=== PATIENT | male | born 1950 | race Caucasian/White ===

== ENCOUNTER 2017-05-29 06:20 | Outpatient (CLI) | payer MEDICARE | END 2017-05-29 06:21 | disposition critical access hospital (66) | LOC: EMS 06:20 | PROVIDERS: ATTEND Surgery | DX: R06.02 Shortness of breath (principal) | CPT/HCPCS: A0425; A0427 ==

== ENCOUNTER 2017-05-29 06:36 | Inpatient (IN) | payer MEDICARE, OTHER ==
[2017-05-29] MEDS ORDERED: SODIUM CHLORIDE 0.9% 1,000 ML IV ONE (06:43)
[2017-05-29] MEDS ORDERED: ACETAMINOPHEN 325 MG TABLET PO STA (06:44)
[2017-05-29 07:19] LABS: BASOPHILS % (AUTO) 0.3 %; EOSINOPHILS # (AUTO) 0.1 10^3/uL (0.0-0.7); EOSINOPHILS % (AUTO) 0.9 %; HGB - HEMOGLOBIN 12.6 g/dL (14.0-18.0); LYMPHOCYTES # (AUTO) 0.3 10^3/uL (1.5-3.5); LYMPHOCYTES % (AUTO) 2.5 %; MEAN CORPUSCULAR VOLUME 90.8 fL (80.0-94.0); MEAN PLATELET VOLUME 7.3 fL (7.4-11.4); MONOCYTES # (AUTO) 1.2 10^3/uL (0.0-1.0); MONOCYTES % (AUTO) 10.3 %; NEUTROPHILS # (AUTO) 10.2 10^3/uL (1.5-6.6); PLT - PLATELET COUNT 310 10^3/uL (130-450); RED BLOOD COUNT 4.19 10^6/uL (4.70-6.10); RED CELL DISTRIBUTION WIDTH 13.9 % (12.0-15.0); WHITE BLOOD COUNT 11.8 x10^3/uL (4.8-10.8)
[2017-05-29 07:31] LABS: ALBUMIN 4.1 g/dL (3.2-5.5); ALBUMIN/GLOBULIN RATIO 1.5 (1.0-2.2); BILIRUBIN,TOTAL 0.8 mg/dL (0.2-1.0); CALCIUM 8.9 mg/dL (8.5-10.3); CREATININE 0.7 mg/dL (0.6-1.2); TOTAL PROTEIN 6.9 g/dL (6.7-8.2)
--- NOTE | 2017-05-29 07:42 | XRAY Report ---
EXAM: CHEST RADIOGRAPHY 2 VIEWS EXAM DATE: 05/29/2017. CLINICAL HISTORY: Fever. Shortness of breath. COMPARISON: AP portable chest done 03/31/2016. TECHNIQUE: PA and lateral views. FINDINGS: Lungs/Pleura: Emphysema is unchanged. Mild increased interstitial opacity compared with the prior exa mination. Small nodular opacities in the right mid lung, not present before. Small right pleural effu treasure, not present previously. Pleural scarring in the left costophrenic angle is unchanged. No pneumo thorax. Mediastinum: Normal cardiac and mediastinal contours. Bones: Minimal disk degenerative changes of the spine. IMPRESSION: Emphysema. Mild increased interstitial opacity compared with the prior examination; this could be from pulmonary edema or interstitial pneumonia. Atypical presentation of congestive heart failure in a patient with severe emphysema is a possibility. New nodular opacities in the right mid lung could be inflammatory or neoplastic. Radiographic follow- up is needed. New small right pleural effusion. [facility] Referring Provider Line: [phone] SITE ID: [id number]
[2017-05-29 08:02] LABS: INR 1.1 (0.8-1.2); PT - PROTHROMBIN TIME 12.8 secs (9.9-12.6)
--- NOTE | 2017-05-29 08:03 | ED Physician Documentation ---
PD HPI DYSPNEA - Stated complaint Stated Complaint: SOA - Chief complaint Chief Complaint: Resp - History obtained from History obtained from: Patient, EMS - History of Present Illness Timing - onset: How many weeks ago (1) Timing - onset during: Rest Timing - duration: Weeks (1) Timing - details: Gradual onset, Still present Inciting event(s): URI Improved by: Inhaler/neb Worsened by: Exertion, Coughing Associated symptoms: Fever, Cough, Wheezing Similar symptoms before: Diagnosis (COPD) Recently seen: Not recently seen - Additional information Additional information: 66-year-old male with a history of COPD and neurofibromatosis has developed a worsening cough over the past week and he has developed fever as well. Review of Systems Constitutional: reports: Fever Eyes: denies: Decreased vision Ears: denies: Ear pain Nose: reports: Rhinorrhea / runny nose, Congestion Throat: denies: Sore throat Cardiac: denies: Chest pain / pressure, Palpitations Respiratory: reports: Dyspnea, Cough, Wheezing GI: reports: Constipation. denies: Abdominal Pain, Nausea, Vomiting, Diarrhea : denies: Dysuria, Frequency Skin: denies: Rash Musculoskeletal: reports: Extremity pain. denies: Neck pain, Back pain, Extremity swelling Neurologic: denies: Generalized weakness, Focal weakness, Numbness PD PAST MEDICAL HISTORY - Past Medical History Cardiovascular: None Respiratory: COPD Neuro: CVA Endocrine/Autoimmune: None GI: None : None HEENT: None Psych: None Musculoskeletal: None Derm: Other - Past Surgical History Past Surgical History: Yes General: Cholecystectomy Ortho: Other HEENT: Tonsil/Adenoidectomy Derm: Debridement - Present Medications Home Medications: Ambulatory Orders Medication Instructions Recorded Confirmed Phenytoin Sodium Extended 200 mg PO BID 12/29/15 05/29/17 Albuterol Sulf [Ventolin Hfa 2 puffs INH Q4H PRN 05/29/17 05/29/17 Inhaler] Carbamazepine [Carbamazepine ER] 200 mg PO BID 05/29/17 05/29/17 Rivaroxaban [Xarelto] 20 mg PO QDDINNER 05/29/17 05/29/17 - Allergies Allergies/Adverse Reactions: Allergies Allergy/AdvReac Type Severity Reaction Status Date / Time Egg Derived AdvReac Intermediate Respiratory Verified 05/29/17 06:41 egg AdvReac Mild Nausea Verified 05/29/17 06:41 lactose AdvReac Mild Cramps Verified 05/29/17 06:41 - Social History Does the pt smoke?: No Smoking Status: Never smoker Does the pt drink ETOH?: No Does the pt have substance abuse?: No - Immunizations Immunizations are current?: Yes - POLST Patient has POLST: No PD ED PE NORMAL - Vitals Vital signs reviewed: Yes (Febrile and tachycardic) - General General: Alert and oriented X 3, No acute distress, Well developed/nourished - HEENT HEENT: Atraumatic, PERRL, EOMI, Other (Mucous membranes are dry and the right TM is mildly erythematous left is blocked with cerumen and attempts at removing this causes severe pain to the patient.) - Neck Neck: Supple, no meningeal sign, No bony TTP - Cardiac Cardiac: No murmur, Other (Tachycardia to 100) - Respiratory Respiratory: No respiratory distress, Other (Markedly diminished breath sounds in the bases) - Abdomen Abdomen: Soft, Non tender - Back Back: No CVA TTP, No spinal TTP - Derm Derm: Normal color, Warm and dry, Other (There are the typical skin findings of neurofibromatosis) - Extremities Extremities: No deformity, No edema - Neuro Neuro: No motor deficit, No sensory deficit Eye Opening: Spontaneous Motor: Obeys Commands Verbal: Oriented GCS Score: 15 - Psych Psych: Normal mood, Normal affect Results - Vitals Vitals: Vital Signs - 24 hr 05/29/17 06:39 Temperature 39.6 C H Heart Rate 107 H Respiratory 20 Rate Blood Pressure 102/67 O2 Saturation 94 Oxygen O2 Source [With Activity] Nasal cannula O2 Source Room air - Labs Labs: Laboratory Tests 05/29/17 05/29/17 05/29/17 06:47 07:05 07:05 WBC 11.8 H RBC 4.19 L Hgb 12.6 L Hct 38.0 L MCV 90.8 MCH 30.0 MCHC 33.0 RDW 13.9 Plt Count 310 MPV 7.3 L Neut # 10.2 H Lymph # 0.3 L Green # 1.2 H Eos # 0.1 Baso # 0.0 Absolute Nucleated RBC 0.00 Nucleated RBC % 0.0 PT INR Sodium 138 Potassium 4.2 Chloride 100 L Carbon Dioxide 25 Anion Gap 13.0 BUN 10 Creatinine 0.7 Estimated GFR (MDRD) 112 Glucose 107 H Lactic Acid Calcium 8.9 Total Bilirubin 0.8 AST 30 ALT 21 Alkaline Phosphatase 93 Total Protein 6.9 Albumin 4.1 Globulin 2.8 Albumin/Globulin Ratio 1.5 Lipase 18 L Influenza A (Rapid) Negative Influenza B (Rapid) Negative Influenza Types A,B Ag - 05/29/17 05/29/17 07:05 07:05 WBC RBC Hgb Hct MCV MCH MCHC RDW Plt Count MPV Neut # Lymph # Green # Eos # Baso # Absolute Nucleated RBC Nucleated RBC % PT 12.8 H INR 1.1 Sodium Potassium Chloride Carbon Dioxide Anion Gap BUN Creatinine Estimated GFR (MDRD) Glucose Lactic Acid 1.7 Calcium Total Bilirubin AST ALT Alkaline Phosphatase Total Protein Albumin Globulin Albumin/Globulin Ratio Lipase Influenza A (Rapid) Influenza B (Rapid) Influenza Types A,B Ag - Rads (name of study) chest Radiology: Prelim report reviewed (Impression: Emphysema. Mild increased interstitial opacity compared with the prior examination; this could be from pulmonary edema or interstitial pneumonia. Atypical presentation of congestive heart failure in a patient with severe emphysema is a possibility. New nodular opacities in the right midlung could be inflammatory or neoplastic. Radiographic follow-up as needed. New small right pleural effusion.), EMP read indepedently, See rad report Procedures - IVC sono (time) 0800 Bedside IVC sono: IVC measures (cm) (0.97), IVC collapsed c insp (cm) (complete) , Dehydration (est 1 liter deficiet) PD MEDICAL DECISION MAKING - ED course Complexity details: reviewed old records, reviewed results, re-evaluated patient , considered differential, d/w patient ED course: 66-year-old male with neurofibromatosis and COPD has developed acute pneumonia. He will be admitted to the hospital under the care of Dr. Syd Gonzalez. Departure - Departure Disposition: 65 [facility] DC/Xfer Clinical Impression: Pneumonia COPD (chronic obstructive pulmonary disease) Qualifiers: COPD type: COPD with acute lower respiratory infection Qualified Code(s): J44.0 - Chronic obstructive pulmonary disease with acute lower respiratory infection Condition: Fair Discharge Date/Time: 05/29/17 09:40
[2017-05-29] MEDS ORDERED: cefTRIAXone 1 GM in SODIUM CHLORIDE 0.9% MINIBAG 100 ML IV STA (08:06)
[2017-05-29] MEDS ORDERED: IPRATROPIUM/ALBUTEROL 3 ML NEB INH STA (08:06)
[2017-05-29] MEDS ORDERED: carBAMazepine ER 200 MG TABLET PO STA (08:06)
[2017-05-29] MEDS ORDERED: PHENYTOIN ER 100 MG CAPSULE PO STA (08:07)
[2017-05-29] MEDS ORDERED: HYDROcod/ACETAM 5/325 MG TABLET PO PRN (08:20)
[2017-05-29] MEDS ORDERED: PROCHLORPERAZINE 10 MG/2 ML VIAL IVP PRN (08:20)
[2017-05-29] MEDS ORDERED: ONDANSETRON 4 MG/2 ML VIAL IVP PRN (08:20)
[2017-05-29] MEDS ORDERED: ACETAMINOPHEN 325 MG TABLET PO PRN (08:20)
[2017-05-29] MEDS ORDERED: HYDROcod/ACETAM 10 MG/325 MG TABLET PO PRN (08:20)
[2017-05-29] MEDS ORDERED: PROMETHAZINE 25 MG/1 ML VIAL IM PRN (08:20)
[2017-05-29] MEDS: SODIUM CHLORIDE FLUSH 0.9% 10 ML SYRINGE IVP PRN (10:28)
[2017-05-29] MEDS: MORPHINE 2 MG/ML CARPUJECT IVP PRN ×2 (10:28→20:22)
[2017-05-29] MEDS: BUDESONIDE 0.5 MG/2 ML NEB INH SCH ×2 (10:30→21:15)
[2017-05-29] MEDS: FORMOTEROL FUMARATE NEB 20 MCG/2 ML INH SCH ×2 (10:30→21:15)
[2017-05-29] MEDS ORDERED: SODIUM CHLORIDE 0.9% 100ML 100 ML IV ONE (10:57)
[2017-05-29] MEDS: PHENYTOIN ER 100 MG CAPSULE PO SCH ×2 (11:00→20:22)
[2017-05-29] MEDS: methylPREDNISolone SUCCINATE 40 MG/ML VIAL IVP SCH ×3 (11:00→21:26)
[2017-05-29] MEDS: POLYETHYLENE GLYCOL 3350 17 GM PACKET PO SCH (11:01)
[2017-05-29] MEDS: FAMOTIDINE 20 MG TABLET PO SCH (11:01)
[2017-05-29] MEDS: LORazepam 0.5 MG TABLET PO PRN ×2 (11:01→20:22)
[2017-05-29] MEDS: carBAMazepine ER 200 MG TABLET PO SCH ×2 (11:01→20:21)
[2017-05-29] MEDS: levoFLOXacin 750 MG/150 ML 750 MG/150 ML BAG IV SCH (11:13)
[2017-05-29 11:24] LABS: BILIRUBIN,URINE NEGATIVE (NEGATIVE); CLARITY,URINE CLEAR (CLEAR); GLUCOSE, URINE (UA) NEGATIVE (NEGATIVE); KETONES,URINE (UA) TRACE mg/dL (NEGATIVE); LEUKOCYTE ESTERASE, URINE NEGATIVE (NEGATIVE); NITRITE,URINE NEGATIVE (NEGATIVE); OCCULT BLOOD,URINE NEGATIVE (NEGATIVE); PH,URINE 6.5 PH (5.0-7.5); PROTEIN,URINE NEGATIVE (NEGATIVE); UROBILINOGEN,URINE 0.2 (NORMAL) E.U./dL (NORMAL)
[2017-05-29] MEDS ORDERED: SODIUM CHLORIDE 0.9% 1,000 ML IV SCH (13:00)
--- NOTE | 2017-05-29 13:07 | HISTORY & PHYSICAL EXAMINATION ---
Chief Complaint - Chief Complaint Chief Complaint: Shortness of air History of Present Illness - Admitted From Admitted From:: Emergency department - History Obtained From Records Reviewed: Yes History obtained from: Patient Exam Limitations: None - History of Present Illness HPI Comment/Other: Patient is a 66-year-old gentleman with a past medical history significant for severe COPD with last PFTs in 2013 showing an FEV1 of 25 on 3 L of home oxygen, congenital neurofibromatosis, seizure disorder secondary to brain aneurysm in 1983, tobacco abuse, history of recurrent pulmonary emboli and DVT who presented to the emergency department with a chief complaint of shortness of air. The patient states that he was in his normal state of health until just 2 days ago when he states he began having difficulty breathing. He states initially the shortness of air was with exertion and then it became much worse as he became short of air just with standing up and eventually at rest. The patient states that he has a chronic cough which is also been worsening for the last 2 days. The patient admits to significant wheezing and chest tightness over the last several days. The patient states that he did try to take his inhalers at home but was not having any significant improvement to his symptoms. The patient denies any fevers or chills. He states that he did stop smoking once he became short of air but does continue to smoke 6-7 cigarettes a day. The patient denies being around anyone with the flu or any other sick contacts. Patient denies any headache, blurred vision, runny nose, sore throat, nasal congestion, difficulty swallowing, neck pain, neck stiffness, orthopnea, PND, increased lower extremity swelling, abdominal pain, nausea, vomiting, diarrhea, constipation, urinary urgency, urinary frequency, dysuria, joint pain, joint swelling, muscle aches, back pain, changes in appetite, recent unintentional weight loss, weight gain, rash or any focal neurologic deficits. On presentation to the emergency department the patient was febrile with a temperature of 39.6, tachycardic with heart rate of 107, tachypneic with respiratory rate up to 28, and borderline hypotensive with blood pressure of 102 /67. The patient was saturating well on just 2 L of oxygen. The patient's lab work did reveal a leukocytosis of 11.8, with normal electrolytes and normal lactic acid. The patient's influenza swab was negative. The patient's chest x- ray revealed emphysema with mildly increased interstitial opacity compared with prior examination, new nodular opacity in the right midlung and new small right pleural effusion. Given these findings and the fact the patient continued to have wheezing and shortness of air in the emergency department the patient was admitted to the hospital for community-acquired pneumonia and COPD exacerbation. History - Past Medical History Cardiovascular: reports: None Respiratory: reports: COPD (FEV1 of 25, On 3 L of oxygen) Neuro: reports: Seizure disorder, Other (Neurofibromatosis) Endocrine/Autoimmune: reports: None GI: reports: None : reports: None HEENT: reports: None Psych: reports: None Musculoskeletal: reports: None Derm: reports: Other MRSA Hx?: No Other Past Medical History: History of pulmonary embolism and DVT recurrent, diaz to face - Past Surgical History General: reports: Cholecystectomy Ortho: reports: Other HEENT: reports: Tonsil/Adenoidectomy Derm: reports: Debridement - Family & Social History Family History Comment/Other: Adopted Living arrangement: [facility]iary Living Situation: Alone Social History Notes: The patient lives in a senior care with shared rooms. He does not have any family on [facility]. He does not have any children and has never been . He continues to smoke 6-7 cigarettes daily. He drinks alcohol only on Nelly. He denies any illicit drug use. - POLST Patient has POLST: No POLST Status: Full Code Meds/Allgy - Home Medications Home Medications: Ambulatory Orders Medication Instructions Recorded Confirmed Phenytoin Sodium Extended 200 mg PO BID 12/29/15 05/29/17 Albuterol Sulf [Ventolin Hfa 2 puffs INH Q4H PRN 05/29/17 05/29/17 Inhaler] Carbamazepine [Carbamazepine ER] 200 mg PO BID 05/29/17 05/29/17 Rivaroxaban [Xarelto] 20 mg PO QDDINNER 05/29/17 05/29/17 - Allergies Allergies/Adverse Reactions: Allergies Allergy/AdvReac Type Severity Reaction Status Date / Time Egg Derived AdvReac Intermediate Respiratory Verified 05/29/17 06:41 egg AdvReac Mild Nausea Verified 05/29/17 06:41 lactose AdvReac Mild Cramps Verified 05/29/17 06:41 Review of Systems - Other Findings Other Findings: A comprehensive review of systems was performed the pertinent positives and negatives are stated above in the HPI and the remainder of the review of systems is negative. Exam - Vital Signs Reviewed Vital Signs: Yes Vital Signs: Vital Signs x48h Temp Pulse Pulse Resp BP BP BP 05/29/17 10:34 110 H 106/61 05/29/17 10:30 115 H 20 05/29/17 10:22 28 H 117/66 05/29/17 10:00 37.0 C 101 H 18 93/64 05/29/17 09:30 72 18 102/74 05/29/17 08:32 105 H 18 89/58 L 05/29/17 08:23 99 22 Pulse Ox 05/29/17 10:34 100 05/29/17 10:30 05/29/17 10:22 05/29/17 10:00 99 05/29/17 09:30 97 05/29/17 08:32 97 05/29/17 08:23 - Physical Exam General Appearance: positive: Moderate distress (Tachypneic, shaky and in respiratory distress), Other (, Fibromas over entire body, tremor) Eyes Bilateral: positive: Normal inspection, PERRL, EOMI, No lid inflammation, Conjunctivae nml, No scleral icterus ENT: positive: ENT inspection nml, Pharynx nml, Dry mucous membranes. negative : Purulent nasal drainage, Pharyngeal erythema, Oral lesions Neck: positive: Nml inspection, Thyroid nml, No JVD, Trachea midline. negative : Thyromegaly, Lymphadenopathy (R), Lymphadenopathy (L), Carotid bruit, Tracheal deviation Respiratory: positive: Chest non-tender, Wheezes (Scattered, expiratory), Rhonchi (Right base) Cardiovascular: positive: No murmur, No gallop, Tachycardia Peripheral Pulses: positive: 2+ Abdomen: positive: Non-tender, No organomegaly, Nml bowel sounds, No distention. negative: Guarding, Rebound, Hepatomegaly Back: positive: Nml inspection. negative: CVA tenderness (R), CVA tenderness (L ) Skin: positive: Dry, Other (Multiple fibromas throughout body). negative: Cyanosis, Diaphoresis, Pallor Neurologic/Psychiatric: positive: Oriented x3, CN's nml (2-12), Motor nml, Sensation nml, Mood/affect nml Conclusion/Plan - Problem List (1) CAP (community acquired pneumonia) Conclusion/Plan: Patient presented with shortness of breath, cough, febrile on presentation with tachycardia, tachypnic and in respiratory distress. Patient had wheezing and ronchi on exam. Elevated WBC and CXR showing interstitial and right middle lobe pneumonia. Plan: IV levaquin Supplemental O2 Consider CT chest if not improving Qualifiers: Laterality: right Lung location: middle lobe of lung Qualified Code(s): J18.1 - Lobar pneumonia, unspecified organism (2) COPD exacerbation Conclusion/Plan: Presented with pneumonia and also has wheezing, with shortness of air and history of severe COPD Appears to have COPD exacerbation Plan: Duonebs ATC x24 hours and PRN Supplemental O2 IV abx for pneumonia Solumedrol IV ICS and LABA BID (3) History of pulmonary embolism Conclusion/Plan: Continue xarelto Place on SCDs for DVT prophylaxis while hospitalized (4) Seizure disorder Conclusion/Plan: Continue home dose of phenytoin and carbamezapine Stable - Lab Results Lab results reviewed: Yes Fish Bones: 05/29/17 07:05 05/29/17 07:05 Other Lab Results: Laboratory Results WBC 11.8 x10^3/uL (4.8-10.8) H 05/29/17 07:05 RBC 4.19 10^6/uL (4.70-6.10) L 05/29/17 07:05 Hgb 12.6 g/dL (14.0-18.0) L 05/29/17 07:05 Hct 38.0 % (42.0-52.0) L 05/29/17 07:05 MCV 90.8 fL (80.0-94.0) 05/29/17 07:05 MCH 30.0 pg (27.0-31.0) 05/29/17 07:05 MCHC 33.0 g/dL (32.0-36.0) 05/29/17 07:05 RDW 13.9 % (12.0-15.0) 05/29/17 07:05 Plt Count 310 10^3/uL (130-450) 05/29/17 07:05 MPV 7.3 fL (7.4-11.4) L 05/29/17 07:05 Neut # 10.2 10^3/uL (1.5-6.6) H 05/29/17 07:05 Lymph # 0.3 10^3/uL (1.5-3.5) L 05/29/17 07:05 Rains # 1.2 10^3/uL (0.0-1.0) H 05/29/17 07:05 Eos # 0.1 10^3/uL (0.0-0.7) 05/29/17 07:05 Baso # 0.0 10^3/uL (0.0-0.1) 05/29/17 07:05 Absolute Nucleated RBC 0.00 x10^3/uL 05/29/17 07:05 Nucleated RBC % 0.0 /100WBC 05/29/17 07:05 PT 12.8 secs (9.9-12.6) H 05/29/17 07:05 INR 1.1 (0.8-1.2) 05/29/17 07:05 Sodium 138 mmol/L (135-145) 05/29/17 07:05 Potassium 4.2 mmol/L (3.5-5.0) 05/29/17 07:05 Chloride 100 mmol/L (101-111) L 05/29/17 07:05 Carbon Dioxide 25 mmol/L (21-32) 05/29/17 07:05 Anion Gap 13.0 (6-13) 05/29/17 07:05 BUN 10 mg/dL (6-20) 05/29/17 07:05 Creatinine 0.7 mg/dL (0.6-1.2) 05/29/17 07:05 Estimated GFR (MDRD) 112 (>89) 05/29/17 07:05 Glucose 107 mg/dL (70-100) H 05/29/17 07:05 Lactic Acid 1.7 mmol/L (0.5-2.2) 05/29/17 07:05 Calcium 8.9 mg/dL (8.5-10.3) 05/29/17 07:05 Total Bilirubin 0.8 mg/dL (0.2-1.0) 05/29/17 07:05 AST 30 IU/L (10-42) 05/29/17 07:05 ALT 21 IU/L (10-60) 05/29/17 07:05 Alkaline Phosphatase 93 IU/L (42-121) 05/29/17 07:05 Total Protein 6.9 g/dL (6.7-8.2) 05/29/17 07:05 Albumin 4.1 g/dL (3.2-5.5) 05/29/17 07:05 Globulin 2.8 g/dL (2.1-4.2) 05/29/17 07:05 Albumin/Globulin Ratio 1.5 (1.0-2.2) 05/29/17 07:05 Lipase 18 U/L (22-51) L 05/29/17 07:05 Urine Color DARK YELLOW 05/29/17 11:15 Urine Clarity CLEAR (CLEAR) 05/29/17 11:15 Urine pH 6.5 PH (5.0-7.5) 05/29/17 11:15 Ur Specific Dexter 1.020 (1.002-1.030) 05/29/17 11:15 Urine Protein NEGATIVE mg/dL (NEGATIVE) 05/29/17 11:15 Urine Glucose (UA) NEGATIVE mg/dL (NEGATIVE) 05/29/17 11:15 Urine Ketones TRACE mg/dL (NEGATIVE) 05/29/17 11:15 Urine Occult Blood NEGATIVE (NEGATIVE) 05/29/17 11:15 Urine Nitrite NEGATIVE (NEGATIVE) 05/29/17 11:15 Urine Bilirubin NEGATIVE (NEGATIVE) 05/29/17 11:15 Urine Urobilinogen 0.2 (NORMAL) E.U./dL (NORMAL) 05/29/17 11:15 Ur Leukocyte Esterase NEGATIVE (NEGATIVE) 05/29/17 11:15 Ur Microscopic Review NOT INDICATED 05/29/17 11:15 Urine Culture Comments NOT INDICATED 05/29/17 11:15 Influenza A (Rapid) Negative (Negative) 05/29/17 06:47 Influenza B (Rapid) Negative (Negative) 05/29/17 06:47 Influenza Types A,B Ag - 05/29/17 06:47 - Diagnostic Imaging Results Diagnostic Imaging Results: positive: Final report reviewed Diagnostic Imaging Results Comments: EXAM: CHEST RADIOGRAPHY 2 VIEWS EXAM DATE: 05/29/2017. CLINICAL HISTORY: Fever. Shortness of breath. COMPARISON: AP portable chest done 03/31/2016. TECHNIQUE: PA and lateral views. FINDINGS: Lungs/Pleura: Emphysema is unchanged. Mild increased interstitial opacity compared with the prior examination. Small nodular opacities in the right mid lung, not present before. Small right pleural effusion, not present previously. Pleural scarring in the left costophrenic angle is unchanged. No pneumothorax. Mediastinum: Normal cardiac and mediastinal contours. Bones: Minimal disk degenerative changes of the spine. IMPRESSION: Emphysema. Mild increased interstitial opacity compared with the prior examination; this could be from pulmonary edema or interstitial pneumonia. Atypical presentation of congestive heart failure in a patient with severe emphysema is a possibility. New nodular opacities in the right mid lung could be inflammatory or neoplastic. Radiographic follow-up is needed. New small right pleural effusion. Core Measures - Anticipated LOS I expect patient to be DC'd or transferred within 96 hours.: Yes - DVT/VTE - Prophylaxis VTE/DVT Device ordered at admit?: Yes
[2017-05-29] MEDS: SODIUM CHLORIDE FLUSH 0.9% 10 ML SYRINGE IVP SCH ×2 (13:44→21:26)
[2017-05-29] MEDS: IPRATROPIUM/ALBUTEROL 3 ML NEB INH SCH ×3 (14:00→21:17)
[2017-05-29] MEDS: SACCHAROMYCES BOULARDII 250 MG CAPSULE PO SCH (16:11)
[2017-05-29] MEDS: RIVAROXABAN 10 MG TABLET PO SCH (16:11)
[2017-05-29] MEDS: SODIUM CHLORIDE 0.9% 1,000 ML IV SCH (16:14)
[2017-05-30] MEDS: SODIUM CHLORIDE 0.9% 1,000 ML IV SCH ×3 (00:17→21:30)
[2017-05-30] MEDS ORDERED: BENZOCAINE/MENTHOL LOZENGE MM PRN (03:36)
[2017-05-30] MEDS: FORMOTEROL FUMARATE NEB 20 MCG/2 ML INH SCH ×2 (03:55→20:00)
[2017-05-30] MEDS: BUDESONIDE 0.5 MG/2 ML NEB INH SCH ×2 (03:55→20:00)
[2017-05-30] MEDS: IPRATROPIUM/ALBUTEROL 3 ML NEB INH SCH (03:56)
[2017-05-30] MEDS: SODIUM CHLORIDE FLUSH 0.9% 10 ML SYRINGE IVP SCH ×3 (05:20→23:01)
[2017-05-30] MEDS: methylPREDNISolone SUCCINATE 40 MG/ML VIAL IVP SCH ×3 (05:20→21:30)
[2017-05-30 06:38] LABS: BASOPHILS % (AUTO) 0.3 %; EOSINOPHILS % (AUTO) 0.1 %; HGB - HEMOGLOBIN 10.5 g/dL (14.0-18.0); LYMPHOCYTES # (AUTO) 0.5 10^3/uL (1.5-3.5); LYMPHOCYTES % (AUTO) 5.4 %; MEAN CORPUSCULAR HEMOGLOBIN 29.9 pg (27.0-31.0); MEAN CORPUSCULAR HGB CONC 32.8 g/dL (32.0-36.0); MEAN CORPUSCULAR VOLUME 91.2 fL (80.0-94.0); MEAN PLATELET VOLUME 7.3 fL (7.4-11.4); MONOCYTES # (AUTO) 1.4 10^3/uL (0.0-1.0); MONOCYTES % (AUTO) 15.8 %; NEUTROPHILS # (AUTO) 7.1 10^3/uL (1.5-6.6); NEUTROPHILS % (AUTO) 78.4 %; PLT - PLATELET COUNT 265 10^3/uL (130-450); RED BLOOD COUNT 3.53 10^6/uL (4.70-6.10); RED CELL DISTRIBUTION WIDTH 14.1 % (12.0-15.0)
[2017-05-30 06:46] LABS: INR 1.2 (0.8-1.2); PT - PROTHROMBIN TIME 13.7 secs (9.9-12.6)
[2017-05-30 06:48] LABS: CALCIUM 7.9 mg/dL (8.5-10.3); CREATININE 0.7 mg/dL (0.6-1.2)
[2017-05-30] MEDS: FAMOTIDINE 20 MG TABLET PO SCH (09:26)
[2017-05-30] MEDS: PHENYTOIN ER 100 MG CAPSULE PO SCH ×2 (09:26→21:30)
[2017-05-30] MEDS: SACCHAROMYCES BOULARDII 250 MG CAPSULE PO SCH ×2 (09:26→18:15)
[2017-05-30] MEDS: LORazepam 0.5 MG TABLET PO PRN (09:27)
[2017-05-30] MEDS: POLYETHYLENE GLYCOL 3350 17 GM PACKET PO SCH (09:27)
[2017-05-30] MEDS: carBAMazepine ER 200 MG TABLET PO SCH ×2 (09:27→21:30)
[2017-05-30] MEDS: levoFLOXacin 750 MG/150 ML 750 MG/150 ML BAG IV SCH (11:20)
[2017-05-30] MEDS: IPRATROPIUM/ALBUTEROL 3 ML NEB INH PRN ×3 (13:29→20:00)
[2017-05-30] MEDS ORDERED: guaiFENesin/CODEINE 5 ML UDC PO PRN (17:33)
--- NOTE | 2017-05-30 17:38 | PROVIDER PROGRESS NOTE ---
Assessment/Plan - Problem List (1) CAP (community acquired pneumonia) Qualifiers: Laterality: right Lung location: middle lobe of lung Qualified Code(s): J18.1 - Lobar pneumonia, unspecified organism Assessment/Plan: Patient presented with shortness of breath, cough, febrile on presentation with tachycardia, tachypnic and in respiratory distress. Patient had wheezing and ronchi on exam. Elevated WBC and CXR showing interstitial and right middle lobe pneumonia. IV levaquin day 2 Supplemental O2 on 3L Not improving very much still short of breath and coughing Coughing so much that he is vomiting Qualifiers: Laterality: right Lung location: middle lobe of lung Qualified Code(s): J18.1 - Lobar pneumonia, unspecified organism (2) COPD exacerbation Conclusion/Plan: Presented with pneumonia and also has wheezing, with shortness of air and history of severe COPD Appears to have COPD exacerbation Continue Duonebs Supplemental O2 IV abx for pneumonia Solumedrol IV ICS and LABA BID Not much improvement (3) History of pulmonary embolism Conclusion/Plan: Continue xarelto Place on SCDs for DVT prophylaxis while hospitalized (4) Seizure disorder Conclusion/Plan: Continue home dose of phenytoin and carbamezapine Stable - Current Meds Current Meds: Current Medications Generic Name Dose Route Start Last Admin Trade Name Freq PRN Reason Stop Dose Admin Albuterol/Ipratropium 3 ml 05/29/17 08:20 05/30/17 15:08 Duoneb INH 3 ml RTQID PRN Administration Wheezing Budesonide 0.5 mg 05/29/17 09:00 05/30/17 03:55 Pulmicort INH 0.5 mg RTBID KIMI Administration Carbamazepine 200 mg 05/29/17 09:00 05/30/17 09:27 Tegretol Xr PO 200 mg BID KIMI Administration Famotidine 20 mg 05/29/17 09:00 05/30/17 09:26 Pepcid PO 20 mg DAILY KIMI Administration Formoterol Fumarate 20 mcg 05/29/17 09:00 05/30/17 03:55 Perforomist INH 20 mcg RTBID KIMI Administration Levofloxacin 750 mg in 150 mls @ 100 mls/hr 05/29/17 11:00 05/30/17 12:50 Levaquin 750 Mg/150 Ml IV Infused Q24H KIMI Infusion Sodium Chloride 1,000 mls @ 100 mls/hr 05/29/17 15:08 05/30/17 12:50 Normal Saline 0.9% IV 100 mls/hr .Q10H KIMI Infusion Lorazepam 0.5 mg 05/29/17 10:39 05/30/17 09:27 Ativan PO 0.5 mg Q6H PRN Administration Anxiety Methylprednisolone 40 mg 05/29/17 09:00 05/30/17 13:30 Solu-Medrol (40mg Vial) IVP 40 mg TID KIMI Administration Morphine Sulfate 2 mg 05/29/17 08:20 05/29/17 20:22 Morphine (Carpuject) IVP 2 mg Q2HR PRN Administration Pain 8 to 10 Ondansetron HCl 4 mg 05/29/17 08:20 05/30/17 09:24 Zofran Inj IVP 4 mg Q6HR PRN Administration Nausea / Vomiting Phenytoin Sodium 200 mg 05/29/17 09:00 05/30/17 09:26 Dilantin PO 200 mg BID KIMI Administration Polyethylene Glycol 17 gm 05/29/17 09:00 05/30/17 09:27 Miralax PO 17 gm DAILY KIMI Administration Rivaroxaban 20 mg 05/29/17 17:00 05/29/17 16:11 Xarelto PO 20 mg 1700 KIMI Administration Saccharomyces Boulardii 250 mg 05/29/17 17:00 05/30/17 09:26 Florastor PO 250 mg BIDWM KIMI Administration Sodium Chloride 10 ml 05/29/17 08:20 05/29/17 10:28 Normal Saline Flush 0.9% IVP 20 ml PRN PRN Administration NEEDED PER PROVIDER ORDERS Sodium Chloride 10 ml 05/29/17 14:00 05/30/17 10:46 Normal Saline Flush 0.9% IVP Not Given Q8HR KIMI Throat Lozenges 1 lozenge 05/30/17 03:36 05/30/17 04:35 Cepacol MM 1 lozenge Q2HR PRN Administration Throat pain - Lab Result Lab results reviewed: Yes Fish Bone Diagrams: 05/30/17 06:16 05/30/17 06:16 - Diagnostic Imaging Results Diagnostic Imaging Results: Final report reviewed - Additional Planning Condition/Complexity: Guarded My Orders: My Active Orders 05/30/17 03:36 Benzocaine/Menthol [Cepacol] 1 lozenge MM Q2HR PRN 05/30/17 17:33 LORazepam INJ [Ativan Inj (Vial)] 0.5 mg IVP Q2H PRN guaiFENesin/CODEINE [Robitussin AC] 5 ml PO Q6HR PRN 05/31/17 05:00 PT WITH INR [COAG] DAILYLAB 06/01/17 05:00 PT WITH INR [COAG] DAILYLAB 06/02/17 05:00 PT WITH INR [COAG] DAILYLAB 06/03/17 05:00 PT WITH INR [COAG] DAILYLAB Plan Discussed with:: Patient Time Spent: 31-60 minutes Subjective - Subjective Patient Reports: Cough (Worsening cough, coughing so much that he has been vomiting), Nausea, Shortness of Breath (With minimal exertion) Nursing Reports: Cough, Vomitting Objective Vital Signs: Vital Signs - 24 hr 05/29/17 05/29/17 05/29/17 18:15 21:17 21:55 Temperature 37.1 C Heart Rate 109 H 102 H Heart Rate [ 110 H Brachial] Respiratory 20 14 24 Rate Blood Pressure [Left Brachial artery] Blood Pressure 100/48 L [Right Brachial artery] O2 Saturation 98 05/29/17 05/30/17 05/30/17 22:55 00:22 03:56 Temperature 37.3 C Heart Rate 95 Heart Rate [ 102 H 108 H Brachial] Respiratory 22 16 18 Rate Blood Pressure 116/67 [Left Brachial artery] Blood Pressure 95/52 L [Right Brachial artery] O2 Saturation 91 L 98 05/30/17 05/30/17 05/30/17 05:22 08:29 11:11 Temperature 36.6 C 37.1 C Heart Rate Heart Rate [ 102 H 98 Brachial] Respiratory 22 Rate Blood Pressure 100/56 L 97/55 L [Left Brachial artery] Blood Pressure [Right Brachial artery] O2 Saturation 98 96 96 05/30/17 05/30/17 15:09 15:46 Temperature 36.8 C Heart Rate 104 H Heart Rate [ 113 H Brachial] Respiratory 20 22 Rate Blood Pressure 126/63 [Left Brachial artery] Blood Pressure [Right Brachial artery] O2 Saturation 93 Oxygen O2 Source Nasal cannula I&O (Last 24 Hrs): Intake and Output Totals x24h 05/28/17 05/29/17 05/30/17 23:59 23:59 23:59 Intake Total 1712.5 3760.000 Output Total 150 125 Balance 1562.5 3635.000 General: Alert, Oriented x3, Cooperative, Mild distress (Short of breath) HEENT: Atraumatic, PERRLA, EOMI, Mucous membr. moist/pink Neck: Supple, No JVD, No thyromegaly, +2 carotid pulse wo bruit, No LAD Lymphatic: no adenopathy Neuro: Alert, Non Focal, CN 2-12 Grossly Intact, Oriented Times 3 Cardiovascular: Normal S1, Normal S2, No murmurs, Other (tachycardic) Respiratory: Chest non-tender, Wheezes (diffuse), Rhonchi (right lung), Other ( Decreased air entry) Abdomen: Normal bowel sounds, Soft, No tenderness, No hepatospenomegaly Extremities: No clubbing, No cyanosis, No edema, Normal pulses Skin: No rashes, No breakdown, No significant lesion - Results Results: Laboratory Results WBC 9.0 x10^3/uL (4.8-10.8) 05/30/17 06:16 RBC 3.53 10^6/uL (4.70-6.10) L 05/30/17 06:16 Hgb 10.5 g/dL (14.0-18.0) L 05/30/17 06:16 Hct 32.2 % (42.0-52.0) L 05/30/17 06:16 MCV 91.2 fL (80.0-94.0) 05/30/17 06:16 MCH 29.9 pg (27.0-31.0) 05/30/17 06:16 MCHC 32.8 g/dL (32.0-36.0) 05/30/17 06:16 RDW 14.1 % (12.0-15.0) 05/30/17 06:16 Plt Count 265 10^3/uL (130-450) 05/30/17 06:16 MPV 7.3 fL (7.4-11.4) L 05/30/17 06:16 Neut # 7.1 10^3/uL (1.5-6.6) H 05/30/17 06:16 Lymph # 0.5 10^3/uL (1.5-3.5) L 05/30/17 06:16 [place] # 1.4 10^3/uL (0.0-1.0) H 05/30/17 06:16 Eos # 0.0 10^3/uL (0.0-0.7) 05/30/17 06:16 Baso # 0.0 10^3/uL (0.0-0.1) 05/30/17 06:16 Absolute Nucleated RBC 0.00 x10^3/uL 05/30/17 06:16 Nucleated RBC % 0.0 /100WBC 05/30/17 06:16 PT 13.7 secs (9.9-12.6) H 05/30/17 06:16 INR 1.2 (0.8-1.2) 05/30/17 06:16 Sodium 136 mmol/L (135-145) 05/30/17 06:16 Potassium 3.7 mmol/L (3.5-5.0) 05/30/17 06:16 Chloride 105 mmol/L (101-111) 05/30/17 06:16 Carbon Dioxide 25 mmol/L (21-32) 05/30/17 06:16 Anion Gap 6.0 (6-13) 05/30/17 06:16 BUN 12 mg/dL (6-20) 05/30/17 06:16 Creatinine 0.7 mg/dL (0.6-1.2) 05/30/17 06:16 Estimated GFR (MDRD) 112 (>89) 05/30/17 06:16 Glucose 101 mg/dL (70-100) H 05/30/17 06:16 Lactic Acid 1.7 mmol/L (0.5-2.2) 05/29/17 07:05 Calcium 7.9 mg/dL (8.5-10.3) L 05/30/17 06:16 Total Bilirubin 0.8 mg/dL (0.2-1.0) 05/29/17 07:05 AST 30 IU/L (10-42) 05/29/17 07:05 ALT 21 IU/L (10-60) 05/29/17 07:05 Alkaline Phosphatase 93 IU/L (42-121) 05/29/17 07:05 Total Protein 6.9 g/dL (6.7-8.2) 05/29/17 07:05 Albumin 4.1 g/dL (3.2-5.5) 05/29/17 07:05 Globulin 2.8 g/dL (2.1-4.2) 05/29/17 07:05 Albumin/Globulin Ratio 1.5 (1.0-2.2) 05/29/17 07:05 Lipase 18 U/L (22-51) L 05/29/17 07:05 Urine Color DARK YELLOW 05/29/17 11:15 Urine Clarity CLEAR (CLEAR) 05/29/17 11:15 Urine pH 6.5 PH (5.0-7.5) 05/29/17 11:15 Ur Specific [place] 1.020 (1.002-1.030) 05/29/17 11:15 Urine Protein NEGATIVE mg/dL (NEGATIVE) 05/29/17 11:15 Urine Glucose (UA) NEGATIVE mg/dL (NEGATIVE) 05/29/17 11:15 Urine Ketones TRACE mg/dL (NEGATIVE) 05/29/17 11:15 Urine Occult Blood NEGATIVE (NEGATIVE) 05/29/17 11:15 Urine Nitrite NEGATIVE (NEGATIVE) 05/29/17 11:15 Urine Bilirubin NEGATIVE (NEGATIVE) 05/29/17 11:15 Urine Urobilinogen 0.2 (NORMAL) E.U./dL (NORMAL) 05/29/17 11:15 Ur Leukocyte Esterase NEGATIVE (NEGATIVE) 05/29/17 11:15 Ur Microscopic Review NOT INDICATED 05/29/17 11:15 Urine Culture Comments NOT INDICATED 05/29/17 11:15 Influenza A (Rapid) Negative (Negative) 05/29/17 06:47 Influenza B (Rapid) Negative (Negative) 05/29/17 06:47 Influenza Types A,B Ag - 05/29/17 06:47
[2017-05-30] MEDS: RIVAROXABAN 10 MG TABLET PO SCH (18:14)
[2017-05-30] MEDS: LORazepam 2 MG/ML VIAL IVP PRN ×3 (18:23→22:48)
[2017-05-30] MEDS ORDERED: SODIUM CHLORIDE FLUSH 0.9% 10 ML SYRINGE ONE (22:02)
[2017-05-30] MEDS ORDERED: KETAMINE 500 MG/10 ML VIAL ONE (22:05)
[2017-05-30] MEDS ORDERED: ROCURONIUM 50 MG/5 ML VIAL IVP ONE (22:05)
[2017-05-30] MEDS ORDERED: SUCCINYLCHOLINE 200 MG/10 ML VIAL ONE (22:05)
[2017-05-30] MEDS: PROPOFOL 1000 MG/100 ML 100 ML IV SCH (22:05)
[2017-05-30] MEDS ORDERED: PROPOFOL 1000 MG/100 ML 100 ML IV ONE (22:07)
[2017-05-30] MEDS ORDERED: PROPOFOL 200 MG/20 ML VIAL IVP ONE (22:07)
[2017-05-30] MEDS ORDERED: MIDAZOLAM 2 MG/2 ML VIAL ONE (22:08)
[2017-05-30] MEDS ORDERED: fentaNYL 100 MCG/2 ML VIAL IVP SCH (22:08)
[2017-05-30] MEDS ORDERED: SODIUM CHLORIDE FLUSH 0.9% 10 ML SYRINGE IVP PRN (22:19)
[2017-05-30 22:31] LABS: ALBUMIN 3.8 g/dL (3.2-5.5); ALBUMIN/GLOBULIN RATIO 1.2 (1.0-2.2); BILIRUBIN,TOTAL 0.6 mg/dL (0.2-1.0); CALCIUM 8.2 mg/dL (8.5-10.3); CREATININE 0.5 mg/dL (0.6-1.2); PHENYTOIN (DILANTIN) 25.7 ug/mL; TOTAL PROTEIN 6.9 g/dL (6.7-8.2)
--- NOTE | 2017-05-30 22:37 | XRAY Preliminary Report ---
Exam: XR CHEST 1 VIEW X-RAY IMPRESSION: 1. There is moderate pulmonary edema stable to slightly progressed. Small bilateral effusions also st able to slightly progressed. 2. Again seen is a small spiculated right mid lung field nodule, measuring 14 mm. This is difficult t o characterize in this exam. This is slightly smaller than the prior study from 12/29/2015 where ther e was a right middle lobe irregular nodular density (image 38 series 4). This is of undetermined etio logy. [facility] SITE ID: [id number]
[2017-05-30] MEDS ORDERED: LABETALOL 20 MG/4 ML SYRINGE IVP SCH (22:42)
[2017-05-30] MEDS: SODIUM CHLORIDE FLUSH 0.9% 10 ML SYRINGE IVP PRN ×2 (22:48→23:41)
--- NOTE | 2017-05-30 22:53 | XRAY Report ---
EXAM: CHEST RADIOGRAPHY EXAM DATE: 05/30/2017 10:04 PM. CLINICAL HISTORY: Intubation, CODE BLUE. COMPARISON: 05/29/2017. TECHNIQUE: 1 view. FINDINGS: Lungs/Pleura: There is pulmonary vascular congestion as well as septal thickening. There are small bi lateral effusions, left greater than right. Mediastinum: Within exam limitations, the cardiomediastinal contour is normal. Other: No antonietta displaced rib fractures demonstrated. Endotracheal tube tip projects 5.4 cm above the kendall. IMPRESSION: 1. There is moderate pulmonary edema stable to slightly progressed. Small bilateral effusions also st able to slightly progressed. 2. Again seen is a small spiculated right mid lung field nodule, measuring 14 mm. This is difficult t o characterize in this exam. This is slightly smaller than the prior study from 12/29/2015 where ther e was a right middle lobe irregular nodular density (image 38 series 4). This is of undetermined etio logy. [facility] Referring Provider Line: [phone] SITE ID: [id number]
[2017-05-30] MEDS ORDERED: PANTOPRAZOLE 40 MG VIAL IVP SCH (23:00)
[2017-05-30] MEDS ORDERED: FUROSEMIDE 40 MG/4 ML VIAL IVP SCH (23:00)
[2017-05-30 23:07] LABS: BASOPHILS % (AUTO) 0.2 %; HGB - HEMOGLOBIN 11.5 g/dL (14.0-18.0); LYMPHOCYTES # (AUTO) 0.3 10^3/uL (1.5-3.5); LYMPHOCYTES % (AUTO) 2.1 %; MEAN CORPUSCULAR HEMOGLOBIN 30.2 pg (27.0-31.0); MEAN CORPUSCULAR HGB CONC 33.4 g/dL (32.0-36.0); MEAN CORPUSCULAR VOLUME 90.4 fL (80.0-94.0); MONOCYTES % (AUTO) 6.5 %; NEUTROPHILS # (AUTO) 14.6 10^3/uL (1.5-6.6); NEUTROPHILS % (AUTO) 91.2 %; PLT - PLATELET COUNT 291 10^3/uL (130-450); RED BLOOD COUNT 3.81 10^6/uL (4.70-6.10); RED CELL DISTRIBUTION WIDTH 13.9 % (12.0-15.0)
[2017-05-30 23:30] LABS: BILIRUBIN,URINE NEGATIVE (NEGATIVE); GLUCOSE, URINE (UA) 100 mg/dL (NEGATIVE); KETONES,URINE (UA) TRACE mg/dL (NEGATIVE); LEUKOCYTE ESTERASE, URINE NEGATIVE (NEGATIVE); NITRITE,URINE NEGATIVE (NEGATIVE); OCCULT BLOOD,URINE SMALL (NEGATIVE); PH,URINE 5.5 PH (5.0-7.5); PROTEIN,URINE NEGATIVE (NEGATIVE); UROBILINOGEN,URINE 0.2 (NORMAL) E.U./dL (NORMAL)
[2017-05-30 23:39] LABS: BACTERIA,URINE None Seen /HPF (None Seen); CLARITY,URINE CLEAR (CLEAR); RBC,URINE 0-5 /HPF (0-5); SQUAMOUS EPITHELIAL CELL,UR RARE Squamous (<= Few)
[2017-05-30 23:58] LABS: ABG HCO3 23.7 mmol/L (22.0-26.0); ABG OXYGEN SATURATION 100 % (94-98); ABG PCO2 54 mmHg (34-45); ABG PH 7.26 (7.35-7.45); ABG TCO2 25.3 MMOL/L (21.0-29.0); ALLEN TEST POSITIVE
[2017-05-31] LABS: ABG PO2 409 mmHg (80-100)
--- NOTE | 2017-05-31 00:19 | XRAY Preliminary Report ---
Exam: XR CHEST 1 VIEW X-RAY IMPRESSION: 1. Endotracheal tube tip projects 3.4 cm above the kendall. Orogastric tube has been placed with the t ip projecting beyond the inferior margin of the film. 2. No other significant change in the appearance of the chest since the study one hour earlier. [facility] SITE ID: [id number]
[2017-05-31] MEDS: LORazepam 2 MG/ML VIAL IVP PRN ×3 (00:36→04:51)
[2017-05-31] MEDS: SODIUM CHLORIDE FLUSH 0.9% 10 ML SYRINGE IVP PRN ×2 (00:36→06:14)
--- NOTE | 2017-05-31 01:20 | XRAY Report ---
EXAM: CHEST RADIOGRAPHY EXAM DATE: 05/30/2017 11:31 PM. CLINICAL HISTORY: ET tube moved. COMPARISON: 05/30/2017, 05/29/2017. TECHNIQUE: 1 view. FINDINGS/IMPRESSION: 1. Endotracheal tube tip projects 3.4 cm above the kendall. Orogastric tube has been placed with the t ip projecting beyond the inferior margin of the film. 2. No other significant change in the appearance of the chest since the study one hour earlier. [facility] Referring Provider Line: [phone] SITE ID: [id number]
[2017-05-31] MEDS ORDERED: IOPAMIDOL-300 100 ML VIAL ONE (01:42)
[2017-05-31] MEDS ORDERED: IOPAMIDOL-300 100 ML VIAL IVP ONE (02:19)
[2017-05-31] MEDS ORDERED: ACETAMINOPHEN 1,000 MG/100 ML 100 ML IV PRN (02:35)
[2017-05-31] MEDS ORDERED: VANCOMYCIN INJ 1 GM in SODIUM CHLORIDE 0.9% 250 ML IV SCH (03:00)
[2017-05-31] MEDS ORDERED: VANCOMYCIN PER PHARMACY 100 GM in SODIUM CHLORIDE 0.9% 250 ML IV SCH (03:00)
[2017-05-31] MEDS: PIPERACILLIN/TAZOBACTAM 3.375 GM in SODIUM CHLORIDE 0.9% MINIBAG 100 ML IV SCH ×2 (03:23→10:45)
[2017-05-31] MEDS ORDERED: SODIUM CHLORIDE 0.9% 500 ML IV ONE (04:01)
--- NOTE | 2017-05-31 04:04 | CT Preliminary Report ---
Exam: CT CHEST ANGIO (PE) IMPRESSION: 1. No evidence of pulmonary embolism. 2. Severe upper lung predominant emphysema. Findings of chronic bronchitis. 3. There is relative diffuse patchy distribution abnormality bilaterally, left greater than right. Th is is worrisome for infection. 4. Spiculated lesion posterior laterally within the right lower lobe measuring 1.4 cm is new from the prior 12/29/2015 exam. This may be related to infection. Follow-up noncontrast chest CT recommended at one month. [facility] SITE ID: [id number]
[2017-05-31] MEDS: fentaNYL 100 MCG/2 ML VIAL IVP PRN ×2 (04:16→06:13)
[2017-05-31] MEDS ORDERED: POTASSIUM CHLORIDE INJ 40 MEQ in SODIUM CHLORIDE 0.9% 480 ML IV ONE (04:34)
[2017-05-31] MEDS ORDERED: MAGNESIUM SULFATE 2 GRAM 2 GM/50 ML BAG IV ONE (04:34)
--- NOTE | 2017-05-31 04:40 | PROCEDURE REPORT ---
DATE OF SERVICE: 05/30/2017 Physician: Devorah Grover MD CRITICAL CARE NOTE/PROGRESS NOTE/OVERNIGHT EVALUATION/INTENSIVE CARE UNIT TRANSFER NOTE BRIEF PRESENTATION AND INTERVAL HISTORY/OVERNIGHT EVENTS: The patient is a chronically ill, 66-year-old male who was admitted to [facility] on 05/29/2017. The patient's chief complaint was progressive dyspnea. Notably, the patient has chronically impaired respiratory status, chronic oxygen dependent respiratory failure. He still smokes cigarettes. On admission, he was found with community-acquired pneumonia plus COPD exacerbation , and was started on appropriate treatment. In addition, he was found with a lung nodule and possibility of malignancy was entertained. In any case, since admission, the patient had been on Levaquin, IV steroid, small volume nebulizers. Due to tachycardia and borderline septic physiology, the patient received IV fluids since admission. Besides treating his acute condition, he was continued on antiepileptics for history of seizure disorder, and he was continued on therapeutic Xarelto anticoagulation for history of PE and deep venous thrombosis. Notably, this patient has history of neurofibromatosis as well. During the hospital stay, the patient showed slow improvement. He remained with hypoxia on minimal physical activity. Overnight, on May 30, the nurse called me, first reporting that the patient was restless and needed to get up to go to the bathroom several times; however, could not urinate and a postvoid residual showed over 500 mL residual. Therefore, straight catheterization was done and the catheter drained 900 mL of urine. Subsequently , about an hour later, when the nurse checked on the patient, the patient was found with worsening respiratory distress. At that time, he was found crackly, became tachycardic, and his oxygen saturations were dropping to the 70s on 4 liters nasal cannula. Subsequently, I went to the bedside and, at that time, the patient was rapidly declining. His oxygen saturation was 50. He appeared clammy, diaphoretic, kari-colored, was gasping for air and, rapidly became unresponsive and obtunded. Therefore, ER doctor was called, and Dr. Lugo came to the bedside and intubated the patient. Based on my bedside exam, lungs with wet crackles and minimal air entry, my initial impression was that the patient likely went into flash pulmonary edema. He was tachycardic with heart rate of 120. Monitor showed sinus tachycardia, no obvious ST elevation. Flash pulmonary edema could be precipitated by tachycardia. Subsequently, after intubation, a chest x -ray was ordered, which showed worsening bilateral pulmonary opacities consistent with pulmonary edema/congestion. In addition, there were pleural effusions and the previously seen lung nodule was described. Subsequently, the patient was transferred to the ICU, was started on mechanical ventilation and the below orders were placed. Laboratory workup, history and physical, daily progress notes, imaging and other reports were reviewed per electronic medical. Medication list reviewed per electronic medical record. PHYSICAL EXAMINATION VITAL SIGNS: Temperature 36.8, blood pressure 160/90, respiratory rate in the high 30s. Oxygen saturation was 50 on 5 liters nasal cannula. Heart rate was between 110 and 120. NEUROLOGIC: At the time of my exam, the patient was obtunded, appeared nonfocal without lateralizing deficit. PSYCHIATRIC: Obtunded, unresponsive. HEENT: Oral mucosa dry. After intubation, frothy secretions were noted. RESPIRATORY: Initially with increased work of breathing and low oxygen saturations, air entry was decreased above all lung keller with wet crackles. CARDIOVASCULAR: S1, S2. Regular tachycardia. I could not hear pathologic murmur in the setting of transmitted airway sounds. ABDOMEN: Benign. Bowel sounds present. LYMPHATIC: No peripheral lymphedema. SKIN: Diaphoretic, clammy. ASSESSMENT/ACTIVE ISSUES/DIAGNOSES 1. Acute hypoxic respiratory failure, likely secondary to flash pulmonary edema. 2. Chronic respiratory failure secondary to chronic obstructive pulmonary disease, baseline oxygen dependence, history of smoking. The patient was admitted with chronic obstructive pulmonary disease exacerbation, is being treated on intravenous steroids and SVN. 3. Community-acquired pneumonia was the admitting diagnosis and since admission the patient had been on Levaquin. 4. Lung nodule which was seen on admission x-ray. 5. Therapeutic anticoagulation on Xarelto for history of pulmonary embolus and deep venous thrombosis. 6. History of neurofibromatosis. 7. Seizure disorder. He had been on Dilantin and carbamazepine. 8. New problem tonight was urinary retention with over 900 mL residual. 9. Sinus tachycardia in the setting of respiratory distress and acute illness. PLAN AND ORDERS: 1. Patient was transferred to the intensive care unit after he was intubated. 2. I placed orders for mechanical ventilation, ICU sedation. Sedation orders will include propofol and fentanyl and will continue lorazepam, which the patient had been on before. 3. Gastrointestinal prophylaxis with proton pump inhibitor. 4. Regarding therapeutic anticoagulation, nasogastric tube was placed and Xarelto can be continued. If there will be any trouble, then we will consider switching to Lovenox. 5. For pulmonary edema, I ordered a dose of IV Lasix; for tachycardia and hypertension one dose of labetalol given. Ordered echocardiogram for the morning. Rule out ACS, check troponin. 6. We will check cardiac markers including creatine kinase and troponin. 7. Regarding antiseizure medications, we will continue after checking Dilantin level. If Dilantin level is not high, then obviously we will continue with Dilantin , possibly switching to IV. 8. We will send respiratory cultures, MRSA screen, lactic acid, CBC, UA. 9. For now, I will continue Levaquin. We will continue treatment of COPD as it was already ordered. 10. Chacon catheter for urinary retention. 11. EKG was ordered, I will review. I ordered and already reviewed a chest x -ray. 12. We will order ABG and adjust ventilator settings accordingly. 13. CODE STATUS: FULL CODE. Time spent in the care of this patient overnight was 50 minutes critical care time. ADDENDUM: ABG showed hypoxemic and hypercapnic respiratory failure. WBC increased and patient became febrile, MRSA screen was positive. Respiratory secretions were copious and suctioning was needed several times. CT chest showed worsening infiltrates consistent with PNA. PNA at this point is considered complicated, ABX coverage was broadened; replaced levaquin for zosyn and vancomycin. Patient diuresed 3 L overnight and physical exam showed improved air movement and no crackles over the lungs. During the inspector watch train hours the patient became hypotensive on propofol sedation; appeared oversedated. Maintenance IVF was started and sedation decreased. Vent settings adjusted to Assist Control considering emphysema/ advanced COPD. TD: 05/31/2017 05:39 [place]
[2017-05-31 05:03] LABS: CALCIUM 7.6 mg/dL (8.5-10.3)
[2017-05-31 05:06] LABS: CALCIUM 7.6 mg/dL (8.5-10.3); CREATININE 0.7 mg/dL (0.6-1.2)
[2017-05-31 05:08] LABS: MAGNESIUM 1.3 mg/dL (1.7-2.8); PHOSPHORUS 2.4 mg/dL (2.5-4.6)
--- NOTE | 2017-05-31 05:08 | CT Report ---
EXAM: CT ANGIOGRAM CHEST EXAM DATE: 05/31/2017 02:23 AM. CLINICAL HISTORY: Respiratory failure. COMPARISON: 12/29/2015. TECHNIQUE: Routine helical imaging was performed through the chest in the pulmonary arterial phase. I V Contrast: 80 mL Isovue 300. Reconstructions: Coronal 3-D MIP reconstructions.Sagittal and coronal. In accordance with CT protocol optimization, one or more of the following dose reduction techniques w ere utilized for this exam: automated exposure control, adjustment of mA and/or KV based on patient s ize, or use of iterative reconstructive technique. FINDINGS: Pulmonary Arteries: There is adequate opacification through the segmental arteries. No evidence for a cute or chronic pulmonary emboli. Lungs and Pleura: Severe upper lung predominant centrilobular emphysema noted. There are scattered ar eas of patchy airspace disease within the upper lobes bilaterally. There is moderate distribution pat vikas airspace disease within the left lower lobe and small patchy right lower lobe airspace disease. S ome of the lower lobe abnormalities, particularly within the left lower lobe have a indistinct nodula r appearance. There is mild involvement of the lingula and middle lobe as well. There is a small calc ified left lower hemithorax pleural plaque. Bilateral basilar pleural thickening and scarring is note d. There is a 1.4 cm spiculated lesion within the right lower lobe posterolaterally (image 104 series 4). Central Airways: There is a background of bronchitis with lower lung predominant bronchial thickening . Distal bronchiolar plugging is also seen. Endotracheal tube in satisfactory position. Chest Wall: No significant abnormality. Thyroid: No significant abnormality. Mediastinum: No significant abnormality. Heart: Normal in size. No significant pericardial effusion. Aorta: Normal caliber. Upper Abdomen: Orogastric tube tip projects over the midportion of the stomach. Status post cholecyst ectomy. Bones: No suspicious bony lesions evident. However, bones are osteopenic. This reduces exam sensitiv ity and specificity for detection of subtle bony lesions and/or fractures. Severe anterior compressi on fracture of the L1 vertebral body is again noted. IMPRESSION: 1. No evidence of pulmonary embolism. 2. Severe upper lung predominant emphysema. Findings of chronic bronchitis. 3. There is relative diffuse patchy distribution abnormality bilaterally, left greater than right. Th is is worrisome for infection. 4. Spiculated lesion posterolaterally within the right lower lobe measuring 1.4 cm is new from the pr ior 12/29/2015 exam. This may be related to infection. Follow-up noncontrast chest CT recommended at one month. [facility] Referring Provider Line: [phone] SITE ID: [id number]
[2017-05-31 05:12] LABS: INR 1.2 (0.8-1.2); PT - PROTHROMBIN TIME 13.8 secs (9.9-12.6); VBG PH 7.354 (7.31-7.41)
[2017-05-31 05:13] LABS: BASOPHILS % (AUTO) 0.2 %; HGB - HEMOGLOBIN 11.1 g/dL (14.0-18.0); LYMPHOCYTES # (AUTO) 0.3 10^3/uL (1.5-3.5); LYMPHOCYTES % (AUTO) 1.8 %; MEAN CORPUSCULAR HEMOGLOBIN 29.8 pg (27.0-31.0); MEAN CORPUSCULAR HGB CONC 32.7 g/dL (32.0-36.0); MEAN CORPUSCULAR VOLUME 91.3 fL (80.0-94.0); MEAN PLATELET VOLUME 7.5 fL (7.4-11.4); PLT - PLATELET COUNT 261 10^3/uL (130-450); RED BLOOD COUNT 3.73 10^6/uL (4.70-6.10); RED CELL DISTRIBUTION WIDTH 13.9 % (12.0-15.0); WHITE BLOOD COUNT 19.3 x10^3/uL (4.8-10.8)
[2017-05-31] MEDS: SODIUM CHLORIDE FLUSH 0.9% 10 ML SYRINGE IVP SCH (05:56)
[2017-05-31] MEDS: methylPREDNISolone SUCCINATE 40 MG/ML VIAL IVP SCH (05:56)
[2017-05-31] MEDS ORDERED: SODIUM CHLORIDE FLUSH 0.9% 10 ML SYRINGE IVP SCH (06:00)
[2017-05-31] MEDS ORDERED: POTASSIUM PHOSPHATE 15 MMOL in SODIUM CHLORIDE 0.9% 250 ML IV ONE (06:01)
[2017-05-31 06:41] LABS: ABG BASE EXCESS 0.4 mmol/L (-2.0-3.0); ABG HCO3 26.4 mmol/L (22.0-26.0); ABG OXYGEN SATURATION 95 % (94-98); ABG PCO2 49 mmHg (34-45); ABG PH 7.35 (7.35-7.45); ABG PO2 70 mmHg (80-100); ABG TCO2 27.9 MMOL/L (21.0-29.0); ALLEN TEST POSITIVE
[2017-05-31] MEDS ORDERED: LORazepam 2 MG/ML VIAL IVP PRN (06:53)
[2017-05-31] MEDS ORDERED: fentaNYL 100 MCG/2 ML VIAL IVP PRN (06:53)
[2017-05-31] MEDS ORDERED: PANTOPRAZOLE 40 MG VIAL IVP SCH (07:00)
--- NOTE | 2017-05-31 07:11 | XRAY Report ---
EXAM: ABDOMEN RADIOGRAPHY EXAM DATE: 05/31/2017 05:22 AM. CLINICAL HISTORY: Verify NGT. COMPARISON: None. TECHNIQUE: 1 view. FINDINGS: Bowel Gas Pattern: Mild gaseous distention of small bowel and colon. Inferior pelvis was not included . Orogastric tube is present with the tip projected over the left upper quadrant. Contrast present wi thin the renal collecting system bilaterally and urinary bladder which appears containing Chacon kamalj[address] ter. Other: Coarse basilar opacities. Surgical clips are seen in the right paraspinal location. IMPRESSION: 1. Orogastric tube present with the tip in the proximal stomach. [facility] Referring Provider Line: [phone] SITE ID: [id number]
[2017-05-31] MEDS ORDERED: HEPARIN 25000UNITS/500ML (D5W) 25,000 UNIT/500 ML BAG IV SCH (07:15)
[2017-05-31] MEDS ORDERED: CALCIUM GLUCONATE 2,000 MG in SODIUM CHLORIDE 0.9% 100ML 100 ML IV ONE ×2 (08:00→14:00)
[2017-05-31] MEDS: FORMOTEROL FUMARATE NEB 20 MCG/2 ML INH SCH (08:30)
[2017-05-31] MEDS: BUDESONIDE 0.5 MG/2 ML NEB INH SCH (08:31)
[2017-05-31] MEDS: IPRATROPIUM/ALBUTEROL 3 ML NEB INH PRN ×2 (08:31→12:43)
[2017-05-31] MEDS ORDERED: CHLORHEXIDINE GLUCONATE 15 ML UDC PO SCH (09:00)
--- NOTE | 2017-05-31 09:24 | DISCHARGE SUMMARY ---
Discharge Summary Admit Date: 05/29/17 Discharge Date: 05/31/17 (Accepting Physician: Dr Amos (ICU)) Discharging Provider: Syd Gonzalez MD Primary Care Provider: Ronnie Butler MD Code Status: Attempt Resuscitation Condition at Discharge: Serious Discharge Disposition: 02 Transfer Acute Care Hosp Discharge Facility Name: [facility] - DIAGNOSES Admission Diagnoses: 1. Community acquired pneumonia 2. COPD exacerbation 3. History of pulmonary embolism 4. Seizure disorder Discharge Diagnoses with Status of Each Condition: 1. Acute respiratory failure with hypoxia: Critical 2. Non-ST elevation myocardial infarction: Critical 3. Community-acquired pneumonia: Critical 4. COPD exacerbation: Critical 5. History of pulmonary embolism: Stable 6. 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 The patient states that he was in his normal state of health until just 2 days ago when he states he began having difficulty breathing. He states initially the shortness of air was with exertion and then it became much worse as he became short of air just with standing up and eventually at rest. The patient states that he has a chronic cough which is also been worsening for the last 2 days. The patient admits to significant wheezing and chest tightness over the last several days. The patient states that he did try to take his inhalers at home but was not having any significant improvement to his symptoms. The patient denies any fevers or chills. He states that he did stop smoking once he became short of air but does continue to smoke 6-7 cigarettes a day. The patient denies being around anyone with the flu or any other sick contacts. Patient denies any headache, blurred vision, runny nose, sore throat, nasal congestion, difficulty swallowing, neck pain, neck stiffness, orthopnea, PND, increased lower extremity swelling, abdominal pain, nausea, vomiting, diarrhea, constipation, urinary urgency, urinary frequency, dysuria, joint pain, joint swelling, muscle aches, back pain, changes in appetite, recent unintentional weight loss, weight gain, rash or any focal neurologic deficits. On presentation to the emergency department the patient was febrile with a temperature of 39.6, tachycardic with heart rate of 107, tachypneic with respiratory rate up to 28, and borderline hypotensive with blood pressure of 102 /67. The patient was saturating well on just 2 L of oxygen. The patient's lab work did reveal a leukocytosis of 11.8, with normal electrolytes and normal lactic acid. The patient's influenza swab was negative. The patient's chest x- ray revealed emphysema with mildly increased interstitial opacity compared with prior examination, new nodular opacity in the right midlung and new small right pleural effusion. Given these findings and the fact the patient continued to have wheezing and shortness of air in the emergency department the patient was admitted to the hospital for community-acquired pneumonia and COPD exacerbation. - HOSPITAL COURSE Hospital Course: Patient was admitted to the hospital and started on IV antibiotics with Levaquin for pneumonia and treatment for COPD with duo nebs and IV steroids. Over the first 24 hours of hospitalization the patient did not have significant improvement as he continued to be very short of air with just minimal exertion. On the night of 05/30/2017 the patient became increasingly dyspneic and hypoxemic. The patient's O2 saturation dropped to 70% on 4 L of oxygen. The patient's RN called a rapid response and the MD came to bedside and noted the patient was having a rapid decline. The patient's oxygen saturation dropped to 50% he appeared clammy, diaphoretic, ashen colored and was gasping for air. The patient then became unresponsive and obtunded. The emergency room physician was called to the bedside for emergent intubation. On bedside exam the patient appeared to have wet lungs with minimal air entry. The hospitalist suspected flash pulmonary edema. The patient was tachycardic with heart rate in the 120s. The patient's EKG showed sinus tachycardia with no obvious ST elevations. Chest x-ray post intubation revealed worsening bilateral pulmonary opacities consistent with pulmonary edema/congestion. In addition there were pleural effusions and a previously seen lung nodule. Subsequently patient was transferred to the intensive care unit and started on mechanical ventilation. The patient was placed on propofol for sedation. The patient underwent a CT angiogram of his lungs to rule out pulmonary embolism and this showed severe upper lung predominant emphysema with finding of chronic bronchitis. It also showed relative diffuse patchy distribution abnormality bilaterally left greater than right. This was concerning for infection. The patient was also found to have a spiculated lesion posterolaterally within the right lower lobe measuring 1.4 cm which was new from prior examination in 2016. The patient was placed on broad-spectrum antibiotics with IV vancomycin and IV Zosyn. Lab work revealed the patient had a mildly elevated troponin of 0.17 repeat troponin IV hours later was elevated to 1.34. Patient was placed on a heparin drip for non-ST elevation DC. The patient was also started on a beta- zhanna the patient's blood pressure did drop the patient was given IV fluid and blood pressure was maintained at greater than map of 65. The patient did not require pressors. Initially patient was struggling on the ventilator and was switched to assist control mode however again the patient began to fight the vent and had increasing auto PEEP therefore he was switched back to SIMV. The patient continued to be in critical condition and given his non-ST elevation DC and complexity of his respiratory failure with history of severe COPD it was felt the patient would benefit from transfer to a facility with higher level of care. The patient was transferred to [facility] in [facility]. The accepting physician was juice weigher Dr. Amos. The patient was transferred via ACLS. Patient is still on ventilator but appears to be critically stable. Blood pressure is stabilized. Patient is being treated with IV antibiotics, duo nebs , steroids and heparin drip. - ALLERGIES Allergies/Adverse Reactions: Allergies Allergy/AdvReac Type Severity Reaction Status Date / Time Egg Derived AdvReac Intermediate Respiratory Verified 05/29/17 06:41 egg AdvReac Mild Nausea Verified 05/29/17 06:41 lactose AdvReac Mild Cramps Verified 05/29/17 06:41 - MEDICATIONS Home Medications: Ambulatory Orders Medication Instructions Recorded Confirmed Phenytoin Sodium Extended 200 mg PO BID 12/29/15 05/29/17 Albuterol Sulf [Ventolin Hfa 2 puffs INH Q4H PRN 05/29/17 05/29/17 Inhaler] Carbamazepine [Carbamazepine ER] 200 mg PO BID 05/29/17 05/29/17 Rivaroxaban [Xarelto] 20 mg PO QDDINNER 05/29/17 05/29/17 - PHYSICAL EXAM AT DISCHARGE General Appearance: positive: Severe distress, Other (Intubated and sedated, fighting the ventilator ) Eyes Bilateral: positive: Normal inspection, PERRL, EOMI, No lid inflammation, Conjunctivae nml, No scleral icterus ENT: positive: ENT inspection nml, Pharynx nml, Dry mucous membranes. negative : Purulent nasal drainage, Pharyngeal erythema, Oral lesions Neck: positive: Nml inspection, Thyroid nml, No JVD, Trachea midline. negative : Thyromegaly, Lymphadenopathy (R), Lymphadenopathy (L), Carotid bruit, Tracheal deviation Respiratory: positive: Chest non-tender, Wheezes (Scarce), Rales (Bilateral ), Rhonchi (Bilateral coarse), Other (Decreased breath sounds in upper lungs) Cardiovascular: positive: No murmur, No gallop, Tachycardia Peripheral Pulses: positive: 2+ Abdomen: positive: Non-tender, No organomegaly, Nml bowel sounds, No distention. negative: Guarding, Rebound, Hepatomegaly Back: positive: Nml inspection. negative: CVA tenderness (R), CVA tenderness (L ) Skin: positive: Other (Patient has fibromas over his entire body). negative: Cyanosis, Pallor Extremities: positive: Nml appearance, No pedal edema Neurologic/Psychiatric: positive: Other (Patient is intubated and sedated at this time. He does become agitated and is able to follow commands once sedation wears off) - LABS Result Diagrams: 05/31/17 04:27 05/31/17 04:27 Other Lab Results: Laboratory Results WBC 26.0 x10^3/uL (4.8-10.8) H 05/31/17 10:08 RBC 3.87 10^6/uL (4.70-6.10) L 05/31/17 10:08 Hgb 11.7 g/dL (14.0-18.0) L 05/31/17 10:08 Hct 35.2 % (42.0-52.0) L 05/31/17 10:08 MCV 91.0 fL (80.0-94.0) 05/31/17 10:08 MCH 30.2 pg (27.0-31.0) 05/31/17 10:08 MCHC 33.2 g/dL (32.0-36.0) 05/31/17 10:08 RDW 14.2 % (12.0-15.0) 05/31/17 10:08 Plt Count 247 10^3/uL (130-450) 05/31/17 10:08 MPV 7.8 fL (7.4-11.4) 05/31/17 10:08 Neut # 18.0 10^3/uL (1.5-6.6) H 05/31/17 04:27 Lymph # 0.3 10^3/uL (1.5-3.5) L 05/31/17 04:27 [place] # 1.0 10^3/uL (0.0-1.0) 05/31/17 04:27 Eos # 0.0 10^3/uL (0.0-0.7) 05/31/17 04:27 Baso # 0.0 10^3/uL (0.0-0.1) 05/31/17 04:27 Absolute Nucleated RBC 0.00 x10^3/uL 05/31/17 04:27 Nucleated RBC % 0.0 /100WBC 05/31/17 04:27 PT 13.8 secs (9.9-12.6) H 05/31/17 04:27 INR 1.2 (0.8-1.2) 05/31/17 04:27 Anti-Xa Level 0.1 U/mL (-0.7) 05/31/17 06:12 Bld Gas Analysis Time 06:25 05/31/17 06:34 Sample Site RIGHT RADIAL 05/31/17 06:34 ABG pH 7.35 (7.35-7.45) 05/31/17 06:34 ABG pCO2 49 mmHg (34-45) H 05/31/17 06:34 ABG pO2 70 mmHg (80-100) L 05/31/17 06:34 ABG HCO3 26.4 mmol/L (22.0-26.0) H 05/31/17 06:34 ABG Total CO2 27.9 MMOL/L (21.0-29.0) 05/31/17 06:34 ABG O2 Saturation 95 % (94-98) 05/31/17 06:34 ABG Oximetry Spot Check 99 % 05/30/17 23:35 ABG Base Excess 0.4 mmol/L (-2.0-3.0) 05/31/17 06:34 Bobo Test POSITIVE 05/31/17 06:34 VBG pH 7.354 (7.31-7.41) 05/31/17 04:27 Ionized Calcium 1.00 mmol/L (1.15-1.33) L 05/31/17 04:27 Respiration Rate 22 b/min 05/31/17 06:34 O2 Delivery Device VENTILATOR 05/31/17 06:34 Vent Mode ACCESSED/CONTROL 05/31/17 06:34 FiO2 60.00 05/31/17 06:34 Tidal Volume 500 mL 05/31/17 06:34 PEEP 5 cmH2O 05/31/17 06:34 Pressure Support Vent 10 cmH2O 05/30/17 23:35 Sodium 131 mmol/L (135-145) L 05/31/17 04:27 Potassium 3.7 mmol/L (3.5-5.0) 05/31/17 04:27 Chloride 96 mmol/L (101-111) L 05/31/17 04:27 Carbon Dioxide 25 mmol/L (21-32) 05/31/17 04:27 Anion Gap 10.0 (6-13) 05/31/17 04:27 BUN 11 mg/dL (6-20) 05/31/17 04:27 Creatinine 0.7 mg/dL (0.6-1.2) 05/31/17 04:27 Estimated GFR (MDRD) 112 (>89) 05/31/17 04:27 Glucose 108 mg/dL (70-100) H 05/31/17 04:27 Lactic Acid 1.2 mmol/L (0.5-2.2) 05/30/17 22:59 Calcium 7.6 mg/dL (8.5-10.3) L 05/31/17 04:27 Ionized Calcium YES 05/31/17 04:27 Phosphorus 2.4 mg/dL (2.5-4.6) L 05/31/17 04:27 Magnesium 1.3 mg/dL (1.7-2.8) L 05/31/17 04:27 Total Bilirubin 0.6 mg/dL (0.2-1.0) 05/30/17 22:05 AST 63 IU/L (10-42) H 05/30/17 22:05 ALT 72 IU/L (10-60) H 05/30/17 22:05 Alkaline Phosphatase 88 IU/L (42-121) 05/30/17 22:05 CK-MB (CK-2) 4.1 ng/mL (0.6-6.3) 05/30/17 22:05 Troponin I 1.34 ng/mL (<0.49) H* 05/31/17 04:27 B-Natriuretic Peptide 490 pg/mL (5-100) H 05/30/17 22:05 Total Protein 6.9 g/dL (6.7-8.2) 05/30/17 22:05 Albumin 3.8 g/dL (3.2-5.5) 05/30/17 22:05 Globulin 3.1 g/dL (2.1-4.2) 05/30/17 22:05 Albumin/Globulin Ratio 1.2 (1.0-2.2) 05/30/17 22:05 Lipase 18 U/L (22-51) L 05/29/17 07:05 Urine Color YELLOW 05/30/17 23:00 Urine Clarity CLEAR (CLEAR) 05/30/17 23:00 Urine pH 5.5 PH (5.0-7.5) 05/30/17 23:00 Ur Specific [place] 1.025 (1.002-1.030) 05/30/17 23:00 Urine Protein NEGATIVE mg/dL (NEGATIVE) 05/30/17 23:00 Urine Glucose (UA) 100 mg/dL (NEGATIVE) H 05/30/17 23:00 Urine Ketones TRACE mg/dL (NEGATIVE) 05/30/17 23:00 Urine Occult Blood SMALL (NEGATIVE) H 05/30/17 23:00 Urine Nitrite NEGATIVE (NEGATIVE) 05/30/17 23:00 Urine Bilirubin NEGATIVE (NEGATIVE) 05/30/17 23:00 Urine Urobilinogen 0.2 (NORMAL) E.U./dL (NORMAL) 05/30/17 23:00 Ur Leukocyte Esterase NEGATIVE (NEGATIVE) 05/30/17 23:00 Urine RBC 0-5 /HPF (0-5) 05/30/17 23:00 Urine WBC 0-3 /HPF (0-3) 05/30/17 23:00 Ur Squamous Epith Cells RARE Squamous (<= Few) 05/30/17 23:00 Urine Bacteria None Seen /HPF (None Seen) 05/30/17 23:00 Ur Microscopic Review INDICATED 05/30/17 23:00 Urine Culture Comments NOT INDICATED 05/30/17 23:00 Phenytoin 25.7 ug/mL 05/30/17 22:05 Influenza A (Rapid) Negative (Negative) 05/29/17 06:47 Influenza B (Rapid) Negative (Negative) 05/29/17 06:47 Influenza Types A,B Ag - 05/29/17 06:47 - DIAGNOSTIC IMAGING Diagnostic Imaging Results: Final report reviewed Diagnostic Imaging Results Comments: CHEST RADIOGRAPHY 2 VIEWS EXAM DATE: 05/29/2017. CLINICAL HISTORY: Fever. Shortness of breath. COMPARISON: AP portable chest done 03/31/2016. TECHNIQUE: PA and lateral views. FINDINGS: Lungs/Pleura: Emphysema is unchanged. Mild increased interstitial opacity compared with the prior examination. Small nodular opacities in the right mid lung, not present before. Small right pleural effusion, not present previously. Pleural scarring in the left costophrenic angle is unchanged. No pneumothorax. Mediastinum: Normal cardiac and mediastinal contours. Bones: Minimal disk degenerative changes of the spine. IMPRESSION: Emphysema. Mild increased interstitial opacity compared with the prior examination; this could be from pulmonary edema or interstitial pneumonia. Atypical presentation of congestive heart failure in a patient with severe emphysema is a possibility. New nodular opacities in the right mid lung could be inflammatory or neoplastic. Radiographic follow-up is needed. CHEST RADIOGRAPHY EXAM DATE: 05/30/2017 10:04 PM. CLINICAL HISTORY: Intubation, CODE BLUE. COMPARISON: 05/29/2017. TECHNIQUE: 1 view. FINDINGS: Lungs/Pleura: There is pulmonary vascular congestion as well as septal thickening. There are small bilateral effusions, left greater than right. Mediastinum: Within exam limitations, the cardiomediastinal contour is normal. Other: No antonietta displaced rib fractures demonstrated. Endotracheal tube tip projects 5.4 cm above the kendall. IMPRESSION: 1. There is moderate pulmonary edema stable to slightly progressed. Small bilateral effusions also stable to slightly progressed. 2. Again seen is a small spiculated right mid lung field nodule, measuring 14 mm. This is difficult to characterize in this exam. This is slightly smaller than the prior study from 2015 where there was a right middle lobe irregular nodular density (image 38 series 4). This is of undetermined etiology. CHEST RADIOGRAPHY EXAM DATE: 05/30/2017 11:31 PM. CLINICAL HISTORY: ET tube moved. COMPARISON: 05/30/2017, 05/29/2017. TECHNIQUE: 1 view. FINDINGS/IMPRESSION: 1. Endotracheal tube tip projects 3.4 cm above the kendall. Orogastric tube has been placed with the tip projecting beyond the inferior margin of the film. 2. No other significant change in the appearance of the chest since the study one hour earlier. CT ANGIOGRAM CHEST EXAM DATE: 05/31/2017 02:23 AM. CLINICAL HISTORY: Respiratory failure. COMPARISON: 12/29/2015. TECHNIQUE: Routine helical imaging was performed through the chest in the pulmonary arterial phase. IV Contrast: 80 mL Isovue 300. Reconstructions: Coronal 3-D MIP reconstructions.Sagittal and coronal. In accordance with CT protocol optimization, one or more of the following dose reduction techniques were utilized for this exam: automated exposure control, adjustment of mA and/or KV based on patient size, or use of iterative reconstructive technique. FINDINGS: Pulmonary Arteries: There is adequate opacification through the segmental arteries. No evidence for acute or chronic pulmonary emboli. Lungs and Pleura: Severe upper lung predominant centrilobular emphysema noted. There are scattered areas of patchy airspace disease within the upper lobes bilaterally. There is moderate distribution patchy airspace disease within the left lower lobe and small patchy right lower lobe airspace disease. Some of the lower lobe abnormalities, particularly within the left lower lobe have a indistinct nodular appearance. There is mild involvement of the lingula and middle lobe as well. There is a small calcified left lower hemithorax pleural plaque. Bilateral basilar pleural thickening and scarring is noted. There is a 1.4 cm spiculated lesion within the right lower lobe posterolaterally (image 104 series 4). Central Airways: There is a background of bronchitis with lower lung predominant bronchial thickening. Distal bronchiolar plugging is also seen. Endotracheal tube in satisfactory position. Chest Wall: No significant abnormality. Thyroid: No significant abnormality. Mediastinum: No significant abnormality. Heart: Normal in size. No significant pericardial effusion. Aorta: Normal caliber. Upper Abdomen: Orogastric tube tip projects over the midportion of the stomach. Status post cholecystectomy. Bones: No suspicious bony lesions evident. However, bones are osteopenic. This reduces exam sensitivity and specificity for detection of subtle bony lesions and/or fractures. Severe anterior compression fracture of the L1 vertebral body is again noted. IMPRESSION: 1. No evidence of pulmonary embolism. 2. Severe upper lung predominant emphysema. Findings of chronic bronchitis. 3. There is relative diffuse patchy distribution abnormality bilaterally, left greater than right. This is worrisome for infection. 4. Spiculated lesion posterolaterally within the right lower lobe measuring 1.4 cm is new from the prior 12/29/2015 exam. This may be related to infection. Follow-up noncontrast chest CT recommended at one month. ABDOMEN RADIOGRAPHY EXAM DATE: 05/31/2017 05:22 AM. CLINICAL HISTORY: Verify NGT. COMPARISON: None. TECHNIQUE: 1 view. FINDINGS: Bowel Gas Pattern: Mild gaseous distention of small bowel and colon. Inferior pelvis was not included. Orogastric tube is present with the tip projected over the left upper quadrant. Contrast present within the renal collecting system bilaterally and urinary bladder which appears containing Chacon catheter. Other: Coarse basilar opacities. Surgical clips are seen in the right paraspinal location. IMPRESSION: 1. Orogastric tube present with the tip in the proximal stomach. Preliminary echocardiogram report Impression: The left ventricular size is normal. The left ventricular wall thickness is normal. Overall left ventricular systolic function is mildly impaired with an ejection fraction of 45-50%. As compared to prior echo the ejection fraction is decreased from 65-70%. There is mild global hypokinesis of the left ventricular contractility. Impaired relaxation consistent with grade 1 diastolic dysfunction. Right ventricular systolic function is normal Mild to moderate aortic valve sclerosis. No evidence of aortic stenosis or regurgitation. No evidence of mitral stenosis and mild mitral regurgitation. Moderately abnormal right heart pressures. The right ventricular systolic pressure at rest is 54 mmHg. Mild pulmonic regurgitation. Small pericardial effusion present. No mass or thrombus identified. - FOLLOW UP Follow Up: Patient has been transferred to [facility] in [place] for higher level of care as he had acute respiratory failure with hypoxia requiring intubation and appears to have an NSTEMI. Patient was started on heparin drip prior to transfer. Patient is on propofol and SIMV mode on ventilator. - TIME SPENT Time Spent in Discharge (Minutes): 55
[2017-05-31 10:43] LABS: HGB - HEMOGLOBIN 11.7 g/dL (14.0-18.0); MEAN CORPUSCULAR HEMOGLOBIN 30.2 pg (27.0-31.0); MEAN CORPUSCULAR HGB CONC 33.2 g/dL (32.0-36.0); MEAN PLATELET VOLUME 7.8 fL (7.4-11.4); RED BLOOD COUNT 3.87 10^6/uL (4.70-6.10); RED CELL DISTRIBUTION WIDTH 14.2 % (12.0-15.0)
--- NOTE | 2017-05-31 10:48 | Discharge Plan ---
Discharge Plan Disposition: 02 Transfer Acute Care Hosp Condition: Serious No Smoking: If you smoke, Please STOP! Call for help. Follow-up with: Ronnie Butler MD [Primary Care Provider] -
[2017-05-31] MEDS: carBAMazepine ER 200 MG TABLET PO SCH (10:54)
[2017-05-31] MEDS: PROPOFOL 1000 MG/100 ML 100 ML IV SCH (11:32)
[2017-05-31 12:06] VITALS: BP 77/54
[2017-05-31 12:09] LABS: ABG BASE EXCESS 0.5 mmol/L (-2.0-3.0); ABG HCO3 26.3 mmol/L (22.0-26.0); ABG OXYGEN SATURATION 97 % (94-98); ABG PCO2 47 mmHg (34-45); ABG PH 7.37 (7.35-7.45); ABG PO2 83 mmHg (80-100); ABG TCO2 27.7 MMOL/L (21.0-29.0); ALLEN TEST POSITIVE
[2017-05-31] MEDS ORDERED: SODIUM CHLORIDE INHALATION 3 ML NEB INH PRN (13:58)
[2017-05-31] MEDS ORDERED: VANCOMYCIN INJ 0.75 GM in SODIUM CHLORIDE 0.9% 250 ML IV SCH (21:00)
== END 2017-05-31 13:30 | disposition short-term general hospital (02) | DRG 871 ==
LOC: EDUNIT# → ED 06:36 → MS2 08:20 → ICU 05-30 22:23
PROVIDERS: ADMIT Internal Medicine; ATTEND Internal Medicine
PROC: 5A1935Z Respiratory Ventilation, Less than 24 Consecutive Hours (ICD-10-PCS; principal; 2017-05-30)
PROC: 0BH17EZ Insertion of Endotracheal Airway into Trachea, Via Natural or Artificial Opening (ICD-10-PCS; 2017-05-30)
DX: J18.9 Pneumonia, unspecified organism (principal); A41.9 Sepsis, unspecified organism; E86.0 Dehydration; J18.1 Lobar pneumonia, unspecified organism; Z86.73 Personal history of transient ischemic attack (TIA), and cerebral infarction without residual deficits; I21.A1 Myocardial infarction type 2; J96.21 Acute and chronic respiratory failure with hypoxia; J81.0 Acute pulmonary edema; J96.22 Acute and chronic respiratory failure with hypercapnia; J44.0 Chronic obstructive pulmonary disease with (acute) lower respiratory infection; J44.1 Chronic obstructive pulmonary disease with (acute) exacerbation; Z22.322 Carrier or suspected carrier of Methicillin resistant Staphylococcus aureus; I95.2 Hypotension due to drugs; T41.295A Adverse effect of other general anesthetics, initial encounter; Y92.230 Patient room in hospital as the place of occurrence of the external cause; R91.1 Solitary pulmonary nodule; R33.9 Retention of urine, unspecified; G40.909 Epilepsy, unspecified, not intractable, without status epilepticus; Q85.00 Neurofibromatosis, unspecified; Z99.81 Dependence on supplemental oxygen; Z86.711 Personal history of pulmonary embolism; Z86.718 Personal history of other venous thrombosis and embolism; Z86.79 Personal history of other diseases of the circulatory system; Z72.0 Tobacco use; Z78.1 Physical restraint status; Z79.01 Long term (current) use of anticoagulants
CPT/HCPCS: 36415; 36600; 51701; 71045; 71046; 71275; 74018; 80048; 80053; 80185; 81001; 81003; 82310; 82330; 82550; 82553; 82803; 83605; 83690; 83735; 83880; 84100; 84484; 85025; 85520; 85610; 87040; 87070; 87086; 87150; 87205; 87275; 87276; 93005; 93306; 94002; 94003; 94640; 96361; 96365; 99284; 99285

== ENCOUNTER 2017-06-15 08:00 | Outpatient (CLI) | payer MEDICARE, OTHER | END 2017-06-15 08:01 | disposition home or self-care (01) | LOC: LAB.R 08:00 | DX: G40.909 Epilepsy, unspecified, not intractable, without status epilepticus (principal) | CPT/HCPCS: 80185 ==

== ENCOUNTER 2017-06-21 17:05 | Outpatient (CLI) | payer MEDICARE ==
[2017-06-21 18:02] LABS: BASOPHILS # (AUTO) 0.1 10^3/uL (0.0-0.1); EOSINOPHILS # (AUTO) 0.4 10^3/uL (0.0-0.7); EOSINOPHILS % (AUTO) 4.6 %; HGB - HEMOGLOBIN 9.2 g/dL (14.0-18.0); LYMPHOCYTES # (AUTO) 1.1 10^3/uL (1.5-3.5); LYMPHOCYTES % (AUTO) 14.2 %; MEAN CORPUSCULAR HEMOGLOBIN 29.8 pg (27.0-31.0); MEAN CORPUSCULAR HGB CONC 32.4 g/dL (32.0-36.0); MEAN CORPUSCULAR VOLUME 91.9 fL (80.0-94.0); MEAN PLATELET VOLUME 8.1 fL (7.4-11.4); NEUTROPHILS # (AUTO) 5.1 10^3/uL (1.5-6.6); NEUTROPHILS % (AUTO) 67.2 %; PLT - PLATELET COUNT 320 10^3/uL (130-450); RED BLOOD COUNT 3.09 10^6/uL (4.70-6.10); RED CELL DISTRIBUTION WIDTH 15.2 % (12.0-15.0); WHITE BLOOD COUNT 7.6 x10^3/uL (4.8-10.8)
[2017-06-21 18:07] LABS: CALCIUM 8.3 mg/dL (8.5-10.3); CREATININE 0.5 mg/dL (0.6-1.2)
== END 2017-06-21 17:06 | disposition home or self-care (01) ==
LOC: LAB.R 17:05
DX: J44.1 Chronic obstructive pulmonary disease with (acute) exacerbation (principal); I21.29 ST elevation (STEMI) myocardial infarction involving other sites
CPT/HCPCS: 80048; 85025

== ENCOUNTER 2017-06-24 08:00 | Outpatient (CLI) | payer MEDICARE | END 2017-06-24 08:01 | disposition home or self-care (01) | LOC: LAB.R 08:00 | DX: R19.7 Diarrhea, unspecified (principal) | CPT/HCPCS: 87798 ==

== ENCOUNTER 2017-09-04 08:10 | Outpatient (CLI) | payer MEDICARE | END 2017-09-04 08:11 | disposition critical access hospital (66) | LOC: EMS 08:10 | PROVIDERS: ATTEND Surgery | DX: R06.02 Shortness of breath (principal); R07.89 Other chest pain | CPT/HCPCS: A0425; A0427 ==

== ENCOUNTER 2017-09-04 08:31 | Inpatient (IN) | payer MEDICARE ==
[2017-09-04] MEDS ORDERED: MORPHINE 2 MG/ML SYRINGE STA (08:40)
--- NOTE | 2017-09-04 08:42 | ED Physician Documentation ---
History of Present Illness - Stated complaint Stated Complaint: SOA - Additonal information Additional information: hx from pt 66 male severe home O2 dependent COPD also had UT few months ago txed at [facility] (per EMR looks like he developed flash pulm edema resp failure and had a NSTEMI at [facility] and then was transferred to [facility]) and hx PEs on xarelto at 4 AM he developed SOA and chest pressure like someone is standing on his chest has cough productive of clear sputum and found by EMS to be febrile no leg swelling no abd pain NVD pt given asa nitro and duoneb SOLAR TECH pt states he just now stopped smoking when he got sick Review of Systems Constitutional: reports: Fever Ears: denies: Ear pain Throat: denies: Sore throat Cardiac: reports: Chest pain / pressure Respiratory: reports: Dyspnea, Cough GI: denies: Abdominal Pain, Nausea, Vomiting, Diarrhea : denies: Dysuria Musculoskeletal: denies: Neck pain, Back pain, Extremity pain, Extremity swelling Endocrine: reports: Easy bruising / bleeding Immunocompromised: denies: Immunocompromised PD PAST MEDICAL HISTORY - Past Medical History Cardiovascular: None Respiratory: COPD Neuro: CVA Endocrine/Autoimmune: None GI: None : None HEENT: None Psych: None Musculoskeletal: None Derm: Other - Past Surgical History Past Surgical History: Yes General: Cholecystectomy Ortho: Other HEENT: Tonsil/Adenoidectomy Derm: Debridement - Present Medications Home Medications: Ambulatory Orders Medication Instructions Recorded Confirmed Phenytoin Sodium Extended 200 mg PO DAILY 12/29/15 09/04/17 Albuterol Sulf [Ventolin Hfa 2 puffs INH Q6H PRN 05/29/17 09/04/17 Inhaler] Carbamazepine [Carbamazepine ER] 200 mg PO BID 05/29/17 09/04/17 Rivaroxaban [Xarelto] 20 mg PO QDDINNER 05/29/17 09/04/17 Acetaminophen [Tylenol] 650 mg PO Q4H PRN 09/04/17 09/04/17 Fluticasone/Vilanterol [Breo 1 puffs INH DAILY 09/04/17 09/04/17 Ellipta 100-25 Mcg INH] Metoprolol Tartrate 12.5 mg PO BID 09/04/17 09/04/17 Phenytoin [Phenytoin] 150 mg PO QPM 09/04/17 09/04/17 - Allergies Allergies/Adverse Reactions: Allergies Allergy/AdvReac Type Severity Reaction Status Date / Time Egg Derived AdvReac Intermediate Respiratory Verified 09/04/17 08:41 egg AdvReac Mild Nausea Verified 09/04/17 08:41 lactose AdvReac Mild Cramps Verified 09/04/17 08:41 - Social History Does the pt smoke?: No Smoking Status: Never smoker Does the pt drink ETOH?: No Does the pt have substance abuse?: No - Immunizations Immunizations are current?: Yes - POLST Patient has POLST: No POLST Status: Full Code PD ED PE NORMAL - Vitals Vital signs reviewed: Yes - General General: Other (duoneb mask on) - Neck Neck: Supple, no meningeal sign - Cardiac Cardiac: RRR - Respiratory Respiratory: Other (wheezing). No: No respiratory distress (labored) - Abdomen Abdomen: Soft, Non tender - Derm Derm: Other (baseline for this pt) - Neuro Neuro: Alert and oriented X 3 Eye Opening: Spontaneous Motor: Obeys Commands Verbal: Oriented GCS Score: 15 Results - Vitals Vitals: Vital Signs - 24 hr 09/04/17 09/04/17 09/04/17 08:36 09:09 10:31 Temperature 38.6 C H 37.7 C H Heart Rate 98 93 88 Respiratory 22 16 20 Rate Blood Pressure 129/82 H 98/60 102/64 O2 Saturation 95 93 96 Oxygen O2 Source [With Activity] Nasal cannula O2 Source Nasal cannula Oxygen Flow Rate 3 - EKG (time done) 0836 Rate: Rate (enter#) Rhythm: NSR [place]: Normal Intervals: Normal CT Ischemia: Non specific changes - Labs Labs: Laboratory Tests 09/04/17 09/04/17 09/04/17 08:51 08:51 08:51 WBC 21.0 H RBC 4.19 L Hgb 12.5 L Hct 37.8 L MCV 90.2 MCH 29.8 MCHC 33.0 RDW 14.0 Plt Count 364 MPV 6.7 L Neut # 18.1 H Lymph # 0.8 L Colbert # 1.6 H Eos # 0.4 Baso # 0.1 Absolute Nucleated RBC 0.01 Nucleated RBC % 0.0 Manual Slide Review Indicated WBC Morphology NORMAL APPEARANCE Platelet Estimate NORMAL (130-450,000) Platelet Morphology NORMAL APPEARANCE RBC Morph Micro Appear 1+ OVALOCYTES Sodium 137 Potassium 4.2 Chloride 102 Carbon Dioxide 27 Anion Gap 8.0 BUN 13 Creatinine 0.6 Estimated GFR (MDRD) 134 Glucose 100 Lactic Acid Calcium 8.9 Troponin I < 0.04 B-Natriuretic Peptide 09/04/17 09/04/17 08:51 08:51 WBC RBC Hgb Hct MCV MCH MCHC RDW Plt Count MPV Neut # Lymph # Colbert # Eos # Baso # Absolute Nucleated RBC Nucleated RBC % Manual Slide Review WBC Morphology Platelet Estimate Platelet Morphology RBC Morph Micro Appear Sodium Potassium Chloride Carbon Dioxide Anion Gap BUN Creatinine Estimated GFR (MDRD) Glucose Lactic Acid 1.0 Calcium Troponin I B-Natriuretic Peptide 64 - Rads (name of study) CXR Radiology: See rad report (diffuse interstitial prominence suggests edema, coarse basilar opacities progresses R > L could be edema or consilidation / pna (given fever and WBC 21 I suspect infection)) PD MEDICAL DECISION MAKING - ED course ED course: trop # 1 neg - given hx CAD merits serial enzymes maybe echo doubt PE as he is on xarelto fever WBC 21 and developing consolidation on CXR so gave ab also some edema on CXR but neg BNP and no leg swelling given tenuous resp status will need admit for pna pt given asa and sl nitro SOLAR TECH then nitro paste for ongoing CP here so far cardiac wuip is reassuirng and cause seems to be pna BP a bit low - suspect 2/2 nitro but consider SIRS/sepis will dc nitro past and give small fluid bolus and reasses - per chart review pt has gone into flash pulm edema before req records from [facility] upon pt arrival at time of admit still waiting for records to arrive lungs better and sats low 90s on usual 3 L NC after sandro spoke to hospitalist at 11 AM records received and placed on chart - dc dx NSTEMI, resp failure, influenza A, pna, aspiration, COPD and lung nodule Departure - Departure Disposition: 66 [facility] DC/Xfer Clinical Impression: Pneumonia Qualifiers: Pneumonia type: due to unspecified organism Laterality: right Lung location: lower lobe of lung Qualified Code(s): J18.1 - Lobar pneumonia, unspecified organism Discharge Date/Time: 09/04/17 12:13
[2017-09-04] MEDS ORDERED: ACETAMINOPHEN 325 MG TABLET PO STA (08:54)
[2017-09-04 08:59] LABS: BASOPHILS # (AUTO) 0.1 10^3/uL (0.0-0.1); BASOPHILS % (AUTO) 0.5 %; EOSINOPHILS # (AUTO) 0.4 10^3/uL (0.0-0.7); EOSINOPHILS % (AUTO) 1.7 %; HGB - HEMOGLOBIN 12.5 g/dL (14.0-18.0); LYMPHOCYTES # (AUTO) 0.8 10^3/uL (1.5-3.5); LYMPHOCYTES % (AUTO) 3.7 %; MEAN CORPUSCULAR HEMOGLOBIN 29.8 pg (27.0-31.0); MEAN CORPUSCULAR VOLUME 90.2 fL (80.0-94.0); MEAN PLATELET VOLUME 6.7 fL (7.4-11.4); MONOCYTES # (AUTO) 1.6 10^3/uL (0.0-1.0); MONOCYTES % (AUTO) 7.7 %; NEUTROPHILS # (AUTO) 18.1 10^3/uL (1.5-6.6); NEUTROPHILS % (AUTO) 86.4 %; PLT - PLATELET COUNT 364 10^3/uL (130-450); RED BLOOD COUNT 4.19 10^6/uL (4.70-6.10)
--- NOTE | 2017-09-04 09:02 | XRAY Report ---
EXAM: CHEST RADIOGRAPHY EXAM DATE: 09/04/2017 08:46 AM. CLINICAL HISTORY: Chest pain. Shortness of air. COMPARISON: 05/30/2017. 05/31/2017. TECHNIQUE: 1 view. FINDINGS: Lungs/Pleura: Diffuse interstitial prominence again seen. Interstitial lung markings are slightly mor e prominent suggesting superimposed edema. Coarse basilar opacities right greater than left are again seen with slight increase in the right lung base. No pneumothorax. Left basilar parenchyma scarring and pleural thickening. Mediastinum: Heart size and mediastinal contours are stable. Other: None. IMPRESSION: 1. Diffuse interstitial prominence which is more prominent suggesting superimposed edema. 2. Coarse basilar opacities with progression in particular within the right lung base possibly relate d to superimposed edema or developing consolidation in the right lung base. [facility] Referring Provider Line: [phone] SITE ID: [id number]
[2017-09-04] MEDS ORDERED: NITROGLYCERIN 2% PASTE TOP STA (09:05)
[2017-09-04 09:07] LABS: CALCIUM 8.9 mg/dL (8.5-10.3); CREATININE 0.6 mg/dL (0.6-1.2)
[2017-09-04 09:25] LABS: PLATELET ESTIMATE, MANUAL NORMAL (130-450,000) (NORMAL); PLATELET MORPHOLOGY NORMAL APPEARANCE (NORMAL)
[2017-09-04] MEDS ORDERED: cefTRIAXone 1 GM in SODIUM CHLORIDE 0.9% MINIBAG 100 ML IV STA (10:13)
[2017-09-04] MEDS ORDERED: AZITHROMYCIN 250 MG TABLET PO STA (10:13)
[2017-09-04] MEDS ORDERED: SODIUM CHLORIDE 0.9% 500 ML IV ONE (10:37)
--- NOTE | 2017-09-04 11:16 | HISTORY & PHYSICAL EXAMINATION ---
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 The patient was previously hospitalized at [facility] on 2017 and discharged on 05/31/2017 after being intubated and having elevated troponin consistent with non-ST elevation RI. The patient was transferred to [facility] in [place] where he was continued on treatment and eventually was extubated and discharged to rehab. [facility] as would [facility] and states he was doing well until 3 AM this morning. He states that he awoke from his sleep and could not catch his breath. He states that this morning even doing a very simple tasks like putting on his pants took him 20 minutes because he had to stop in between to catch his breath. He states just sitting up at the side of the bed he becomes incredibly short of air and states despite turning up his oxygen at home and taking a breathing treatment he did not have any improvement in his symptoms and therefore was brought into the emergency department. The patient states that he did have a fever when he arrived here prior to that did not have any fevers or chills. Patient states that he quit smoking last week and prior to that he had stopped for 6 weeks but does smoke half a pack a day whence he does get back to smoking. The patient does admit to having some chest pressure when he was having the difficulty breathing this morning. The patient denies any nausea, diaphoresis or palpitations. The patient denies any headaches, blurred vision, runny nose, sore throat, nasal congestion, difficulty swallowing, abdominal pain, nausea, vomiting, diarrhea, constipation, dysuria, increased urinary frequency, joint aches, joint swelling, muscle aches, back pain, neck stiffness, decreased appetite, recent unintentional weight loss, night sweats or any focal neurologic deficits. On presentation to the emergency department the patient was febrile with a temperature of 38.6 slightly tachycardic with a heart rate of 98 otherwise blood pressure was low normal and he was slightly tachypneic but he was saturating well on his home O2 dose. The patient's blood work revealed a leukocytosis of 21,000. The patient had a normal lactic acid and a normal BNP. The patient did undergo a EKG which showed a normal sinus rhythm without any acute ST elevations or ischemic changes. The patient's troponin was negative. The patient also underwent an x-ray of his chest which showed diffuse interstitial prominence which is more prominent suggesting superimposed edema with coarse bibasilar opacities with progression in particular within the right lung base related to developing consolidation in the right lung base. The patient was admitted to the medical [facility] for treatment of community-acquired pneumonia given that had been greater than 3 months since his recent hospitalization. History - Past Medical History Cardiovascular: reports: Coronary artery disease Respiratory: reports: COPD Neuro: reports: CVA, Seizure disorder Endocrine/Autoimmune: reports: None GI: reports: None : reports: None HEENT: reports: None Psych: reports: None Musculoskeletal: reports: None Derm: reports: Other MRSA Hx?: Yes Other Past Medical History: PE, neurofibromatosis - Past Surgical History General: reports: Cholecystectomy Ortho: reports: Other HEENT: reports: Tonsil/Adenoidectomy Derm: reports: Debridement - Family & Social History Family History Comment/Other: Adopted Social History Notes: The patient lives at [facility]. He does not have any family on [facility]. He does not have any children and has never been . He stopped smoking 2 weeks ago but prior to that he smoked 6-7 cigarettes a day. He drinks alcohol only on Nelly. He denies any illicit drug use. - POLST Patient has POLST: No POLST Status: Full Code Meds/Allgy - Home Medications Home Medications: Ambulatory Orders Medication Instructions Recorded Confirmed Phenytoin Sodium Extended 200 mg PO DAILY 12/29/15 09/04/17 Albuterol Sulf [Ventolin Hfa 2 puffs INH Q6H PRN 05/29/17 09/04/17 Inhaler] Carbamazepine [Carbamazepine ER] 200 mg PO BID 05/29/17 09/04/17 Rivaroxaban [Xarelto] 20 mg PO QDDINNER 05/29/17 09/04/17 Acetaminophen [Tylenol] 650 mg PO Q4H PRN 09/04/17 09/04/17 Fluticasone/Vilanterol [Breo 1 puffs INH DAILY 09/04/17 09/04/17 Ellipta 100-25 Mcg INH] Metoprolol Tartrate 12.5 mg PO BID 09/04/17 09/04/17 Phenytoin [Phenytoin] 150 mg PO QPM 09/04/17 09/04/17 - Allergies Allergies/Adverse Reactions: Allergies Allergy/AdvReac Type Severity Reaction Status Date / Time Egg Derived AdvReac Intermediate Respiratory Verified 09/04/17 08:41 egg AdvReac Mild Nausea Verified 09/04/17 08:41 lactose AdvReac Mild Cramps Verified 09/04/17 08:41 Review of Systems - Other Findings Other Findings: A comprehensive review of systems was performed the pertinent positives and negatives are stated above in the HPI and the remainder of the review of systems is negative. Exam - Vital Signs Reviewed Vital Signs: Yes Vital Signs: Vital Signs x48h Temp Pulse Resp BP Pulse Ox 09/04/17 10:31 37.7 C H 88 20 102/64 96 09/04/17 09:09 93 16 98/60 93 09/04/17 08:36 38.6 C H 98 22 129/82 H 95 - Physical Exam General Appearance: positive: Alert, Mild distress (Tachypnic), Other (Patient has fibromas covering entire body including his face) Eyes Bilateral: positive: Normal inspection, PERRL, EOMI, No lid inflammation, Conjunctivae nml, No scleral icterus ENT: positive: ENT inspection nml, Pharynx nml, Dry mucous membranes. negative : Purulent nasal drainage, Pharyngeal erythema, Oral lesions Neck: positive: Nml inspection, Thyroid nml, No JVD, Trachea midline. negative : Thyromegaly, Lymphadenopathy (R), Lymphadenopathy (L), Stiff neck, Carotid bruit, Tracheal deviation Respiratory: positive: Chest non-tender, No respiratory distress, Wheezes ( Scattered), Rhonchi (Bibasilar), Other (Decreased breath sounds) Cardiovascular: positive: Regular rate & rhythm, No murmur, No gallop Peripheral Pulses: positive: 2+ Abdomen: positive: Non-tender, No organomegaly, Nml bowel sounds, No distention. negative: Guarding, Rebound, Hepatomegaly Back: positive: Nml inspection. negative: CVA tenderness (R), CVA tenderness (L ) Skin: positive: Color nml, No rash, Warm, Other (Firbomas over entire body). negative: Cyanosis, Diaphoresis, Pallor Extremities: positive: Non-tender, Full ROM, Nml appearance, No pedal edema Neurologic/Psychiatric: positive: Oriented x3, CN's nml (2-12), Motor nml, Sensation nml, Mood/affect nml Conclusion/Plan - Problem List (1) CAP (community acquired pneumonia) Conclusion/Plan: Patient presented with increasing shortness of breath. On presentation the patient had fever, tachycardia and leukocytosis of 21,000. The patient had a normal lactic acid and had borderline blood pressure. He did not have any changes in his mental status or any end-organ damage. The patient's chest x- ray revealed a bibasilar pneumonia worse in the right lung base. Patient was admitted for treatment of community-acquired pneumonia. Plan: IV ceftriaxone and azithromycin The patient was hospitalized but it has been greater than 3 months therefore he will be treated as a community-acquired pneumonia Supplemental oxygen Treatment of COPD exacerbation with nebs, steroids Patient will likely need to 3 days of IV antibiotics before we switch to oral antibiotics Blood cultures pending Qualifiers: Laterality: right Lung location: lower lobe of lung Qualified Code(s): J18.1 - Lobar pneumonia, unspecified organism (2) COPD exacerbation Conclusion/Plan: Secondary to pneumonia the patient does have scattered wheezes and worsening shortness of air. The patient likely has COPD exacerbation secondary to the pneumonia. Plan: Duo nebs around the clock 24 hours then as needed IV Solu-Medrol 40 mg 3 times daily Antibiotic treatment for community acquired pneumonia as above Supplemental oxygen Continue patient's home dose of inhaled corticosteroid and long-acting beta agonist (3) History of seizure disorder Conclusion/Plan: Patient has history of seizure disorder and is on phenytoin and carbamazepine. The patient is stable and has not had a seizure for a number of years. Currently we will continue him on his home medications. (4) History of pulmonary embolism Conclusion/Plan: The patient has history of pulmonary embolism and DVT and is on Xarelto. We will continue his home dose of Xarelto. - Lab Results Lab results reviewed: Yes Fish Bones: 09/04/17 08:51 09/04/17 08:51 Other Lab Results: Laboratory Results WBC 21.0 x10^3/uL (4.8-10.8) H 09/04/17 08:51 RBC 4.19 10^6/uL (4.70-6.10) L 09/04/17 08:51 Hgb 12.5 g/dL (14.0-18.0) L 09/04/17 08:51 Hct 37.8 % (42.0-52.0) L 09/04/17 08:51 MCV 90.2 fL (80.0-94.0) 09/04/17 08:51 MCH 29.8 pg (27.0-31.0) 09/04/17 08:51 MCHC 33.0 g/dL (32.0-36.0) 09/04/17 08:51 RDW 14.0 % (12.0-15.0) 09/04/17 08:51 Plt Count 364 10^3/uL (130-450) 09/04/17 08:51 MPV 6.7 fL (7.4-11.4) L 09/04/17 08:51 Neut # 18.1 10^3/uL (1.5-6.6) H 09/04/17 08:51 Lymph # 0.8 10^3/uL (1.5-3.5) L 09/04/17 08:51 Turner # 1.6 10^3/uL (0.0-1.0) H 09/04/17 08:51 Eos # 0.4 10^3/uL (0.0-0.7) 09/04/17 08:51 Baso # 0.1 10^3/uL (0.0-0.1) 09/04/17 08:51 Absolute Nucleated RBC 0.01 x10^3/uL 09/04/17 08:51 Nucleated RBC % 0.0 /100WBC 09/04/17 08:51 Manual Slide Review Indicated 09/04/17 08:51 WBC Morphology NORMAL APPEARANCE (NORMAL) 09/04/17 08:51 Platelet Estimate NORMAL (130-450,000) (NORMAL) 09/04/17 08:51 Platelet Morphology NORMAL APPEARANCE (NORMAL) 09/04/17 08:51 RBC Morph Micro Appear 2+ ANISOCYTOSIS (NORMAL) 1+ POIKILOCYTOSIS (NORMAL) 1 + OVALOCYTES (NORMAL) 09/04/17 08:51 RBC Morph Micro Appear 2+ ANISOCYTOSIS (NORMAL) 1+ POIKILOCYTOSIS (NORMAL) 1 + OVALOCYTES (NORMAL) 09/04/17 08:51 RBC Morph Micro Appear 2+ ANISOCYTOSIS (NORMAL) 1+ POIKILOCYTOSIS (NORMAL) 1 + OVALOCYTES (NORMAL) 09/04/17 08:51 Sodium 137 mmol/L (135-145) 09/04/17 08:51 Potassium 4.2 mmol/L (3.5-5.0) 09/04/17 08:51 Chloride 102 mmol/L (101-111) 09/04/17 08:51 Carbon Dioxide 27 mmol/L (21-32) 09/04/17 08:51 Anion Gap 8.0 (6-13) 09/04/17 08:51 BUN 13 mg/dL (6-20) 09/04/17 08:51 Creatinine 0.6 mg/dL (0.6-1.2) 09/04/17 08:51 Estimated GFR (MDRD) 134 (>89) 09/04/17 08:51 Glucose 100 mg/dL (70-100) 09/04/17 08:51 Lactic Acid 1.0 mmol/L (0.5-2.2) 09/04/17 08:51 Calcium 8.9 mg/dL (8.5-10.3) 09/04/17 08:51 Troponin I < 0.04 ng/mL (<0.49) 09/04/17 08:51 B-Natriuretic Peptide 64 pg/mL (5-100) 09/04/17 08:51 - Diagnostic Imaging Results Diagnostic Imaging Results: positive: Final report reviewed Diagnostic Imaging Results Comments: Chest x-ray Impression: 1. Diffuse interstitial prominence which is more prominent suggesting superimposed edema. 2. Coarse basilar opacities with progression in particular within the right lung base possibly related to superimposed edema or developing consolidation in the right lung - EKG Results EKG Interpreted Independently: Yes EKG Comparison: Unchanged from prior EKG Core Measures - Anticipated LOS I expect patient to be DC'd or transferred within 96 hours.: Yes - DVT/VTE - Prophylaxis VTE/DVT Device ordered at admit?: Yes
[2017-09-04] MEDS ORDERED: PROCHLORPERAZINE 10 MG/2 ML VIAL IVP PRN (11:18)
[2017-09-04] MEDS ORDERED: oxyCODONE 5 MG TABLET PO PRN ×2 (11:18)
[2017-09-04] MEDS ORDERED: ONDANSETRON 4 MG/2 ML VIAL IVP PRN (11:18)
[2017-09-04] MEDS ORDERED: PROMETHAZINE 25 MG/1 ML VIAL IM PRN (11:18)
[2017-09-04] MEDS ORDERED: ACETAMINOPHEN 325 MG TABLET PO PRN (11:18)
[2017-09-04] MEDS ORDERED: ZOLPIDEM 5 MG TABLET PO PRN (11:18)
[2017-09-04] MEDS: SODIUM CHLORIDE FLUSH 0.9% 10 ML SYRINGE IVP PRN (13:29)
[2017-09-04] MEDS: methylPREDNISolone SUCCINATE 40 MG/ML VIAL IVP SCH ×3 (13:29→20:36)
[2017-09-04] MEDS: FORMOTEROL FUMARATE NEB 20 MCG/2 ML INH SCH ×2 (15:30→20:55)
[2017-09-04] MEDS: IPRATROPIUM/ALBUTEROL 3 ML NEB INH SCH ×2 (15:30→21:00)
[2017-09-04] MEDS: BUDESONIDE 0.5 MG/2 ML NEB INH SCH ×2 (15:30→20:59)
[2017-09-04] MEDS: MORPHINE 2 MG/ML SYRINGE IVP PRN ×2 (16:06→20:23)
[2017-09-04] MEDS: SODIUM CHLORIDE 0.9% 1,000 ML IV SCH (16:06)
[2017-09-04] MEDS: SODIUM CHLORIDE FLUSH 0.9% 10 ML SYRINGE IVP SCH (16:06)
[2017-09-04] MEDS: guaiFENesin/CODEINE 5 ML UDC PO PRN (16:06)
[2017-09-04] MEDS: SACCHAROMYCES BOULARDII 250 MG CAPSULE PO SCH (17:02)
[2017-09-04] MEDS: RIVAROXABAN 10 MG TABLET PO SCH (17:02)
[2017-09-04] MEDS: METOPROLOL TARTRATE 25 MG TABLET PO SCH (20:32)
[2017-09-04] MEDS: carBAMazepine ER 200 MG TABLET PO SCH (20:32)
[2017-09-04] MEDS: PHENYTOIN CHEW 50 MG TABLET PO SCH (20:32)
[2017-09-04] MEDS: LEVALBUTEROL 1.25 MG/3 ML NEB INH PRN (23:40)
[2017-09-05] MEDS: SODIUM CHLORIDE FLUSH 0.9% 10 ML SYRINGE IVP SCH ×4 (00:57→22:39)
[2017-09-05] MEDS: SODIUM CHLORIDE FLUSH 0.9% 10 ML SYRINGE IVP PRN ×4 (01:12→22:07)
[2017-09-05] MEDS: MORPHINE 2 MG/ML SYRINGE IVP PRN ×7 (01:16→22:38)
[2017-09-05] MEDS: SODIUM CHLORIDE 0.9% 1,000 ML IV SCH (03:18)
[2017-09-05 04:32] LABS: BASOPHILS # (AUTO) 0.1 10^3/uL (0.0-0.1); BASOPHILS % (AUTO) 0.3 %; EOSINOPHILS % (AUTO) 0.1 %; HGB - HEMOGLOBIN 11.2 g/dL (14.0-18.0); LYMPHOCYTES # (AUTO) 0.8 10^3/uL (1.5-3.5); LYMPHOCYTES % (AUTO) 3.5 %; MEAN CORPUSCULAR HEMOGLOBIN 30.4 pg (27.0-31.0); MEAN CORPUSCULAR HGB CONC 33.7 g/dL (32.0-36.0); MEAN PLATELET VOLUME 6.9 fL (7.4-11.4); MONOCYTES # (AUTO) 1.2 10^3/uL (0.0-1.0); MONOCYTES % (AUTO) 5.1 %; NEUTROPHILS # (AUTO) 21.9 10^3/uL (1.5-6.6); PLT - PLATELET COUNT 315 10^3/uL (130-450); RED BLOOD COUNT 3.69 10^6/uL (4.70-6.10); RED CELL DISTRIBUTION WIDTH 13.7 % (12.0-15.0); WHITE BLOOD COUNT 24.1 x10^3/uL (4.8-10.8)
[2017-09-05 04:40] LABS: CALCIUM 8.6 mg/dL (8.5-10.3); CREATININE 0.5 mg/dL (0.6-1.2)
[2017-09-05] MEDS: BUDESONIDE 0.5 MG/2 ML NEB INH SCH ×2 (05:10→16:44)
[2017-09-05] MEDS: IPRATROPIUM/ALBUTEROL 3 ML NEB INH SCH ×3 (05:10→13:05)
[2017-09-05] MEDS: FORMOTEROL FUMARATE NEB 20 MCG/2 ML INH SCH ×2 (05:10→16:44)
[2017-09-05] MEDS: methylPREDNISolone SUCCINATE 40 MG/ML VIAL IVP SCH ×3 (05:58→22:39)
[2017-09-05 06:05] LABS: DIFFERENTIAL COMMENT MANUAL=AUTO DIFF; PLATELET ESTIMATE, MANUAL NORMAL (130-450,000) (NORMAL); PLATELET MORPHOLOGY 1+ LARGE PLATELETS (NORMAL); RBC MORPHOLOGY (MULTIPLE) NORMAL APPEARANCE (NORMAL)
[2017-09-05] MEDS ORDERED: cefTRIAXone 2 GM in SODIUM CHLORIDE 0.9% MINIBAG 100 ML IV SCH (09:00)
[2017-09-05] MEDS ORDERED: AZITHROMYCIN INJ 500 MG in SODIUM CHLORIDE 0.9% 250 ML IV SCH (09:00)
[2017-09-05 09:33] LABS: ABG BASE EXCESS -0.8 mmol/L (-2.0-3.0); ABG HCO3 23.6 mmol/L (22.0-26.0); ABG OXYGEN SATURATION 91 % (94-98); ABG PCO2 38 mmHg (34-45); ABG PH 7.41 (7.35-7.45); ABG PO2 58 mmHg (80-100); ABG TCO2 24.8 MMOL/L (21.0-29.0)
[2017-09-05 09:34] LABS: ALLEN TEST POSITIVE
[2017-09-05] MEDS: PHENYTOIN ER 100 MG CAPSULE PO SCH (09:36)
[2017-09-05] MEDS: FAMOTIDINE 20 MG TABLET PO SCH (09:36)
[2017-09-05] MEDS: METOPROLOL TARTRATE 25 MG TABLET PO SCH ×2 (09:37→20:52)
[2017-09-05] MEDS: SACCHAROMYCES BOULARDII 250 MG CAPSULE PO SCH ×2 (09:37→17:26)
[2017-09-05] MEDS: CEFEPIME 2 GM in SODIUM CHLORIDE 0.9% MINIBAG 100 ML IV SCH ×2 (09:43→22:02)
[2017-09-05] MEDS: carBAMazepine ER 200 MG TABLET PO SCH ×2 (09:43→20:51)
[2017-09-05] MEDS: guaiFENesin/CODEINE 5 ML UDC PO PRN ×4 (09:43→22:38)
--- NOTE | 2017-09-05 09:59 | XRAY Report ---
FRONTAL CHEST: 09/05/2017 CLINICAL INDICATION: Worsening shortness of breath. COMPARISON: 09/04/2017. FINDINGS: Frontal views of the chest demonstrate a normal cardiac silhouette. Emphysema and interstitial prominence are stable. No new consolidation, effusion, or pneumothorax is evident. IMPRESSION: STABLE EMPHYSEMA AND INTERSTITIAL PROMINENCE. NO SIGNIFICANT INTERVAL CHANGE. TD: 09/05/2017 09:58
[2017-09-05] MEDS ORDERED: VANCOMYCIN PER PHARMACY 1 GM in SODIUM CHLORIDE 0.9% 250 ML IV SCH (10:00)
[2017-09-05] MEDS: VANCOMYCIN INJ 1 GM in SODIUM CHLORIDE 0.9% 250 ML IV SCH ×2 (11:06→22:39)
[2017-09-05] MEDS: POLYETHYLENE GLYCOL 3350 17 GM PACKET PO SCH (13:53)
[2017-09-05] MEDS: IPRATROPIUM/ALBUTEROL 3 ML NEB INH PRN (16:44)
--- NOTE | 2017-09-05 16:49 | PROVIDER PROGRESS NOTE ---
Assessment/Plan - Problem List (1) Pneumonia Qualifiers: Pneumonia type: due to unspecified organism Laterality: right Lung location: lower lobe of lung Qualified Code(s): J18.1 - Lobar pneumonia, unspecified organism Assessment/Plan: Patient presented with increasing shortness of breath. On presentation the patient had fever, tachycardia and leukocytosis of 21,000. The patient had a normal lactic acid and had borderline blood pressure. He did not have any changes in his mental status or any end-organ damage. The patient's chest x- ray revealed a bibasilar pneumonia worse in the right lung base. Patient appears worse today Increased SOB and increased hypoxia Repeat CXR unchanged WBC worsening Will change abx to vancomycin and cefepime to broaden coverage ABG shows patient has hypoxia but no need for BiPAP Continue to monitor closely Patient wants to be intubated if needed Qualifiers: Laterality: right Lung location: lower lobe of lung Qualified Code(s): J18.1 - Lobar pneumonia, unspecified organism (2) COPD exacerbation Conclusion/Plan: Secondary to pneumonia the patient does have scattered wheezes and worsening shortness of air. The patient likely has COPD exacerbation secondary to the pneumonia. Plan: Duo nebs around the clock 24 hours then as needed IV Solu-Medrol 40 mg 3 times daily Antibiotic treatment for community acquired pneumonia as above Supplemental oxygen Continue patient's home dose of inhaled corticosteroid and long-acting beta agonist Continue current treatment (3) History of seizure disorder Conclusion/Plan: Patient has history of seizure disorder and is on phenytoin and carbamazepine. The patient is stable and has not had a seizure for a number of years. Currently we will continue him on his home medications. (4) History of pulmonary embolism Conclusion/Plan: The patient has history of pulmonary embolism and DVT and is on Xarelto. We will continue his home dose of Xarelto. - Current Meds Current Meds: Current Medications Generic Name Dose Route Start Last Admin Trade Name Freq PRN Reason Stop Dose Admin Albuterol/Ipratropium 3 ml 09/04/17 11:18 09/05/17 16:44 Duoneb INH 3 ml RTQID PRN Administration Wheezing Budesonide 0.5 mg 09/04/17 12:00 09/05/17 16:44 Pulmicort INH 0.5 mg RTBID KIMI Administration Carbamazepine 200 mg 09/04/17 21:00 09/05/17 09:43 Tegretol Xr PO 200 mg BID KIMI Administration Famotidine 20 mg 09/05/17 09:00 09/05/17 09:36 Pepcid PO 20 mg DAILY KIMI Administration Formoterol Fumarate 20 mcg 09/04/17 12:00 09/05/17 16:44 Perforomist INH 20 mcg RTBID KIMI Administration Guaifenesin/Codeine Phosphate 5 ml 09/04/17 15:37 09/05/17 10:13 Robitussin Ac PO 5 ml Q6HR PRN Administration Cough Cefepime HCl 2 gm/ Sodium 100 mls @ 200 mls/hr 09/05/17 10:00 09/05/17 11:30 Chloride IV Infused Q12H KIMI Infusion Vancomycin HCl 1 gm/ Sodium 250 mls @ 168 mls/hr 09/05/17 11:00 09/05/17 14: 02 Chloride IV Infused Q12H KIMI Infusion Levalbuterol HCl 1.25 mg 09/04/17 21:20 09/04/17 23:40 Xopenex INH 1.25 mg Q2H PRN Administration Shortness of Air/Wheezing Methylprednisolone 40 mg 09/04/17 12:00 09/05/17 13:15 Solu-Medrol (40mg Vial) IVP 40 mg TID [facility] Administration Metoprolol Tartrate 12.5 mg 09/04/17 21:00 09/05/17 09:37 Lopressor PO 12.5 mg BID [facility] Administration Morphine Sulfate 2 mg 09/04/17 11:18 09/05/17 14:53 Morphine IVP 2 mg Q2H PRN Administration Pain 8 to 10 Phenytoin Sodium 200 mg 09/05/17 09:00 09/05/17 09:36 Dilantin PO 200 mg DAILY [facility] Administration Phenytoin Sodium 150 mg 09/04/17 21:00 09/04/17 20:32 Dilantin Infatab PO 150 mg QPM [facility] Administration Polyethylene Glycol 17 gm 09/05/17 09:00 09/05/17 13:53 Miralax PO Not Given DAILY [facility] Rivaroxaban 20 mg 09/04/17 17:00 09/04/17 17:02 Xarelto PO 20 mg QDDINNER [facility] Administration Saccharomyces Boulardii 250 mg 09/04/17 17:00 09/05/17 09:37 Florastor PO 250 mg BIDWM KIMI Administration Sodium Chloride 10 ml 09/04/17 11:18 09/05/17 14:53 Normal Saline Flush 0.9% IVP 10 ml PRN PRN Administration NEEDED PER PROVIDER ORDERS Sodium Chloride 10 ml 09/04/17 17:00 09/05/17 09:37 Normal Saline Flush 0.9% IVP 10 ml [id number] KIMI Administration - Lab Result Lab results reviewed: Yes Fish Bone Diagrams: 09/05/17 04:20 09/05/17 04:20 - Diagnostic Imaging Results Diagnostic Imaging Results: Final report reviewed - Additional Planning Condition/Complexity: Guarded My Orders: My Active Orders 09/04/17 17:00 Rivaroxaban [Xarelto] 20 mg PO QDDINNER 09/04/17 21:00 Metoprolol Tartrate [Lopressor] 12.5 mg PO BID Phenytoin Infatab [Dilantin Infatab] 150 mg PO QPM carBAMazepine ER [TEGretol XR] 200 mg PO BID 09/05/17 09:00 Phenytoin [Dilantin] 200 mg PO DAILY 09/05/17 10:00 Cefepime 2 gm Sodium Chloride 0.9% Minibag [Normal Saline 0.9% Minibag] 100 ml IV Q12H 09/05/17 11:00 Vancomycin Inj [Vancomycin] 1 gm Sodium Chloride 0.9% [Normal Saline 0.9%] 250 ml IV Q12H 09/05/17 15:08 Bisacodyl [Dulcolax] 10 mg PO DAILY PRN 09/06/17 22:30 VANCOMYCIN TROUGH [CHEM] Timed Plan Discussed with:: Patient Time Spent: 31-60 minutes Subjective - Subjective Patient Reports: Cough (Worsening), Shortness of Breath (Worsening), Other (No fevers but patient states he is having a lot of trouble breathing and had a terrible night) Nursing Reports: Shortness of Breath Objective Vital Signs: Vital Signs - 24 hr 09/04/17 09/04/17 09/05/17 20:55 23:40 00:00 Temperature 36.7 C Heart Rate 117 H 98 Heart Rate [ 102 H Apical] Respiratory 22 20 22 Rate Blood Pressure 132/71 H [Left Brachial artery] Blood Pressure [Right Brachial artery] O2 Saturation 99 09/05/17 09/05/17 09/05/17 05:10 09:30 13:05 Temperature Heart Rate 108 H 84 84 Heart Rate [ Apical] Respiratory 22 24 22 Rate Blood Pressure [Left Brachial artery] Blood Pressure [Right Brachial artery] O2 Saturation 09/05/17 15:46 Temperature 37.3 C Heart Rate Heart Rate [ 86 Apical] Respiratory 20 Rate Blood Pressure [Left Brachial artery] Blood Pressure 106/70 [Right Brachial artery] O2 Saturation 98 Oxygen O2 Source High Flow I&O (Last 24 Hrs): Intake and Output Totals x24h 09/03/17 09/04/17 09/05/17 23:59 23:59 23:59 Intake Total 850 1670.829 Output Total 120 200 Balance 730 1470.829 General: Alert, Oriented x3, Moderate distress (tachypnic, short of breath coughing) HEENT: Atraumatic, PERRLA, EOMI, Mucous membr. moist/pink Neck: Supple, No JVD, No thyromegaly, +2 carotid pulse wo bruit, No LAD Lymphatic: no adenopathy Neuro: Alert, Non Focal, CN 2-12 Grossly Intact, Oriented Times 3 Cardiovascular: No murmurs, Other (Tachycardic) Respiratory: Chest non-tender, Rhonchi (RIght lower lobe), Other (Dereased breath sounds bilaterally) Abdomen: Normal bowel sounds, Soft, No tenderness, No hepatospenomegaly, No masses Extremities: No clubbing, No cyanosis, No edema, Normal pulses, No tenderness/ swelling Skin: No rashes, No breakdown Comments/Notes: Fibromas covering entire body - Results Results: Laboratory Results WBC 24.1 x10^3/uL (4.8-10.8) H 09/05/17 04:20 RBC 3.69 10^6/uL (4.70-6.10) L 09/05/17 04:20 Hgb 11.2 g/dL (14.0-18.0) L 09/05/17 04:20 Hct 33.2 % (42.0-52.0) L 09/05/17 04:20 MCV 90.0 fL (80.0-94.0) 09/05/17 04:20 MCH 30.4 pg (27.0-31.0) 09/05/17 04:20 MCHC 33.7 g/dL (32.0-36.0) 09/05/17 04:20 RDW 13.7 % (12.0-15.0) 09/05/17 04:20 Plt Count 315 10^3/uL (130-450) 09/05/17 04:20 MPV 6.9 fL (7.4-11.4) L 09/05/17 04:20 Neut # 21.9 10^3/uL (1.5-6.6) H 09/05/17 04:20 Lymph # 0.8 10^3/uL (1.5-3.5) L 09/05/17 04:20 [place] # 1.2 10^3/uL (0.0-1.0) H 09/05/17 04:20 Eos # 0.0 10^3/uL (0.0-0.7) 09/05/17 04:20 Baso # 0.1 10^3/uL (0.0-0.1) 09/05/17 04:20 Absolute Nucleated RBC 0.00 x10^3/uL 09/05/17 04:20 Band Neuts % (Manual) Not Reportable 09/05/17 04:20 Abnorm Lymph % (Manual) Not Reportable 09/05/17 04:20 Nucleated RBC % 0.0 /100WBC 09/05/17 04:20 Neutrophils # (Manual) Not Reportable 09/05/17 04:20 Lymphocytes # (Manual) Not Reportable 09/05/17 04:20 Monocytes # (Manual) Not Reportable 09/05/17 04:20 Eosinophils # (Manual) Not Reportable 09/05/17 04:20 Basophils # (Manual) Not Reportable 09/05/17 04:20 Differential Comment MANUAL=AUTO DIFF 09/05/17 04:20 Manual Slide Review Indicated 09/04/17 08:51 WBC Morphology NORMAL APPEARANCE (NORMAL) 09/04/17 08:51 Platelet Estimate NORMAL (130-450,000) (NORMAL) 09/05/17 04:20 Platelet Morphology 1+ LARGE PLATELETS (NORMAL) 09/05/17 04:20 RBC Morph Micro Appear 2+ ANISOCYTOSIS (NORMAL) 1+ POIKILOCYTOSIS (NORMAL) 1 + OVALOCYTES (NORMAL) 09/04/17 08:51 RBC Morph Micro Appear 2+ ANISOCYTOSIS (NORMAL) 1+ POIKILOCYTOSIS (NORMAL) 1 + OVALOCYTES (NORMAL) 09/04/17 08:51 RBC Morph Micro Appear NORMAL APPEARANCE (NORMAL) 09/05/17 04:20 Bld Gas Analysis Time 0909/05/17 09:24 Sample Site RIGHT RADIAL 09/05/17 09:24 ABG pH 7.41 (7.35-7.45) 09/05/17 09:24 ABG pCO2 38 mmHg (34-45) 09/05/17 09:24 ABG pO2 58 mmHg (80-100) L 09/05/17 09:24 ABG HCO3 23.6 mmol/L (22.0-26.0) 09/05/17 09:24 ABG Total CO2 24.8 MMOL/L (21.0-29.0) 09/05/17 09:24 ABG O2 Saturation 91 % (94-98) L 09/05/17 09:24 ABG Base Excess -0.8 mmol/L (-2.0-3.0) 09/05/17 09:24 Bobo Test POSITIVE 09/05/17 09:24 O2 Delivery Device HHFNC 09/05/17 09:24 O2 Liters/Min 55.00 LPM 09/05/17 09:24 FiO2 34.00 09/05/17 09:24 Sodium 136 mmol/L (135-145) 09/05/17 04:20 Potassium 4.3 mmol/L (3.5-5.0) 09/05/17 04:20 Chloride 104 mmol/L (101-111) 09/05/17 04:20 Carbon Dioxide 24 mmol/L (21-32) 09/05/17 04:20 Anion Gap 8.0 (6-13) 09/05/17 04:20 BUN 12 mg/dL (6-20) 09/05/17 04:20 Creatinine 0.5 mg/dL (0.6-1.2) L 09/05/17 04:20 Estimated GFR (MDRD) 166 (>89) 09/05/17 04:20 Glucose 122 mg/dL (70-100) H 09/05/17 04:20 Lactic Acid 1.0 mmol/L (0.5-2.2) 09/04/17 08:51 Calcium 8.6 mg/dL (8.5-10.3) 09/05/17 04:20 Troponin I < 0.04 ng/mL (<0.49) 09/04/17 08:51 B-Natriuretic Peptide 64 pg/mL (5-100) 09/04/17 08:51 - Procedures Procedures: Procedures INSERTION OF ENDOTRACHEAL AIRWAY INTO TRACHEA, VIA OPENING (05/29/17) RESPIRATORY VENTILATION, LESS THAN 24 CONSECUTIVE HOURS (05/29/17)
[2017-09-05] MEDS: RIVAROXABAN 10 MG TABLET PO SCH (17:25)
[2017-09-05] MEDS: BISACODYL 5 MG TABLET PO PRN (17:25)
[2017-09-05] MEDS: PHENYTOIN CHEW 50 MG TABLET PO SCH (21:05)
[2017-09-05] MEDS: LEVALBUTEROL 1.25 MG/3 ML NEB INH PRN (23:52)
[2017-09-06] MEDS: SODIUM CHLORIDE FLUSH 0.9% 10 ML SYRINGE IVP SCH ×3 (01:17→17:05)
[2017-09-06 04:38] LABS: BASOPHILS % (AUTO) 0.3 %; EOSINOPHILS # (AUTO) 0.1 10^3/uL (0.0-0.7); EOSINOPHILS % (AUTO) 0.5 %; HGB - HEMOGLOBIN 11.9 g/dL (14.0-18.0); LYMPHOCYTES # (AUTO) 0.7 10^3/uL (1.5-3.5); LYMPHOCYTES % (AUTO) 4.2 %; MEAN CORPUSCULAR HEMOGLOBIN 29.6 pg (27.0-31.0); MEAN CORPUSCULAR HGB CONC 32.5 g/dL (32.0-36.0); MEAN CORPUSCULAR VOLUME 90.9 fL (80.0-94.0); MEAN PLATELET VOLUME 7.1 fL (7.4-11.4); MONOCYTES # (AUTO) 1.1 10^3/uL (0.0-1.0); MONOCYTES % (AUTO) 6.5 %; NEUTROPHILS # (AUTO) 14.7 10^3/uL (1.5-6.6); NEUTROPHILS % (AUTO) 88.5 %; PLT - PLATELET COUNT 349 10^3/uL (130-450); RED BLOOD COUNT 4.02 10^6/uL (4.70-6.10); WHITE BLOOD COUNT 16.6 x10^3/uL (4.8-10.8)
[2017-09-06 04:49] LABS: CALCIUM 9.1 mg/dL (8.5-10.3); CREATININE 0.6 mg/dL (0.6-1.2)
[2017-09-06] MEDS: SODIUM CHLORIDE FLUSH 0.9% 10 ML SYRINGE IVP PRN ×3 (06:05→22:00)
[2017-09-06] MEDS: methylPREDNISolone SUCCINATE 40 MG/ML VIAL IVP SCH ×3 (06:05→22:00)
[2017-09-06] MEDS: FORMOTEROL FUMARATE NEB 20 MCG/2 ML INH SCH ×2 (06:19→18:19)
[2017-09-06] MEDS: BUDESONIDE 0.5 MG/2 ML NEB INH SCH ×2 (06:19→18:19)
[2017-09-06] MEDS: CEFEPIME 2 GM in SODIUM CHLORIDE 0.9% MINIBAG 100 ML IV SCH ×2 (10:16→22:00)
[2017-09-06] MEDS: PHENYTOIN ER 100 MG CAPSULE PO SCH (10:17)
[2017-09-06] MEDS: SACCHAROMYCES BOULARDII 250 MG CAPSULE PO SCH ×2 (10:18→17:05)
[2017-09-06] MEDS: FAMOTIDINE 20 MG TABLET PO SCH (10:18)
[2017-09-06] MEDS: BISACODYL 5 MG TABLET PO PRN (10:18)
[2017-09-06] MEDS: carBAMazepine ER 200 MG TABLET PO SCH ×2 (10:18→20:49)
[2017-09-06] MEDS: METOPROLOL TARTRATE 25 MG TABLET PO SCH ×2 (10:19→20:50)
[2017-09-06] MEDS: guaiFENesin/CODEINE 5 ML UDC PO PRN (10:19)
[2017-09-06] MEDS: IPRATROPIUM/ALBUTEROL 3 ML NEB INH PRN ×3 (10:57→18:19)
[2017-09-06] MEDS: POLYETHYLENE GLYCOL 3350 17 GM PACKET PO SCH (11:02)
[2017-09-06] MEDS: VANCOMYCIN INJ 1 GM in SODIUM CHLORIDE 0.9% 250 ML IV SCH ×2 (11:03→22:55)
[2017-09-06] MEDS: MORPHINE 2 MG/ML SYRINGE IVP PRN (14:30)
[2017-09-06] MEDS: RIVAROXABAN 10 MG TABLET PO SCH (17:05)
--- NOTE | 2017-09-06 18:13 | PROVIDER PROGRESS NOTE ---
Assessment/Plan - Problem List (1) Acute on chronic respiratory failure with hypoxemia Assessment/Plan: Secondary to Pneumonia and COPD exacerbation On 3L of home O2 Requiring 45% high flow ABG showed hypoxia CXR was unchanged Changed abx yesterday to vanco and cefepime Improved today although still very hypoxic (2) Pneumonia Qualifiers: Pneumonia type: due to unspecified organism Laterality: right Lung location: lower lobe of lung Qualified Code(s): J18.1 - Lobar pneumonia, unspecified organism Assessment/Plan: Changed abx yesterday to Vanco and cefepime Appears to be improving today Although still very short of breath with minimal exertion and very hypoxic Qualifiers: Laterality: right Lung location: lower lobe of lung Qualified Code(s): J18.1 - Lobar pneumonia, unspecified organism (3) COPD exacerbation Conclusion/Plan: Secondary to pneumonia the patient does have scattered wheezes and worsening shortness of air. The patient likely has COPD exacerbation secondary to the pneumonia. Plan: Duo nebs as needed IV Solu-Medrol 40 mg 3 times daily Antibiotic treatment with vanco and cefepime Supplemental oxygen Continue patient's home dose of inhaled corticosteroid and long-acting beta agonist Continue current treatment (4) History of seizure disorder Conclusion/Plan: Patient has history of seizure disorder and is on phenytoin and carbamazepine. The patient is stable and has not had a seizure for a number of years. Currently we will continue him on his home medications. (5) History of pulmonary embolism Conclusion/Plan: The patient has history of pulmonary embolism and DVT and is on Xarelto. We will continue his home dose of Xarelto. - Current Meds Current Meds: Current Medications Generic Name Dose Route Start Last Admin Trade Name Freq PRN Reason Stop Dose Admin Albuterol/Ipratropium 3 ml 09/04/17 11:18 09/06/17 14:25 Duoneb INH 3 ml RTQID PRN Administration Wheezing Bisacodyl 10 mg 09/05/17 15:08 09/06/17 10:18 Dulcolax PO 10 mg DAILY PRN Administration Constipation Budesonide 0.5 mg 09/04/17 12:00 09/06/17 06:19 Pulmicort INH 0.5 mg RTBID KIMI Administration Carbamazepine 200 mg 09/04/17 21:00 09/06/17 10:18 Tegretol Xr PO 200 mg BID K[facility]I Administration Famotidine 20 mg 09/05/17 09:00 09/06/17 10:18 Pepcid PO 20 mg DAILY KIMI Administration Formoterol Fumarate 20 mcg 09/04/17 12:00 09/06/17 06:19 Perforomist INH 20 mcg RTBID KIMI Administration Guaifenesin/Codeine Phosphate 5 ml 09/04/17 15:37 09/05/17 22:38 Robitussin Ac PO 5 ml Q6HR PRN Administration Cough Cefepime HCl 2 gm/ Sodium 100 mls @ 200 mls/hr 09/05/17 10:00 09/06/17 11:03 Chloride IV Infused Q12H [facility]I Infusion Vancomycin HCl 1 gm/ Sodium 250 mls @ 168 mls/hr 09/05/17 11:00 09/06/17 14: 06 Chloride IV Infused Q12H [facility] Infusion Levalbuterol HCl 1.25 mg 09/04/17 21:20 09/05/17 23:52 Xopenex INH 1.25 mg Q2H PRN Administration Shortness of Air/Wheezing Methylprednisolone 40 mg 09/04/17 12:00 09/06/17 14:31 Solu-Medrol (40mg Vial) IVP 40 mg TID [facility] Administration Metoprolol Tartrate 12.5 mg 09/04/17 21:00 09/06/17 10:19 Lopressor PO 12.5 mg BID KIMI Administration Morphine Sulfate 2 mg 09/04/17 11:18 09/06/17 14:30 Morphine IVP 2 mg Q2H PRN Administration Pain 8 to 10 Phenytoin Sodium 200 mg 09/05/17 09:00 09/06/17 10:17 Dilantin PO 200 mg DAILY [facility] Administration Phenytoin Sodium 150 mg 09/04/17 21:00 09/05/17 21:05 Dilantin Infatab PO 150 mg QPM KIMI Administration Polyethylene Glycol 17 gm 09/05/17 09:00 09/06/17 11:02 Miralax PO Not Given DAILY [facility] Rivaroxaban 20 mg 09/04/17 17:00 09/06/17 17:05 Xarelto PO 20 mg QDDINNER [facility]I Administration Saccharomyces Boulardii 250 mg 09/04/17 17:00 09/06/17 17:05 Florastor PO 250 mg BIDWM [facility] Administration Sodium Chloride 10 ml 09/04/17 11:18 09/06/17 14:31 Normal Saline Flush 0.9% IVP 10 ml PRN PRN Administration NEEDED PER PROVIDER ORDERS Sodium Chloride 10 ml 09/04/17 17:00 09/06/17 17:05 Normal Saline Flush 0.9% IVP 10 ml 0100,0900,1700 KIMI Administration - Lab Result Lab results reviewed: Yes Fish Bone Diagrams: 09/06/17 04:20 09/06/17 04:20 - Diagnostic Imaging Results Diagnostic Imaging Results: Final report reviewed - Additional Planning Condition/Complexity: Guarded My Orders: My Active Orders 09/06/17 Evaluate and Treat PT [PT] Routine 09/06/17 06:00 VITAMIN D,D2,D3 PANEL [REFLAB] Routine 09/06/17 22:30 VANCOMYCIN TROUGH [CHEM] Timed Plan Discussed with:: Patient Time Spent: 31-60 minutes Subjective - Subjective Patient Reports: Cough (Productive with any deep breath), Chest Pain (Pleuritic) , Shortness of Breath (With minimal exertion), Other (Feels only slightly better than yesterday) Nursing Reports: Shortness of Breath Objective Vital Signs: Vital Signs - 24 hr 09/05/17 09/06/17 09/06/17 23:42 00:00 06:19 Temperature 36.9 C Heart Rate 81 76 Heart Rate [ Apical] Heart Rate [ 79 Brachial] Respiratory 18 18 18 Rate Blood Pressure [Left Brachial artery] Blood Pressure 101/63 [Right Brachial artery] O2 Saturation 96 09/06/17 09/06/17 09/06/17 10:58 11:40 14:27 Temperature 36.4 C L Heart Rate 76 94 Heart Rate [ Apical] Heart Rate [ 90 Brachial] Respiratory 18 20 22 Rate Blood Pressure 101/70 [Left Brachial artery] Blood Pressure [Right Brachial artery] O2 Saturation 99 09/06/17 15:52 Temperature 36.6 C Heart Rate Heart Rate [ 67 Apical] Heart Rate [ Brachial] Respiratory 18 Rate Blood Pressure 105/59 L [Left Brachial artery] Blood Pressure [Right Brachial artery] O2 Saturation 99 Oxygen O2 Source High Flow I&O (Last 24 Hrs): Intake and Output Totals x24h 09/04/17 09/05/17 09/06/17 23:59 23:59 23:59 Intake Total 850 2220.829 890 Output Total 120 400 230 Balance 730 1820.829 660 General: Alert, Oriented x3, Cooperative, Mild distress (Conversational dyspnea) HEENT: Atraumatic, PERRLA, EOMI, Mucous membr. moist/pink Neck: Supple, No JVD, No thyromegaly, +2 carotid pulse wo bruit, No LAD Lymphatic: no adenopathy Neuro: Alert, Non Focal, CN 2-12 Grossly Intact, Oriented Times 3 Cardiovascular: Regular rate, Normal S1, Normal S2, No murmurs Respiratory: Chest non-tender, Wheezes (scattered), Rhonchi, Other (Decreased breath sounds bilaterally) Abdomen: Normal bowel sounds, Soft, No tenderness, No hepatospenomegaly Extremities: No clubbing, No cyanosis, No edema, Normal pulses, No tenderness/ swelling Comments/Notes: Fibromas over entire body - Results Results: Laboratory Results WBC 16.6 x10^3/uL (4.8-10.8) H 09/06/17 04:20 RBC 4.02 10^6/uL (4.70-6.10) L 09/06/17 04:20 Hgb 11.9 g/dL (14.0-18.0) L 09/06/17 04:20 Hct 36.5 % (42.0-52.0) L 09/06/17 04:20 MCV 90.9 fL (80.0-94.0) 09/06/17 04:20 MCH 29.6 pg (27.0-31.0) 09/06/17 04:20 MCHC 32.5 g/dL (32.0-36.0) 09/06/17 04:20 RDW 14.0 % (12.0-15.0) 09/06/17 04:20 Plt Count 349 10^3/uL (130-450) 09/06/17 04:20 MPV 7.1 fL (7.4-11.4) L 09/06/17 04:20 Neut # 14.7 10^3/uL (1.5-6.6) H 09/06/17 04:20 Lymph # 0.7 10^3/uL (1.5-3.5) L 09/06/17 04:20 [place] # 1.1 10^3/uL (0.0-1.0) H 09/06/17 04:20 Eos # 0.1 10^3/uL (0.0-0.7) 09/06/17 04:20 Baso # 0.0 10^3/uL (0.0-0.1) 09/06/17 04:20 Absolute Nucleated RBC 0.00 x10^3/uL 09/06/17 04:20 Band Neuts % (Manual) Not Reportable 09/05/17 04:20 Abnorm Lymph % (Manual) Not Reportable 09/05/17 04:20 Nucleated RBC % 0.0 /100WBC 09/06/17 04:20 Neutrophils # (Manual) Not Reportable 09/05/17 04:20 Lymphocytes # (Manual) Not Reportable 09/05/17 04:20 Monocytes # (Manual) Not Reportable 09/05/17 04:20 Eosinophils # (Manual) Not Reportable 09/05/17 04:20 Basophils # (Manual) Not Reportable 09/05/17 04:20 Differential Comment MANUAL=AUTO DIFF 09/05/17 04:20 Manual Slide Review Indicated 09/04/17 08:51 WBC Morphology NORMAL APPEARANCE (NORMAL) 09/04/17 08:51 Platelet Estimate NORMAL (130-450,000) (NORMAL) 09/05/17 04:20 Platelet Morphology 1+ LARGE PLATELETS (NORMAL) 09/05/17 04:20 RBC Morph Micro Appear 2+ ANISOCYTOSIS (NORMAL) 1+ POIKILOCYTOSIS (NORMAL) 1 + OVALOCYTES (NORMAL) 09/04/17 08:51 RBC Morph Micro Appear 2+ ANISOCYTOSIS (NORMAL) 1+ POIKILOCYTOSIS (NORMAL) 1 + OVALOCYTES (NORMAL) 09/04/17 08:51 RBC Morph Micro Appear NORMAL APPEARANCE (NORMAL) 09/05/17 04:20 Bld Gas Analysis Time 0931 09/05/17 09:24 Sample Site RIGHT RADIAL 09/05/17 09:24 ABG pH 7.41 (7.35-7.45) 09/05/17 09:24 ABG pCO2 38 mmHg (34-45) 09/05/17 09:24 ABG pO2 58 mmHg (80-100) L 09/05/17 09:24 ABG HCO3 23.6 mmol/L (22.0-26.0) 09/05/17 09:24 ABG Total CO2 24.8 MMOL/L (21.0-29.0) 09/05/17 09:24 ABG O2 Saturation 91 % (94-98) L 09/05/17 09:24 ABG Base Excess -0.8 mmol/L (-2.0-3.0) 09/05/17 09:24 Bobo Test POSITIVE 09/05/17 09:24 O2 Delivery Device HHFNC 09/05/17 09:24 O2 Liters/Min 55.00 LPM 09/05/17 09:24 FiO2 34.00 09/05/17 09:24 Sodium 136 mmol/L (135-145) 09/06/17 04:20 Potassium 4.5 mmol/L (3.5-5.0) 09/06/17 04:20 Chloride 102 mmol/L (101-111) 09/06/17 04:20 Carbon Dioxide 26 mmol/L (21-32) 09/06/17 04:20 Anion Gap 8.0 (6-13) 09/06/17 04:20 BUN 11 mg/dL (6-20) 09/06/17 04:20 Creatinine 0.6 mg/dL (0.6-1.2) 09/06/17 04:20 Estimated GFR (MDRD) 134 (>89) 09/06/17 04:20 Glucose 116 mg/dL (70-100) H 09/06/17 04:20 Lactic Acid 1.0 mmol/L (0.5-2.2) 09/04/17 08:51 Calcium 9.1 mg/dL (8.5-10.3) 09/06/17 04:20 Phosphorus 3.4 mg/dL (2.5-4.6) 09/06/17 04:20 Troponin I < 0.04 ng/mL (<0.49) 09/04/17 08:51 B-Natriuretic Peptide 64 pg/mL (5-100) 09/04/17 08:51 - Procedures Procedures: Procedures INSERTION OF ENDOTRACHEAL AIRWAY INTO TRACHEA, VIA OPENING (05/29/17) RESPIRATORY VENTILATION, LESS THAN 24 CONSECUTIVE HOURS (05/29/17)
[2017-09-06] MEDS: PHENYTOIN CHEW 50 MG TABLET PO SCH (20:49)
[2017-09-06 22:51] LABS: VANCOMYCIN,TROUGH 11.8 ug/mL (5.0-15.0)
[2017-09-07] MEDS: SODIUM CHLORIDE FLUSH 0.9% 10 ML SYRINGE IVP SCH ×4 (00:33→23:32)
[2017-09-07] MEDS: guaiFENesin/CODEINE 5 ML UDC PO PRN ×2 (00:49→17:41)
[2017-09-07] MEDS: LEVALBUTEROL 1.25 MG/3 ML NEB INH PRN (00:57)
[2017-09-07 05:03] LABS: BASOPHILS % (AUTO) 0.2 %; EOSINOPHILS % (AUTO) 0.2 %; HGB - HEMOGLOBIN 11.3 g/dL (14.0-18.0); LYMPHOCYTES # (AUTO) 0.6 10^3/uL (1.5-3.5); MEAN CORPUSCULAR HEMOGLOBIN 29.6 pg (27.0-31.0); MEAN CORPUSCULAR HGB CONC 32.8 g/dL (32.0-36.0); MEAN CORPUSCULAR VOLUME 90.2 fL (80.0-94.0); MEAN PLATELET VOLUME 7.2 fL (7.4-11.4); MONOCYTES # (AUTO) 1.1 10^3/uL (0.0-1.0); MONOCYTES % (AUTO) 10.7 %; NEUTROPHILS # (AUTO) 8.6 10^3/uL (1.5-6.6); NEUTROPHILS % (AUTO) 82.9 %; PLT - PLATELET COUNT 332 10^3/uL (130-450); RED BLOOD COUNT 3.81 10^6/uL (4.70-6.10); RED CELL DISTRIBUTION WIDTH 13.7 % (12.0-15.0); WHITE BLOOD COUNT 10.4 x10^3/uL (4.8-10.8)
[2017-09-07 05:08] LABS: CALCIUM 8.4 mg/dL (8.5-10.3); CREATININE 0.5 mg/dL (0.6-1.2)
[2017-09-07] MEDS: FORMOTEROL FUMARATE NEB 20 MCG/2 ML INH SCH ×2 (06:32→19:41)
[2017-09-07] MEDS: IPRATROPIUM/ALBUTEROL 3 ML NEB INH PRN ×3 (06:32→15:21)
[2017-09-07] MEDS: BUDESONIDE 0.5 MG/2 ML NEB INH SCH ×2 (06:32→19:41)
[2017-09-07] MEDS: methylPREDNISolone SUCCINATE 40 MG/ML VIAL IVP SCH ×3 (07:35→21:17)
[2017-09-07] MEDS: SODIUM CHLORIDE FLUSH 0.9% 10 ML SYRINGE IVP PRN ×2 (07:35→21:17)
[2017-09-07] MEDS: CEFEPIME 2 GM in SODIUM CHLORIDE 0.9% MINIBAG 100 ML IV SCH ×2 (10:35→21:17)
[2017-09-07] MEDS: METOPROLOL TARTRATE 25 MG TABLET PO SCH ×2 (10:40→21:13)
[2017-09-07] MEDS: SACCHAROMYCES BOULARDII 250 MG CAPSULE PO SCH ×2 (10:40→17:14)
[2017-09-07] MEDS: FAMOTIDINE 20 MG TABLET PO SCH (10:40)
[2017-09-07] MEDS: carBAMazepine ER 200 MG TABLET PO SCH ×2 (10:41→21:15)
[2017-09-07] MEDS: PHENYTOIN ER 100 MG CAPSULE PO SCH (10:53)
[2017-09-07] MEDS: POLYETHYLENE GLYCOL 3350 17 GM PACKET PO SCH (10:55)
[2017-09-07] MEDS: VANCOMYCIN INJ 1 GM in SODIUM CHLORIDE 0.9% 250 ML IV SCH ×2 (11:38→22:46)
--- NOTE | 2017-09-07 15:37 | PROVIDER PROGRESS NOTE ---
Assessment/Plan - Problem List (1) Acute on chronic respiratory failure with hypoxemia Assessment/Plan: Secondary to Pneumonia and COPD exacerbation On 3L of home O2 Requiring 45% high flow but seems to finally be breathing easier and in less distress than yesterday ABG showed hypoxia CXR was unchanged On vanco and cefepime day 3 Improving today but still hypoxic Will consider changing to PO abx after 1 or 2 more days as patient is currently improving but slowly (2) Pneumonia Qualifiers: Pneumonia type: due to unspecified organism Laterality: right Lung location: lower lobe of lung Qualified Code(s): J18.1 - Lobar pneumonia, unspecified organism Assessment/Plan: On Vanco and cefepime day 3 will continue IV abx for 1-2 more days then switch to PO Improving slowly Although still very short of breath with minimal exertion and very hypoxic Qualifiers: Laterality: right Lung location: lower lobe of lung Qualified Code(s): J18.1 - Lobar pneumonia, unspecified organism (3) COPD exacerbation Conclusion/Plan: Secondary to pneumonia the patient does have scattered wheezes and worsening shortness of air. The patient likely has COPD exacerbation secondary to the pneumonia. Plan: Duo nebs as needed IV Solu-Medrol 40 mg 3 times daily Antibiotic treatment with vanco and cefepime Supplemental oxygen Continue patient's home dose of inhaled corticosteroid and long-acting beta agonist Consider changing steroids and abx to PO in 1-2 days (4) History of seizure disorder Conclusion/Plan: Patient has history of seizure disorder and is on phenytoin and carbamazepine. The patient is stable and has not had a seizure for a number of years. Currently we will continue him on his home medications. (5) History of pulmonary embolism Conclusion/Plan: The patient has history of pulmonary embolism and DVT and is on Xarelto. We will continue his home dose of Xarelto. (6) Malnutrition Conclusion/Plan: Patients BMI is 19 Nutrition consult Check Vitamin D and phos Spoke to patient about possible rehab at SNF but patient refused and would like to go back to [facility] at discharge. - Current Meds Current Meds: Current Medications Generic Name Dose Route Start Last Admin Trade Name Freq PRN Reason Stop Dose Admin Albuterol/Ipratropium 3 ml 09/04/17 11:18 09/07/17 15:21 Duoneb INH 3 ml RTQID PRN Administration Wheezing Bisacodyl 10 mg 09/05/17 15:08 09/06/17 10:18 Dulcolax PO 10 mg DAILY PRN Administration Constipation Budesonide 0.5 mg 09/04/17 12:00 09/07/17 06:32 Pulmicort INH 0.5 mg RTBID KIMI Administration Carbamazepine 200 mg 09/04/17 21:00 09/07/17 10:41 Tegretol Xr PO 200 mg BID KIMI Administration Famotidine 20 mg 09/05/17 09:00 09/07/17 10:40 Pepcid PO 20 mg DAILY KIMI Administration Formoterol Fumarate 20 mcg 09/04/17 12:00 09/07/17 06:32 Perforomist INH 20 mcg RTBID KIMI Administration Guaifenesin/Codeine Phosphate 5 ml 09/04/17 15:37 09/07/17 00:49 Robitussin Ac PO 5 ml Q6HR PRN Administration Cough Cefepime HCl 2 gm/ Sodium 100 mls @ 200 mls/hr 09/05/17 10:00 09/07/17 11:38 Chloride IV Infused Q12H KIMI Infusion Vancomycin HCl 1 gm/ Sodium 250 mls @ 168 mls/hr 09/05/17 11:00 09/07/17 14: 08 Chloride IV Infused Q12H KIMI Infusion Levalbuterol HCl 1.25 mg 09/04/17 21:20 09/07/17 00:57 Xopenex INH 1.25 mg Q2H PRN Administration Shortness of Air/Wheezing Methylprednisolone 40 mg 09/04/17 12:00 09/07/17 13:58 Solu-Medrol (40mg Vial) IVP 40 mg TID KIMI Administration Metoprolol Tartrate 12.5 mg 09/04/17 21:00 09/07/17 10:40 Lopressor PO 12.5 mg BID KIMI Administration Morphine Sulfate 2 mg 09/04/17 11:18 09/06/17 14:30 Morphine IVP 2 mg Q2H PRN Administration Pain 8 to 10 Phenytoin Sodium 200 mg 09/05/17 09:00 09/07/17 10:53 Dilantin PO 200 mg DAILY KIMI Administration Phenytoin Sodium 150 mg 09/04/17 21:00 09/06/17 20:49 Dilantin Infatab PO 150 mg QPM KIMI Administration Polyethylene Glycol 17 gm 09/05/17 09:00 09/07/17 10:55 Miralax PO Not Given DAILY KIMI Rivaroxaban 20 mg 09/04/17 17:00 09/06/17 17:05 Xarelto PO 20 mg QDDINNER KIMI Administration Saccharomyces Petronadii 250 mg 09/04/17 17:00 09/07/17 10:40 Florastor PO 250 mg BIDWM KIMI Administration Sodium Chloride 10 ml 09/04/17 11:18 09/07/17 07:35 Normal Saline Flush 0.9% IVP 10 ml PRN PRN Administration NEEDED PER PROVIDER ORDERS Sodium Chloride 10 ml 09/04/17 17:00 09/07/17 14:01 Normal Saline Flush 0.9% IVP 10 ml [id number] KIMI Administration - Lab Result Lab results reviewed: Yes Fish Bone Diagrams: 09/07/17 04:30 09/07/17 04:30 - Diagnostic Imaging Results Diagnostic Imaging Results: Final report reviewed - Additional Planning Condition/Complexity: Improved Plan Discussed with:: Patient Time Spent: 15-30 minutes Subjective - Subjective Patient Reports: Cough (WIth deep breathing, productive), Chest Pain (PRessure with deep breaths), Shortness of Breath (With minimal exertion but slightly better), Other (No fevers or chills) Nursing Reports: No Complaints Objective Vital Signs: Vital Signs - 24 hr 09/06/17 09/06/17 09/06/17 15:52 18:19 20:50 Temperature 36.6 C Heart Rate 74 Heart Rate [ 67 Apical] Heart Rate [ Brachial] Respiratory 18 20 Rate Blood Pressure 104/76 Blood Pressure 105/59 L [Left Brachial artery] O2 Saturation 99 09/06/17 09/07/17 09/07/17 23:38 00:58 06:33 Temperature 36.4 C L Heart Rate 78 87 Heart Rate [ Apical] Heart Rate [ 83 Brachial] Respiratory 20 22 22 Rate Blood Pressure Blood Pressure 126/71 [Left Brachial artery] O2 Saturation 98 09/07/17 09/07/17 07:39 11:22 Temperature 36.6 C Heart Rate 83 Heart Rate [ Apical] Heart Rate [ 83 Brachial] Respiratory 19 22 Rate Blood Pressure Blood Pressure 106/64 [Left Brachial artery] O2 Saturation 100 Oxygen O2 Source high flow I&O (Last 24 Hrs): Intake and Output Totals x24h 09/05/17 09/06/17 09/07/17 23:59 23:59 23:59 Intake Total 2220.829 1230 850 Output Total 400 230 Balance 9778.073 9067 850 General: Alert, Oriented x3, Mild distress (Respiratory) HEENT: Atraumatic, PERRLA, EOMI, Mucous membr. moist/pink Neck: Supple, No JVD, No thyromegaly, +2 carotid pulse wo bruit, No LAD Lymphatic: no adenopathy Neuro: Alert, Non Focal, CN 2-12 Grossly Intact, Oriented Times 3 Cardiovascular: Regular rate, Normal S1, Normal S2, No murmurs Respiratory: Chest non-tender, Wheezes (scattered), Rhonchi, Other (Distant breath sounds) Abdomen: Normal bowel sounds, Soft, No tenderness, No hepatospenomegaly Extremities: No clubbing, No cyanosis, No edema, Normal pulses Skin: No rashes, No breakdown Comments/Notes: Firbomas over entire body - Results Results: Laboratory Results WBC 10.4 x10^3/uL (4.8-10.8) 09/07/17 04:30 RBC 3.81 10^6/uL (4.70-6.10) L 09/07/17 04:30 Hgb 11.3 g/dL (14.0-18.0) L 09/07/17 04:30 Hct 34.4 % (42.0-52.0) L 09/07/17 04:30 MCV 90.2 fL (80.0-94.0) 09/07/17 04:30 MCH 29.6 pg (27.0-31.0) 09/07/17 04:30 MCHC 32.8 g/dL (32.0-36.0) 09/07/17 04:30 RDW 13.7 % (12.0-15.0) 09/07/17 04:30 Plt Count 332 10^3/uL (130-450) 09/07/17 04:30 MPV 7.2 fL (7.4-11.4) L 09/07/17 04:30 Neut # 8.6 10^3/uL (1.5-6.6) H 09/07/17 04:30 Lymph # 0.6 10^3/uL (1.5-3.5) L 09/07/17 04:30 [place] # 1.1 10^3/uL (0.0-1.0) H 09/07/17 04:30 Eos # 0.0 10^3/uL (0.0-0.7) 09/07/17 04:30 Baso # 0.0 10^3/uL (0.0-0.1) 09/07/17 04:30 Absolute Nucleated RBC 0.00 x10^3/uL 09/07/17 04:30 Band Neuts % (Manual) Not Reportable 09/05/17 04:20 Abnorm Lymph % (Manual) Not Reportable 09/05/17 04:20 Nucleated RBC % 0.0 /100WBC 09/07/17 04:30 Neutrophils # (Manual) Not Reportable 09/05/17 04:20 Lymphocytes # (Manual) Not Reportable 09/05/17 04:20 Monocytes # (Manual) Not Reportable 09/05/17 04:20 Eosinophils # (Manual) Not Reportable 09/05/17 04:20 Basophils # (Manual) Not Reportable 09/05/17 04:20 Differential Comment MANUAL=AUTO DIFF 09/05/17 04:20 Manual Slide Review Indicated 09/04/17 08:51 WBC Morphology NORMAL APPEARANCE (NORMAL) 09/04/17 08:51 Platelet Estimate NORMAL (130-450,000) (NORMAL) 09/05/17 04:20 Platelet Morphology 1+ LARGE PLATELETS (NORMAL) 09/05/17 04:20 RBC Morph Micro Appear 2+ ANISOCYTOSIS (NORMAL) 1+ POIKILOCYTOSIS (NORMAL) 1 + OVALOCYTES (NORMAL) 09/04/17 08:51 RBC Morph Micro Appear 2+ ANISOCYTOSIS (NORMAL) 1+ POIKILOCYTOSIS (NORMAL) 1 + OVALOCYTES (NORMAL) 09/04/17 08:51 RBC Morph Micro Appear NORMAL APPEARANCE (NORMAL) 09/05/17 04:20 Bld Gas Analysis Time 0909/05/17 09:24 Sample Site RIGHT RADIAL 09/05/17 09:24 ABG pH 7.41 (7.35-7.45) 09/05/17 09:24 ABG pCO2 38 mmHg (34-45) 09/05/17 09:24 ABG pO2 58 mmHg (80-100) L 09/05/17 09:24 ABG HCO3 23.6 mmol/L (22.0-26.0) 09/05/17 09:24 ABG Total CO2 24.8 MMOL/L (21.0-29.0) 09/05/17 09:24 ABG O2 Saturation 91 % (94-98) L 09/05/17 09:24 ABG Base Excess -0.8 mmol/L (-2.0-3.0) 09/05/17 09:24 Bobo Test POSITIVE 09/05/17 09:24 O2 Delivery Device HHFNC 09/05/17 09:24 O2 Liters/Min 55.00 LPM 09/05/17 09:24 FiO2 34.00 09/05/17 09:24 Sodium 137 mmol/L (135-145) 09/07/17 04:30 Potassium 4.3 mmol/L (3.5-5.0) 09/07/17 04:30 Chloride 106 mmol/L (101-111) 09/07/17 04:30 Carbon Dioxide 28 mmol/L (21-32) 09/07/17 04:30 Anion Gap 3.0 (6-13) L 09/07/17 04:30 BUN 11 mg/dL (6-20) 09/07/17 04:30 Creatinine 0.5 mg/dL (0.6-1.2) L 09/07/17 04:30 Estimated GFR (MDRD) 166 (>89) 09/07/17 04:30 Glucose 113 mg/dL (70-100) H 09/07/17 04:30 Lactic Acid 1.0 mmol/L (0.5-2.2) 09/04/17 08:51 Calcium 8.4 mg/dL (8.5-10.3) L 09/07/17 04:30 Phosphorus 3.4 mg/dL (2.5-4.6) 09/06/17 04:20 Troponin I < 0.04 ng/mL (<0.49) 09/04/17 08:51 B-Natriuretic Peptide 64 pg/mL (5-100) 09/04/17 08:51 Last Dose Date UNKNOWN 09/06/17 22:33 Last Dose Time UNKNOWN 09/06/17 22:33 Vancomycin Trough 11.8 ug/mL (5.0-15.0) 09/06/17 22:33 - Procedures Procedures: Procedures INSERTION OF ENDOTRACHEAL AIRWAY INTO TRACHEA, VIA OPENING (05/29/17) RESPIRATORY VENTILATION, LESS THAN 24 CONSECUTIVE HOURS (05/29/17) ABX Reporting Has patient been on IV antibiotics over the past 48 hours?: Yes
[2017-09-07] MEDS: RIVAROXABAN 10 MG TABLET PO SCH (17:15)
[2017-09-07] MEDS: PHENYTOIN CHEW 50 MG TABLET PO SCH (21:24)
[2017-09-08 05:18] LABS: BASOPHILS % (AUTO) 0.2 %; EOSINOPHILS % (AUTO) 0.2 %; LYMPHOCYTES # (AUTO) 0.8 10^3/uL (1.5-3.5); LYMPHOCYTES % (AUTO) 8.6 %; MEAN CORPUSCULAR HEMOGLOBIN 30.1 pg (27.0-31.0); MEAN CORPUSCULAR HGB CONC 33.1 g/dL (32.0-36.0); MONOCYTES # (AUTO) 1.1 10^3/uL (0.0-1.0); MONOCYTES % (AUTO) 11.4 %; NEUTROPHILS # (AUTO) 7.8 10^3/uL (1.5-6.6); NEUTROPHILS % (AUTO) 79.6 %; PLT - PLATELET COUNT 346 10^3/uL (130-450); RED BLOOD COUNT 3.64 10^6/uL (4.70-6.10); RED CELL DISTRIBUTION WIDTH 13.8 % (12.0-15.0); WHITE BLOOD COUNT 9.7 x10^3/uL (4.8-10.8)
[2017-09-08 05:26] LABS: CALCIUM 8.3 mg/dL (8.5-10.3); CREATININE 0.5 mg/dL (0.6-1.2)
[2017-09-08] MEDS: SODIUM CHLORIDE FLUSH 0.9% 10 ML SYRINGE IVP PRN ×5 (06:01→22:20)
[2017-09-08] MEDS: methylPREDNISolone SUCCINATE 40 MG/ML VIAL IVP SCH ×3 (06:01→21:41)
[2017-09-08] MEDS: FORMOTEROL FUMARATE NEB 20 MCG/2 ML INH SCH ×2 (07:19→20:02)
[2017-09-08] MEDS: BUDESONIDE 0.5 MG/2 ML NEB INH SCH ×2 (07:19→20:02)
[2017-09-08] MEDS: IPRATROPIUM/ALBUTEROL 3 ML NEB INH PRN ×3 (07:19→20:02)
[2017-09-08] MEDS: METOPROLOL TARTRATE 25 MG TABLET PO SCH ×2 (09:29→21:46)
[2017-09-08] MEDS: FAMOTIDINE 20 MG TABLET PO SCH (09:29)
[2017-09-08] MEDS: carBAMazepine ER 200 MG TABLET PO SCH ×2 (09:29→21:35)
[2017-09-08] MEDS: PHENYTOIN ER 100 MG CAPSULE PO SCH (09:32)
[2017-09-08] MEDS: CEFEPIME 2 GM in SODIUM CHLORIDE 0.9% MINIBAG 100 ML IV SCH ×2 (09:33→21:41)
[2017-09-08] MEDS: SACCHAROMYCES BOULARDII 250 MG CAPSULE PO SCH ×2 (09:33→17:06)
[2017-09-08] MEDS: POLYETHYLENE GLYCOL 3350 17 GM PACKET PO SCH (09:34)
[2017-09-08] MEDS: SODIUM CHLORIDE FLUSH 0.9% 10 ML SYRINGE IVP SCH ×2 (09:34→17:06)
[2017-09-08] MEDS: VANCOMYCIN INJ 1 GM in SODIUM CHLORIDE 0.9% 250 ML IV SCH ×2 (11:35→22:41)
[2017-09-08] MEDS: RIVAROXABAN 10 MG TABLET PO SCH (17:06)
--- NOTE | 2017-09-08 19:19 | PROVIDER PROGRESS NOTE ---
Assessment/Plan - Problem List (1) Acute on chronic respiratory failure with hypoxemia Assessment/Plan: Secondary to Pneumonia and COPD exacerbation On 3L of home O2 Down to 4L on oxymizer today improved from 45% ABG showed hypoxia CXR was unchanged On vanco and cefepime day 4 Improving today Will consider changing to PO abx tomorrow and likely discharge on Sunday (2) Pneumonia Qualifiers: Pneumonia type: due to unspecified organism Laterality: right Lung location: lower lobe of lung Qualified Code(s): J18.1 - Lobar pneumonia, unspecified organism Assessment/Plan: On Vanco and cefepime day 4 will continue IV abx for 1 more day then switch to PO Improving slowly Cough improving and SOB improving Qualifiers: Laterality: right Lung location: lower lobe of lung Qualified Code(s): J18.1 - Lobar pneumonia, unspecified organism (3) COPD exacerbation Conclusion/Plan: Secondary to pneumonia the patient does have scattered wheezes and worsening shortness of air. The patient likely has COPD exacerbation secondary to the pneumonia. Plan: Duo nebs as needed IV Solu-Medrol 40 mg 3 times daily Antibiotic treatment with vanco and cefepime Supplemental oxygen Continue patient's home dose of inhaled corticosteroid and long-acting beta agonist Consider changing steroids and abx to PO in tomorrow (4) History of seizure disorder Conclusion/Plan: Patient has history of seizure disorder and is on phenytoin and carbamazepine. The patient is stable and has not had a seizure for a number of years. Currently we will continue him on his home medications. (5) History of pulmonary embolism Conclusion/Plan: The patient has history of pulmonary embolism and DVT and is on Xarelto. We will continue his home dose of Xarelto. (6) Malnutrition Conclusion/Plan: Patients BMI is 19 Nutrition consult Check Vitamin D and phos Spoke to patient about possible rehab at SNF but patient refused and would like to go back to [facility] at discharge. - Current Meds Current Meds: Current Medications Generic Name Dose Route Start Last Admin Trade Name Freq PRN Reason Stop Dose Admin Albuterol/Ipratropium 3 ml 09/04/17 11:18 09/08/17 11:11 Duoneb INH 3 ml RTQID PRN Administration Wheezing Bisacodyl 10 mg 09/05/17 15:08 09/06/17 10:18 Dulcolax PO 10 mg DAILY PRN Administration Constipation Budesonide 0.5 mg 09/04/17 12:00 09/08/17 07:19 Pulmicort INH 0.5 mg RTBID KIMI Administration Carbamazepine 200 mg 09/04/17 21:00 09/08/17 09:29 Tegretol Xr PO 200 mg BID KIMI Administration Famotidine 20 mg 09/05/17 09:00 09/08/17 09:29 Pepcid PO 20 mg DAILY KIMI Administration Formoterol Fumarate 20 mcg 09/04/17 12:00 09/08/17 07:19 Perforomist INH 20 mcg RTBID KIMI Administration Guaifenesin/Codeine Phosphate 5 ml 09/04/17 15:37 09/07/17 17:41 Robitussin Ac PO 5 ml Q6HR PRN Administration Cough Cefepime HCl 2 gm/ Sodium 100 mls @ 200 mls/hr 09/05/17 10:00 09/08/17 10:13 Chloride IV Infused Q12H KIMI Infusion Vancomycin HCl 1 gm/ Sodium 250 mls @ 168 mls/hr 09/05/17 11:00 09/08/17 13: 05 Chloride IV Infused Q12H KIMI Infusion Levalbuterol HCl 1.25 mg 09/04/17 21:20 09/07/17 00:57 Xopenex INH 1.25 mg Q2H PRN Administration Shortness of Air/Wheezing Methylprednisolone 40 mg 09/04/17 12:00 09/08/17 13:17 Solu-Medrol (40mg Vial) IVP 40 mg TID KIMI Administration Metoprolol Tartrate 12.5 mg 09/04/17 21:00 09/08/17 09:29 Lopressor PO 12.5 mg BID [facility] Administration Morphine Sulfate 2 mg 09/04/17 11:18 09/06/17 14:30 Morphine IVP 2 mg Q2H PRN Administration Pain 8 to 10 Phenytoin Sodium 200 mg 09/05/17 09:00 09/08/17 09:32 Dilantin PO 200 mg DAILY [facility] Administration Phenytoin Sodium 150 mg 09/04/17 21:00 09/07/17 21:24 Dilantin Infatab PO 150 mg QPM KIMI Administration Polyethylene Glycol 17 gm 09/05/17 09:00 09/08/17 09:34 Miralax PO Not Given DAILY [facility] Rivaroxaban 20 mg 09/04/17 17:00 09/08/17 17:06 Xarelto PO 20 mg QDDINNER KIMI Administration Saccharomyces Boulardii 250 mg 09/04/17 17:00 09/08/17 17:06 Florastor PO 250 mg BIDWM KIMI Administration Sodium Chloride 10 ml 09/04/17 11:18 09/08/17 13:17 Normal Saline Flush 0.9% IVP 10 ml PRN PRN Administration NEEDED PER PROVIDER ORDERS Sodium Chloride 10 ml 09/04/17 17:00 09/08/17 17:06 Normal Saline Flush 0.9% IVP 10 ml [id number],[id number] KIMI Administration - Lab Result Lab results reviewed: Yes Fish Bone Diagrams: 09/08/17 04:55 09/08/17 04:55 - Diagnostic Imaging Results Diagnostic Imaging Results: Final report reviewed - Additional Planning Condition/Complexity: Guarded My Orders: My Active Orders 09/08/17 Palliative Care Consult [CONS] Routine Plan Discussed with:: Patient Time Spent: 31-60 minutes Subjective - Subjective Patient Reports: Feeling Better, Cough (Improving), Chest Pain (Mild with deep breathing), Shortness of Breath (With exxertion but better) Nursing Reports: No Complaints Objective Vital Signs: Vital Signs - 24 hr 09/07/17 09/07/17 09/07/17 19:46 21:12 21:13 Temperature Heart Rate 85 Heart Rate [ 85 Brachial] Respiratory 12 Rate Blood Pressure 107/60 Blood Pressure [Left Brachial artery] Blood Pressure 107/60 [Right Brachial artery] O2 Saturation 09/07/17 09/08/17 09/08/17 23:33 07:19 08:00 Temperature 36.6 C 36.2 C L Heart Rate 88 Heart Rate [ 70 80 Brachial] Respiratory 18 16 20 Rate Blood Pressure Blood Pressure 97/67 111/60 [Left Brachial artery] Blood Pressure [Right Brachial artery] O2 Saturation 98 96 09/08/17 09/08/17 09/08/17 08:47 09:29 11:13 Temperature 36.5 C Heart Rate 82 Heart Rate [ 81 Brachial] Respiratory 19 20 Rate Blood Pressure 111/60 Blood Pressure 109/58 L [Left Brachial artery] Blood Pressure [Right Brachial artery] O2 Saturation 94 09/08/17 16:00 Temperature 36.5 C Heart Rate Heart Rate [ 76 Brachial] Respiratory 19 Rate Blood Pressure Blood Pressure [Left Brachial artery] Blood Pressure 101/60 [Right Brachial artery] O2 Saturation 98 Oxygen O2 Source Nasal cannula I&O (Last 24 Hrs): Intake and Output Totals x24h 09/06/17 09/07/17 09/08/17 23:59 23:59 23:59 Intake Total 1230 1187 1790 Output Total 230 Balance 1000 1187 1790 General: Alert, Oriented x3, Cooperative, Mild distress (respiratory), Other ( Thin with fibromas over entire body) HEENT: Atraumatic, PERRLA, EOMI, Mucous membr. moist/pink Neck: Supple, No JVD, No thyromegaly, +2 carotid pulse wo bruit, No LAD Lymphatic: no adenopathy Neuro: Alert, Non Focal, CN 2-12 Grossly Intact, Oriented Times 3 Cardiovascular: Regular rate, Normal S1, Normal S2, No murmurs, Other (Distant breath sounds) Respiratory: Chest non-tender, Wheezes (Scattered wheezing) Abdomen: Normal bowel sounds, Soft, No tenderness, No hepatospenomegaly Extremities: No clubbing, No cyanosis, No edema, Normal pulses Skin: No breakdown Comments/Notes: Firbomas over entire body - Results Results: Laboratory Results WBC 9.7 x10^3/uL (4.8-10.8) 09/08/17 04:55 RBC 3.64 10^6/uL (4.70-6.10) L 09/08/17 04:55 Hgb 11.0 g/dL (14.0-18.0) L 09/08/17 04:55 Hct 33.2 % (42.0-52.0) L 09/08/17 04:55 MCV 91.0 fL (80.0-94.0) 09/08/17 04:55 MCH 30.1 pg (27.0-31.0) 09/08/17 04:55 MCHC 33.1 g/dL (32.0-36.0) 09/08/17 04:55 RDW 13.8 % (12.0-15.0) 09/08/17 04:55 Plt Count 346 10^3/uL (130-450) 09/08/17 04:55 MPV 7.0 fL (7.4-11.4) L 09/08/17 04:55 Neut # 7.8 10^3/uL (1.5-6.6) H 09/08/17 04:55 Lymph # 0.8 10^3/uL (1.5-3.5) L 09/08/17 04:55 [place] # 1.1 10^3/uL (0.0-1.0) H 09/08/17 04:55 Eos # 0.0 10^3/uL (0.0-0.7) 09/08/17 04:55 Baso # 0.0 10^3/uL (0.0-0.1) 09/08/17 04:55 Absolute Nucleated RBC 0.00 x10^3/uL 09/08/17 04:55 Band Neuts % (Manual) Not Reportable 09/05/17 04:20 Abnorm Lymph % (Manual) Not Reportable 09/05/17 04:20 Nucleated RBC % 0.0 /100WBC 09/08/17 04:55 Neutrophils # (Manual) Not Reportable 09/05/17 04:20 Lymphocytes # (Manual) Not Reportable 09/05/17 04:20 Monocytes # (Manual) Not Reportable 09/05/17 04:20 Eosinophils # (Manual) Not Reportable 09/05/17 04:20 Basophils # (Manual) Not Reportable 09/05/17 04:20 Differential Comment MANUAL=AUTO DIFF 09/05/17 04:20 Manual Slide Review Indicated 09/04/17 08:51 WBC Morphology NORMAL APPEARANCE (NORMAL) 09/04/17 08:51 Platelet Estimate NORMAL (130-450,000) (NORMAL) 09/05/17 04:20 Platelet Morphology 1+ LARGE PLATELETS (NORMAL) 09/05/17 04:20 RBC Morph Micro Appear 2+ ANISOCYTOSIS (NORMAL) 1+ POIKILOCYTOSIS (NORMAL) 1 + OVALOCYTES (NORMAL) 09/04/17 08:51 RBC Morph Micro Appear 2+ ANISOCYTOSIS (NORMAL) 1+ POIKILOCYTOSIS (NORMAL) 1 + OVALOCYTES (NORMAL) 09/04/17 08:51 RBC Morph Micro Appear NORMAL APPEARANCE (NORMAL) 09/05/17 04:20 Bld Gas Analysis Time 0931 09/05/17 09:24 Sample Site RIGHT RADIAL 09/05/17 09:24 ABG pH 7.41 (7.35-7.45) 09/05/17 09:24 ABG pCO2 38 mmHg (34-45) 09/05/17 09:24 ABG pO2 58 mmHg (80-100) L 09/05/17 09:24 ABG HCO3 23.6 mmol/L (22.0-26.0) 09/05/17 09:24 ABG Total CO2 24.8 MMOL/L (21.0-29.0) 09/05/17 09:24 ABG O2 Saturation 91 % (94-98) L 09/05/17 09:24 ABG Base Excess -0.8 mmol/L (-2.0-3.0) 09/05/17 09:24 Bobo Test POSITIVE 09/05/17 09:24 O2 Delivery Device HHFNC 09/05/17 09:24 O2 Liters/Min 55.00 LPM 09/05/17 09:24 FiO2 34.00 09/05/17 09:24 Sodium 139 mmol/L (135-145) 09/08/17 04:55 Potassium 4.4 mmol/L (3.5-5.0) 09/08/17 04:55 Chloride 105 mmol/L (101-111) 09/08/17 04:55 Carbon Dioxide 30 mmol/L (21-32) 09/08/17 04:55 Anion Gap 4.0 (6-13) L 09/08/17 04:55 BUN 11 mg/dL (6-20) 09/08/17 04:55 Creatinine 0.5 mg/dL (0.6-1.2) L 09/08/17 04:55 Estimated GFR (MDRD) 166 (>89) 09/08/17 04:55 Glucose 105 mg/dL (70-100) H 09/08/17 04:55 Lactic Acid 1.0 mmol/L (0.5-2.2) 09/04/17 08:51 Calcium 8.3 mg/dL (8.5-10.3) L 09/08/17 04:55 Phosphorus 3.4 mg/dL (2.5-4.6) 09/06/17 04:20 Troponin I < 0.04 ng/mL (<0.49) 09/04/17 08:51 B-Natriuretic Peptide 64 pg/mL (5-100) 09/04/17 08:51 Last Dose Date UNKNOWN 09/06/17 22:33 Last Dose Time UNKNOWN 09/06/17 22:33 Vancomycin Trough 11.8 ug/mL (5.0-15.0) 09/06/17 22:33 - Procedures Procedures: Procedures INSERTION OF ENDOTRACHEAL AIRWAY INTO TRACHEA, VIA OPENING (05/29/17) RESPIRATORY VENTILATION, LESS THAN 24 CONSECUTIVE HOURS (05/29/17) ABX Reporting Has patient been on IV antibiotics over the past 48 hours?: Yes
[2017-09-08] MEDS: PHENYTOIN CHEW 50 MG TABLET PO SCH (21:41)
[2017-09-09] MEDS: SODIUM CHLORIDE FLUSH 0.9% 10 ML SYRINGE IVP SCH ×3 (01:13→16:36)
[2017-09-09 05:20] LABS: BASOPHILS % (AUTO) 0.2 %; EOSINOPHILS % (AUTO) 0.3 %; HGB - HEMOGLOBIN 10.8 g/dL (14.0-18.0); LYMPHOCYTES % (AUTO) 9.1 %; MEAN CORPUSCULAR HEMOGLOBIN 29.7 pg (27.0-31.0); MEAN CORPUSCULAR HGB CONC 32.5 g/dL (32.0-36.0); MEAN CORPUSCULAR VOLUME 91.3 fL (80.0-94.0); MEAN PLATELET VOLUME 6.8 fL (7.4-11.4); MONOCYTES # (AUTO) 1.2 10^3/uL (0.0-1.0); MONOCYTES % (AUTO) 11.7 %; NEUTROPHILS # (AUTO) 8.4 10^3/uL (1.5-6.6); NEUTROPHILS % (AUTO) 78.7 %; PLT - PLATELET COUNT 349 10^3/uL (130-450); RED BLOOD COUNT 3.63 10^6/uL (4.70-6.10); RED CELL DISTRIBUTION WIDTH 13.8 % (12.0-15.0); WHITE BLOOD COUNT 10.6 x10^3/uL (4.8-10.8)
[2017-09-09 05:32] LABS: CALCIUM 8.2 mg/dL (8.5-10.3); CREATININE 0.4 mg/dL (0.6-1.2)
[2017-09-09] MEDS: methylPREDNISolone SUCCINATE 40 MG/ML VIAL IVP SCH (06:05)
[2017-09-09] MEDS: FORMOTEROL FUMARATE NEB 20 MCG/2 ML INH SCH ×2 (07:15→23:49)
[2017-09-09] MEDS: IPRATROPIUM/ALBUTEROL 3 ML NEB INH PRN ×3 (07:15→23:49)
[2017-09-09] MEDS: BUDESONIDE 0.5 MG/2 ML NEB INH SCH ×2 (07:15→23:49)
[2017-09-09] MEDS: SACCHAROMYCES BOULARDII 250 MG CAPSULE PO SCH ×2 (08:02→16:36)
[2017-09-09] MEDS: METOPROLOL TARTRATE 25 MG TABLET PO SCH ×2 (08:03→20:31)
[2017-09-09] MEDS: carBAMazepine ER 200 MG TABLET PO SCH ×2 (08:03→20:33)
[2017-09-09] MEDS: PHENYTOIN ER 100 MG CAPSULE PO SCH (08:04)
[2017-09-09] MEDS: FAMOTIDINE 20 MG TABLET PO SCH (08:04)
[2017-09-09] MEDS: POLYETHYLENE GLYCOL 3350 17 GM PACKET PO SCH (08:04)
[2017-09-09] MEDS: predniSONE 20 MG TABLET PO SCH (10:05)
[2017-09-09] MEDS: levoFLOXacin 250 MG TABLET PO SCH (10:05)
[2017-09-09] MEDS: SODIUM CHLORIDE FLUSH 0.9% 10 ML SYRINGE IVP PRN (13:00)
[2017-09-09] MEDS: RIVAROXABAN 10 MG TABLET PO SCH (16:35)
--- NOTE | 2017-09-09 18:40 | PROVIDER PROGRESS NOTE ---
Assessment/Plan - Problem List (1) Acute on chronic respiratory failure with hypoxemia Assessment/Plan: Secondary to Pneumonia and COPD exacerbation On 3L of home O2 Down to 4L NC has improved from 45% ABG showed hypoxia CXR was unchanged On vanco and cefepime x 4 days will switch to PO levaquin today Improving today Likely discharge tomorrow (2) Pneumonia Qualifiers: Pneumonia type: due to unspecified organism Laterality: right Lung location: lower lobe of lung Qualified Code(s): J18.1 - Lobar pneumonia, unspecified organism Assessment/Plan: Vanco and cefepime x4 days will switch to PO levquin today Improving Cough improving and SOB improving Likely discharge tomorrow Qualifiers: Laterality: right Lung location: lower lobe of lung Qualified Code(s): J18.1 - Lobar pneumonia, unspecified organism (3) COPD exacerbation Conclusion/Plan: Secondary to pneumonia the patient does have scattered wheezes and worsening shortness of air. The patient likely has COPD exacerbation secondary to the pneumonia. Plan: Duo nebs as needed IV Solu-Medrol 40 mg 3 times daily last 4 days will switch to PO prednisone today Antibiotic treatment with vanco and cefepime change to levaquin today Supplemental oxygen Continue patient's home dose of inhaled corticosteroid and long-acting beta agonist (4) History of seizure disorder Conclusion/Plan: Patient has history of seizure disorder and is on phenytoin and carbamazepine. The patient is stable and has not had a seizure for a number of years. Currently we will continue him on his home medications. (5) History of pulmonary embolism Conclusion/Plan: The patient has history of pulmonary embolism and DVT and is on Xarelto. We will continue his home dose of Xarelto. (6) Malnutrition Conclusion/Plan: Patients BMI is 19 Nutrition consult Check Vitamin D and phos Spoke to patient about possible rehab at SNF but patient refused and would like to go back to [facility] at discharge. - Current Meds Current Meds: Current Medications Generic Name Dose Route Start Last Admin Trade Name Freq PRN Reason Stop Dose Admin Albuterol/Ipratropium 3 ml 09/04/17 11:18 09/09/17 14:54 Duoneb INH 3 ml RTQID PRN Administration Wheezing Bisacodyl 10 mg 09/05/17 15:08 09/06/17 10:18 Dulcolax PO 10 mg DAILY PRN Administration Constipation Budesonide 0.5 mg 09/04/17 12:00 09/09/17 07:15 Pulmicort INH 0.5 mg RTBID KIMI Administration Carbamazepine 200 mg 09/04/17 21:00 09/09/17 08:03 Tegretol Xr PO 200 mg BID KIMI Administration Famotidine 20 mg 09/05/17 09:00 09/09/17 08:04 Pepcid PO 20 mg DAILY KIMI Administration Formoterol Fumarate 20 mcg 09/04/17 12:00 09/09/17 07:15 Perforomist INH 20 mcg RTBID KIMI Administration Guaifenesin/Codeine Phosphate 5 ml 09/04/17 15:37 09/07/17 17:41 Robitussin Ac PO 5 ml Q6HR PRN Administration Cough Levalbuterol HCl 1.25 mg 09/04/17 21:20 09/07/17 00:57 Xopenex INH 1.25 mg Q2H PRN Administration Shortness of Air/Wheezing Levofloxacin 500 mg 09/09/17 09:00 09/09/17 10:05 Levaquin PO 500 mg DAILY KIMI Administration Metoprolol Tartrate 12.5 mg 09/08/17 23:19 09/09/17 08:03 Lopressor PO 12.5 mg BID KIMI Administration Morphine Sulfate 2 mg 09/04/17 11:18 09/06/17 14:30 Morphine IVP 2 mg Q2H PRN Administration Pain 8 to 10 Phenytoin Sodium 200 mg 09/05/17 09:00 09/09/17 08:04 Dilantin PO 200 mg DAILY KIMI Administration Phenytoin Sodium 150 mg 09/04/17 21:00 09/08/17 21:41 Dilantin Infatab PO 150 mg QPM KIMI Administration Polyethylene Glycol 17 gm 09/05/17 09:00 09/09/17 08:04 Miralax PO 17 gm DAILY KIMI Administration Prednisone 40 mg 09/09/17 09:00 09/09/17 10:05 Deltasone PO 40 mg DAILYWM KIMI Administration Rivaroxaban 20 mg 09/04/17 17:00 09/09/17 16:35 Xarelto PO 20 mg QDDINNER KIMI Administration Saccharomyces Boulardii 250 mg 09/04/17 17:00 09/09/17 16:36 Florastor PO 250 mg BIDWM KIMI Administration Sodium Chloride 10 ml 09/04/17 11:18 09/09/17 13:00 Normal Saline Flush 0.9% IVP 10 ml PRN PRN Administration NEEDED PER PROVIDER ORDERS Sodium Chloride 10 ml 09/04/17 17:00 09/09/17 16:36 Normal Saline Flush 0.9% IVP 10 ml [id number] KIMI Administration - Lab Result Lab results reviewed: Yes Fish Bone Diagrams: 09/09/17 05:05 09/09/17 05:05 - Diagnostic Imaging Results Diagnostic Imaging Results: Final report reviewed - Additional Planning Condition/Complexity: Improved My Orders: My Active Orders 09/09/17 09:00 levoFLOXacin [Levaquin] 500 mg PO DAILY predniSONE [Deltasone] 40 mg PO DAILYWM Plan Discussed with:: Patient Time Spent: 31-60 minutes Subjective - Subjective Patient Reports: Feeling Better, Cough (With deep breathing but improving), Chest Pain (Improved), Shortness of Breath (With minimal exertion) Nursing Reports: No Complaints Objective Vital Signs: Vital Signs - 24 hr 09/08/17 09/08/17 09/08/17 20:03 21:46 23:39 Temperature 36.5 C Heart Rate 75 Heart Rate [ 76 Brachial] Respiratory 12 19 Rate Blood Pressure 95/59 L Blood Pressure [Left Brachial artery] Blood Pressure 101/75 [Right Brachial artery] O2 Saturation 98 09/09/17 09/09/17 09/09/17 07:18 07:56 14:55 Temperature 36.5 C Heart Rate 78 92 Heart Rate [ 79 Brachial] Respiratory 14 20 24 Rate Blood Pressure Blood Pressure 116/62 [Left Brachial artery] Blood Pressure [Right Brachial artery] O2 Saturation 97 09/09/17 15:50 Temperature 36.5 C Heart Rate Heart Rate [ 78 Brachial] Respiratory 16 Rate Blood Pressure Blood Pressure [Left Brachial artery] Blood Pressure 98/65 [Right Brachial artery] O2 Saturation 98 Oxygen O2 Source Nasal cannula I&O (Last 24 Hrs): Intake and Output Totals x24h 09/07/17 09/08/17 09/09/17 23:59 23:59 23:59 Intake Total 1187 1890 1076 Output Total 275 Balance 1187 1890 801 General: Alert, Oriented x3, Cooperative, Other (Very thin, firbromas over entire body) HEENT: Atraumatic, PERRLA, EOMI, Mucous membr. moist/pink Neck: Supple, No JVD, No thyromegaly, +2 carotid pulse wo bruit, No LAD Lymphatic: no adenopathy, axilla node tender (R) Neuro: Non Focal, CN 2-12 Grossly Intact, Oriented Times 3 Cardiovascular: Regular rate, Normal S1, Normal S2, No murmurs Respiratory: Chest non-tender, Wheezes (diffuse), Rhonchi, Other (Improved air movement) Abdomen: Normal bowel sounds, Soft, No tenderness, No hepatospenomegaly, No masses Extremities: No clubbing, No cyanosis, No edema, Normal pulses, No tenderness/ swelling Skin: No rashes, No breakdown, No significant lesion Comments/Notes: fibromas cover entire body - Results Results: Laboratory Results WBC 10.6 x10^3/uL (4.8-10.8) 09/09/17 05:05 RBC 3.63 10^6/uL (4.70-6.10) L 09/09/17 05:05 Hgb 10.8 g/dL (14.0-18.0) L 09/09/17 05:05 Hct 33.2 % (42.0-52.0) L 09/09/17 05:05 MCV 91.3 fL (80.0-94.0) 09/09/17 05:05 MCH 29.7 pg (27.0-31.0) 09/09/17 05:05 MCHC 32.5 g/dL (32.0-36.0) 09/09/17 05:05 RDW 13.8 % (12.0-15.0) 09/09/17 05:05 Plt Count 349 10^3/uL (130-450) 09/09/17 05:05 MPV 6.8 fL (7.4-11.4) L 09/09/17 05:05 Neut # 8.4 10^3/uL (1.5-6.6) H 09/09/17 05:05 Lymph # 1.0 10^3/uL (1.5-3.5) L 09/09/17 05:05 [place] # 1.2 10^3/uL (0.0-1.0) H 09/09/17 05:05 Eos # 0.0 10^3/uL (0.0-0.7) 09/09/17 05:05 Baso # 0.0 10^3/uL (0.0-0.1) 09/09/17 05:05 Absolute Nucleated RBC 0.00 x10^3/uL 09/09/17 05:05 Band Neuts % (Manual) Not Reportable 09/05/17 04:20 Abnorm Lymph % (Manual) Not Reportable 09/05/17 04:20 Nucleated RBC % 0.0 /100WBC 09/09/17 05:05 Neutrophils # (Manual) Not Reportable 09/05/17 04:20 Lymphocytes # (Manual) Not Reportable 09/05/17 04:20 Monocytes # (Manual) Not Reportable 09/05/17 04:20 Eosinophils # (Manual) Not Reportable 09/05/17 04:20 Basophils # (Manual) Not Reportable 09/05/17 04:20 Differential Comment MANUAL=AUTO DIFF 09/05/17 04:20 Manual Slide Review Indicated 09/04/17 08:51 WBC Morphology NORMAL APPEARANCE (NORMAL) 09/04/17 08:51 Platelet Estimate NORMAL (130-450,000) (NORMAL) 09/05/17 04:20 Platelet Morphology 1+ LARGE PLATELETS (NORMAL) 09/05/17 04:20 RBC Morph Micro Appear 2+ ANISOCYTOSIS (NORMAL) 1+ POIKILOCYTOSIS (NORMAL) 1 + OVALOCYTES (NORMAL) 09/04/17 08:51 RBC Morph Micro Appear 2+ ANISOCYTOSIS (NORMAL) 1+ POIKILOCYTOSIS (NORMAL) 1 + OVALOCYTES (NORMAL) 09/04/17 08:51 RBC Morph Micro Appear NORMAL APPEARANCE (NORMAL) 09/05/17 04:20 Bld Gas Analysis Time 0931 09/05/17 09:24 Sample Site RIGHT RADIAL 09/05/17 09:24 ABG pH 7.41 (7.35-7.45) 09/05/17 09:24 ABG pCO2 38 mmHg (34-45) 09/05/17 09:24 ABG pO2 58 mmHg (80-100) L 09/05/17 09:24 ABG HCO3 23.6 mmol/L (22.0-26.0) 09/05/17 09:24 ABG Total CO2 24.8 MMOL/L (21.0-29.0) 09/05/17 09:24 ABG O2 Saturation 91 % (94-98) L 09/05/17 09:24 ABG Base Excess -0.8 mmol/L (-2.0-3.0) 09/05/17 09:24 Bobo Test POSITIVE 09/05/17 09:24 O2 Delivery Device HHFNC 09/05/17 09:24 O2 Liters/Min 55.00 LPM 09/05/17 09:24 FiO2 34.00 09/05/17 09:24 Sodium 139 mmol/L (135-145) 09/09/17 05:05 Potassium 4.5 mmol/L (3.5-5.0) 09/09/17 05:05 Chloride 104 mmol/L (101-111) 09/09/17 05:05 Carbon Dioxide 31 mmol/L (21-32) 09/09/17 05:05 Anion Gap 4.0 (6-13) L 09/09/17 05:05 BUN 14 mg/dL (6-20) 09/09/17 05:05 Creatinine 0.4 mg/dL (0.6-1.2) L 09/09/17 05:05 Estimated GFR (MDRD) 215 (>89) 09/09/17 05:05 Glucose 103 mg/dL (70-100) H 09/09/17 05:05 Lactic Acid 1.0 mmol/L (0.5-2.2) 09/04/17 08:51 Calcium 8.2 mg/dL (8.5-10.3) L 09/09/17 05:05 Phosphorus 3.4 mg/dL (2.5-4.6) 09/06/17 04:20 Troponin I < 0.04 ng/mL (<0.49) 09/04/17 08:51 B-Natriuretic Peptide 64 pg/mL (5-100) 09/04/17 08:51 Last Dose Date UNKNOWN 09/06/17 22:33 Last Dose Time UNKNOWN 09/06/17 22:33 Vancomycin Trough 11.8 ug/mL (5.0-15.0) 09/06/17 22:33 - Procedures Procedures: Procedures INSERTION OF ENDOTRACHEAL AIRWAY INTO TRACHEA, VIA OPENING (05/29/17) RESPIRATORY VENTILATION, LESS THAN 24 CONSECUTIVE HOURS (05/29/17) ABX Reporting Has patient been on IV antibiotics over the past 48 hours?: Yes
[2017-09-09] MEDS: PHENYTOIN CHEW 50 MG TABLET PO SCH (20:34)
[2017-09-10] MEDS: SODIUM CHLORIDE FLUSH 0.9% 10 ML SYRINGE IVP SCH ×3 (00:35→16:29)
[2017-09-10] MEDS: POLYETHYLENE GLYCOL 3350 17 GM PACKET PO SCH (08:03)
[2017-09-10] MEDS: LEVALBUTEROL 1.25 MG/3 ML NEB INH PRN ×2 (08:13→17:04)
[2017-09-10] MEDS: FORMOTEROL FUMARATE NEB 20 MCG/2 ML INH SCH ×2 (08:13→17:05)
[2017-09-10] MEDS: BUDESONIDE 0.5 MG/2 ML NEB INH SCH ×2 (08:14→17:04)
[2017-09-10] MEDS: METOPROLOL TARTRATE 25 MG TABLET PO SCH ×2 (09:41→21:58)
[2017-09-10] MEDS: levoFLOXacin 250 MG TABLET PO SCH (09:42)
[2017-09-10] MEDS: BISACODYL 5 MG TABLET PO PRN (09:42)
[2017-09-10] MEDS: SACCHAROMYCES BOULARDII 250 MG CAPSULE PO SCH ×2 (09:44→16:28)
[2017-09-10] MEDS: predniSONE 20 MG TABLET PO SCH (09:44)
[2017-09-10] MEDS: FAMOTIDINE 20 MG TABLET PO SCH (09:44)
[2017-09-10] MEDS: carBAMazepine ER 200 MG TABLET PO SCH ×2 (09:44→22:00)
[2017-09-10] MEDS: PHENYTOIN ER 100 MG CAPSULE PO SCH (09:45)
--- NOTE | 2017-09-10 12:44 | PROVIDER PROGRESS NOTE ---
Assessment/Plan - Problem List (1) Acute on chronic respiratory failure with hypoxemia Assessment/Plan: Secondary to Pneumonia and COPD exacerbation On 3L of home O2 Down to 3L NC improved from 45% high flow but this am he is very short of breath even with minimal exertion and at rest patient has increased wheezing. Patient was switched to PO steroids will switch back to IV steroids today. ABG showed hypoxia CXR was unchanged Given vanco and cefepime x 4 days now patient on PO levaquin Improving today Likely discharge tomorrow (2) Pneumonia Qualifiers: Pneumonia type: due to unspecified organism Laterality: right Lung location: lower lobe of lung Qualified Code(s): J18.1 - Lobar pneumonia, unspecified organism Assessment/Plan: Vanco and cefepime x4 days now on PO levquin Worse this am with increased wheezing and shortness of breath Coughing a lot this am with wheezing Patient will need 1-2 more days Qualifiers: Laterality: right Lung location: lower lobe of lung Qualified Code(s): J18.1 - Lobar pneumonia, unspecified organism (3) COPD exacerbation Conclusion/Plan: Secondary to pneumonia the patient does have scattered wheezes and worsening shortness of air. The patient likely has COPD exacerbation secondary to the pneumonia. Plan: Duo nebs as needed IV Solu-Medrol 40 mg 3 times daily last 4 days switched to PO prednisone yesterday but much worse this am with increased wheezing and shortness of breath will change back to IV steroids today Antibiotic treatment with vanco and cefepime changed to levaquin yesterday Supplemental oxygen Continue patient's home dose of inhaled corticosteroid and long-acting beta agonist Worse today will likely need 1-2 more days (4) History of seizure disorder Conclusion/Plan: Patient has history of seizure disorder and is on phenytoin and carbamazepine. The patient is stable and has not had a seizure for a number of years. Currently we will continue him on his home medications. (5) History of pulmonary embolism Conclusion/Plan: The patient has history of pulmonary embolism and DVT and is on Xarelto. We will continue his home dose of Xarelto. (6) Malnutrition Conclusion/Plan: Patients BMI is 19 Nutrition consult Spoke to patient about possible rehab at SNF but patient refused and would like to go back to [facility] at discharge. - Current Meds Current Meds: Current Medications Generic Name Dose Route Start Last Admin Trade Name Freq PRN Reason Stop Dose Admin Albuterol/Ipratropium 3 ml 09/04/17 11:18 09/09/17 23:49 Duoneb INH 3 ml RTQID PRN Administration Wheezing Bisacodyl 10 mg 09/05/17 15:08 09/10/17 09:42 Dulcolax PO 5 mg DAILY PRN Administration Constipation Budesonide 0.5 mg 09/04/17 12:00 09/10/17 08:14 Pulmicort INH 0.5 mg RTBID KIMI Administration Carbamazepine 200 mg 09/04/17 21:00 09/10/17 09:44 Tegretol Xr PO 200 mg BID KIMI Administration Famotidine 20 mg 09/05/17 09:00 09/10/17 09:44 Pepcid PO 20 mg DAILY KIMI Administration Formoterol Fumarate 20 mcg 09/04/17 12:00 09/10/17 08:13 Perforomist INH 20 mcg RTBID KIMI Administration Guaifenesin/Codeine Phosphate 5 ml 09/04/17 15:37 09/07/17 17:41 Robitussin Ac PO 5 ml Q6HR PRN Administration Cough Levalbuterol HCl 1.25 mg 09/04/17 21:20 09/10/17 08:13 Xopenex INH 1.25 mg Q2H PRN Administration Shortness of Air/Wheezing Levofloxacin 500 mg 09/09/17 09:00 09/10/17 09:42 Levaquin PO 500 mg DAILY KIMI Administration Metoprolol Tartrate 12.5 mg 09/08/17 23:19 09/10/17 09:41 Lopressor PO 12.5 mg BID KIMI Administration Morphine Sulfate 2 mg 09/04/17 11:18 09/06/17 14:30 Morphine IVP 2 mg Q2H PRN Administration Pain 8 to 10 Phenytoin Sodium 200 mg 09/05/17 09:00 09/10/17 09:45 Dilantin PO 200 mg DAILY KIMI Administration Phenytoin Sodium 150 mg 09/04/17 21:00 09/09/17 20:34 Dilantin Infatab PO 150 mg QPM KIMI Administration Polyethylene Glycol 17 gm 09/05/17 09:00 09/10/17 08:03 Miralax PO Not Given DAILY [facility] Prednisone 40 mg 09/09/17 09:00 09/10/17 09:44 Deltasone PO 40 mg DAILYWM KIMI Administration Rivaroxaban 20 mg 09/04/17 17:00 09/09/17 16:35 Xarelto PO 20 mg QDDINNER [facility] Administration Saccharomyces Boulardii 250 mg 09/04/17 17:00 09/10/17 09:44 Florastor PO 250 mg BIDWM KIMI Administration Sodium Chloride 10 ml 09/04/17 11:18 09/09/17 13:00 Normal Saline Flush 0.9% IVP 10 ml PRN PRN Administration NEEDED PER PROVIDER ORDERS Sodium Chloride 10 ml 09/04/17 17:00 09/10/17 09:45 Normal Saline Flush 0.9% IVP 10 ml 0100,[id number],1700 KIMI Administration - Lab Result Lab results reviewed: Yes Fish Bone Diagrams: 09/09/17 05:05 09/09/17 05:05 - Diagnostic Imaging Results Diagnostic Imaging Results: Final report reviewed - Additional Planning Condition/Complexity: Guarded Plan Discussed with:: Patient Time Spent: 31-60 minutes Subjective - Subjective Patient Reports: Cough (Worse this am), Shortness of Breath (Worse today with minimal exertion), Other (Having wheezing and working to breathe) Nursing Reports: No Complaints Objective Vital Signs: Vital Signs - 24 hr 09/09/17 09/09/17 09/09/17 14:55 15:50 20:31 Temperature 36.5 C Heart Rate 92 Heart Rate [ 78 Brachial] Respiratory 24 16 Rate Blood Pressure 111/62 Blood Pressure [Left Brachial artery] Blood Pressure 98/65 [Right Brachial artery] O2 Saturation 98 09/09/17 09/09/17 09/10/17 23:32 23:49 08:14 Temperature 36.3 C L Heart Rate 78 76 Heart Rate [ 77 Brachial] Respiratory 20 12 16 Rate Blood Pressure Blood Pressure 106/75 [Left Brachial artery] Blood Pressure [Right Brachial artery] O2 Saturation 96 09/10/17 09/10/17 09:32 09:41 Temperature 36.4 C L Heart Rate Heart Rate [ 86 Brachial] Respiratory 19 Rate Blood Pressure 116/65 Blood Pressure 116/65 [Left Brachial artery] Blood Pressure [Right Brachial artery] O2 Saturation 94 Oxygen O2 Source Nasal cannula I&O (Last 24 Hrs): Intake and Output Totals x24h 09/08/17 09/09/1718 23:59 23:59 23:59 Intake Total 1890 1176 350 Output Total 275 Balance 1890 901 350 General: Alert, Oriented x3, Cooperative, Moderate distress (respiratory with accessory muscle use), Other (fibromas over entire body) HEENT: Atraumatic, PERRLA, EOMI, Mucous membr. moist/pink Neck: Supple, No JVD, No thyromegaly, +2 carotid pulse wo bruit, No LAD Lymphatic: no adenopathy Neuro: Alert, Non Focal, CN 2-12 Grossly Intact, Oriented Times 3 Cardiovascular: Regular rate, Normal S1, Normal S2, No murmurs Respiratory: Chest non-tender, Wheezes (inspiratory and expiratory wheezing diffuse), Rales (bases) Abdomen: Normal bowel sounds, Soft, No tenderness, No hepatospenomegaly Extremities: No clubbing, No cyanosis, No edema, Normal pulses Skin: No rashes, No breakdown Comments/Notes: fibromas over entire body - Results Results: Laboratory Results WBC 10.6 x10^3/uL (4.8-10.8) 09/09/17 05:05 RBC 3.63 10^6/uL (4.70-6.10) L 09/09/17 05:05 Hgb 10.8 g/dL (14.0-18.0) L 09/09/17 05:05 Hct 33.2 % (42.0-52.0) L 09/09/17 05:05 MCV 91.3 fL (80.0-94.0) 09/09/17 05:05 MCH 29.7 pg (27.0-31.0) 09/09/17 05:05 MCHC 32.5 g/dL (32.0-36.0) 09/09/17 05:05 RDW 13.8 % (12.0-15.0) 09/09/17 05:05 Plt Count 349 10^3/uL (130-450) 09/09/17 05:05 MPV 6.8 fL (7.4-11.4) L 09/09/17 05:05 Neut # 8.4 10^3/uL (1.5-6.6) H 09/09/17 05:05 Lymph # 1.0 10^3/uL (1.5-3.5) L 09/09/17 05:05 [place] # 1.2 10^3/uL (0.0-1.0) H 09/09/17 05:05 Eos # 0.0 10^3/uL (0.0-0.7) 09/09/17 05:05 Baso # 0.0 10^3/uL (0.0-0.1) 09/09/17 05:05 Absolute Nucleated RBC 0.00 x10^3/uL 09/09/17 05:05 Band Neuts % (Manual) Not Reportable 09/05/17 04:20 Abnorm Lymph % (Manual) Not Reportable 09/05/17 04:20 Nucleated RBC % 0.0 /100WBC 09/09/17 05:05 Neutrophils # (Manual) Not Reportable 09/05/17 04:20 Lymphocytes # (Manual) Not Reportable 09/05/17 04:20 Monocytes # (Manual) Not Reportable 09/05/17 04:20 Eosinophils # (Manual) Not Reportable 09/05/17 04:20 Basophils # (Manual) Not Reportable 09/05/17 04:20 Differential Comment MANUAL=AUTO DIFF 09/05/17 04:20 Manual Slide Review Indicated 09/04/17 08:51 WBC Morphology NORMAL APPEARANCE (NORMAL) 09/04/17 08:51 Platelet Estimate NORMAL (130-450,000) (NORMAL) 09/05/17 04:20 Platelet Morphology 1+ LARGE PLATELETS (NORMAL) 09/05/17 04:20 RBC Morph Micro Appear 2+ ANISOCYTOSIS (NORMAL) 1+ POIKILOCYTOSIS (NORMAL) 1 + OVALOCYTES (NORMAL) 09/04/17 08:51 RBC Morph Micro Appear 2+ ANISOCYTOSIS (NORMAL) 1+ POIKILOCYTOSIS (NORMAL) 1 + OVALOCYTES (NORMAL) 09/04/17 08:51 RBC Morph Micro Appear NORMAL APPEARANCE (NORMAL) 09/05/17 04:20 Bld Gas Analysis Time 0909/05/17 09:24 Sample Site RIGHT RADIAL 09/05/17 09:24 ABG pH 7.41 (7.35-7.45) 09/05/17 09:24 ABG pCO2 38 mmHg (34-45) 09/05/17 09:24 ABG pO2 58 mmHg (80-100) L 09/05/17 09:24 ABG HCO3 23.6 mmol/L (22.0-26.0) 09/05/17 09:24 ABG Total CO2 24.8 MMOL/L (21.0-29.0) 09/05/17 09:24 ABG O2 Saturation 91 % (94-98) L 09/05/17 09:24 ABG Base Excess -0.8 mmol/L (-2.0-3.0) 09/05/17 09:24 Bobo Test POSITIVE 09/05/17 09:24 O2 Delivery Device HHFNC 09/05/17 09:24 O2 Liters/Min 55.00 LPM 09/05/17 09:24 FiO2 34.00 09/05/17 09:24 Sodium 139 mmol/L (135-145) 09/09/17 05:05 Potassium 4.5 mmol/L (3.5-5.0) 09/09/17 05:05 Chloride 104 mmol/L (101-111) 09/09/17 05:05 Carbon Dioxide 31 mmol/L (21-32) 09/09/17 05:05 Anion Gap 4.0 (6-13) L 09/09/17 05:05 BUN 14 mg/dL (6-20) 09/09/17 05:05 Creatinine 0.4 mg/dL (0.6-1.2) L 09/09/17 05:05 Estimated GFR (MDRD) 215 (>89) 09/09/17 05:05 Glucose 103 mg/dL (70-100) H 09/09/17 05:05 Lactic Acid 1.0 mmol/L (0.5-2.2) 09/04/17 08:51 Calcium 8.2 mg/dL (8.5-10.3) L 09/09/17 05:05 Phosphorus 3.4 mg/dL (2.5-4.6) 09/06/17 04:20 Troponin I < 0.04 ng/mL (<0.49) 09/04/17 08:51 B-Natriuretic Peptide 64 pg/mL (5-100) 09/04/17 08:51 Last Dose Date UNKNOWN 09/06/17 22:33 Last Dose Time UNKNOWN 09/06/17 22:33 Vancomycin Trough 11.8 ug/mL (5.0-15.0) 09/06/17 22:33 - Procedures Procedures: Procedures INSERTION OF ENDOTRACHEAL AIRWAY INTO TRACHEA, VIA OPENING (05/29/17) RESPIRATORY VENTILATION, LESS THAN 24 CONSECUTIVE HOURS (05/29/17) ABX Reporting Has patient been on IV antibiotics over the past 48 hours?: Yes
[2017-09-10] MEDS: methylPREDNISolone SUCCINATE 40 MG/ML VIAL IVP SCH ×2 (14:41→22:00)
[2017-09-10] MEDS: SODIUM CHLORIDE FLUSH 0.9% 10 ML SYRINGE IVP PRN ×2 (14:42→22:00)
[2017-09-10] MEDS: RIVAROXABAN 10 MG TABLET PO SCH (16:28)
[2017-09-10] MEDS: PHENYTOIN CHEW 50 MG TABLET PO SCH (22:05)
[2017-09-11] MEDS: SODIUM CHLORIDE FLUSH 0.9% 10 ML SYRINGE IVP SCH ×3 (00:43→17:31)
[2017-09-11 05:53] LABS: BASOPHILS % (AUTO) 0.2 %; EOSINOPHILS # (AUTO) 0.1 10^3/uL (0.0-0.7); EOSINOPHILS % (AUTO) 0.4 %; HGB - HEMOGLOBIN 11.2 g/dL (14.0-18.0); LYMPHOCYTES # (AUTO) 0.9 10^3/uL (1.5-3.5); LYMPHOCYTES % (AUTO) 6.6 %; MEAN CORPUSCULAR HEMOGLOBIN 29.4 pg (27.0-31.0); MEAN CORPUSCULAR HGB CONC 32.3 g/dL (32.0-36.0); MEAN CORPUSCULAR VOLUME 91.2 fL (80.0-94.0); MEAN PLATELET VOLUME 6.7 fL (7.4-11.4); MONOCYTES # (AUTO) 1.2 10^3/uL (0.0-1.0); MONOCYTES % (AUTO) 8.7 %; NEUTROPHILS # (AUTO) 12.1 10^3/uL (1.5-6.6); NEUTROPHILS % (AUTO) 84.1 %; PLT - PLATELET COUNT 362 10^3/uL (130-450); RED BLOOD COUNT 3.79 10^6/uL (4.70-6.10); RED CELL DISTRIBUTION WIDTH 13.6 % (12.0-15.0); WHITE BLOOD COUNT 14.3 x10^3/uL (4.8-10.8)
[2017-09-11 06:03] LABS: ALBUMIN 3.1 g/dL (3.2-5.5); ALBUMIN/GLOBULIN RATIO 1.1 (1.0-2.2); ALKALINE PHOSPHATASE 73 IU/L (42-121); ALT ALANINE AMINOTRANSFERASE 17 IU/L (10-60); AST ASPARTATE AMINOTRANSFERASE 16 IU/L (10-42); BILIRUBIN,TOTAL 0.5 mg/dL (0.2-1.0); BUN - BLOOD UREA NITROGEN 12 mg/dL (6-20); CALCIUM 8.5 mg/dL (8.5-10.3); CARBON DIOXIDE - CO2 31 mmol/L (21-32); CHLORIDE 99 mmol/L (101-111); CREATININE 0.5 mg/dL (0.6-1.2); GFR - MDRD 166 (>89); GLUCOSE 98 mg/dL (70-100); SODIUM 136 mmol/L (135-145)
[2017-09-11] MEDS: methylPREDNISolone SUCCINATE 40 MG/ML VIAL IVP SCH ×3 (06:44→21:15)
[2017-09-11] MEDS: SODIUM CHLORIDE FLUSH 0.9% 10 ML SYRINGE IVP PRN ×2 (06:44→21:15)
--- NOTE | 2017-09-11 06:51 | XRAY Preliminary Report ---
Exam: XR CHEST 1 VIEW X-RAY IMPRESSION: 1. Mild CHF superimposed upon COPD. 2. Stable small right perihilar nodular opacity, as mentioned in previous chest CT report, continued follow-up is necessary to exclude neoplasm. Follow-up nonemergent chest CT suggested outside of the a cute clinical setting. [facility] SITE ID: [id number]
--- NOTE | 2017-09-11 06:54 | XRAY Report ---
EXAM: CHEST RADIOGRAPHY EXAM DATE: 09/11/2017 05:59 AM. CLINICAL HISTORY: Worsening dyspnea and wheezing. COMPARISON: 09/05/2017, chest CT 05/31/2017. TECHNIQUE: 1 view. FINDINGS: FINDINGS: Lungs/Pleura: Large volumes. Diffuse mild interstitial opacities. Stable small right perihilar irregu lar nodular opacity. No large effusion. No gross pneumothorax. Mediastinum: Mild cardiomegaly. No mediastinal shift. Other: None. IMPRESSION: 1. Mild CHF superimposed upon COPD. 2. Stable small right perihilar nodular opacity, as mentioned in previous chest CT report, continued follow-up is necessary to exclude neoplasm. Follow-up nonemergent chest CT suggested outside of the a cute clinical setting. [facility] Referring Provider Line: [phone] SITE ID: [id number]
[2017-09-11] MEDS: IPRATROPIUM/ALBUTEROL 3 ML NEB INH PRN ×2 (07:30→19:13)
[2017-09-11] MEDS: BUDESONIDE 0.5 MG/2 ML NEB INH SCH ×2 (07:30→19:13)
[2017-09-11] MEDS: FORMOTEROL FUMARATE NEB 20 MCG/2 ML INH SCH ×2 (07:30→19:13)
[2017-09-11] MEDS: METOPROLOL TARTRATE 25 MG TABLET PO SCH ×2 (10:16→21:17)
[2017-09-11] MEDS: PHENYTOIN ER 100 MG CAPSULE PO SCH (10:17)
[2017-09-11] MEDS: levoFLOXacin 250 MG TABLET PO SCH (10:18)
[2017-09-11] MEDS: SACCHAROMYCES BOULARDII 250 MG CAPSULE PO SCH ×2 (10:18→17:31)
[2017-09-11] MEDS: POLYETHYLENE GLYCOL 3350 17 GM PACKET PO SCH (10:18)
[2017-09-11] MEDS: FAMOTIDINE 20 MG TABLET PO SCH (10:19)
[2017-09-11] MEDS: carBAMazepine ER 200 MG TABLET PO SCH ×2 (10:19→21:15)
--- NOTE | 2017-09-11 12:32 | PROVIDER PROGRESS NOTE ---
Assessment/Plan - Problem List (1) Acute exacerbation of chronic obstructive airways disease Assessment/Plan: Pt still has severe SOB, working to breath at rest and has poor pulmonary toilet. Will order Mucinex, Robitussin and Acappella (chest PT). Continue supplemental oxygen, iv steroids Not ready for DCh yet (2) CAP (community acquired pneumonia) Qualifiers: Laterality: right Lung location: lower lobe of lung Qualified Code(s): J18.1 - Lobar pneumonia, unspecified organism Assessment/Plan: Pt has been changed from iv to po antibiotics, in preparation for DCh (3) History of seizure disorder Assessment/Plan: Continue meds (4) History of pulmonary embolism Assessment/Plan: Continue anticoagulation with Xarelto. (5) Malnutrition Assessment/Plan: Awaiting Nutrition consult and recommendations. - Current Meds Current Meds: Current Medications Generic Name Dose Route Start Last Admin Trade Name Freq PRN Reason Stop Dose Admin Albuterol/Ipratropium 3 ml 09/04/17 11:18 09/11/17 07:30 Duoneb INH 3 ml RTQID PRN Administration Wheezing Bisacodyl 10 mg 09/05/17 15:08 09/10/17 09:42 Dulcolax PO 5 mg DAILY PRN Administration Constipation Budesonide 0.5 mg 09/04/17 12:00 09/11/17 07:30 Pulmicort INH 0.5 mg RTBID KIMI Administration Carbamazepine 200 mg 09/04/17 21:00 09/11/17 10:19 Tegretol Xr PO 200 mg BID KIMI Administration Famotidine 20 mg 09/05/17 09:00 09/11/17 10:19 Pepcid PO 20 mg DAILY KIMI Administration Formoterol Fumarate 20 mcg 09/04/17 12:00 09/11/17 07:30 Perforomist INH 20 mcg RTBID KIMI Administration Guaifenesin/Codeine Phosphate 5 ml 09/04/17 15:37 09/07/17 17:41 Robitussin Ac PO 5 ml Q6HR PRN Administration Cough Levalbuterol HCl 1.25 mg 09/04/17 21:20 09/10/17 17:04 Xopenex INH 1.25 mg Q2H PRN Administration Shortness of Air/Wheezing Levofloxacin 500 mg 09/09/17 09:00 09/11/17 10:18 Levaquin PO 500 mg DAILY KIMI Administration Methylprednisolone 40 mg 09/10/17 14:00 09/11/17 06:44 Solu-Medrol (40mg Vial) IVP 40 mg TID KIMI Administration Metoprolol Tartrate 12.5 mg 09/08/17 23:19 09/11/17 10:16 Lopressor PO 12.5 mg BID KIMI Administration Morphine Sulfate 2 mg 09/04/17 11:18 09/06/17 14:30 Morphine IVP 2 mg Q2H PRN Administration Pain 8 to 10 Phenytoin Sodium 200 mg 09/05/17 09:00 09/11/17 10:17 Dilantin PO 200 mg DAILY KIMI Administration Phenytoin Sodium 150 mg 09/04/17 21:00 09/10/17 22:05 Dilantin Infatab PO 150 mg QPM KIMI Administration Polyethylene Glycol 17 gm 09/05/17 09:00 09/11/17 10:18 Miralax PO Not Given DAILY [facility] Rivaroxaban 20 mg 09/04/17 17:00 09/10/17 16:28 Xarelto PO 20 mg QDDINNER [facility] Administration Saccharomyces Boulardii 250 mg 09/04/17 17:00 09/11/17 10:18 Florastor PO 250 mg BIDWM KIMI Administration Sodium Chloride 10 ml 09/04/17 11:18 09/11/17 06:44 Normal Saline Flush 0.9% IVP 10 ml PRN PRN Administration NEEDED PER PROVIDER ORDERS Sodium Chloride 10 ml 09/04/17 17:00 09/11/17 10:18 Normal Saline Flush 0.9% IVP 10 ml 0100,[id number],1700 [facility] Administration - Lab Result Fish Bone Diagrams: 09/11/17 05:40 09/11/17 05:40 Subjective - Subjective Patient Reports: Shortness of Breath, Other (Wet cough, "can't bring it up") Nursing Reports: Shortness of Breath Objective Vital Signs: Vital Signs - 24 hr 09/10/17 09/10/17 09/10/17 15:50 17:05 21:58 Temperature 36.5 C Heart Rate 77 Heart Rate [ 83 Brachial] Respiratory 20 16 Rate Blood Pressure 108/67 Blood Pressure 106/80 [Left Brachial artery] Blood Pressure [Right Brachial artery] O2 Saturation 95 09/11/17 09/11/17 09/11/17 00:00 07:30 08:00 Temperature 36.4 C L 36.6 C Heart Rate 65 Heart Rate [ 78 82 Brachial] Respiratory 18 16 18 Rate Blood Pressure Blood Pressure 114/68 [Left Brachial artery] Blood Pressure 97/54 L [Right Brachial artery] O2 Saturation 100 91 L Oxygen O2 Source Nasal cannula I&O (Last 24 Hrs): Intake and Output Totals x24h 09/09/17 09/10/17 09/11/17 23:59 23:59 23:59 Intake Total 1176 830 450 Output Total 275 Balance 901 830 450 General: Alert, Oriented x3, Moderate distress, Other (SOB when speaking) HEENT: Mucous membr. moist/pink, Other (Poor dentition. Temporal wasting.) Neck: Supple, Other ((+) JVD) Cardiovascular: Regular rate, No murmurs Respiratory: Other (Posterior whezzing diffusely, L anterior base rales, R ant base diminished.) Abdomen: Soft Extremities: No edema - Results Results: Laboratory Results WBC 14.3 x10^3/uL (4.8-10.8) H 09/11/17 05:40 RBC 3.79 10^6/uL (4.70-6.10) L 09/11/17 05:40 Hgb 11.2 g/dL (14.0-18.0) L 09/11/17 05:40 Hct 34.6 % (42.0-52.0) L 09/11/17 05:40 MCV 91.2 fL (80.0-94.0) 09/11/17 05:40 MCH 29.4 pg (27.0-31.0) 09/11/17 05:40 MCHC 32.3 g/dL (32.0-36.0) 09/11/17 05:40 RDW 13.6 % (12.0-15.0) 09/11/17 05:40 Plt Count 362 10^3/uL (130-450) 09/11/17 05:40 MPV 6.7 fL (7.4-11.4) L 09/11/17 05:40 Neut # 12.1 10^3/uL (1.5-6.6) H 09/11/17 05:40 Lymph # 0.9 10^3/uL (1.5-3.5) L 09/11/17 05:40 [place] # 1.2 10^3/uL (0.0-1.0) H 09/11/17 05:40 Eos # 0.1 10^3/uL (0.0-0.7) 09/11/17 05:40 Baso # 0.0 10^3/uL (0.0-0.1) 09/11/17 05:40 Absolute Nucleated RBC 0.00 x10^3/uL 09/11/17 05:40 Band Neuts % (Manual) Not Reportable 09/05/17 04:20 Abnorm Lymph % (Manual) Not Reportable 09/05/17 04:20 Nucleated RBC % 0.0 /100WBC 09/11/17 05:40 Neutrophils # (Manual) Not Reportable 09/05/17 04:20 Lymphocytes # (Manual) Not Reportable 09/05/17 04:20 Monocytes # (Manual) Not Reportable 09/05/17 04:20 Eosinophils # (Manual) Not Reportable 09/05/17 04:20 Basophils # (Manual) Not Reportable 09/05/17 04:20 Differential Comment MANUAL=AUTO DIFF 09/05/17 04:20 Manual Slide Review Indicated 09/04/17 08:51 WBC Morphology NORMAL APPEARANCE (NORMAL) 09/04/17 08:51 Platelet Estimate NORMAL (130-450,000) (NORMAL) 09/05/17 04:20 Platelet Morphology 1+ LARGE PLATELETS (NORMAL) 09/05/17 04:20 RBC Morph Micro Appear 2+ ANISOCYTOSIS (NORMAL) 1+ POIKILOCYTOSIS (NORMAL) 1 + OVALOCYTES (NORMAL) 09/04/17 08:51 RBC Morph Micro Appear 2+ ANISOCYTOSIS (NORMAL) 1+ POIKILOCYTOSIS (NORMAL) 1 + OVALOCYTES (NORMAL) 09/04/17 08:51 RBC Morph Micro Appear NORMAL APPEARANCE (NORMAL) 09/05/17 04:20 Bld Gas Analysis Time 0931 09/05/17 09:24 Sample Site RIGHT RADIAL 09/05/17 09:24 ABG pH 7.41 (7.35-7.45) 09/05/17 09:24 ABG pCO2 38 mmHg (34-45) 09/05/17 09:24 ABG pO2 58 mmHg (80-100) L 09/05/17 09:24 ABG HCO3 23.6 mmol/L (22.0-26.0) 09/05/17 09:24 ABG Total CO2 24.8 MMOL/L (21.0-29.0) 09/05/17 09:24 ABG O2 Saturation 91 % (94-98) L 09/05/17 09:24 ABG Base Excess -0.8 mmol/L (-2.0-3.0) 09/05/17 09:24 Bobo Test POSITIVE 09/05/17 09:24 O2 Delivery Device HHFNC 09/05/17 09:24 O2 Liters/Min 55.00 LPM 09/05/17 09:24 FiO2 34.00 09/05/17 09:24 Sodium 136 mmol/L (135-145) 09/11/17 05:40 Potassium 4.5 mmol/L (3.5-5.0) 09/11/17 05:40 Chloride 99 mmol/L (101-111) L 09/11/17 05:40 Carbon Dioxide 31 mmol/L (21-32) 09/11/17 05:40 Anion Gap 6.0 (6-13) 09/11/17 05:40 BUN 12 mg/dL (6-20) 09/11/17 05:40 Creatinine 0.5 mg/dL (0.6-1.2) L 09/11/17 05:40 Estimated GFR (MDRD) 166 (>89) 09/11/17 05:40 Glucose 98 mg/dL (70-100) 09/11/17 05:40 Lactic Acid 1.0 mmol/L (0.5-2.2) 09/04/17 08:51 Calcium 8.5 mg/dL (8.5-10.3) 09/11/17 05:40 Ionized Calcium NO 09/11/17 05:40 Phosphorus 3.4 mg/dL (2.5-4.6) 09/06/17 04:20 Total Bilirubin 0.5 mg/dL (0.2-1.0) 09/11/17 05:40 AST 16 IU/L (10-42) 09/11/17 05:40 ALT 17 IU/L (10-60) 09/11/17 05:40 Alkaline Phosphatase 73 IU/L (42-121) 09/11/17 05:40 Troponin I < 0.04 ng/mL (<0.49) 09/04/17 08:51 B-Natriuretic Peptide 64 pg/mL (5-100) 09/04/17 08:51 Total Protein 6.0 g/dL (6.7-8.2) L 09/11/17 05:40 Albumin 3.1 g/dL (3.2-5.5) L 09/11/17 05:40 Globulin 2.9 g/dL (2.1-4.2) 09/11/17 05:40 Albumin/Globulin Ratio 1.1 (1.0-2.2) 09/11/17 05:40 Last Dose Date UNKNOWN 09/06/17 22:33 Last Dose Time UNKNOWN 09/06/17 22:33 Vancomycin Trough 11.8 ug/mL (5.0-15.0) 09/06/17 22:33 - Procedures Procedures: Procedures INSERTION OF ENDOTRACHEAL AIRWAY INTO TRACHEA, VIA OPENING (05/29/17) RESPIRATORY VENTILATION, LESS THAN 24 CONSECUTIVE HOURS (05/29/17) ABX Reporting Has patient been on IV antibiotics over the past 48 hours?: Yes
[2017-09-11] MEDS: guaiFENesin 600 MG TABLET PO SCH ×2 (14:44→21:14)
[2017-09-11] MEDS: RIVAROXABAN 10 MG TABLET PO SCH (17:30)
[2017-09-11] MEDS: PHENYTOIN CHEW 50 MG TABLET PO SCH (21:14)
[2017-09-12] MEDS: SODIUM CHLORIDE FLUSH 0.9% 10 ML SYRINGE IVP SCH ×3 (01:40→16:15)
[2017-09-12] MEDS: methylPREDNISolone SUCCINATE 40 MG/ML VIAL IVP SCH ×3 (06:45→21:55)
[2017-09-12] MEDS: SODIUM CHLORIDE FLUSH 0.9% 10 ML SYRINGE IVP PRN ×3 (06:46→21:55)
[2017-09-12] MEDS: BUDESONIDE 0.5 MG/2 ML NEB INH SCH (07:20)
[2017-09-12] MEDS: FORMOTEROL FUMARATE NEB 20 MCG/2 ML INH SCH ×2 (07:20→19:38)
[2017-09-12] MEDS: IPRATROPIUM/ALBUTEROL 3 ML NEB INH PRN (07:20)
[2017-09-12] MEDS: METOPROLOL TARTRATE 25 MG TABLET PO SCH ×2 (09:00→20:19)
[2017-09-12] MEDS: levoFLOXacin 250 MG TABLET PO SCH (09:01)
[2017-09-12] MEDS: guaiFENesin 600 MG TABLET PO SCH ×2 (09:01→20:15)
[2017-09-12] MEDS: SACCHAROMYCES BOULARDII 250 MG CAPSULE PO SCH ×2 (09:02→16:15)
[2017-09-12] MEDS: PHENYTOIN ER 100 MG CAPSULE PO SCH (09:02)
[2017-09-12] MEDS: carBAMazepine ER 200 MG TABLET PO SCH ×2 (09:02→20:15)
[2017-09-12] MEDS: FAMOTIDINE 20 MG TABLET PO SCH (09:03)
[2017-09-12 09:52] LABS: VBG PH 7.366 (7.31-7.41)
[2017-09-12 09:53] LABS: BASOPHILS % (AUTO) 0.2 %; EOSINOPHILS % (AUTO) 0.5 %; HGB - HEMOGLOBIN 12.4 g/dL (14.0-18.0); LYMPHOCYTES % (AUTO) 6.4 %; MEAN CORPUSCULAR HEMOGLOBIN 30.1 pg (27.0-31.0); MEAN CORPUSCULAR HGB CONC 33.3 g/dL (32.0-36.0); MEAN CORPUSCULAR VOLUME 90.4 fL (80.0-94.0); MEAN PLATELET VOLUME 7.3 fL (7.4-11.4); MONOCYTES % (AUTO) 4.7 %; NEUTROPHILS % (AUTO) 88.2 %; PLT - PLATELET COUNT 401 10^3/uL (130-450); RED BLOOD COUNT 4.14 10^6/uL (4.70-6.10); RED CELL DISTRIBUTION WIDTH 13.6 % (12.0-15.0); VBG BASE EXCESS 5.4 mmol/L (-2 - +2); VBG PCO2 57.8 mmHg (41-51); VBG PO2 43.8 mmHg (25-47); VBG TOTAL CO2 34.1 mmol/L (24-29); WHITE BLOOD COUNT 14.8 x10^3/uL (4.8-10.8)
[2017-09-12 09:54] LABS: ABNORMAL LYMPHS % (MANUAL) 0 %
[2017-09-12 10:20] LABS: BAND NEUTROPHILS % (MANUAL) 1 %; EOSINOPHILS # (MANUAL) 0.1 10^3/uL (0-0.7); LYMPHOCYTES # (MANUAL) 0.9 10^3/uL (1.5-3.5); LYMPHOCYTES % (MANUAL) 6 %; MONOCYTES # (MANUAL) 0.6 10^3/uL (0.0-1.0); MYELOCYTES % (MANUAL) 1 %; NEUTROPHILS % (MANUAL) 87 %
[2017-09-12 10:21] LABS: DIFFERENTIAL COMMENT MANUAL DIFFERENTIAL; PLATELET MORPHOLOGY RARE GIANT PLATELETS (NORMAL)
[2017-09-12] MEDS: POLYETHYLENE GLYCOL 3350 17 GM PACKET PO SCH (13:54)
[2017-09-12] MEDS: RIVAROXABAN 10 MG TABLET PO SCH (16:16)
--- NOTE | 2017-09-12 17:37 | PROVIDER PROGRESS NOTE ---
Assessment/Plan - Problem List (1) Acute exacerbation of chronic obstructive airways disease Assessment/Plan: Pt less SOB with speaking today, but SOB with 2 steps to bedside commode. Continue nebs but will stop inhaled steroid, continue iv steroids. Continue Mucinex and Acapella. Pt is now considering OK for a stay at [facility], for asssistance with toileting and meals, as COPD exacerbation improves. Poss DCh to [facility] on Sun. (2) CAP (community acquired pneumonia) Qualifiers: Laterality: right Lung location: lower lobe of lung Qualified Code(s): J18.1 - Lobar pneumonia, unspecified organism Assessment/Plan: Continue oral antibiotic. Recheck CBC. If WBC elevated, it is probably from very high dose of iv steroids. (3) History of seizure disorder Assessment/Plan: Stable. Continue meds. (4) History of pulmonary embolism Assessment/Plan: Continue anticoagulant. (5) Malnutrition Assessment/Plan: Continue extra nutritional support, per [employer]. - Current Meds Current Meds: Current Medications Generic Name Dose Route Start Last Admin Trade Name Freq PRN Reason Stop Dose Admin Albuterol/Ipratropium 3 ml 09/04/17 11:18 09/12/17 07:20 Duoneb INH 3 ml RTQID PRN Administration Wheezing Bisacodyl 10 mg 09/05/17 15:08 09/10/17 09:42 Dulcolax PO 5 mg DAILY PRN Administration Constipation Budesonide 0.5 mg 09/04/17 12:00 09/12/17 07:20 Pulmicort INH 0.5 mg RTBID KIMI Administration Carbamazepine 200 mg 09/04/17 21:00 09/12/17 09:02 Tegretol Xr PO 200 mg BID KIMI Administration Famotidine 20 mg 09/05/17 09:00 09/12/17 09:03 Pepcid PO 20 mg DAILY KIMI Administration Formoterol Fumarate 20 mcg 09/04/17 12:00 09/12/17 07:20 Perforomist INH 20 mcg RTBID KIMI Administration Guaifenesin 600 mg 09/11/17 13:00 09/12/17 09:01 Mucinex PO 600 mg BID KIMI Administration Guaifenesin/Codeine Phosphate 5 ml 09/04/17 15:37 09/07/17 17:41 Robitussin Ac PO 5 ml Q6HR PRN Administration Cough Levalbuterol HCl 1.25 mg 09/04/17 21:20 09/10/17 17:04 Xopenex INH 1.25 mg Q2H PRN Administration Shortness of Air/Wheezing Levofloxacin 500 mg 09/09/17 09:00 09/12/17 09:01 Levaquin PO 500 mg DAILY KIMI Administration Methylprednisolone 40 mg 09/10/17 14:00 09/12/17 14:44 Solu-Medrol (40mg Vial) IVP 40 mg TID KIMI Administration Metoprolol Tartrate 12.5 mg 09/08/17 23:19 09/12/17 09:00 Lopressor PO 12.5 mg BID KIMI Administration Morphine Sulfate 2 mg 09/04/17 11:18 09/06/17 14:30 Morphine IVP 2 mg Q2H PRN Administration Pain 8 to 10 Phenytoin Sodium 200 mg 09/05/17 09:00 09/12/17 09:02 Dilantin PO 200 mg DAILY KIMI Administration Phenytoin Sodium 150 mg 09/04/17 21:00 09/11/17 21:14 Dilantin Infatab PO 150 mg QPM KIMI Administration Polyethylene Glycol 17 gm 09/05/17 09:00 09/12/17 13:54 Miralax PO Not Given DAILY [facility] Rivaroxaban 20 mg 09/04/17 17:00 09/12/17 16:16 Xarelto PO 20 mg QDDINNER KIMI Administration Saccharomyces Boulardii 250 mg 09/04/17 17:00 09/12/17 16:15 Florastor PO 250 mg BIDWM KIMI Administration Sodium Chloride 10 ml 09/04/17 11:18 09/12/17 14:44 Normal Saline Flush 0.9% IVP 10 ml PRN PRN Administration NEEDED PER PROVIDER ORDERS Sodium Chloride 10 ml 09/04/17 17:00 09/12/17 16:15 Normal Saline Flush 0.9% IVP 10 ml 0100,0900,1700 KIMI Administration - Lab Result Fish Bone Diagrams: 09/12/17 09:33 09/11/17 05:40 - Additional Planning My Orders: My Active Orders 09/13/17 08:52 CBC - COMP BLD CT W/AUTO DIFF [HEME] Routine Subjective - Subjective Patient Reports: Feeling Better, Other ("The blue and white pill helped me alot that you started yesterday." (I spoke to Pharmacy and confirmed that this is Mucinex).) Nursing Reports: Other (Pt requests to stop nebs because he works harder after them) Objective Vital Signs: Vital Signs - 24 hr 09/11/17 09/11/17 09/12/17 19:15 21:17 00:00 Temperature 36.9 C Heart Rate 76 Heart Rate [ 75 Brachial] Respiratory 18 18 Rate Blood Pressure 92/52 L Blood Pressure 103/54 L [Left Brachial artery] Blood Pressure [Right Brachial artery] O2 Saturation 97 09/12/17 09/12/17 09/12/17 07:20 07:56 16:20 Temperature 36.4 C L Heart Rate 68 Heart Rate [ 77 91 Brachial] Respiratory 18 19 Rate Blood Pressure Blood Pressure 104/55 L [Left Brachial artery] Blood Pressure 113/71 [Right Brachial artery] O2 Saturation 99 92 Oxygen O2 Source Nasal cannula I&O (Last 24 Hrs): Intake and Output Totals x24h 09/10/17 09/11/17 09/12/17 23:59 23:59 23:59 Intake Total 830 1300 625 Balance 830 1300 625 General: Alert, Oriented x3 HEENT: Mucous membr. moist/pink, Other (Fibromas diffusely on face. Poor dentition) Neck: Supple, Other ((+) JVD) Neuro: Alert, Non Focal Cardiovascular: No murmurs Respiratory: Other (Diminished and scattered wheezes) Extremities: No edema - Results Results: Laboratory Results WBC 14.8 x10^3/uL (4.8-10.8) H 09/12/17 09:33 RBC 4.14 10^6/uL (4.70-6.10) L 09/12/17 09:33 Hgb 12.4 g/dL (14.0-18.0) L 09/12/17 09:33 Hct 37.4 % (42.0-52.0) L 09/12/17 09:33 MCV 90.4 fL (80.0-94.0) 09/12/17 09:33 MCH 30.1 pg (27.0-31.0) 09/12/17 09:33 MCHC 33.3 g/dL (32.0-36.0) 09/12/17 09:33 RDW 13.6 % (12.0-15.0) 09/12/17 09:33 Plt Count 401 10^3/uL (130-450) 09/12/17 09:33 MPV 7.3 fL (7.4-11.4) L 09/12/17 09:33 Neut # Not Reportable 09/12/17 09:33 Lymph # Not Reportable 09/12/17 09:33 [place] # Not Reportable 09/12/17 09:33 Eos # Not Reportable 09/12/17 09:33 Baso # Not Reportable 09/12/17 09:33 Absolute Nucleated RBC Not Reportable 09/12/17 09:33 Total Counted 100 09/12/17 09:33 Band Neuts % (Manual) 1 % (0-10) 09/12/17 09:33 Abnorm Lymph % (Manual) 0 % 09/12/17 09:33 Myelocytes % 1 % (-0) H 09/12/17 09:33 Nucleated RBC % Not Reportable 09/12/17 09:33 Neutrophils # (Manual) 13.0 10^3/uL (1.5-6.6) H 09/12/17 09:33 Lymphocytes # (Manual) 0.9 10^3/uL (1.5-3.5) L 09/12/17 09:33 Monocytes # (Manual) 0.6 10^3/uL (0.0-1.0) 09/12/17 09:33 Eosinophils # (Manual) 0.1 10^3/uL (0-0.7) 09/12/17 09:33 Basophils # (Manual) 0.0 10^3/uL (0-0.1) 09/12/17 09:33 Differential Comment MANUAL DIFFERENTIAL 09/12/17 09:33 Manual Slide Review Indicated 09/04/17 08:51 WBC Morphology NORMAL APPEARANCE (NORMAL) 09/04/17 08:51 Platelet Estimate NORMAL (130-450,000) (NORMAL) 09/05/17 04:20 Platelet Morphology RARE GIANT PLATELETS (NORMAL) 09/12/17 09:33 RBC Morph Micro Appear 2+ ANISOCYTOSIS (NORMAL) 1+ POIKILOCYTOSIS (NORMAL) 1 + OVALOCYTES (NORMAL) 09/04/17 08:51 RBC Morph Micro Appear 2+ ANISOCYTOSIS (NORMAL) 1+ POIKILOCYTOSIS (NORMAL) 1 + OVALOCYTES (NORMAL) 09/04/17 08:51 RBC Morph Micro Appear NORMAL APPEARANCE (NORMAL) 09/05/17 04:20 Bld Gas Analysis Time 93009/05/17 09:24 Sample Site RIGHT RADIAL 09/05/17 09:24 ABG pH 7.41 (7.35-7.45) 09/05/17 09:24 ABG pCO2 38 mmHg (34-45) 09/05/17 09:24 ABG pO2 58 mmHg (80-100) L 09/05/17 09:24 ABG HCO3 23.6 mmol/L (22.0-26.0) 09/05/17 09:24 ABG Total CO2 24.8 MMOL/L (21.0-29.0) 09/05/17 09:24 ABG O2 Saturation 91 % (94-98) L 09/05/17 09:24 ABG Base Excess -0.8 mmol/L (-2.0-3.0) 09/05/17 09:24 Bobo Test POSITIVE 09/05/17 09:24 VBG pH 7.366 (7.31-7.41) 09/12/17 09:33 VBG pCO2 57.8 mmHg (41-51) H 09/12/17 09:33 VBG pO2 43.8 mmHg (25-47) 09/12/17 09:33 VBG HCO3 32.4 mmol/L (23-28) H 09/12/17 09:33 VBG Total CO2 34.1 mmol/L (24-29) H 09/12/17 09:33 VBG O2 Saturation 80.6 % (60-80) H 09/12/17 09:33 VBG Base Excess 5.4 mmol/L (-2 - +2) H 09/12/17 09:33 O2 Delivery Device HHFNC 09/05/17 09:24 O2 Liters/Min 55.00 LPM 09/05/17 09:24 FiO2 34.00 09/05/17 09:24 Sodium 136 mmol/L (135-145) 09/11/17 05:40 Potassium 4.5 mmol/L (3.5-5.0) 09/11/17 05:40 Chloride 99 mmol/L (101-111) L 09/11/17 05:40 Carbon Dioxide 31 mmol/L (21-32) 09/11/17 05:40 Anion Gap 6.0 (6-13) 09/11/17 05:40 BUN 12 mg/dL (6-20) 09/11/17 05:40 Creatinine 0.5 mg/dL (0.6-1.2) L 09/11/17 05:40 Estimated GFR (MDRD) 166 (>89) 09/11/17 05:40 Glucose 98 mg/dL (70-100) 09/11/17 05:40 Lactic Acid 1.0 mmol/L (0.5-2.2) 09/04/17 08:51 Calcium 8.5 mg/dL (8.5-10.3) 09/11/17 05:40 Ionized Calcium NO 09/11/17 05:40 Phosphorus 3.4 mg/dL (2.5-4.6) 09/06/17 04:20 Total Bilirubin 0.5 mg/dL (0.2-1.0) 09/11/17 05:40 AST 16 IU/L (10-42) 09/11/17 05:40 ALT 17 IU/L (10-60) 09/11/17 05:40 Alkaline Phosphatase 73 IU/L (42-121) 09/11/17 05:40 Troponin I < 0.04 ng/mL (<0.49) 09/04/17 08:51 B-Natriuretic Peptide 64 pg/mL (5-100) 09/04/17 08:51 Total Protein 6.0 g/dL (6.7-8.2) L 09/11/17 05:40 Albumin 3.1 g/dL (3.2-5.5) L 09/11/17 05:40 Globulin 2.9 g/dL (2.1-4.2) 09/11/17 05:40 Albumin/Globulin Ratio 1.1 (1.0-2.2) 09/11/17 05:40 Vit D 1,25-Dihyd Total 30 pg/mL (18-72) 09/04/17 08:51 1,25 Dihydroxy Vit D2 <8 pg/mL 09/04/17 08:51 1,25 Dihydroxy Vit D3 30 pg/mL 09/04/17 08:51 Last Dose Date UNKNOWN 09/06/17 22:33 Last Dose Time UNKNOWN 09/06/17 22:33 Vancomycin Trough 11.8 ug/mL (5.0-15.0) 09/06/17 22:33 - Procedures Procedures: Procedures INSERTION OF ENDOTRACHEAL AIRWAY INTO TRACHEA, VIA OPENING (05/29/17) RESPIRATORY VENTILATION, LESS THAN 24 CONSECUTIVE HOURS (05/29/17) ABX Reporting Has patient been on IV antibiotics over the past 48 hours?: No
[2017-09-12] MEDS: PHENYTOIN CHEW 50 MG TABLET PO SCH (20:15)
[2017-09-13] MEDS: SODIUM CHLORIDE FLUSH 0.9% 10 ML SYRINGE IVP SCH ×3 (01:42→16:23)
[2017-09-13] MEDS: methylPREDNISolone SUCCINATE 40 MG/ML VIAL IVP SCH (06:33)
[2017-09-13] MEDS: SODIUM CHLORIDE FLUSH 0.9% 10 ML SYRINGE IVP PRN (06:34)
[2017-09-13] MEDS: FAMOTIDINE 20 MG TABLET PO SCH (08:48)
[2017-09-13] MEDS: levoFLOXacin 250 MG TABLET PO SCH (08:48)
[2017-09-13] MEDS: METOPROLOL TARTRATE 25 MG TABLET PO SCH ×2 (08:48→21:19)
[2017-09-13] MEDS: POLYETHYLENE GLYCOL 3350 17 GM PACKET PO SCH (08:49)
[2017-09-13] MEDS: PHENYTOIN ER 100 MG CAPSULE PO SCH (08:49)
[2017-09-13] MEDS: SACCHAROMYCES BOULARDII 250 MG CAPSULE PO SCH ×2 (08:49→16:23)
[2017-09-13] MEDS: guaiFENesin 600 MG TABLET PO SCH ×2 (08:49→21:18)
[2017-09-13] MEDS: carBAMazepine ER 200 MG TABLET PO SCH ×2 (09:01→21:19)
[2017-09-13] MEDS: FORMOTEROL FUMARATE NEB 20 MCG/2 ML INH SCH (09:21)
[2017-09-13 09:40] LABS: BASOPHILS % (AUTO) 0.2 %; EOSINOPHILS # (AUTO) 0.1 10^3/uL (0.0-0.7); EOSINOPHILS % (AUTO) 0.4 %; HGB - HEMOGLOBIN 13.3 g/dL (14.0-18.0); LYMPHOCYTES % (AUTO) 6.9 %; MEAN CORPUSCULAR HEMOGLOBIN 29.9 pg (27.0-31.0); MEAN CORPUSCULAR HGB CONC 32.7 g/dL (32.0-36.0); MEAN CORPUSCULAR VOLUME 91.5 fL (80.0-94.0); MEAN PLATELET VOLUME 7.4 fL (7.4-11.4); MONOCYTES # (AUTO) 0.8 10^3/uL (0.0-1.0); MONOCYTES % (AUTO) 5.5 %; NEUTROPHILS # (AUTO) 12.7 10^3/uL (1.5-6.6); PLT - PLATELET COUNT 423 10^3/uL (130-450); RED BLOOD COUNT 4.44 10^6/uL (4.70-6.10); WHITE BLOOD COUNT 14.6 x10^3/uL (4.8-10.8)
[2017-09-13 09:57] LABS: PLATELET MORPHOLOGY RARE GIANT PLATELETS (NORMAL)
--- NOTE | 2017-09-13 15:42 | PROVIDER PROGRESS NOTE ---
Assessment/Plan - Problem List (1) Acute exacerbation of chronic obstructive airways disease Assessment/Plan: Very slow improvement in respiratory status. Will restart his home inhalers and stiop nebs, as he requests, to see if this keeps him stable. Will plan a steroid taper, starting to decrease iv Solumedrol from tid to bid Tomorrow, will start a Medrol dose kely for a taper as an outpt, as I predict a DCh tomorrow. (2) CAP (community acquired pneumonia) Qualifiers: Laterality: right Lung location: lower lobe of lung Qualified Code(s): J18.1 - Lobar pneumonia, unspecified organism Assessment/Plan: Pt on po Levaquin, with slow improvement in sputum production. (3) History of seizure disorder Assessment/Plan: Stable, on meds. (4) History of pulmonary embolism Assessment/Plan: Stable on anticoagulant. (5) Malnutrition Assessment/Plan: Stable on present diet. - Current Meds Current Meds: Current Medications Generic Name Dose Route Start Last Admin Trade Name Freq PRN Reason Stop Dose Admin Albuterol/Ipratropium 3 ml 09/04/17 11:18 09/12/17 07:20 Duoneb INH 3 ml RTQID PRN Administration Wheezing Bisacodyl 10 mg 09/05/17 15:08 09/10/17 09:42 Dulcolax PO 5 mg DAILY PRN Administration Constipation Carbamazepine 200 mg 09/04/17 21:00 09/13/17 09:01 Tegretol Xr PO 200 mg BID KIMI Administration Famotidine 20 mg 09/05/17 09:00 09/13/17 08:48 Pepcid PO 20 mg DAILY KIMI Administration Formoterol Fumarate 20 mcg 09/04/17 12:00 09/13/17 09:21 Perforomist INH Not Given RTBID KIMI Guaifenesin 600 mg 09/11/17 13:00 09/13/17 08:49 Mucinex PO 600 mg BID KIMI Administration Guaifenesin/Codeine Phosphate 5 ml 09/04/17 15:37 09/07/17 17:41 Robitussin Ac PO 5 ml Q6HR PRN Administration Cough Levalbuterol HCl 1.25 mg 09/04/17 21:20 09/10/17 17:04 Xopenex INH 1.25 mg Q2H PRN Administration Shortness of Air/Wheezing Levofloxacin 500 mg 09/09/17 09:00 09/13/17 08:48 Levaquin PO 500 mg DAILY KIMI Administration Metoprolol Tartrate 12.5 mg 09/08/17 23:19 09/13/17 08:48 Lopressor PO 12.5 mg BID KIMI Administration Morphine Sulfate 2 mg 09/04/17 11:18 09/06/17 14:30 Morphine IVP 2 mg Q2H PRN Administration Pain 8 to 10 Phenytoin Sodium 200 mg 09/05/17 09:00 09/13/17 08:49 Dilantin PO 200 mg DAILY KIMI Administration Phenytoin Sodium 150 mg 09/04/17 21:00 09/12/17 20:15 Dilantin Infatab PO 150 mg QPM KIMI Administration Polyethylene Glycol 17 gm 09/05/17 09:00 09/13/17 08:49 Miralax PO Not Given DAILY KIMI Rivaroxaban 20 mg 09/04/17 17:00 09/12/17 16:16 Xarelto [facility] Administration Saccharomyces Boulardii 250 mg 09/04/17 17:00 09/13/17 08:49 Florastor PO 250 mg BIDWM KIMI Administration Sodium Chloride 10 ml 09/04/17 11:18 09/13/17 06:34 Normal Saline Flush 0.9% IVP 10 ml PRN PRN Administration NEEDED PER PROVIDER ORDERS Sodium Chloride 10 ml 09/04/17 17:00 09/13/17 08:49 Normal Saline Flush 0.9% IVP 10 ml 0100,0900,1700 KIMI Administration - Lab Result Fish Bone Diagrams: 09/13/17 09:00 09/11/17 05:40 - Additional Planning My Orders: My Active Orders 09/13/17 21:00 methylPREDNISolone SUCCINATE [SOLU-Medrol (40MG VIAL)] 40 mg IVP BID Subjective - Subjective Patient Reports: Feeling Better, Other (All neb treatments cause excessive cough Does not want to be on prolonged Prednisone) Nursing Reports: Other (Refusing all neb treatments) Objective Vital Signs: Vital Signs - 24 hr 09/12/17 09/12/17 09/12/17 16:20 20:10 20:19 Temperature Heart Rate [ 91 72 Brachial] Respiratory Rate Blood Pressure 98/60 Blood Pressure 98/60 [Left Brachial artery] Blood Pressure 113/71 [Right Brachial artery] O2 Saturation 92 09/13/17 09/13/17 09/13/17 00:13 08:00 08:48 Temperature 36.5 C 36.4 C L Heart Rate [ 76 75 Brachial] Respiratory 18 20 Rate Blood Pressure 110/62 Blood Pressure 114/63 [Left Brachial artery] Blood Pressure 110/62 [Right Brachial artery] O2 Saturation 98 97 Oxygen O2 Source Nasal cannula I&O (Last 24 Hrs): Intake and Output Totals x24h 09/11/17 09/12/17 09/13/17 23:59 23:59 23:59 Intake Total 1300 962 Output Total 800 Balance 1300 962 -800 General: Alert, Oriented x3 HEENT: Atraumatic, Other (Poor dentition) Neck: No JVD Neuro: Non Focal Cardiovascular: No murmurs Respiratory: Other (Diffuse scattered wheezing, better air entry and air movement) Abdomen: Soft Extremities: No edema - Results Results: Laboratory Results WBC 14.6 x10^3/uL (4.8-10.8) H 09/13/17 09:00 RBC 4.44 10^6/uL (4.70-6.10) L 09/13/17 09:00 Hgb 13.3 g/dL (14.0-18.0) L 09/13/17 09:00 Hct 40.6 % (42.0-52.0) L 09/13/17 09:00 MCV 91.5 fL (80.0-94.0) 09/13/17 09:00 MCH 29.9 pg (27.0-31.0) 09/13/17 09:00 MCHC 32.7 g/dL (32.0-36.0) 09/13/17 09:00 RDW 14.0 % (12.0-15.0) 09/13/17 09:00 Plt Count 423 10^3/uL (130-450) 09/13/17 09:00 MPV 7.4 fL (7.4-11.4) 09/13/17 09:00 Neut # 12.7 10^3/uL (1.5-6.6) H 09/13/17 09:00 Lymph # 1.0 10^3/uL (1.5-3.5) L 09/13/17 09:00 Terrell # 0.8 10^3/uL (0.0-1.0) 09/13/17 09:00 Eos # 0.1 10^3/uL (0.0-0.7) 09/13/17 09:00 Baso # 0.0 10^3/uL (0.0-0.1) 09/13/17 09:00 Absolute Nucleated RBC 0.00 x10^3/uL 09/13/17 09:00 Total Counted 100 09/12/17 09:33 Band Neuts % (Manual) 1 % (0-10) 09/12/17 09:33 Abnorm Lymph % (Manual) 0 % 09/12/17 09:33 Myelocytes % 1 % (-0) H 09/12/17 09:33 Nucleated RBC % 0.0 /100WBC 09/13/17 09:00 Neutrophils # (Manual) 13.0 10^3/uL (1.5-6.6) H 09/12/17 09:33 Lymphocytes # (Manual) 0.9 10^3/uL (1.5-3.5) L 09/12/17 09:33 Monocytes # (Manual) 0.6 10^3/uL (0.0-1.0) 09/12/17 09:33 Eosinophils # (Manual) 0.1 10^3/uL (0-0.7) 09/12/17 09:33 Basophils # (Manual) 0.0 10^3/uL (0-0.1) 09/12/17 09:33 Differential Comment MANUAL DIFFERENTIAL 09/12/17 09:33 Manual Slide Review Indicated 09/13/17 09:00 WBC Morphology NORMAL APPEARANCE (NORMAL) 09/04/17 08:51 Platelet Estimate NORMAL (130-450,000) (NORMAL) 09/05/17 04:20 Platelet Morphology RARE GIANT PLATELETS (NORMAL) 09/13/17 09:00 RBC Morph Micro Appear 2+ ANISOCYTOSIS (NORMAL) 1+ POIKILOCYTOSIS (NORMAL) 1 + OVALOCYTES (NORMAL) 09/04/17 08:51 RBC Morph Micro Appear 2+ ANISOCYTOSIS (NORMAL) 1+ POIKILOCYTOSIS (NORMAL) 1 + OVALOCYTES (NORMAL) 09/04/17 08:51 RBC Morph Micro Appear NORMAL APPEARANCE (NORMAL) 09/05/17 04:20 Bld Gas Analysis Time 0909/05/17 09:24 Sample Site RIGHT RADIAL 09/05/17 09:24 ABG pH 7.41 (7.35-7.45) 09/05/17 09:24 ABG pCO2 38 mmHg (34-45) 09/05/17 09:24 ABG pO2 58 mmHg (80-100) L 09/05/17 09:24 ABG HCO3 23.6 mmol/L (22.0-26.0) 09/05/17 09:24 ABG Total CO2 24.8 MMOL/L (21.0-29.0) 09/05/17 09:24 ABG O2 Saturation 91 % (94-98) L 09/05/17 09:24 ABG Base Excess -0.8 mmol/L (-2.0-3.0) 09/05/17 09:24 Bobo Test POSITIVE 09/05/17 09:24 VBG pH 7.366 (7.31-7.41) 09/12/17 09:33 VBG pCO2 57.8 mmHg (41-51) H 09/12/17 09:33 VBG pO2 43.8 mmHg (25-47) 09/12/17 09:33 VBG HCO3 32.4 mmol/L (23-28) H 09/12/17 09:33 VBG Total CO2 34.1 mmol/L (24-29) H 09/12/17 09:33 VBG O2 Saturation 80.6 % (60-80) H 09/12/17 09:33 VBG Base Excess 5.4 mmol/L (-2 - +2) H 09/12/17 09:33 O2 Delivery Device HHFNC 09/05/17 09:24 O2 Liters/Min 55.00 LPM 09/05/17 09:24 FiO2 34.00 09/05/17 09:24 Sodium 136 mmol/L (135-145) 09/11/17 05:40 Potassium 4.5 mmol/L (3.5-5.0) 09/11/17 05:40 Chloride 99 mmol/L (101-111) L 09/11/17 05:40 Carbon Dioxide 31 mmol/L (21-32) 09/11/17 05:40 Anion Gap 6.0 (6-13) 09/11/17 05:40 BUN 12 mg/dL (6-20) 09/11/17 05:40 Creatinine 0.5 mg/dL (0.6-1.2) L 09/11/17 05:40 Estimated GFR (MDRD) 166 (>89) 09/11/17 05:40 Glucose 98 mg/dL (70-100) 09/11/17 05:40 Lactic Acid 1.0 mmol/L (0.5-2.2) 09/04/17 08:51 Calcium 8.5 mg/dL (8.5-10.3) 09/11/17 05:40 Ionized Calcium NO 09/11/17 05:40 Phosphorus 3.4 mg/dL (2.5-4.6) 09/06/17 04:20 Total Bilirubin 0.5 mg/dL (0.2-1.0) 09/11/17 05:40 AST 16 IU/L (10-42) 09/11/17 05:40 ALT 17 IU/L (10-60) 09/11/17 05:40 Alkaline Phosphatase 73 IU/L (42-121) 09/11/17 05:40 Troponin I < 0.04 ng/mL (<0.49) 09/04/17 08:51 B-Natriuretic Peptide 64 pg/mL (5-100) 09/04/17 08:51 Total Protein 6.0 g/dL (6.7-8.2) L 09/11/17 05:40 Albumin 3.1 g/dL (3.2-5.5) L 09/11/17 05:40 Globulin 2.9 g/dL (2.1-4.2) 09/11/17 05:40 Albumin/Globulin Ratio 1.1 (1.0-2.2) 09/11/17 05:40 Vit D 1,25-Dihyd Total 30 pg/mL (18-72) 09/04/17 08:51 1,25 Dihydroxy Vit D2 <8 pg/mL 09/04/17 08:51 1,25 Dihydroxy Vit D3 30 pg/mL 09/04/17 08:51 Last Dose Date UNKNOWN 09/06/17 22:33 Last Dose Time UNKNOWN 09/06/17 22:33 Vancomycin Trough 11.8 ug/mL (5.0-15.0) 09/06/17 22:33 - Procedures Procedures: Procedures INSERTION OF ENDOTRACHEAL AIRWAY INTO TRACHEA, VIA OPENING (05/29/17) RESPIRATORY VENTILATION, LESS THAN 24 CONSECUTIVE HOURS (05/29/17)
[2017-09-13] MEDS ORDERED: ALBUTEROL INH PRN (15:44)
[2017-09-13] MEDS: RIVAROXABAN 10 MG TABLET PO SCH (16:23)
[2017-09-13] MEDS ORDERED: methylPREDNISolone SUCCINATE 40 MG/ML VIAL IVP SCH (21:00)
[2017-09-13] MEDS: PHENYTOIN CHEW 50 MG TABLET PO SCH (21:18)
[2017-09-13] MEDS: IPRATROPIUM/ALBUTEROL 3 ML NEB INH SCH (22:01)
[2017-09-14] MEDS: SODIUM CHLORIDE FLUSH 0.9% 10 ML SYRINGE IVP SCH ×2 (00:27→10:46)
[2017-09-14 08:53] VITALS: BP 107/58
[2017-09-14] MEDS ORDERED: BREO ELLIPTA INH SCH (09:00)
[2017-09-14] MEDS ORDERED: predniSONE 10 MG TABLET PO SCH (09:00)
[2017-09-14] MEDS: METOPROLOL TARTRATE 25 MG TABLET PO SCH (10:37)
[2017-09-14] MEDS: PHENYTOIN ER 100 MG CAPSULE PO SCH (10:37)
[2017-09-14] MEDS: levoFLOXacin 250 MG TABLET PO SCH (10:38)
[2017-09-14] MEDS: SACCHAROMYCES BOULARDII 250 MG CAPSULE PO SCH (10:38)
[2017-09-14] MEDS: guaiFENesin 600 MG TABLET PO SCH (10:42)
[2017-09-14] MEDS: carBAMazepine ER 200 MG TABLET PO SCH (10:42)
[2017-09-14] MEDS: FAMOTIDINE 20 MG TABLET PO SCH (10:42)
[2017-09-14] MEDS: IPRATROPIUM/ALBUTEROL 3 ML NEB INH SCH (10:42)
[2017-09-14] MEDS: POLYETHYLENE GLYCOL 3350 17 GM PACKET PO SCH (10:46)
--- NOTE | 2017-09-14 11:59 | Discharge Plan ---
"Discharge Plan for SNF / [facility] - DC Plan and Transition Orders Disposition: 03 SNF DC/Xfer Condition: Poor SNF Transition Orders: Admit to: [facility] under the care of Dr Ronnie Butler Discharge Diagnosis: 1) COPD exacerbation 2) Severe COPD, with FEV1 of 25%, is on supplemental oxygen at 3L n.c. 3) Community Acquired Pneumonia 4) History of seizure disorder 5) History of Pulmonary Embolism, on Xarelto 6) Malnutrition 7) Congenital Neurofibromatosis 8) Tobacco abuse 9) History of NSTEMI in 05/24 10) History of MRSA positive 11) Code Status: Full Code Medicare Certification: I certify that Post Hospital chcf care is medically necessary on a continuing basis for any of the conditions for which she/he is receiving care during hospitalization. Notify PCP of admission and forward orders to primary provider for signature. Weight on admission and Monthly. Call PCP immediately if weight increases by 5 pounds or if patient develops dyspnea, chest pain/tightness or edema. House Bowel Program: yes If no BM after 2 days, nurse may give M.O.M. 30ml PO PRN and /or ducolax Supp 1 AL and /or CHACHA 250mg P.O., and/or senna 1-2 tabs PO. On day 3 nurse may give repeat above order until residents constipation is resolved. Immunizations: Annual Influenza Vaccine: Yes. (between Jan 05 and August 04.) Unless allergy or already given Two-Step PPD: Yes per [facility] [id number] or appropriate documentation of approved exceptions Treatments & Other Orders: None Oxygen Orders: O2 at 3L per nasal cannula Lab Tests or X-Rays Orders: None Orthopedic Orders: None Medications: PLEASE REFER TO THE DISCHARGE MEDICATION LIST. Insulin Orders? No Allergies and Adverse Reactions: Allergies Allergy/AdvReac Type Severity Reaction Status Date / Time Egg Derived AdvReac Intermediate Respiratory Verified 09/04/17 08:41 egg AdvReac Mild Nausea Verified 09/04/17 08:41 lactose AdvReac Mild Cramps Verified 09/04/17 08:41 - Medications New Prescriptions: guaiFENesin [Mucinex] 600 mg PO BID #28 tablet levoFLOXacin [Levaquin] 500 mg PO DAILY #3 tablet Methylprednisolone [Medrol] 4 mg PO DAILY #1 tab.ds.pk - Diet Type: Geriatric (OK to eat Mayonnaise, despite egg alergy. Ensure Plus 8 oz with meals (vanilla).) Texture: Regular Liquids: Thin May have monthly special meal: Yes - Therapies | Activity Rehabilitation Potential: Maintain present ADL Functional Activity: Activity as Tolerated Additional Instructions: See your PCP in follow-up in 1-2 weeks. Finish taking the antibiotic for treating the pneumonia. Keep taking the Mucinex for cough and phlegm til it's done. Take the Medrol Dose Gabo, as directed, in a tapering down schedule over several days. Resume all your other pre-hospital medications."
--- NOTE | 2017-09-18 09:41 | DISCHARGE SUMMARY ---
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 The patient lives at assisted living facility and awoke in the middle of the night with severe shortness of breath. He tried to improve by putting on his supplemental oxygen that has been ordered for him to use p.r.n. at 3 liters, but this did not work. He did have a fever on presentation and a wet cough, without sputum production. He was found to have pneumonia on chest x-ray and admitted for severe respiratory distress and community-acquired pneumonia. HOSPITAL COURSE AND DISCHARGE DIAGNOSES: 1. Chronic obstructive pulmonary disease exacerbation. The patient required IV steroids, nebulizers, chest physical therapy. He had some improvement after 5 days, then worsening again and required a longer hospital course. He was discharged with a dose of steroids on a rapid taper, returned back to his handheld inhalers (at his request) and oxygen and Levaquin empiric antibiotics for 3 additional days after having received IV antibiotics here. The patient had no sputum production to send for culture and blood cultures were done, but were negative for any bacterial growth. 2. Severe chronic obstructive pulmonary disease with FEV1 of 25% requiring supplemental oxygen at 3 liters. The patient had pulmonary function test done several months ago showing this severely depressed pulmonary function. It was even difficult for him to walk several steps to a bedside commode, which only minimally improved at the time of discharge. Smoking cessation was strongly advised. The patient should see a PCP and/or pulmonology specialist if he has one for further aggressive management of his severe chronic obstructive pulmonary disease. 3. Community-acquired pneumonia. The patient's chest x-ray showed diffuse interstitial prominence and coarse bibasilar opacities, particularly in the right lung base and he was treated for an infectious process with IV antibiotics that were broadened during his stay, especially as he worsened, using IV vancomycin and IV cefepime and just before discharge, several days of p.o. Levaquin and discharged on Levaquin. 4. History of seizure disorder. This was secondary to history of brain aneurysm. His seizure medications were continued throughout his hospital course. 5. History of pulmonary embolism and DVT on Xarelto. The patient continued with this treatment throughout his course. 6. Malnutrition. The patient reported poor appetite, progressive decline in weight that was longstanding. This was felt to be due to the work of breathing required because of his severe COPD. There were no restrictions in his diet and he received nutrition supplements. 7. Congenital neurofibromatosis. The patient had obvious skin findings of multiple neurofibromas seen extensively. 8. Tobacco abuse. Despite being on supplemental oxygen at home, he did admit that he still used tobacco and this was strongly discouraged. 9. History of non-STEMI in 2017. This had required management at a higher level of care [facility] in [place]. The results of a coronary workup are not known at this time. Please refer to prior discharge summaries. 10. History of methicillin-resistant Staphylococcus aureus colonization. The patient required contact precautions while here. ALLERGIES: EGGS AND LACTOSE. DISCHARGE MEDICATIONS: 1. Tylenol p.r.n. 2. Ventolin inhaler 2 puffs q. 6 hours p.r.n. 3. Carbamazepine 200 mg b.i.d. 4. Breo Ellipta 1 puff daily. 5. Mucinex 600 mg b.i.d. 6. Levaquin 500 mg daily for 3 more days. 7. Medrol Dosepak with a quick taper. 8. Metoprolol tartrate 12.5 mg b.i.d. 9. Phenytoin 150 mg daily and phenytoin ER 200 mg every morning. 10. Xarelto 20 mg every evening. CONDITION AT DISCHARGE: Poor. PHYSICAL EXAMINATION: VITAL SIGNS: Blood pressure 107/58, pulse of 66 in sinus rhythm, afebrile. Room air saturation could not be done, he was on 3 liters nasal cannula with oxygenation of 98%. HEENT: Revealed low set ears, multiple neurofibroma masses of his face. Moist oral mucosa. Poor oral dentition. Neck without JVD or carotid bruits. CHEST: Had diffuse scattered rhonchi and scattered wheezes, prolonged expiratory phase. HEART: Sounds distant. ABDOMEN: Soft, thin with normal bowel sounds. EXTREMITIES: No ankle edema. NEUROLOGIC: Intact. LABORATORY AND IMAGING: Reviewed and summarized above. FOLLOWUP: Recommended with his PCP and/or a carrot tier for further management of his severe COPD and followup of hospitalization for pneumonia. CODE STATUS: FULL CODE. Time required to complete this entire discharge, dictation, review of records, medication management: 60 minutes. TD: 09/17/2017 23:58 [place]
== END 2017-09-14 13:15 | disposition home or self-care (01) | DRG 193 ==
LOC: EDUNIT# → ED 08:31 → MS3 11:18
PROVIDERS: ADMIT Internal Medicine; ATTEND Internal Medicine
DX: J18.1 Lobar pneumonia, unspecified organism (principal); J96.21 Acute and chronic respiratory failure with hypoxia; J44.0 Chronic obstructive pulmonary disease with (acute) lower respiratory infection; J44.1 Chronic obstructive pulmonary disease with (acute) exacerbation; G40.509 Epileptic seizures related to external causes, not intractable, without status epilepticus; E46 Unspecified protein-calorie malnutrition; Z68.1 Body mass index [BMI] 19.9 or less, adult; Z87.891 Personal history of nicotine dependence; I67.1 Cerebral aneurysm, nonruptured; Z51.5 Encounter for palliative care; Q85.00 Neurofibromatosis, unspecified; I25.10 Atherosclerotic heart disease of native coronary artery without angina pectoris; I25.2 Old myocardial infarction; Z86.711 Personal history of pulmonary embolism; Z79.01 Long term (current) use of anticoagulants; Z86.718 Personal history of other venous thrombosis and embolism; Z99.81 Dependence on supplemental oxygen; Z72.0 Tobacco use; Z86.14 Personal history of Methicillin resistant Staphylococcus aureus infection; Z86.73 Personal history of transient ischemic attack (TIA), and cerebral infarction without residual deficits
CPT/HCPCS: 36415; 36600; 71045; 80048; 80053; 82652; 82803; 83605; 83880; 84100; 84484; 85025; 87040; 87640; 93005; 94640; 96365; 99283; 99284

== ENCOUNTER 2017-11-17 15:22 | Outpatient (CLI) | payer MEDICARE | END 2017-11-17 15:23 | disposition critical access hospital (66) | LOC: EMS 15:22 | PROVIDERS: ATTEND Surgery | DX: M25.552 Pain in left hip (principal); W19.XXXA Unspecified fall, initial encounter | CPT/HCPCS: A0425; A0429 ==

== ENCOUNTER 2017-11-17 15:41 | Emergency (ER) | payer MEDICARE ==
--- NOTE | 2017-11-17 16:22 | ED Physician Documentation ---
PD HPI LOWER EXT INJURY - Stated complaint Stated Complaint: GLF - Chief complaint Chief Complaint: Trauma Ext - History obtained from History obtained from: Patient, EMS - History of Present Illness PD HPI LOW EXT INJURY LOCATION: Left, Hip (This is a 67-year-old gentleman with terrible oxygen dependent COPD, he is mostly in a wheelchair but will stand and transfer and he was doing so this morning around 930 to fix his coffee and he fell hitting his left hip. It really did not hurt very much until he got back from [facility] a few hours later and was laying in his bed and the pain became severe and he points to the upper leg and lateral hip as the site of the pain. No other injuries. No head injury.) Review of Systems Ten Systems: 10 systems reviewed and negative Constitutional: denies: Fever, Chills Cardiac: denies: Chest pain / pressure, Palpitations Respiratory: reports: Dyspnea, Cough GI: denies: Abdominal Pain, Nausea, Vomiting PD PAST MEDICAL HISTORY - Past Medical History Cardiovascular: None Respiratory: COPD Endocrine/Autoimmune: None GI: None : None HEENT: None Psych: None Musculoskeletal: None Derm: Other Other Past Medical History: Neurofibrotoma - Past Surgical History Past Surgical History: Yes General: Cholecystectomy Ortho: Other HEENT: Tonsil/Adenoidectomy Derm: Debridement - Present Medications Home Medications: Ambulatory Orders Medication Instructions Recorded Confirmed Albuterol Sulf [Ventolin Hfa 2 puffs INH Q6H PRN 05/29/17 09/04/17 Inhaler] Carbamazepine [Carbamazepine ER] 200 mg PO BID 05/29/17 09/04/17 Rivaroxaban [Xarelto] 20 mg PO QDDINNER 05/29/17 09/04/17 Acetaminophen [Tylenol] 650 mg PO Q4H PRN 09/04/17 09/04/17 Fluticasone/Vilanterol [Breo 1 puffs INH DAILY 09/04/17 09/04/17 Ellipta 100-25 Mcg INH] Metoprolol Tartrate 12.5 mg PO BID 09/04/17 09/04/17 Methylprednisolone [Medrol] 4 mg PO DAILY #1 tab.ds.pk 09/14/17 Phenytoin 150 mg PO 1800 #0 09/14/17 09/04/17 Phenytoin Sodium Extended 200 mg PO 0600 #0 09/14/17 09/04/17 guaiFENesin [Mucinex] 600 mg PO BID #28 tablet 09/14/17 levoFLOXacin [Levaquin] 500 mg PO DAILY #3 tablet 09/14/17 - Allergies Allergies/Adverse Reactions: Allergies Allergy/AdvReac Type Severity Reaction Status Date / Time Egg Derived AdvReac Intermediate Respiratory Verified 11/17/17 15:48 egg AdvReac Mild Nausea Verified 11/17/17 15:48 lactose AdvReac Mild Cramps Verified 11/17/17 15:48 - Social History Does the pt smoke?: No Smoking Status: Former smoker Does the pt drink ETOH?: No Does the pt have substance abuse?: No - Immunizations Immunizations are current?: Yes - POLST Patient has POLST: No POLST Status: Full Code PD ED PE NORMAL - Vitals Vital signs reviewed: Yes - General General: Alert and oriented X 3, No acute distress - HEENT HEENT: PERRL, EOMI - Neck Neck: Supple, no meningeal sign, No bony TTP - Cardiac Cardiac: RRR, No murmur - Respiratory Respiratory: Other (Slightly labored breathing but this is his baseline and very rhonchorous throughout without focal findings.) - Abdomen Abdomen: Normal bowel sounds, Soft, Non tender - Derm Derm: Other (Multiple neurofibromas) - Extremities Extremities: Other (The left leg is not shortened or angulated but he has severe pain with any movements or rotation.) - Neuro Neuro: Alert and oriented X 3, Normal speech Results - Vitals Vitals: Vital Signs - 24 hr 11/17/17 11/17/17 11/17/17 15:40 16:20 17:29 Temperature 37.3 C Heart Rate 106 H 104 H 104 H Respiratory 18 20 24 Rate Blood Pressure 117/74 95/62 O2 Saturation 96 95 11/17/17 17:32 Temperature Heart Rate 101 H Respiratory 20 Rate Blood Pressure 107/73 O2 Saturation 96 Oxygen O2 Source [] Nasal cannula O2 Source Nasal cannula - Rads (name of study) L hip and femur XRs Radiology: EMP read contemporaneously (No fracture of the left hip, there is a possible lytic lesion of the left distal tibia needing further workup.) CT LLE Radiology: EMP read contemporaneously (no fracture) PD MEDICAL DECISION MAKING - ED course ED course: 67-year-old gentleman with complicated past medical history and full anticoagulation status presents after isolated leg injury. X-rays were as shown. He refused to try to walk or bear weight after that so CT was done, however when that was pending he did actually get up to urinate and bore weight on the left lower extremity per the nurse. He refused any pain medication but eventually accepted Tylenol, he is very worried about the regularity of his bowel movements. - Sepsis Event Vital Signs: Vital Signs - 24 hr 11/17/17 11/17/17 11/17/17 15:40 16:20 17:29 Temperature 37.3 C Heart Rate 106 H 104 H 104 H Respiratory 18 20 24 Rate Blood Pressure 117/74 95/62 O2 Saturation 96 95 11/17/17 17:32 Temperature Heart Rate 101 H Respiratory 20 Rate Blood Pressure 107/73 O2 Saturation 96 Oxygen O2 Source [] Nasal cannula O2 Source Nasal cannula Departure - Departure Disposition: 01 Home, Self Care Clinical Impression: Contusion of left leg Qualifiers: Encounter type: initial encounter Qualified Code(s): S80.12XA - Contusion of left lower leg, initial encounter Condition: Good Record reviewed to determine appropriate education?: Yes Instructions: ED Contusion Lower Ext Comments: Tylenol as needed for pain, avoid ibuprofen given the other medications you are on. He may walk and bear weight as tolerated. Follow-up with your primary care physician, discuss a bone scan or MRI on the lower leg for the bone lesion noted on x-ray which is likely unrelated to her current symptoms. There is no fracture noted. Discharge Date/Time: 11/17/17 20:08
[2017-11-17] MEDS ORDERED: IPRATROPIUM/ALBUTEROL 3 ML NEB INH STA (17:19)
--- NOTE | 2017-11-17 17:24 | XRAY Report ---
Procedure Date: 11/17/2017 Accession Number: [id number] / [id number] Procedure: XR - Hip w/Pelvis 2-3V LT CPT Code: FULL RESULT: EXAM: LEFT HIP AND PELVIS RADIOGRAPHY EXAM DATE: 11/17/2017 05:12 PM. HISTORY: Fall. Left hip pain. COMPARISONS: 01/15/2016. TECHNIQUE: 1 view of the pelvis and 1 view of the hip. FINDINGS: Bones: Normal. No fracture or bone lesion. Joints: No dislocations. 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 The pubis symphysis and sacroiliac joints are preserved. Soft Tissues: Normal. No soft tissue swelling. IMPRESSION: Unremarkable left hip radiography, noting chronic developmental deformity of the right hip. RADIA
--- NOTE | 2017-11-17 17:27 | XRAY Report ---
Procedure Date: 11/17/2017 Accession Number: [id number] / [id number] Procedure: XR - Femur 2V LT CPT Code: FULL RESULT: EXAM: LEFT FEMUR RADIOGRAPHY EXAM DATE: 11/17/2017 05:12 PM. CLINICAL HISTORY: Hip/leg pain after a fall. COMPARISON: None. TECHNIQUE: 2 views. FINDINGS: Bones: No acute traumatic or destructive bone abnormality. Ill-defined medullary lucency in the distal fourth of the femoral shaft with cortical thinning. Joints: The visualized hip and knee joints are normal. No effusions. Soft Tissues: Normal. No soft tissue swelling. IMPRESSION: 1. No acute bony abnormality. 2. Suspect lytic medullary abnormality in the distal quarter of the femoral shaft. Consider bone scan or MRI. RADIA
[2017-11-17 17:34] VITALS: BP 107/73
[2017-11-17] MEDS ORDERED: ACETAMINOPHEN 325 MG TABLET PO STA (17:49)
--- NOTE | 2017-11-17 19:08 | CT Report ---
Procedure Date: 11/17/2017 Accession Number: [id number] / [id number] Procedure: CT - Lower Extremity Left W/O CPT Code: FULL RESULT: EXAM: LEFT LOWER EXTREMITY CT WITHOUT CONTRAST EXAM DATE: 11/17/2017 06:25 PM. CLINICAL HISTORY: Leg injury, cannot walk, scan from hip to knee. COMPARISON: None. TECHNIQUE: Thin-section axial images were acquired of the left hip to knee without contrast. Post-processing: Coronal and sagittal reformats. Other: None. In accordance with CT protocol optimization, one or more of the following dose reduction techniques were utilized for this exam: automated exposure control, adjustment of mA and/or KV based on patient size, or use of iterative reconstructive technique. FINDINGS: Bones: No fracture or bone lesion from the iliac crest to knee joint. Joints: Mild narrowing of the hip joint space with marginal spurring. Normal alignment. No significant knee degenerative changes. Musculature: Normal. No fatty atrophy. Other: No Bakers cyst. No soft tissue swelling. IMPRESSION: No acute osseous abnormality from the level of the left iliac crest to knee joint. Mild left hip degenerative changes. RADIA
== END 2017-11-17 20:08 | disposition home or self-care (01) ==
LOC: EDBD → ED 15:41
DX: S70.12XA Contusion of left thigh, initial encounter (principal); M25.552 Pain in left hip; W18.30XA Fall on same level, unspecified, initial encounter; J44.9 Chronic obstructive pulmonary disease, unspecified; Z99.81 Dependence on supplemental oxygen; Q85.00 Neurofibromatosis, unspecified; Z79.01 Long term (current) use of anticoagulants; Z87.891 Personal history of nicotine dependence
CPT/HCPCS: 73502; 73552; 73700; 94640; 99283; A9270

== ENCOUNTER 2017-11-17 20:08 | Outpatient (CLI) | payer MEDICARE | END 2017-11-17 20:09 | disposition home or self-care (01) | LOC: EMS 20:08 | PROVIDERS: ATTEND Surgery | DX: M25.552 Pain in left hip (principal); J44.9 Chronic obstructive pulmonary disease, unspecified | CPT/HCPCS: A0425; A0428 ==

== ENCOUNTER 2018-04-04 12:05 | Outpatient (CLI) | payer MEDICARE, MEDICAID | END 2018-04-04 12:06 | disposition critical access hospital (66) | LOC: EMS 12:05 | PROVIDERS: ATTEND Surgery | DX: R06.00 Dyspnea, unspecified (principal) | CPT/HCPCS: A0425; A0429 ==

== ENCOUNTER 2018-04-04 12:22 | Inpatient (IN) | payer MEDICARE, MEDICAID ==
--- NOTE | 2018-04-04 12:50 | ED Physician Documentation ---
PD HPI DYSPNEA - Stated complaint Stated Complaint: SOA - Chief complaint Chief Complaint: Resp - History obtained from History obtained from: Patient - History of Present Illness Timing - onset: Other (1 week of dyspnea and cough productive of cream colored sputum. On 3L home O2 at assisted living. He has had a PE in the past. He stopped Xarelto 3 months ago on his own. A few days ago he had an episode where after wheeling his wheelchair his sat was 84% on his oxygen. He also reportedly had a fever, I do not know what it was though.) Review of Systems Ten Systems: 10 systems reviewed and negative Constitutional: denies: Fever, Chills Cardiac: reports: Chest pain / pressure (only with cough) Respiratory: reports: Dyspnea, Cough PD PAST MEDICAL HISTORY - Past Medical History Past Medical History: Yes Cardiovascular: None Respiratory: COPD Neuro: TIA Endocrine/Autoimmune: None GI: None : None HEENT: None Psych: None Musculoskeletal: None Derm: Other - Past Surgical History Past Surgical History: Yes General: Cholecystectomy Ortho: Other HEENT: Tonsil/Adenoidectomy Derm: Debridement - Present Medications Home Medications: Ambulatory Orders Medication Instructions Recorded Confirmed Albuterol Sulf [Ventolin Hfa 2 puffs INH Q6H PRN 05/29/17 09/04/17 Inhaler] carBAMazepine [Carbamazepine ER] 200 mg PO BID 05/29/17 09/04/17 Acetaminophen [Tylenol] 650 mg PO Q4H PRN 09/04/17 09/04/17 Fluticasone/Vilanterol [Breo 1 puffs INH DAILY 09/04/17 09/04/17 Ellipta 100-25 Mcg INH] Phenytoin 150 mg PO 1800 #0 09/14/17 09/04/17 ALPRAZolam [Alprazolam] 04/04/18 Bisacodyl [Dulcolax] 04/04/18 Hydrocortisone Acetate [Anucort-Hc] 04/04/18 Ipratropium/Albuterol [Duoneb] 04/04/18 Phenytoin Sodium Extended 100 mg PO 0600 04/04/18 Polyethylene Glycol 3350 04/04/18 - Allergies Allergies/Adverse Reactions: Allergies Allergy/AdvReac Type Severity Reaction Status Date / Time Egg Derived AdvReac Intermediate Respiratory Verified 04/04/18 12:33 egg AdvReac Mild Nausea Verified 04/04/18 12:33 lactose AdvReac Mild Cramps Verified 04/04/18 12:33 - Living Situation Living Arrangement: reports: Assisted living - Social History Does the pt smoke?: Yes Smoking Status: Current every day smoker Does the pt drink ETOH?: No Does the pt have substance abuse?: No - Family History Family history: reports: Non contributory - Immunizations Immunizations are current?: Yes - POLST Patient has POLST: No POLST Status: Full Code PD ED PE NORMAL - Vitals Vital signs reviewed: Yes - General General: Alert and oriented X 3, No acute distress - HEENT HEENT: PERRL, EOMI - Neck Neck: Supple, no meningeal sign, No bony TTP - Cardiac Cardiac: RRR, No murmur - Respiratory Respiratory: No respiratory distress, Other (Wheezy, hakan KEDAR) - Abdomen Abdomen: Soft, Non tender - Back Back: No CVA TTP, No spinal TTP - Derm Derm: Other (multiple neurofibromas) - Extremities Extremities: No edema, No calf tenderness / cord - Neuro Neuro: Alert and oriented X 3, Normal speech - Psych Psych: Normal mood, Normal affect Results - Vitals Vitals: Vital Signs - 24 hr 04/04/18 04/04/18 04/04/18 12:23 13:19 14:22 Temperature 37.3 C Heart Rate 102 H 108 H 104 H Respiratory 18 24 24 Rate Blood Pressure 148/79 H 128/71 O2 Saturation 97 93 04/04/18 15:39 Temperature Heart Rate 104 H Respiratory 21 Rate Blood Pressure 114/78 O2 Saturation 97 Oxygen O2 Source [] Nasal cannula O2 Source Room air - EKG (time done) 1300 Rate: Rate (enter#) (105) Rhythm: Sinus tachycardia Garrison: Normal Intervals: Normal MT QRS: Low voltage Ischemia: Non specific changes Computer interpretation: Agree with computer - Labs Labs: Laboratory Tests 04/04/18 04/04/18 04/04/18 13:01 13:10 13:10 WBC 14.3 H RBC 4.28 L Hgb 12.8 L Hct 38.2 L MCV 89.2 MCH 30.0 MCHC 33.7 RDW 14.3 Plt Count 363 MPV 6.4 L Neut # (Auto) 11.4 H Lymph # (Auto) 0.7 L Sevier # (Auto) 1.6 H Eos # (Auto) 0.5 Baso # (Auto) 0.1 Absolute Nucleated RBC 0.00 Nucleated RBC % 0.0 Manual Slide Review Indicated RBC Morph Micro Appear 1+ ANISOCYTOSIS D-Dimer > 1050.0 H Sodium Potassium Chloride Carbon Dioxide Anion Gap BUN Creatinine Estimated GFR (MDRD) Glucose Calcium Total Bilirubin AST ALT Alkaline Phosphatase Troponin I Total Protein Albumin Globulin Albumin/Globulin Ratio Lipase Influenza A (Rapid) Negative Influenza B (Rapid) Negative 04/04/18 04/04/18 13:10 13:10 WBC RBC Hgb Hct MCV MCH MCHC RDW Plt Count MPV Neut # (Auto) Lymph # (Auto) Sevier # (Auto) Eos # (Auto) Baso # (Auto) Absolute Nucleated RBC Nucleated RBC % Manual Slide Review RBC Morph Micro Appear D-Dimer Sodium 139 Potassium 4.8 Chloride 103 Carbon Dioxide 28 Anion Gap 8.0 BUN 10 Creatinine 0.7 Estimated GFR (MDRD) 112 Glucose 104 H Calcium 9.2 Total Bilirubin 0.3 AST 17 ALT 12 Alkaline Phosphatase 155 H Troponin I < 0.04 Total Protein 8.0 Albumin 4.0 Globulin 4.0 Albumin/Globulin Ratio 1.0 Lipase 18 L Influenza A (Rapid) Influenza B (Rapid) - Rads (name of study) Ct PA Radiology: EMP read contemporaneously (bibasilar pna, no PE) PD MEDICAL DECISION MAKING - ED course ED course: This is a 67-year-old gentleman with COPD, a pulmonary cripple at baseline who presents with increased cough and purulent sputum and shortness of breath. He has been tachycardic here and he had episodes of hypoxemia with minimal exertion at the [facility]. Workup demonstrates an elevated d-dimer with history of PE and he is off his Xarelto followed by a CT pulmonary angiogram showing only pneumonia. He is treated for this given underlying lung disease with Rocephin a nd Levaquin and I spoke with Dr. Marcelino for admission at 4:16 PM. Departure - Departure Disposition: 65 [facility] DC/Xfgenny Clinical Impression: Severe chronic obstructive pulmonary disease, Pneumonia Condition: Serious
[2018-04-04] MEDS ORDERED: IPRATROPIUM/ALBUTEROL 3 ML NEB INH STA (12:54)
[2018-04-04] MEDS ORDERED: predniSONE 20 MG TABLET PO STA (12:54)
[2018-04-04 13:16] LABS: BASOPHILS # (AUTO) 0.1 10^3/uL (0.0-0.1); BASOPHILS % (AUTO) 0.6 %; EOSINOPHILS # (AUTO) 0.5 10^3/uL (0.0-0.7); EOSINOPHILS % (AUTO) 3.6 %; HGB - HEMOGLOBIN 12.8 g/dL (14.0-18.0); LYMPHOCYTES # (AUTO) 0.7 10^3/uL (1.5-3.5); LYMPHOCYTES % (AUTO) 4.9 %; MEAN CORPUSCULAR HGB CONC 33.7 g/dL (32.0-36.0); MEAN CORPUSCULAR VOLUME 89.2 fL (80.0-94.0); MEAN PLATELET VOLUME 6.4 fL (7.4-11.4); MONOCYTES # (AUTO) 1.6 10^3/uL (0.0-1.0); NEUTROPHILS # (AUTO) 11.4 10^3/uL (1.5-6.6); NEUTROPHILS % (AUTO) 79.9 %; PLT - PLATELET COUNT 363 10^3/uL (130-450); RED BLOOD COUNT 4.28 10^6/uL (4.70-6.10); RED CELL DISTRIBUTION WIDTH 14.3 % (12.0-15.0); WHITE BLOOD COUNT 14.3 x10^3/uL (4.8-10.8)
[2018-04-04 13:29] LABS: BILIRUBIN,TOTAL 0.3 mg/dL (0.2-1.0); CALCIUM 9.2 mg/dL (8.5-10.3); CREATININE 0.7 mg/dL (0.6-1.2)
[2018-04-04 13:35] LABS: RBC MORPHOLOGY (MULTIPLE) 1+ ANISOCYTOSIS (NORMAL)
[2018-04-04] MEDS ORDERED: IOVERSOL 320 100 ML VIAL IVP ONE ×2 (14:08→19:07)
--- NOTE | 2018-04-04 15:31 | CT Report ---
Reason: dyspnea h/o PE Procedure Date: 04/04/2018 Accession Number: [id number] / [id number] Procedure: CT - Chest Angio (PE) CPT Code: FULL RESULT: EXAM: CT ANGIOGRAM CHEST EXAM DATE: 04/04/2018 03:00 PM. CLINICAL HISTORY: Dyspnea. History of PE. COMPARISON: CHEST ANGIO 05/31/2017 2:05 AM. TECHNIQUE: Routine helical imaging was performed through the chest in the pulmonary arterial phase. IV Contrast: CE. Reconstructions: Coronal 3-D MIP reconstructions.Sagittal and coronal. In accordance with CT protocol optimization, one or more of the following dose reduction techniques were utilized for this exam: automated exposure control, adjustment of mA and/or KV based on patient size, or use of iterative reconstructive technique. FINDINGS: Pulmonary Arteries: Diagnostic quality: Adequate through the segmental arteries. No evidence for acute or chronic pulmonary emboli. RV/LV is within normal limits. There is no interventricular septal bowing. There is no reflux of contrast material in the IVC. Lungs/Pleura: Background of severe emphysematous disease with lower lobe predominant traction bronchiectasis. In the interval, there has been development of bronchial wall thickening and bibasilar consolidation superimposed on previously seen interstitial thickening. Mediastinum: Enlargement of the main pulmonary artery to 3.1 cm can be seen with chronic pulmonary hypertension. There is relative enlargement of the right ventricle. Thoracic Aorta: Calcification of the arch, mild to moderate. Upper Abdomen: Unremarkable. Other: None. IMPRESSION: Severe emphysema and likely pneumonia. RADIA CRITICAL RESULT: The findings were discussed with Dr. Yanez on 04/04/2018 at 3:30 PM.
[2018-04-04] MEDS ORDERED: cefTRIAXone 2 GM in SODIUM CHLORIDE 0.9% MINIBAG 100 ML IV STA (15:33)
[2018-04-04] MEDS ORDERED: levoFLOXacin 750 MG/150 ML 750 MG/150 ML BAG IV ONE (15:33)
[2018-04-04] MEDS ORDERED: LEVALBUTEROL 1.25 MG/3 ML NEB INH STA (16:16)
[2018-04-04] MEDS ORDERED: SODIUM CHLORIDE 0.9% 1,000 ML IV ONE (16:16)
[2018-04-04] MEDS ORDERED: ONDANSETRON ODT 4 MG TABLET TL PRN (16:42)
[2018-04-04] MEDS ORDERED: ONDANSETRON 4 MG/2 ML VIAL IVP PRN (16:42)
[2018-04-04] MEDS ORDERED: ACETAMINOPHEN 325 MG TABLET PO PRN (16:42)
[2018-04-04] MEDS ORDERED: HYDROcod/ACETAM 5/325 MG TABLET PO PRN (16:42)
[2018-04-04] MEDS ORDERED: HYDROCORTISONE 25 MG SUPPOSITORY PR PRN (16:46)
[2018-04-04] MEDS ORDERED: BISACODYL 5 MG TABLET PO PRN (16:46)
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
[2018-04-04] MEDS: SODIUM CHLORIDE FLUSH 0.9% 10 ML SYRINGE IVP SCH (17:49)
[2018-04-04] MEDS: SODIUM CHLORIDE 0.9% 1,000 ML IV SCH (18:39)
[2018-04-04] MEDS: PHENYTOIN CHEW 50 MG TABLET PO SCH (18:39)
[2018-04-04] MEDS: PHENYTOIN ER 100 MG CAPSULE PO SCH (18:39)
[2018-04-04] MEDS: IPRATROPIUM/ALBUTEROL 3 ML NEB INH PRN (20:31)
[2018-04-04] MEDS: carBAMazepine ER 200 MG TABLET PO SCH (21:09)
[2018-04-04] MEDS: RIVAROXABAN 10 MG TABLET PO SCH (21:09)
[2018-04-04] MEDS: ALPRAZolam 0.25 MG TABLET PO PRN (22:41)
[2018-04-05] MEDS: guaiFENesin/CODEINE 5 ML UDC PO PRN ×2 (00:37→07:40)
[2018-04-05] MEDS: SODIUM CHLORIDE FLUSH 0.9% 10 ML SYRINGE IVP SCH ×3 (01:27→17:51)
[2018-04-05] MEDS ORDERED: BENZOCAINE/MENTHOL LOZENGE MM PRN (02:03)
[2018-04-05] MEDS: IPRATROPIUM/ALBUTEROL 3 ML NEB INH PRN (03:04)
[2018-04-05] MEDS: MORPHINE 2 MG/ML SYRINGE IVP PRN ×4 (04:21→17:03)
[2018-04-05] MEDS: SODIUM CHLORIDE 0.9% 1,000 ML IV SCH (04:21)
[2018-04-05] MEDS: SODIUM CHLORIDE FLUSH 0.9% 10 ML SYRINGE IVP PRN ×2 (04:21→18:37)
[2018-04-05 05:27] LABS: CALCIUM 8.5 mg/dL (8.5-10.3); CREATININE 0.5 mg/dL (0.6-1.2)
[2018-04-05 05:29] LABS: BASOPHILS % (AUTO) 0.3 %; EOSINOPHILS % (AUTO) 0.5 %; HGB - HEMOGLOBIN 12.2 g/dL (14.0-18.0); LYMPHOCYTES % (AUTO) 5.4 %; MEAN CORPUSCULAR HEMOGLOBIN 29.3 pg (27.0-31.0); MEAN CORPUSCULAR HGB CONC 32.3 g/dL (32.0-36.0); MEAN CORPUSCULAR VOLUME 90.8 fL (80.0-94.0); MEAN PLATELET VOLUME 6.8 fL (7.4-11.4); MONOCYTES % (AUTO) 10.2 %; NEUTROPHILS % (AUTO) 83.6 %; PLT - PLATELET COUNT 339 10^3/uL (130-450); RED BLOOD COUNT 4.16 10^6/uL (4.70-6.10); RED CELL DISTRIBUTION WIDTH 14.5 % (12.0-15.0); WHITE BLOOD COUNT 17.6 x10^3/uL (4.8-10.8)
[2018-04-05 05:32] LABS: ABNORMAL LYMPHS % (MANUAL) 0 %
[2018-04-05 06:18] LABS: BAND NEUTROPHILS % (MANUAL) 19 %; DIFFERENTIAL COMMENT MANUAL DIFFERENTIAL; EOSINOPHILS # (MANUAL) 0.2 10^3/uL (0-0.7); LYMPHOCYTES # (MANUAL) 2.8 10^3/uL (1.5-3.5); LYMPHOCYTES % (MANUAL) 16 %; MONOCYTES # (MANUAL) 3.5 10^3/uL (0.0-1.0); NEUTROPHILS # (MANUAL) 11.1 10^3/uL (1.5-6.6); NEUTROPHILS % (MANUAL) 44 %; PLATELET ESTIMATE, MANUAL NORMAL (130-450,000) (NORMAL); RBC MORPHOLOGY (MULTIPLE) NORMAL APPEARANCE (NORMAL)
[2018-04-05] MEDS: PHENYTOIN ER 100 MG CAPSULE PO SCH ×2 (06:27→17:56)
[2018-04-05] MEDS: ALPRAZolam 0.25 MG TABLET PO PRN ×2 (06:27→14:51)
[2018-04-05] MEDS: levoFLOXacin 750 MG/150 ML 750 MG/150 ML BAG IV SCH (09:28)
[2018-04-05] MEDS: POLYETHYLENE GLYCOL 3350 17 GM PACKET PO SCH (10:52)
[2018-04-05] MEDS: SACCHAROMYCES BOULARDII 250 MG CAPSULE PO SCH ×2 (10:53→17:54)
[2018-04-05] MEDS: carBAMazepine ER 200 MG TABLET PO SCH ×2 (10:53→21:25)
[2018-04-05] MEDS: MULTIVITAMIN W/MINERALS TABLET PO SCH (14:51)
[2018-04-05] MEDS ORDERED: SODIUM CHLORIDE 0.9% 1,000 ML IV PRN (16:02)
--- NOTE | 2018-04-05 17:28 | PROVIDER PROGRESS NOTE ---
Assessment/Plan - Problem List (1) CAP (community acquired pneumonia) Qualifiers: Lung location: lower lobe of lung Assessment/Plan: Bibasilarbasilar infiltrates seen on yesterday's CT of chest. Pt on empiric Levaquin and Florastor. Will add double antibiotic coverage with Sputum sample is still pending. (2) Acute exacerbation of chronic obstructive airways disease Assessment/Plan: Pt has severe wheezing and this afternoon, he asked to be put on BIPAP. Will check ABG, continue nebs, will add steroids and add Mucinex to Robitussin. (3) Severe chronic obstructive pulmonary disease Assessment/Plan: Pt is O2 dependant, but still smokes. Continue management for exacerbation as above. (4) Tobacco dependency Assessment/Plan: Nicotine patch if he wants it. (5) History of pulmonary embolism Assessment/Plan: Pt apparently stopped his Xarelto on his own. Xarelto started here. (6) Neurofibromatosis Assessment/Plan: Unchanged fibromas. (7) Seizure disorder Assessment/Plan: Continue his anti-seizure meds: Tegtretol and Dilantin. (8) Anxiety Assessment/Plan: Will add prn Ativan, cont Xanax, Morphine prn dyspnea also. - Current Meds Current Meds: Current Medications Generic Name Dose Route Start Last Admin Trade Name Freq PRN Reason Stop Dose Admin Albuterol/Ipratropium 3 ml 04/04/18 16:45 04/05/18 03:04 Duoneb INH 3 ml RTQID PRN Administration Wheezing Alprazolam 0.25 mg 04/04/18 16:46 04/05/18 14:51 Xanax PO 0.25 mg TID PRN Administration Anxiety Carbamazepine 200 mg 04/04/18 21:00 04/05/18 10:53 Tegretol Xr PO 200 mg BID KIMI Administration Guaifenesin/Codeine Phosphate 5 ml 04/05/18 00:02 04/05/18 07:40 Robitussin Ac PO 5 ml Q6HR PRN Administration Cough Levofloxacin 750 mg in 150 mls @ 100 mls/hr 04/05/18 09:00 04/05/18 11:00 Levaquin 750 Mg/150 Ml IV Infused DAILY KIMI Infusion Morphine Sulfate 2 mg 04/05/18 16:52 04/05/18 17:03 Morphine IVP 2 mg Q3HR PRN Administration Dyspnea Multivitamins/Minerals 1 tab 04/05/18 14:00 04/05/18 14:51 Theragran M PO 1 tab DAILYWM KIMI Administration Phenytoin Sodium 100 mg 04/04/18 18:00 04/05/18 06:27 Dilantin PO 100 mg 0600,1800 KIMI Administration Phenytoin Sodium 50 mg 04/04/18 18:00 04/04/18 18:39 Dilantin Infatab PO 50 mg 1800 KIMI Administration Polyethylene Glycol 17 gm 04/05/18 09:00 04/05/18 10:52 Miralax PO Not Given DAILY KIMI Rivaroxaban 10 mg 04/04/18 19:35 04/04/18 21:09 Xarelto PO 10 mg 1700 KIMI Administration Saccharomyces Boulardii 250 mg 04/05/18 08:00 04/05/18 10:53 Florastor PO 250 mg BIDWM KIMI Administration Sodium Chloride 10 ml 04/04/18 16:42 04/05/18 04:21 Normal Saline Flush 0.9% IVP 10 ml PRN PRN Administration NEEDED PER PROVIDER ORDERS Sodium Chloride 10 ml 04/04/18 17:00 04/05/18 09:34 Normal Saline Flush 0.9% IVP Not Given 0100,0900,1700 KIMI - Lab Result Fish Bone Diagrams: 04/05/18 04:45 04/05/18 05:00 - Additional Planning My Orders: My Active Orders 04/05/18 16:52 ABG [Arterial Blood Gases - RT] [RC] .ONCE ABG - ARTERIAL BLOOD GAS [BG] Stat Morphine Inj [Morphine] 2 mg IVP Q3HR PRN Subjective - Subjective Patient Reports: Shortness of Breath, Other ("I'm havig a panic attack".) Objective Vital Signs: Vital Signs - 24 hr 04/04/18 04/04/18 04/04/18 17:35 19:20 20:34 Temperature 36.8 C Heart Rate 96 Heart Rate [ 104 H 105 H Brachial] Respiratory 16 20 20 Rate Blood Pressure 111/59 L [Right Brachial artery] O2 Saturation 98 96 04/04/18 04/04/18 04/05/18 22:19 23:55 03:05 Temperature 36.6 C Heart Rate 97 Heart Rate [ 97 95 Brachial] Respiratory 22 18 22 Rate Blood Pressure 122/88 H [Right Brachial artery] O2 Saturation 94 95 04/05/18 04/05/18 08:06 15:44 Temperature 36.4 C L 36.8 C Heart Rate Heart Rate [ 89 94 Brachial] Respiratory 24 22 Rate Blood Pressure 169/94 H 141/79 H [Right Brachial artery] O2 Saturation 96 97 Oxygen O2 Source [With Activity] Nasal cannula O2 Source Nasal cannula I&O (Last 24 Hrs): Intake and Output Totals x24h 04/03/18 04/04/18 04/05/18 23:59 23:59 23:59 Intake Total 1400 2320 Output Total 450 1550 Balance 950 770 General: Alert, Oriented x3 HEENT: Other (Temporal wasting, on O2 n.c., has many fibromata on skin.) Neck: Supple Cardiovascular: Regular rate, Other (Distant heart sounds.) Respiratory: Wheezes, Other (Tight, poor air mvm with diffuse wheezing) Abdomen: Soft Extremities: No edema - Results Results: Laboratory Results WBC 17.6 x10^3/uL (4.8-10.8) H 04/05/18 04:45 RBC 4.16 10^6/uL (4.70-6.10) L 04/05/18 04:45 Hgb 12.2 g/dL (14.0-18.0) L 04/05/18 04:45 Hct 37.7 % (42.0-52.0) L 04/05/18 04:45 MCV 90.8 fL (80.0-94.0) 04/05/18 04:45 MCH 29.3 pg (27.0-31.0) 04/05/18 04:45 MCHC 32.3 g/dL (32.0-36.0) 04/05/18 04:45 RDW 14.5 % (12.0-15.0) 04/05/18 04:45 Plt Count 339 10^3/uL (130-450) 04/05/18 04:45 MPV 6.8 fL (7.4-11.4) L 04/05/18 04:45 Neut # (Auto) Not Reportable 04/05/18 04:45 Lymph # (Auto) Not Reportable 04/05/18 04:45 Tripp # (Auto) Not Reportable 04/05/18 04:45 Eos # (Auto) Not Reportable 04/05/18 04:45 Baso # (Auto) Not Reportable 04/05/18 04:45 Absolute Nucleated RBC Not Reportable 04/05/18 04:45 Total Counted 100 04/05/18 04:45 Band Neuts % (Manual) 19 % (0-10) H 04/05/18 04:45 Abnorm Lymph % (Manual) 0 % 04/05/18 04:45 Nucleated RBC % Not Reportable 04/05/18 04:45 Neutrophils # (Manual) 11.1 10^3/uL (1.5-6.6) H 04/05/18 04:45 Lymphocytes # (Manual) 2.8 10^3/uL (1.5-3.5) 04/05/18 04:45 Monocytes # (Manual) 3.5 10^3/uL (0.0-1.0) H 04/05/18 04:45 Eosinophils # (Manual) 0.2 10^3/uL (0-0.7) 04/05/18 04:45 Basophils # (Manual) 0.0 10^3/uL (0-0.1) 04/05/18 04:45 Differential Comment MANUAL DIFFERENTIAL 04/05/18 04:45 Manual Slide Review Indicated 04/04/18 13:10 Platelet Estimate NORMAL (130-450,000) (NORMAL) 04/05/18 04:45 RBC Morph Micro Appear NORMAL APPEARANCE (NORMAL) 04/05/18 04:45 D-Dimer > 1050.0 ng/mL (200.0-255.0) H 04/04/18 13:10 Sodium 138 mmol/L (135-145) 04/05/18 05:00 Potassium 4.1 mmol/L (3.5-5.0) 04/05/18 05:00 Chloride 104 mmol/L (101-111) 04/05/18 05:00 Carbon Dioxide 25 mmol/L (21-32) 04/05/18 05:00 Anion Gap 9.0 (6-13) 04/05/18 05:00 BUN 10 mg/dL (6-20) 04/05/18 05:00 Creatinine 0.5 mg/dL (0.6-1.2) L 04/05/18 05:00 Estimated GFR (MDRD) 165 (>89) 04/05/18 05:00 Glucose 95 mg/dL (70-100) 04/05/18 05:00 Calcium 8.5 mg/dL (8.5-10.3) 04/05/18 05:00 Total Bilirubin 0.3 mg/dL (0.2-1.0) 04/04/18 13:10 AST 17 IU/L (10-42) 04/04/18 13:10 ALT 12 IU/L (10-60) 04/04/18 13:10 Alkaline Phosphatase 155 IU/L (42-121) H 04/04/18 13:10 Troponin I < 0.04 ng/mL (<0.49) 04/04/18 13:10 Total Protein 8.0 g/dL (6.7-8.2) 04/04/18 13:10 Albumin 4.0 g/dL (3.2-5.5) 04/04/18 13:10 Globulin 4.0 g/dL (2.1-4.2) 04/04/18 13:10 Albumin/Globulin Ratio 1.0 (1.0-2.2) 04/04/18 13:10 Lipase 18 U/L (22-51) L 04/04/18 13:10 Influenza A (Rapid) Negative (Negative) 04/04/18 13:01 Influenza B (Rapid) Negative (Negative) 04/04/18 13:01 - Procedures Procedures: Procedures INSERTION OF ENDOTRACHEAL AIRWAY INTO TRACHEA, VIA OPENING (05/29/17) RESPIRATORY VENTILATION, LESS THAN 24 CONSECUTIVE HOURS (05/29/17)
[2018-04-05 17:49] LABS: ABG PH 7.32 (7.35-7.45)
[2018-04-05 17:50] LABS: ABG HCO3 24.6 mmol/L (22.0-26.0); ABG OXYGEN SATURATION 94 % (94-98); ABG PCO2 49 mmHg (34-45); ABG PO2 76 mmHg (80-100); ABG TCO2 26.1 MMOL/L (21.0-29.0); ALLEN TEST POSITIVE
[2018-04-05] MEDS: LORazepam 2 MG/ML VIAL IVP PRN (17:51)
[2018-04-05] MEDS: RIVAROXABAN 10 MG TABLET PO SCH (17:54)
[2018-04-05] MEDS: PHENYTOIN CHEW 50 MG TABLET PO SCH (17:56)
[2018-04-05] MEDS: methylPREDNISolone SUCCINATE 125 MG/2 ML VIAL IVP SCH (18:37)
[2018-04-05] MEDS: CEFEPIME 2 GM in SODIUM CHLORIDE 0.9% MINIBAG 100 ML IV SCH (21:25)
[2018-04-05] MEDS: guaiFENesin 600 MG TABLET PO SCH (21:25)
[2018-04-06] MEDS: LORazepam 2 MG/ML VIAL IVP PRN (00:22)
[2018-04-06] MEDS: MORPHINE 2 MG/ML SYRINGE IVP PRN ×2 (00:40→15:13)
[2018-04-06] MEDS: SODIUM CHLORIDE FLUSH 0.9% 10 ML SYRINGE IVP SCH ×4 (02:14→23:09)
[2018-04-06] MEDS: IPRATROPIUM/ALBUTEROL 3 ML NEB INH PRN ×2 (03:45→08:03)
[2018-04-06 05:32] LABS: BASOPHILS % (AUTO) 0.2 %; EOSINOPHILS % (AUTO) 0.1 %; HGB - HEMOGLOBIN 11.4 g/dL (14.0-18.0); LYMPHOCYTES # (AUTO) 0.7 10^3/uL (1.5-3.5); LYMPHOCYTES % (AUTO) 5.2 %; MEAN CORPUSCULAR HEMOGLOBIN 29.7 pg (27.0-31.0); MEAN CORPUSCULAR HGB CONC 33.3 g/dL (32.0-36.0); MEAN CORPUSCULAR VOLUME 89.3 fL (80.0-94.0); MEAN PLATELET VOLUME 6.6 fL (7.4-11.4); MONOCYTES # (AUTO) 1.2 10^3/uL (0.0-1.0); MONOCYTES % (AUTO) 8.3 %; NEUTROPHILS # (AUTO) 12.2 10^3/uL (1.5-6.6); NEUTROPHILS % (AUTO) 86.2 %; PLT - PLATELET COUNT 325 10^3/uL (130-450); RED BLOOD COUNT 3.85 10^6/uL (4.70-6.10); RED CELL DISTRIBUTION WIDTH 14.5 % (12.0-15.0); WHITE BLOOD COUNT 14.1 x10^3/uL (4.8-10.8)
[2018-04-06 05:39] LABS: CALCIUM 8.4 mg/dL (8.5-10.3); CREATININE 0.6 mg/dL (0.6-1.2)
[2018-04-06] MEDS: methylPREDNISolone SUCCINATE 125 MG/2 ML VIAL IVP SCH ×3 (06:23→23:09)
[2018-04-06] MEDS: PHENYTOIN ER 100 MG CAPSULE PO SCH ×2 (06:31→18:00)
[2018-04-06] MEDS: CEFEPIME 2 GM in SODIUM CHLORIDE 0.9% MINIBAG 100 ML IV SCH ×2 (08:51→21:40)
[2018-04-06] MEDS: levoFLOXacin 750 MG/150 ML 750 MG/150 ML BAG IV SCH (08:52)
[2018-04-06] MEDS: carBAMazepine ER 200 MG TABLET PO SCH ×2 (10:06→21:40)
[2018-04-06] MEDS: MULTIVITAMIN W/MINERALS TABLET PO SCH (10:07)
[2018-04-06] MEDS: guaiFENesin 600 MG TABLET PO SCH ×2 (10:07→21:40)
[2018-04-06] MEDS: POLYETHYLENE GLYCOL 3350 17 GM PACKET PO SCH (10:08)
[2018-04-06] MEDS: SACCHAROMYCES BOULARDII 250 MG CAPSULE PO SCH ×2 (10:08→17:43)
[2018-04-06] MEDS: SODIUM CHLORIDE FLUSH 0.9% 10 ML SYRINGE IVP PRN ×3 (10:14→15:13)
--- NOTE | 2018-04-06 11:28 | PROVIDER PROGRESS NOTE ---
Assessment/Plan - Problem List (1) CAP (community acquired pneumonia) Qualifiers: Lung location: lower lobe of lung Assessment/Plan: Blood cultures are neg thus far. He was unable to produce a sputum sample for culture. Continue empiric iv antibiotics. A total 7-10 day course of antibiotics will be planed, continue iv antibiotics for 3-4 days. (2) Acute exacerbation of chronic obstructive airways disease Assessment/Plan: Continue BIPAP, nebs, iv steroids, Mucinex. (3) Severe chronic obstructive pulmonary disease Assessment/Plan: Pt is on home O2. His impression was that the lungs should be better by now, since admission. I explained that I suspect he will need inpatient medical management for 4 days, since he has severe underlying COPD and now a pneumonia that exacerbated his respiratory distress. He asked about a short monthly course of antibiotics for prevention. This is a very good idea and should be considered as outpatient management. (4) History of pulmonary embolism Assessment/Plan: Pt on Xarelto. (5) Seizure disorder Assessment/Plan: Pt is on his Dilantin and Tegretol while here. (6) Anxiety Assessment/Plan: Improved with prn anxiolytics and Morphine. (7) Neurofibromatosis Assessment/Plan: Stable. - Current Meds Current Meds: Current Medications Generic Name Dose Route Start Last Admin Trade Name Freq PRN Reason Stop Dose Admin Albuterol/Ipratropium 3 ml 04/04/18 16:45 04/06/18 08:03 Duoneb INH 3 ml RTQID PRN Administration Wheezing Alprazolam 0.25 mg 04/04/18 16:46 04/05/18 14:51 Xanax PO 0.25 mg TID PRN Administration Anxiety Carbamazepine 200 mg 04/04/18 21:00 04/06/18 10:06 Tegretol Xr PO 200 mg BID KIMI Administration Guaifenesin 600 mg 04/05/18 21:00 04/06/18 10:07 Mucinex PO 600 mg BID KIMI Administration Guaifenesin/Codeine Phosphate 5 ml 04/05/18 00:02 04/05/18 07:40 Robitussin Ac PO 5 ml Q6HR PRN Administration Cough Levofloxacin 750 mg in 150 mls @ 100 mls/hr 04/05/18 09:00 04/06/18 08:52 Levaquin 750 Mg/150 Ml IV 100 mls/hr DAILY KIMI Administration Cefepime HCl 2 gm/ Sodium 100 mls @ 200 mls/hr 04/05/18 21:00 04/06/18 08:51 Chloride IV 200 mls/hr BID KIMI Administration Lorazepam 0.5 mg 04/05/18 17:39 04/06/18 00:22 Ativan Inj (Vial) IVP 0.5 mg Q2H PRN Administration Anxiety Methylprednisolone Sodium Succinate 125 mg 04/05/18 19:00 04/06/18 06:23 Solu-Medrol (125mg Vial) IVP 125 mg TID KIMI Administration Morphine Sulfate 2 mg 04/05/18 16:52 04/06/18 00:40 Morphine IVP 2 mg Q3HR PRN Administration Dyspnea Multivitamins/Minerals 1 tab 04/05/18 14:00 04/06/18 10:07 Theragran M PO 1 tab DAILYWM KIMI Administration Phenytoin Sodium 100 mg 04/04/18 18:00 04/06/18 06:31 Dilantin PO 100 mg 0600,1800 KIMI Administration Phenytoin Sodium 50 mg 04/04/18 18:00 04/05/18 17:56 Dilantin Infatab PO 50 mg 1800 KIMI Administration Polyethylene Glycol 17 gm 04/05/18 09:00 04/06/18 10:08 Miralax PO 17 gm DAILY KIMI Administration Rivaroxaban 10 mg 04/04/18 19:35 04/05/18 17:54 Xarelto PO 10 mg 1700 KIMI Administration Saccharomyces Boulardii 250 mg 04/05/18 08:00 04/06/18 10:08 Florastor PO 250 mg BIDWM KIMI Administration Sodium Chloride 10 ml 04/04/18 16:42 04/06/18 10:14 Normal Saline Flush 0.9% IVP 10 ml PRN PRN Administration NEEDED PER PROVIDER ORDERS Sodium Chloride 10 ml 04/04/18 17:00 04/06/18 10:12 Normal Saline Flush 0.9% IVP Not Given 0100,0900,1700 KIMI - Lab Result Fish Bone Diagrams: 04/06/18 05:15 04/06/18 05:15 - Additional Planning My Orders: My Active Orders 04/05/18 16:52 ABG [Arterial Blood Gases - RT] [RC] .ONCE Morphine Inj [Morphine] 2 mg IVP Q3HR PRN 11/30/18 17:39 LORazepam INJ [Ativan Inj (Vial)] 0.5 mg IVP Q2H PRN 04/05/18 18:10 BIPAP/CPAP - RT [RC] .Q2H 04/05/18 19:00 methylPREDNISolone SUCCINATE [SOLU-Medrol (125MG VIAL)] 125 mg IVP TID 04/05/18 21:00 Cefepime 2 gm Sodium Chloride 0.9% Minibag [Normal Saline 0.9% Minibag] 100 ml IV BID guaiFENesin [Mucinex] 600 mg PO BID Subjective - Subjective Patient Reports: Feeling Better, Resting Comfortably, Other (He thanked me for ordering the BIPAP last evening) Nursing Reports: Other (He is impatient and thinks his lungs should be better by now.) Objective Vital Signs: Vital Signs - 24 hr 04/05/18 04/05/18 04/05/18 15:44 18:58 19:31 Temperature 36.8 C 37.5 C Heart Rate 88 Heart Rate [ 94 117 H Brachial] Respiratory 22 24 Rate Blood Pressure 141/79 H 155/84 H [Right Brachial artery] O2 Saturation 97 98 04/05/18 04/05/18 04/06/18 22:00 23:00 00:00 Temperature 37.1 C Heart Rate Heart Rate [ 90 89 92 Brachial] Respiratory 18 18 20 Rate Blood Pressure 132/85 H 100/72 119/72 [Right Brachial artery] O2 Saturation 95 97 97 04/06/18 04/06/18 04/06/18 01:00 01:49 02:00 Temperature Heart Rate 87 Heart Rate [ 89 88 Brachial] Respiratory 18 18 Rate Blood Pressure 101/62 104/70 [Right Brachial artery] O2 Saturation 95 96 04/06/18 04/06/18 04/06/18 03:00 03:46 04:00 Temperature Heart Rate 90 Heart Rate [ 86 103 H Brachial] Respiratory 17 19 24 Rate Blood Pressure 99/66 117/73 [Right Brachial artery] O2 Saturation 96 04/06/18 04/06/18 04/06/18 05:00 06:00 07:00 Temperature 37.1 C Heart Rate Heart Rate [ 91 93 82 Brachial] Respiratory 20 19 21 Rate Blood Pressure 90/62 115/68 131/80 H [Right Brachial artery] O2 Saturation 95 97 04/06/18 04/06/18 04/06/18 07:50 08:00 08:03 Temperature Heart Rate 102 H Heart Rate [ 96 118 H Brachial] Respiratory 24 27 H Rate Blood Pressure 131/80 H 143/88 H [Right Brachial artery] O2 Saturation 99 98 04/06/18 04/06/18 04/06/18 08:08 08:09 09:00 Temperature 36.4 C L Heart Rate 97 Heart Rate [ 91 Brachial] Respiratory 25 H 17 Rate Blood Pressure 104/65 [Right Brachial artery] O2 Saturation 98 04/06/18 10:54 Temperature Heart Rate 95 Heart Rate [ Brachial] Respiratory Rate Blood Pressure [Right Brachial artery] O2 Saturation Oxygen O2 Source [With Activity] Nasal cannula O2 Source BIPAP I&O (Last 24 Hrs): Intake and Output Totals x24h 04/04/18 04/05/18 04/06/18 23:59 23:59 23:59 Intake Total 1400 2620 285 Output Total 450 1800 500 Balance 950 820 -215 General: Alert, Oriented x3 HEENT: Other (Wearing BIPAP, multiple fibromas on face) Neck: Supple, No JVD Neuro: Alert, Non Focal Cardiovascular: Regular rate, No murmurs Respiratory: No respiratory distress, Rhonchi, Other (No wheezes) Abdomen: Normal bowel sounds, Soft Extremities: No edema - Results Results: Laboratory Results WBC 14.1 x10^3/uL (4.8-10.8) H 04/06/18 05:15 RBC 3.85 10^6/uL (4.70-6.10) L 04/06/18 05:15 Hgb 11.4 g/dL (14.0-18.0) L 04/06/18 05:15 Hct 34.4 % (42.0-52.0) L 04/06/18 05:15 MCV 89.3 fL (80.0-94.0) 04/06/18 05:15 MCH 29.7 pg (27.0-31.0) 04/06/18 05:15 MCHC 33.3 g/dL (32.0-36.0) 04/06/18 05:15 RDW 14.5 % (12.0-15.0) 04/06/18 05:15 Plt Count 325 10^3/uL (130-450) 04/06/18 05:15 MPV 6.6 fL (7.4-11.4) L 04/06/18 05:15 Neut # (Auto) 12.2 10^3/uL (1.5-6.6) H 04/06/18 05:15 Lymph # (Auto) 0.7 10^3/uL (1.5-3.5) L 04/06/18 05:15 Mathews # (Auto) 1.2 10^3/uL (0.0-1.0) H 04/06/18 05:15 Eos # (Auto) 0.0 10^3/uL (0.0-0.7) 04/06/18 05:15 Baso # (Auto) 0.0 10^3/uL (0.0-0.1) 04/06/18 05:15 Absolute Nucleated RBC 0.01 x10^3/uL 04/06/18 05:15 Total Counted 100 04/05/18 04:45 Band Neuts % (Manual) 19 % (0-10) H 04/05/18 04:45 Abnorm Lymph % (Manual) 0 % 04/05/18 04:45 Nucleated RBC % 0.0 /100WBC 04/06/18 05:15 Neutrophils # (Manual) 11.1 10^3/uL (1.5-6.6) H 04/05/18 04:45 Lymphocytes # (Manual) 2.8 10^3/uL (1.5-3.5) 04/05/18 04:45 Monocytes # (Manual) 3.5 10^3/uL (0.0-1.0) H 04/05/18 04:45 Eosinophils # (Manual) 0.2 10^3/uL (0-0.7) 04/05/18 04:45 Basophils # (Manual) 0.0 10^3/uL (0-0.1) 04/05/18 04:45 Differential Comment MANUAL DIFFERENTIAL 04/05/18 04:45 Manual Slide Review Indicated 04/04/18 13:10 Platelet Estimate NORMAL (130-450,000) (NORMAL) 04/05/18 04:45 RBC Morph Micro Appear NORMAL APPEARANCE (NORMAL) 04/05/18 04:45 D-Dimer > 1050.0 ng/mL (200.0-255.0) H 04/04/18 13:10 Bld Gas Analysis Time 1745 04/05/18 17:35 Sample Site RIGHT RADIAL 04/05/18 17:35 ABG pH 7.32 (7.35-7.45) L 04/05/18 17:35 ABG pCO2 49 mmHg (34-45) H 04/05/18 17:35 ABG pO2 76 mmHg (80-100) L 04/05/18 17:35 ABG HCO3 24.6 mmol/L (22.0-26.0) 04/05/18 17:35 ABG Total CO2 26.1 MMOL/L (21.0-29.0) 04/05/18 17:35 ABG O2 Saturation 94 % (94-98) 04/05/18 17:35 ABG Base Excess -2.0 mmol/L (-2.0-3.0) 04/05/18 17:35 Bobo Test POSITIVE 04/05/18 17:35 O2 Delivery Device NASAL CANNULA 04/05/18 17:35 O2 Liters/Min 3.00 LPM 04/05/18 17:35 Sodium 133 mmol/L (135-145) L 04/06/18 05:15 Potassium 4.3 mmol/L (3.5-5.0) 04/06/18 05:15 Chloride 102 mmol/L (101-111) 04/06/18 05:15 Carbon Dioxide 24 mmol/L (21-32) 04/06/18 05:15 Anion Gap 7.0 (6-13) 04/06/18 05:15 BUN 12 mg/dL (6-20) 04/06/18 05:15 Creatinine 0.6 mg/dL (0.6-1.2) 04/06/18 05:15 Estimated GFR (MDRD) 134 (>89) 04/06/18 05:15 Glucose 111 mg/dL (70-100) H 04/06/18 05:15 Calcium 8.4 mg/dL (8.5-10.3) L 04/06/18 05:15 Total Bilirubin 0.3 mg/dL (0.2-1.0) 04/04/18 13:10 AST 17 IU/L (10-42) 04/04/18 13:10 ALT 12 IU/L (10-60) 04/04/18 13:10 Alkaline Phosphatase 155 IU/L (42-121) H 04/04/18 13:10 Troponin I < 0.04 ng/mL (<0.49) 04/04/18 13:10 Total Protein 8.0 g/dL (6.7-8.2) 04/04/18 13:10 Albumin 4.0 g/dL (3.2-5.5) 04/04/18 13:10 Globulin 4.0 g/dL (2.1-4.2) 04/04/18 13:10 Albumin/Globulin Ratio 1.0 (1.0-2.2) 04/04/18 13:10 Lipase 18 U/L (22-51) L 04/04/18 13:10 Influenza A (Rapid) Negative (Negative) 04/04/18 13:01 Influenza B (Rapid) Negative (Negative) 04/04/18 13:01 - Procedures Procedures: Procedures INSERTION OF ENDOTRACHEAL AIRWAY INTO TRACHEA, VIA OPENING (05/29/17) RESPIRATORY VENTILATION, LESS THAN 24 CONSECUTIVE HOURS (05/29/17)
[2018-04-06] MEDS: RIVAROXABAN 10 MG TABLET PO SCH (17:43)
[2018-04-06] MEDS: PHENYTOIN CHEW 50 MG TABLET PO SCH (17:43)
[2018-04-06] MEDS: MORPHINE 2 MG/ML CARPUJECT IVP PRN (22:05)
[2018-04-07 05:50] LABS: BASOPHILS % (AUTO) 0.2 %; EOSINOPHILS # (AUTO) 0.1 10^3/uL (0.0-0.7); EOSINOPHILS % (AUTO) 0.7 %; HGB - HEMOGLOBIN 11.2 g/dL (14.0-18.0); LYMPHOCYTES # (AUTO) 1.2 10^3/uL (1.5-3.5); LYMPHOCYTES % (AUTO) 8.6 %; MEAN CORPUSCULAR HEMOGLOBIN 29.6 pg (27.0-31.0); MEAN CORPUSCULAR HGB CONC 32.8 g/dL (32.0-36.0); MEAN CORPUSCULAR VOLUME 90.4 fL (80.0-94.0); MEAN PLATELET VOLUME 6.9 fL (7.4-11.4); MONOCYTES # (AUTO) 1.7 10^3/uL (0.0-1.0); MONOCYTES % (AUTO) 12.3 %; NEUTROPHILS # (AUTO) 10.7 10^3/uL (1.5-6.6); NEUTROPHILS % (AUTO) 78.2 %; PLT - PLATELET COUNT 355 10^3/uL (130-450); RED BLOOD COUNT 3.78 10^6/uL (4.70-6.10); RED CELL DISTRIBUTION WIDTH 14.3 % (12.0-15.0); WHITE BLOOD COUNT 13.7 x10^3/uL (4.8-10.8)
[2018-04-07 05:59] LABS: CALCIUM 8.6 mg/dL (8.5-10.3); CREATININE 0.6 mg/dL (0.6-1.2); MAGNESIUM 2.1 mg/dL (1.7-2.8)
[2018-04-07] MEDS: methylPREDNISolone SUCCINATE 125 MG/2 ML VIAL IVP SCH ×3 (06:17→21:42)
[2018-04-07] MEDS: SODIUM CHLORIDE FLUSH 0.9% 10 ML SYRINGE IVP PRN ×5 (06:18→20:54)
[2018-04-07] MEDS: PHENYTOIN ER 100 MG CAPSULE PO SCH ×2 (06:40→17:03)
[2018-04-07] MEDS: MORPHINE 2 MG/ML CARPUJECT IVP PRN ×2 (07:16→09:58)
[2018-04-07] MEDS: POLYETHYLENE GLYCOL 3350 17 GM PACKET PO SCH (08:15)
[2018-04-07] MEDS: carBAMazepine ER 200 MG TABLET PO SCH ×2 (08:15→20:53)
[2018-04-07] MEDS: MULTIVITAMIN W/MINERALS TABLET PO SCH (08:15)
[2018-04-07] MEDS: guaiFENesin 600 MG TABLET PO SCH ×2 (08:15→20:53)
[2018-04-07] MEDS: CEFEPIME 2 GM in SODIUM CHLORIDE 0.9% MINIBAG 100 ML IV SCH ×2 (08:16→20:53)
[2018-04-07] MEDS: levoFLOXacin 750 MG/150 ML 750 MG/150 ML BAG IV SCH (08:17)
[2018-04-07] MEDS: SODIUM CHLORIDE FLUSH 0.9% 10 ML SYRINGE IVP SCH ×2 (08:18→17:03)
[2018-04-07] MEDS: SACCHAROMYCES BOULARDII 250 MG CAPSULE PO SCH ×2 (08:18→17:03)
--- NOTE | 2018-04-07 11:55 | PROVIDER PROGRESS NOTE ---
Subjective - Prog Note Date Prog Note Date: 04/07/18 Prog Note Time: 11:53 - Subjective Subjective: He is having quite a bit of anxiety. He wants to use the BiPAP as needed. Before using BiPAP his ABG was 7.32, PCO2 49, PO2 76. HCO3 was 24.6 and his bas e excess was -2. He has been in the ICU since BiPAP started April 05. He takes it off and puts it back on when his level of anxiety is high. He refuses to let us recheck his blood gas to see if BiPAP is appropriate. Current Medications - Current Medications Current Medications: Active Medications Acetaminophen (Tylenol) 650 mg PO Q4HR PRN PRN Reason: Pain 1 to 4 Hydrocodone Bitart/Acetaminophen ([place] 5/325) 1 tab PO Q4HR PRN PRN Reason: Pain 5 to 7 Albuterol/Ipratropium (Duoneb) 3 ml INH RTQID PRN PRN Reason: Wheezing Last Admin: 04/06/18 08:03 Dose: 3 ml Alprazolam (Xanax) 0.25 mg PO TID PRN PRN Reason: Anxiety Last Admin: 04/05/18 14:51 Dose: 0.25 mg Carbamazepine (Tegretol Xr) 200 mg PO BID [facility] Last Admin: 04/07/18 08:15 Dose: 200 mg Guaifenesin (Mucinex) 600 mg PO BID [facility] Last Admin: 04/07/18 08:15 Dose: 600 mg Guaifenesin/Codeine Phosphate (Robitussin Ac) 5 ml PO Q6HR PRN PRN Reason: Cough Last Admin: 04/05/18 07:40 Dose: 5 ml Hydrocortisone (Anusol-Hc) 25 mg [place] BID PRN PRN Reason: Bleeding Levofloxacin (Levaquin 750 Mg/150 Ml) 750 mg in 150 mls @ 100 mls/hr IV DAILY [facility] Last Infusion: 04/07/18 10:13 Dose: Infused Sodium Chloride (Normal Saline 0.9%) 1,000 mls @ 0 mls/hr IV Q24H PRN PRN Reason: TKO RATE Cefepime HCl 2 gm/ Sodium (Chloride) 100 mls @ 200 mls/hr IV BID [facility] Last Infusion: 04/07/18 09:00 Dose: Infused Lorazepam (Ativan Inj (Vial)) 0.5 mg IVP Q2H PRN PRN Reason: Anxiety Last Admin: 04/06/18 00:22 Dose: 0.5 mg Methylprednisolone Sodium Succinate (Solu-Medrol (125mg Vial)) 125 mg IVP TID [facility] Last Admin: 04/07/18 06:17 Dose: 125 mg Morphine Sulfate (Morphine (Carpuject)) 2 mg IVP Q3HR PRN PRN Reason: Dyspnea Last Admin: 04/07/18 09:58 Dose: 2 mg Multivitamins/Minerals (Theragran M) 1 tab PO DAILYWM [facility] Last Admin: 04/07/18 08:15 Dose: 1 tab Ondansetron HCl (Zofran Inj) 4 mg IVP Q6HR PRN PRN Reason: Nausea / Vomiting Ondansetron HCl (Zofran Odt) 4 mg TL Q6HR PRN PRN Reason: Nausea / Vomiting Phenytoin Sodium (Dilantin) 100 mg PO 0600,1800 [facility] Last Admin: 04/07/18 06:40 Dose: 100 mg Phenytoin Sodium (Dilantin Infatab) 50 mg PO 1800 [facility] Last Admin: 04/06/18 17:43 Dose: 50 mg Polyethylene Glycol (Miralax) 17 gm PO DAILY [facility] Last Admin: 04/07/18 08:15 Dose: 17 gm Rivaroxaban (Xarelto) 10 mg PO 1700 [facility] Last Admin: 04/06/18 17:43 Dose: 10 mg Saccharomyces Boulardii (Florastor) 250 mg PO BIDWM [facility] Last Admin: 04/07/18 08:18 Dose: Not Given Sodium Chloride (Normal Saline Flush 0.9%) 10 ml IVP PRN PRN PRN Reason: NEEDED PER PROVIDER ORDERS Last Admin: 04/07/18 09:58 Dose: 10 ml Sodium Chloride (Normal Saline Flush 0.9%) 10 ml IVP 0100,0900,1700 [facility] Last Admin: 04/07/18 08:18 Dose: 10 ml Throat Lozenges (Cepacol) 1 lozenge MM Q2HR PRN PRN Reason: Throat pain Albuterol Sulf [Ventolin Hfa Inhaler] 2 puffs INH Q6H PRN 05/29/17 Acetaminophen [Tylenol] 650 mg PO Q4H PRN 09/04/17 ALPRAZolam [Alprazolam] 0.25 mg PO TID PRN 04/04/18 Bisacodyl [Dulcolax] 5 mg PO DAILY PRN 04/04/18 Fluticasone/Umeclidin/Vilanter [Trelegy Ellipta 100-62.5-25] 1 each INH DAILY 04/04/18 Hydrocortisone Acetate [Anucort-Hc] 25 mg [place] BID PRN 04/04/18 Ipratropium/Albuterol [Duoneb] 3 ml INH Q4H PRN 04/04/18 Phenytoin Sodium Extended 100 mg PO 0600 04/04/18 Polyethylene Glycol 3350 17 gm PO DAILY PRN 04/04/18 carBAMazepine [Carbamazepine ER] 200 mg PO BID 04/04/18 Objective - Vital Signs/Intake & Output Reviewed Vital Signs: Yes Vital Signs: Vital Signs x48h Temp Pulse Resp BP Pulse Ox 04/07/18 11:00 80 16 97/65 100 04/07/18 10:00 36.6 C 78 20 96/68 98 04/07/18 09:00 80 18 109/73 98 04/07/18 07:52 58 L 17 112/67 99 04/07/18 07:00 64 17 98 04/07/18 06:05 112/67 04/07/18 06:00 61 15 99 04/07/18 05:00 36.7 C 79 17 103/66 99 04/07/18 04:00 58 L 14 103/72 98 Intake & Output: Intake & Output 04/04/18 04/05/18 04/06/18 04/07/18 23:59 23:59 23:59 23:59 Intake Total 1400 2620 1140 700 Output Total 450 1800 900 250 Balance 950 820 240 450 - Objective General Appearance: positive: No acute distress, Alert, Other (BiPAP mask is on this morning, watching TV. We then took it off for him to eat breakfast and then he wanted to be back on again.) Eyes Bilateral: positive: PERRL ENT: positive: Pharynx nml Respiratory: positive: Chest non-tender, No respiratory distress, Wheezes, Rhonchi. negative: Rales Cardiovascular: positive: Irregularly irregular. negative: Gallop/S4, Friction rub Abdomen: positive: Non-tender, No organomegaly, Nml bowel sounds Skin: positive: Warm, Dry, Other (Multiple nodules of neurofibromatosis from head to toe) Extremities: positive: Full ROM, No pedal edema Neurologic/Psychiatric: positive: Oriented x3, CN's nml (2-12), Motor nml, Weakness (Generalized) - Lab Results Fish Bones: 04/07/18 05:00 04/07/18 05:00 Other Labs: Lab Results x24hrs 04/07/18 04/07/18 Range/Units 05:00 05:00 WBC 13.7 H (4.8-10.8) x10^3/uL RBC 3.78 L (4.70-6.10) 10^6/uL Hgb 11.2 L (14.0-18.0) g/dL Hct 34.1 L (42.0-52.0) % MCV 90.4 (80.0-94.0) fL MCH 29.6 (27.0-31.0) pg MCHC 32.8 (32.0-36.0) g/dL RDW 14.3 (12.0-15.0) % Plt Count 355 (130-450) 10^3/uL MPV 6.9 L (7.4-11.4) fL Neut # (Auto) 10.7 H (1.5-6.6) 10^3/uL Lymph # (Auto) 1.2 L (1.5-3.5) 10^3/uL [place] # (Auto) 1.7 H (0.0-1.0) 10^3/uL Eos # (Auto) 0.1 (0.0-0.7) 10^3/uL Baso # (Auto) 0.0 (0.0-0.1) 10^3/uL Absolute Nucleated RBC 0.00 x10^3/uL Nucleated RBC % 0.0 /100WBC Sodium 136 (135-145) mmol/L Potassium 4.2 (3.5-5.0) mmol/L Chloride 103 (101-111) mmol/L Carbon Dioxide 30 (21-32) mmol/L Anion Gap 3.0 L (6-13) BUN 15 (6-20) mg/dL Creatinine 0.6 (0.6-1.2) mg/dL Estimated GFR (MDRD) 134 (>89) Glucose 92 (70-100) mg/dL Calcium 8.6 (8.5-10.3) mg/dL Magnesium 2.1 (1.7-2.8) mg/dL ABX Reporting Has patient been on IV antibiotics over the past 48 hours?: Yes Assessment/Plan - Problem List (1) Pneumonia Impression: Blood cultures are neg thus far. He was unable to produce a sputum sample for culture. Continue empiric iv antibiotics. A total 7-10 day course of antibiotics will be planed, continue iv antibiotics for 3-4 days.Today Day #4 (2) Acute exacerbation of chronic obstructive airways disease Assessment/Plan: Continue BIPAP, nebs, iv steroids, Mucinex. But I fear he is using the BiPAP not as intended. He is not severely hyp ercapnic. He is not obtunded. And is using it more for anxiety than he is for true respiratory failure. We will attempt to sit down with him. Respiratory therapy is already tried to talk to him and he is still demanding BiPAP, refusing blood gases to monitor the use of BiPAP (3) Severe chronic obstructive pulmonary disease Assessment/Plan: Pt is on home O2. His impression was that the lungs should be better by now, since admission. I explained that I suspect he will need inpatient medical management for 4 days, since he has severe underlying COPD and now a pneumonia that exacerbated his respiratory distress. He asked about a short monthly course of antibiotics for prevention. This is a very good idea and should be considered as outpatient management. (4) History of pulmonary embolism Assessment/Plan: Pt on Xarelto. He had stopped it on his own 3 months ago. Resumed it during the stay. We will see if he continues it in the outpatient setting (5) Seizure disorder Assessment/Plan: Pt is on his Dilantin and Tegretol while here. (6) Anxiety Assessment/Plan: Improved with prn anxiolytics and Morphine.But this waxes and wanes (7) Neurofibromatosis Assessment/Plan: Stable.
[2018-04-07] MEDS: RIVAROXABAN 10 MG TABLET PO SCH (17:03)
[2018-04-07] MEDS: PHENYTOIN CHEW 50 MG TABLET PO SCH (17:03)
[2018-04-07] MEDS: SENNA 8.6 MG TABLET PO SCH (19:53)
[2018-04-07] MEDS: DOCUSATE SODIUM 250 MG CAPSULE PO SCH (19:54)
[2018-04-07] MEDS: guaiFENesin/CODEINE 5 ML UDC PO PRN (19:54)
[2018-04-08] MEDS: SODIUM CHLORIDE FLUSH 0.9% 10 ML SYRINGE IVP SCH ×3 (02:39→16:17)
[2018-04-08] MEDS: SODIUM CHLORIDE FLUSH 0.9% 10 ML SYRINGE IVP PRN ×2 (06:17→13:37)
[2018-04-08] MEDS: PHENYTOIN ER 100 MG CAPSULE PO SCH ×2 (06:17→17:20)
[2018-04-08] MEDS: methylPREDNISolone SUCCINATE 125 MG/2 ML VIAL IVP SCH ×2 (06:17→13:37)
[2018-04-08] MEDS: DOCUSATE SODIUM 250 MG CAPSULE PO SCH (08:05)
[2018-04-08] MEDS: SENNA 8.6 MG TABLET PO SCH (08:05)
[2018-04-08] MEDS: carBAMazepine ER 200 MG TABLET PO SCH ×2 (08:06→22:19)
[2018-04-08] MEDS: CEFEPIME 2 GM in SODIUM CHLORIDE 0.9% MINIBAG 100 ML IV SCH ×2 (08:06→22:21)
[2018-04-08] MEDS: MULTIVITAMIN W/MINERALS TABLET PO SCH (08:06)
[2018-04-08] MEDS: guaiFENesin 600 MG TABLET PO SCH ×2 (08:06→22:19)
[2018-04-08] MEDS: levoFLOXacin 750 MG/150 ML 750 MG/150 ML BAG IV SCH (08:07)
[2018-04-08] MEDS: POLYETHYLENE GLYCOL 3350 17 GM PACKET PO SCH (08:09)
[2018-04-08] MEDS: SACCHAROMYCES BOULARDII 250 MG CAPSULE PO SCH ×2 (08:09→17:21)
[2018-04-08] MEDS ORDERED: SENNA 8.6 MG TABLET PO SCH (09:00)
[2018-04-08] MEDS: MORPHINE 2 MG/ML CARPUJECT IVP PRN (16:16)
[2018-04-08] MEDS: RIVAROXABAN 10 MG TABLET PO SCH (17:20)
[2018-04-08] MEDS: PHENYTOIN CHEW 50 MG TABLET PO SCH (17:20)
--- NOTE | 2018-04-08 18:21 | PROVIDER PROGRESS NOTE ---
Subjective - Prog Note Date Prog Note Date: 04/08/18 Prog Note Time: 18:17 - Subjective Subjective: He has been off of the BiPAP since yesterday morning. His cough is still present but better. Overall he feels like he is almost at baseline and wonders if he could go home tomorrow. There have been no fevers. No change in the culture status of his bloods. Blood pressures been stable. Anxiety appears abated from yesterday. Current Medications - Current Medications Current Medications: Active Medications Acetaminophen (Tylenol) 650 mg PO Q4HR PRN PRN Reason: Pain 1 to 4 Hydrocodone Bitart/Acetaminophen ([place] 5/325) 1 tab PO Q4HR PRN PRN Reason: Pain 5 to 7 Albuterol/Ipratropium (Duoneb) 3 ml INH RTQID PRN PRN Reason: Wheezing Last Admin: 04/06/18 08:03 Dose: 3 ml Alprazolam (Xanax) 0.25 mg PO TID PRN PRN Reason: Anxiety Last Admin: 04/05/18 14:51 Dose: 0.25 mg Carbamazepine (Tegretol Xr) 200 mg PO BID [facility] Last Admin: 04/08/18 08:06 Dose: 200 mg Docusate Sodium (Colace 250mg Capsule) 250 - 500 mg PO DAILY [facility] Last Admin: 04/08/18 08:05 Dose: 250 mg Guaifenesin (Mucinex) 600 mg PO BID [facility] Last Admin: 04/08/18 08:06 Dose: 600 mg Guaifenesin/Codeine Phosphate (Robitussin Ac) 5 ml PO Q6HR PRN PRN Reason: Cough Last Admin: 04/07/18 19:54 Dose: 5 ml Hydrocortisone (Anusol-Hc) 25 mg [place] BID PRN PRN Reason: Bleeding Levofloxacin (Levaquin 750 Mg/150 Ml) 750 mg in 150 mls @ 100 mls/hr IV DAILY [facility] Last Infusion: 04/08/18 09:57 Dose: Infused Cefepime HCl 2 gm/ Sodium (Chloride) 100 mls @ 200 mls/hr IV BID [facility] Last Infusion: 04/08/18 09:03 Dose: Infused Lorazepam (Ativan Inj (Vial)) 0.5 mg IVP Q2H PRN PRN Reason: Anxiety Last Admin: 04/06/18 00:22 Dose: 0.5 mg Morphine Sulfate (Morphine (Carpuject)) 2 mg IVP Q3HR PRN PRN Reason: Dyspnea Last Admin: 04/08/18 16:16 Dose: 2 mg Multivitamins/Minerals (Theragran M) 1 tab PO DAILYWM [facility] Last Admin: 04/08/18 08:06 Dose: 1 tab Ondansetron HCl (Zofran Inj) 4 mg IVP Q6HR PRN PRN Reason: Nausea / Vomiting Ondansetron HCl (Zofran Odt) 4 mg TL Q6HR PRN PRN Reason: Nausea / Vomiting Phenytoin Sodium (Dilantin) 100 mg PO 0600,1800 [facility] Last Admin: 04/08/18 17:20 Dose: 100 mg Phenytoin Sodium (Dilantin Infatab) 50 mg PO 1800 [facility] Last Admin: 04/08/18 17:20 Dose: 50 mg Polyethylene Glycol (Miralax) 17 gm PO DAILY [facility] Last Admin: 04/08/18 08:09 Dose: Not Given Rivaroxaban (Xarelto) 10 mg PO 1700 [facility] Last Admin: 04/08/18 17:20 Dose: 10 mg Saccharomyces Boulardii (Florastor) 250 mg PO BIDWM [facility] Last Admin: 04/08/18 17:21 Dose: Not Given Senna (Senokot) 8.6 - 17.2 mg PO DAILY [facility] Last Admin: 04/08/18 08:05 Dose: 8.6 mg Sodium Chloride (Normal Saline Flush 0.9%) 10 ml IVP PRN PRN PRN Reason: NEEDED PER PROVIDER ORDERS Last Admin: 04/08/18 13:37 Dose: 10 ml Sodium Chloride (Normal Saline Flush 0.9%) 10 ml IVP 0100,0900,1700 [facility] Last Admin: 04/08/18 16:17 Dose: 10 ml Throat Lozenges (Cepacol) 1 lozenge MM Q2HR PRN PRN Reason: Throat pain Albuterol Sulf [Ventolin Hfa Inhaler] 2 puffs INH Q6H PRN 05/29/17 Acetaminophen [Tylenol] 650 mg PO Q4H PRN 09/04/17 ALPRAZolam [Alprazolam] 0.25 mg PO TID PRN 04/04/18 Bisacodyl [Dulcolax] 5 mg PO DAILY PRN 04/04/18 Fluticasone/Umeclidin/Vilanter [Trelegy Ellipta 100-62.5-25] 1 each INH DAILY 04/04/18 Hydrocortisone Acetate [Anucort-Hc] 25 mg [place] BID PRN 04/04/18 Ipratropium/Albuterol [Duoneb] 3 ml INH Q4H PRN 04/04/18 Phenytoin Sodium Extended 100 mg PO 0600 04/04/18 Polyethylene Glycol 3350 17 gm PO DAILY PRN 04/04/18 carBAMazepine [Carbamazepine ER] 200 mg PO BID 04/04/18 Objective - Vital Signs/Intake & Output Reviewed Vital Signs: Yes Vital Signs: Vital Signs x48h Temp Pulse Resp BP Pulse Ox 04/08/18 18:00 75 18 107/73 99 04/08/18 17:00 80 19 108/77 98 04/08/18 16:00 74 18 102/75 97 04/08/18 15:00 67 16 107/63 99 04/08/18 14:00 36.5 C 65 17 99/65 99 04/08/18 13:00 72 18 99/66 98 04/08/18 12:00 75 19 110/75 97 04/08/18 11:00 69 16 103/63 98 Intake & Output: Intake & Output 04/05/18 04/06/18 04/07/18 04/08/18 23:59 23:59 23:59 23:59 Intake Total 2620 1140 2180 1710 Output Total 1800 900 650 200 Balance 167 106 6561 1510 - Objective General Appearance: positive: No acute distress, Alert, Other (Thin lanky short statured male who looks much older than stated age, covered in numerous nodules of neurofibromatosis, wing nut ears) Eyes Bilateral: positive: PERRL, EOMI ENT: positive: Other (poor dentition) Neck: positive: No JVD. negative: Lymphadenopathy (R), Lymphadenopathy (L), Stiff neck, Carotid bruit Respiratory: positive: Chest non-tender, No respiratory distress, Wheezes (scant left mid lung wheeze, quiet air movement,) Cardiovascular: positive: Irregularly irregular, Systolic murmur. 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 Continue empiric iv antibiotics. A total 7-10 day course of antibiotics will be planed, continue iv antibiotics for 3-4 days.Today Day #5 Will need 5 more days of levaquin and probably amoxil since he can't do cefiprime at home. Wants to go home in am. He is at baseline with regards to his physical mobility. He says he [facility] not [facility] very much [facility]. The most he can do is a few steps to a wheelchair then to a bathroom etc. That is unchanged here. He is not interested in doing rehab at a long-term facility. (2) Acute exacerbation of chronic obstructive airways disease Assessment/Plan: Continuenebs, Mucinex. off Bipap since yesterday am, I am stopping steroids. No taper. But I fear he is using the BiPAP not as intended. He is not severely hypercapnic. He is not obtunded. And is using it more for anxiety than he is for true respiratory failure. Respiratory therapy talked to him (3) Severe chronic obstructive pulmonary disease Assessment/Plan: Pt is on home O2. he is anxious that he did not rebound as he had hoped. But he is ready for home in am. [facility]. He asked about a short monthly course of antibiotics for prevention. This is a very good idea and should be considered as outpatient management. (4) History of pulmonary embolism Assessment/Plan: Pt on Xarelto. He had stopped it on his own 3 months ago. Resumed it during the stay. We will see if he continues it in the outpatient setting (5) Seizure disorder Assessment/Plan: Pt is on his Dilantin and Tegretol while here. (6) Anxiety Assessment/Plan: Improved with prn anxiolytics and Morphine.But this waxes and wanes (7) Neurofibromatosis Assessment/Plan: Stable.
[2018-04-09] MEDS: SODIUM CHLORIDE FLUSH 0.9% 10 ML SYRINGE IVP SCH ×2 (01:36→08:32)
[2018-04-09] MEDS: PHENYTOIN ER 100 MG CAPSULE PO SCH (06:13)
[2018-04-09] MEDS: MULTIVITAMIN W/MINERALS TABLET PO SCH (08:32)
[2018-04-09] MEDS: CEFEPIME 2 GM in SODIUM CHLORIDE 0.9% MINIBAG 100 ML IV SCH (08:32)
[2018-04-09] MEDS: DOCUSATE SODIUM 250 MG CAPSULE PO SCH (08:32)
[2018-04-09] MEDS: SENNA 8.6 MG TABLET PO SCH (08:34)
[2018-04-09] MEDS: SACCHAROMYCES BOULARDII 250 MG CAPSULE PO SCH (08:34)
[2018-04-09] MEDS: guaiFENesin 600 MG TABLET PO SCH (08:34)
[2018-04-09] MEDS: POLYETHYLENE GLYCOL 3350 17 GM PACKET PO SCH (08:35)
[2018-04-09] MEDS: carBAMazepine ER 200 MG TABLET PO SCH (08:36)
[2018-04-09] MEDS: levoFLOXacin 750 MG/150 ML 750 MG/150 ML BAG IV SCH (10:57)
--- NOTE | 2018-04-09 11:25 | Discharge Plan ---
"Discharge Plan for SNF / [facility] - Discharge Plan And Transition Orders Disposition: 03 SNF DC/Xfer Condition: Stable Allergies and Adverse Reactions: Allergies Allergy/AdvReac Type Severity Reaction Status Date / Time Egg Derived AdvReac Intermediate Respiratory Verified 04/04/18 12:33 egg AdvReac Mild Nausea Verified 04/04/18 12:33 lactose AdvReac Mild Cramps Verified 04/04/18 12:33 - SNF / [facility] Transition Orders Admit to (Facility): [facility] Under the care of (Name): Dr Ronnie Butler Discharge Diagnosis: 1) Community acquired pneumonia 2) COPD exacerbation 3) Severe COPD and continued cigarette smoking 4) Neurofibromatosis 5) Anxiety 6) Seizure disorder 7) Hx of Pulmonary embolism, Xarelto restarted after he stopped it on his own 3 mos ago. Medicare Certification Statement: I certify that [facility] care is medically necessary on a continuing basis for any of the conditions for which she/he is receiving care during hospitalization. Notify PCP of admission and forward orders to primary provider for signature. Weight on admission and: Monthly Other Notification Orders: Call PCP immediately if patient develops dyspnea, chest pain/tightness or edema. House Bowel Program: Yes Additional Bowel Program Orders: If no BM after 2 days, nurse may give M.O.M. 30ml PO PRN and/or ducolax Supp 1 [place] and/or CHACHA 250mg P.O., and/or senna 1-2 tabs PO. On day 3 nurse may give repeat above order until residents constipation is resolved. Annual Influenza Vaccine (between Jan 05 and August 04): Yes Two-step PPD per [facility] [id number] or approved exception documents: Yes Oxygen Orders: 3L per nasal cannula continuously Medication Orders: PLEASE REFER TO THE DISCHARGE MEDICATION LIST. Insulin Orders?: No - Medications New Prescriptions: Amoxicillin 250 mg PO BID #10 capsule guaiFENesin [Mucinex] 600 mg PO BID #14 tablet Levofloxacin [Levaquin] 750 mg PO DAILY #5 tablet Methylprednisolone [Medrol] 4 mg PO DAILY #1 tab.ds.pk Rivaroxaban [Xarelto] 10 mg PO 1700 #30 tablet Saccharomyces Boulardii [Florastor] 250 mg PO BID #10 capsule - Diet Type: No added salt Texture: Regular Liquids: Thin May have monthly special meal: Yes - Therapies | Activity Activity: Activity as Tolerated Additional Instructions: You were admitted for pneumonia and exacerbation of your emphysema. You are being discharged with prescriptions for several more days of 2 antibiotics and Florastor for bowel health, several tablets of cough expectorant and a tapering- down schedule of steroids. The Xarelto for the history of blood clot in your lungs was restarted on this admission and that was also prescribed to continue. See your PCP regarding how long to take the Xarelto. These prescriptions were electronically sent to [facility]. Resume all your other pre-hospital medications. See your PCP in follow-up in 1-2 weeks. If you have new or worsening symptoms, return to the ER. Follow Up: Ronnie Butler"
--- NOTE | 2018-04-09 13:19 | Discharge Plan ---
"Discharge Plan for SNF / [facility] - Discharge Plan And Transition Orders Disposition: 01 Home, Self Care Condition: Stable Allergies and Adverse Reactions: Allergies Allergy/AdvReac Type Severity Reaction Status Date / Time Egg Derived AdvReac Intermediate Respiratory Verified 04/04/18 12:33 egg AdvReac Mild Nausea Verified 04/04/18 12:33 lactose AdvReac Mild Cramps Verified 04/04/18 12:33 - SNF / [facility] Transition Orders Admit to (Facility): [facility] [place] Under the care of (Name): Dr Ronnie Butler Discharge Diagnosis: 1) Community acquired pneumonia 2) COPD exacerbation 3) Severe COPD and continued cigarette smoking 4) Neurofibromatosis 5) Anxiety 6) Seizure disorder 7) Hx of Pulmonary embolism, Xarelto restarted after he stopped it on his own 3 mos ago. Medicare Certification Statement: I certify that [facility] detention care is medically necessary on a continuing basis for any of the conditions for which she/he is receiving care during hospitalization. Notify PCP of admission and forward orders to primary provider for signature. Weight on admission and: Monthly Other Notification Orders: Call PCP immediately if patient develops dyspnea, chest pain/tightness or edema. House Bowel Program: Yes Additional Bowel Program Orders: If no BM after 2 days, nurse may give M.O.M. 30ml PO PRN and/or ducolax Supp 1 [place] and/or CHACHA 250mg P.O., and/or senna 1-2 tabs PO. On day 3 nurse may give repeat above order until residents constipation is resolved. Annual Influenza Vaccine (between Jan 05 and August 04): Yes Two-step PPD per [facility] [id number] or approved exception documents: Yes Oxygen Orders: O2 at 3L per nasal cannula continuously Medication Orders: PLEASE REFER TO THE DISCHARGE MEDICATION LIST. Insulin Orders?: No - Medications New Prescriptions: Amoxicillin 250 mg PO BID #10 capsule guaiFENesin [Mucinex] 600 mg PO BID #14 tablet Levofloxacin [Levaquin] 750 mg PO DAILY #5 tablet Methylprednisolone [Medrol] 4 mg PO DAILY #1 tab.ds.pk Rivaroxaban [Xarelto] 10 mg PO 1700 #30 tablet Saccharomyces Boulardii [Florastor] 250 mg PO BID #10 capsule - Diet Type: No added salt Texture: Regular Liquids: Thin May have monthly special meal: Yes - Therapies | Activity Assistance Devices: Wheelchair Additional Instructions: You were admitted for pneumonia and exacerbation of your emphysema. You are being discharged with prescriptions for several more days of 2 antibiotics and Florastor for bowel health, several tablets of cough expectorant and a tapering-down schedule of steroids. The Xarelto for the history of blood clot in your lungs was restarted on this admission and that was also prescribed to continue. See your PCP regarding how long to take the Xarelto. These prescriptions were electronically sent to [facility]. Resume all your other pre-hospital medications. See your PCP in follow-up in 1-2 weeks. If you have new or worsening symptoms, return to the ER."
[2018-04-09 16:10] VITALS: BP 125/79
--- NOTE | 2018-04-09 18:42 | DISCHARGE SUMMARY ---
Physician: Dorothy Guzman MD DATE OF ADMISSION: 04/04/2018 DATE OF DISCHARGE: 04/09/2018 HISTORY OF PRESENT ILLNESS: This is a 67-year-old man with a history of neurofibromatosis, severe COPD, on home oxygen 27/11 (and yet he continues to smoke cigarettes), history of anxiety, history of prior hemorrhagic brain aneurysm and subsequent seizure disorder, history of pulmonary embolism, and he stopped taking Xarelto on his own 3 months ago. The patient presented with a several day history of worsening shortness of breath, a wet cough with sputum production and severe shortness of breath with wheezing. He was found to have community-acquired pneumonia and severe COPD exacerbation and admitted for management. HOSPITAL COURSE AND DISCHARGE DIAGNOSES 1. Community-acquired pneumonia. Imaging showed severe emphysematous disease and lower lobe bronchiectasis, bibasilar consolidation, enlargement of the pulmonary artery consistent with pulmonary hypertension, enlargement of the right ventricle of the heart, and mild to moderate calcification of the aortic arch. Patient was treated with IV cefepime 2 grams b.i.d. and IV Levaquin along with Florastor. He was unable to produce a sputum sample for culture. He was transitioned to p.o. antibiotics using amoxicillin 250 mg b.i.d. and Levofloxacin 750 mg daily, both for an additional 4 days. His Florastor was also continued for 4 days. 2. Chronic obstructive pulmonary disease exacerbation. Patient was very tight, had diffuse wheezing, poor air entry, appeared in severe respiratory distress, and was unable to improve with escalating supplemental oxygen and required transfer to the ICU for BiPAP with oxygen management. He stabilized there and was also continued on IV steroids, nebulizers, Mucinex p.o. b.i.d. and was eventually able to be transitioned out of the ICU and put back on nasal cannula oxygen and discharged back home on his oxygen 3 liters nasal cannula along with a steroid tapering course and to finish the above antibiotics, also on Mucinex. 3. Severe chronic obstructive pulmonary disease with continued cigarette smoking. Patient voiced surprise that his pulmonary status took so long to improve and had to be reminded that he has severe underlying lung disease. He refused, however, to quit cigarette smoking, when this was advised several times. 4. Neurofibromatosis. Patient has multiple skin lesions noted on his face and body, which are stable. 5. Anxiety. A component of this was air hunger, which was treated with the BiPAP and the other management above. He takes Ativan on a scheduled basis and was discharged to continue this medication. 6. Seizure disorder. Patient was kept on his seizure medications while here. 7. History of pulmonary embolism. Patient's Xarelto was restarted at 10 mg daily, and he was advised to continue this until seen by his PCP to determine when and if this could be discontinued. LABS AND IMAGING: Reviewed and summarized. ALLERGIES 1. EGG DERIVATIVES. 2. LACTOSE. MEDICATIONS AT THE TIME OF DISCHARGE 1. Tylenol p.r.n. 2. Ventolin inhaler q.i.d. 3. Alprazolam 0.25 mg t.i.d. 4. Dulcolax daily. 5. Carbamazepine 200 mg b.i.d. 6. Anucort per rectum b.i.d. p.r.n. 7. DuoNeb q.4-h p.r.n. 8. Phenytoin extended release 100 mg daily and/or Phenytoin 150 mg daily. 10. Amoxicillin 250 mg b.i.d. for an additional 4 days. 11. Mucinex 600 mg b.i.d. for an additional 4 days. 12. Levofloxacin 750 mg daily for an additional 4 days. 13. Medrol Dosepak, tapering down schedule. 14. Xarelto 10 mg daily. 15. Florastor 250 b.i.d. for an additional 4 days. CONDITION AT DISCHARGE: Stable. PHYSICAL EXAMINATION VITAL SIGNS: Blood pressure 125/79, heart rate 71, oxygen saturation on 3 liters nasal cannula 97%, afebrile. HEENT: Revealed temporal wasting and moist oral mucosa and multiple fibroma of his skin of his head and body. NECK: Without JVD. CHEST: Good air entry and no wheezes or rales. HEART: Sounds normal. ABDOMEN: Soft, nontender. Normal bowel sounds. EXTREMITIES: No edema. NEUROLOGIC: Grossly intact. FOLLOWUP: The patient was advised to see his PCP in 1-2 weeks. CODE STATUS: FULL CODE. Time required to complete this entire discharge, chart review, prescription orders, dictation: 60 minutes. cc: Ronnie Butler MD TD: 04/09/2018 18:00 [facility]
== END 2018-04-09 16:40 | disposition home or self-care (01) | DRG 194 ==
LOC: EDUNIT# → ED 12:22 → MS2 16:42 → ICU 04-05 18:33 → MS2 04-08 19:50
PROVIDERS: ADMIT Specialist; ATTEND Internal Medicine
DX: J44.0 Chronic obstructive pulmonary disease with (acute) lower respiratory infection (principal); J18.9 Pneumonia, unspecified organism; J18.1 Lobar pneumonia, unspecified organism; J47.0 Bronchiectasis with acute lower respiratory infection; F17.200 Nicotine dependence, unspecified, uncomplicated; Y92.129 Unspecified place in nursing home as the place of occurrence of the external cause; J43.9 Emphysema, unspecified; R09.02 Hypoxemia; Q85.00 Neurofibromatosis, unspecified; Z86.73 Personal history of transient ischemic attack (TIA), and cerebral infarction without residual deficits; F41.9 Anxiety disorder, unspecified; G40.909 Epilepsy, unspecified, not intractable, without status epilepticus; I69.198 Other sequelae of nontraumatic intracerebral hemorrhage; I69.192 Facial weakness following nontraumatic intracerebral hemorrhage; I27.20 Pulmonary hypertension, unspecified; I25.10 Atherosclerotic heart disease of native coronary artery without angina pectoris; T45.516A Underdosing of anticoagulants, initial encounter; Y92.099 Unspecified place in other non-institutional residence as the place of occurrence of the external cause; F17.210 Nicotine dependence, cigarettes, uncomplicated; I25.2 Old myocardial infarction; Z99.81 Dependence on supplemental oxygen; Z86.711 Personal history of pulmonary embolism; Z91.128 Patient's intentional underdosing of medication regimen for other reason; Z79.899 Other long term (current) drug therapy; Z86.718 Personal history of other venous thrombosis and embolism; Z86.14 Personal history of Methicillin resistant Staphylococcus aureus infection; Z79.51 Long term (current) use of inhaled steroids
CPT/HCPCS: 36415; 71275; 80048; 80053; 82803; 83690; 83735; 84484; 85025; 85379; 87040; 87150; 87275; 87276; 87640; 93005; 94640; 94660; 96365; 96367; 99284; 99285

== ENCOUNTER 2018-04-27 05:14 | Outpatient (CLI) | payer MEDICARE, MEDICAID | END 2018-04-27 05:15 | disposition critical access hospital (66) | LOC: EMS 05:14 | PROVIDERS: ATTEND Surgery | DX: R06.02 Shortness of breath (principal); R32 Unspecified urinary incontinence; R05 Cough | CPT/HCPCS: A0425; A0429 ==

== ENCOUNTER 2018-04-27 05:32 | Inpatient (IN) | payer MEDICARE, MEDICAID ==
[2018-04-27] MEDS ORDERED: IPRATROPIUM/ALBUTEROL 3 ML NEB INH STA (05:53)
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
[2018-04-27] MEDS ORDERED: DEXAMETHASONE 10 MG/ML VIAL IVP STA (06:14)
[2018-04-27 06:45] LABS: BASOPHILS # (AUTO) 0.1 10^3/uL (0.0-0.1); BASOPHILS % (AUTO) 0.7 %; EOSINOPHILS # (AUTO) 0.8 10^3/uL (0.0-0.7); EOSINOPHILS % (AUTO) 8.1 %; HGB - HEMOGLOBIN 13.1 g/dL (14.0-18.0); LYMPHOCYTES # (AUTO) 0.9 10^3/uL (1.5-3.5); LYMPHOCYTES % (AUTO) 8.6 %; MEAN CORPUSCULAR HEMOGLOBIN 29.8 pg (27.0-31.0); MEAN CORPUSCULAR HGB CONC 32.6 g/dL (32.0-36.0); MEAN CORPUSCULAR VOLUME 91.5 fL (80.0-94.0); MEAN PLATELET VOLUME 6.7 fL (7.4-11.4); MONOCYTES % (AUTO) 10.3 %; NEUTROPHILS # (AUTO) 7.3 10^3/uL (1.5-6.6); NEUTROPHILS % (AUTO) 72.3 %; PLT - PLATELET COUNT 376 10^3/uL (130-450); RED BLOOD COUNT 4.38 10^6/uL (4.70-6.10); RED CELL DISTRIBUTION WIDTH 14.8 % (12.0-15.0); WHITE BLOOD COUNT 10.1 x10^3/uL (4.8-10.8)
[2018-04-27 07:01] LABS: ALBUMIN 4.1 g/dL (3.2-5.5); ALBUMIN/GLOBULIN RATIO 1.3 (1.0-2.2); BILIRUBIN,TOTAL 0.8 mg/dL (0.2-1.0); CALCIUM 9.1 mg/dL (8.5-10.3); CREATININE 0.6 mg/dL (0.6-1.2); TOTAL PROTEIN 7.3 g/dL (6.7-8.2)
--- NOTE | 2018-04-27 07:29 | XRAY Report ---
Reason: pa/lat Procedure Date: 04/27/2018 Accession Number: [id number] / [id number] Procedure: XR - Chest 2 View X-Ray CPT Code: 83137 FULL RESULT: EXAM: CHEST RADIOGRAPHY EXAM DATE: 04/27/2018 06:59 AM. CLINICAL HISTORY: Recent diagnosis of pneumonia. History of COPD. COMPARISON: CHEST 1 VIEW 09/11/2017 5:59 AM CHEST ANGIO 04/04/2018 2:40 PM CHEST 1 VIEW 09/05/2017 9:31 AM CHEST 2 VIEW 05/29/2017 7:08 AM. TECHNIQUE: 2 views. FINDINGS: Lungs/Pleura: Lungs are hyperexpanded with marked flattening of the diaphragm, as seen on the prior exams. There are diffuse bilateral mild interstitial opacities. There is superimposed mild patchy opacity at the medial right lung base. There is oblique linear scarring or atelectasis at the lateral aspect of the left lung base, unchanged. No definite pleural effusion or pneumothorax. Mediastinum: Heart and mediastinal contours are unremarkable. There is mild atherosclerotic calcification of the aortic arch. Other: No acute osseous abnormality. Bones are diffusely demineralized. IMPRESSION: 1. Mild patchy opacity at the medial right lung base suspicious for pneumonia or aspiration. 2. Lungs are hyperexpanded with diffuse bilateral interstitial prominence, consistent with the patient's history of COPD. RADIA
[2018-04-27] MEDS ORDERED: ALBUTEROL NEB 2.5 MG/3 ML INH STA (08:21)
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
[2018-04-27] MEDS ORDERED: HYDROCORTISONE 25 MG SUPPOSITORY PR PRN (08:29)
[2018-04-27] MEDS ORDERED: ACETAMINOPHEN 325 MG TABLET PO PRN (08:31)
[2018-04-27] MEDS ORDERED: MORPHINE 2 MG/ML CARPUJECT IVP PRN (08:31)
[2018-04-27] MEDS ORDERED: oxyCODONE 5 MG TABLET PO PRN ×2 (08:31)
[2018-04-27] MEDS ORDERED: TEMAZEPAM 15 MG CAPSULE PO PRN (08:31)
[2018-04-27] MEDS ORDERED: PROMETHAZINE 25 MG/1 ML VIAL IM PRN (08:31)
[2018-04-27] MEDS ORDERED: PROCHLORPERAZINE 10 MG/2 ML VIAL IVP PRN (08:31)
[2018-04-27] MEDS ORDERED: ONDANSETRON 4 MG/2 ML VIAL IVP PRN (08:31)
[2018-04-27] MEDS ORDERED: IBUPROFEN 600 MG TABLET PO PRN (08:31)
[2018-04-27] MEDS ORDERED: ENOXAPARIN 40 MG/0.4 ML SYRINGE SUBQ SCH (09:00)
[2018-04-27] MEDS ORDERED: PIPERACILLIN/TAZOBACTAM 4.5 GM in SODIUM CHLORIDE 0.9% MINIBAG 100 ML IV SCH ×2 (09:00→09:23)
[2018-04-27] MEDS ORDERED: ALPRAZolam 0.25 MG TABLET PO PRN (09:17)
[2018-04-27] MEDS ORDERED: SODIUM CHLORIDE 0.9% 500 ML IV ONE (10:43)
[2018-04-27] MEDS: SODIUM CHLORIDE FLUSH 0.9% 10 ML SYRINGE IVP SCH ×3 (10:49→23:59)
[2018-04-27] MEDS: levoFLOXacin 250 MG TABLET PO SCH (10:49)
[2018-04-27] MEDS: FAMOTIDINE 20 MG TABLET PO SCH ×2 (10:50→21:18)
[2018-04-27] MEDS: carBAMazepine ER 200 MG TABLET PO SCH ×2 (10:50→18:02)
[2018-04-27] MEDS: POLYETHYLENE GLYCOL 3350 17 GM PACKET PO SCH (10:50)
[2018-04-27] MEDS: methylPREDNISolone SUCCINATE 40 MG/ML VIAL IVP SCH ×2 (14:41→21:17)
[2018-04-27] MEDS: SACCHAROMYCES BOULARDII 250 MG CAPSULE PO SCH ×2 (16:40→16:45)
[2018-04-27] MEDS: RIVAROXABAN 10 MG TABLET PO SCH (16:40)
[2018-04-27] MEDS: PIPERACILLIN/TAZOBACTAM 4.5 GM in SODIUM CHLORIDE 0.9% MINIBAG 100 ML IV SCH ×2 (16:40→22:28)
[2018-04-27] MEDS: IPRATROPIUM/ALBUTEROL 3 ML NEB INH SCH ×2 (17:21→18:10)
[2018-04-27] MEDS ORDERED: PHENYTOIN CHEW 50 MG TABLET PO SCH (18:00)
[2018-04-27] MEDS ORDERED: carBAMazepine ER 200 MG TABLET PO SCH (18:00)
[2018-04-27] MEDS: SODIUM CHLORIDE FLUSH 0.9% 10 ML SYRINGE IVP PRN (22:28)
[2018-04-28] MEDS: IPRATROPIUM/ALBUTEROL 3 ML NEB INH SCH ×2 (01:39→11:47)
[2018-04-28] MEDS: PIPERACILLIN/TAZOBACTAM 4.5 GM in SODIUM CHLORIDE 0.9% MINIBAG 100 ML IV SCH ×4 (05:13→22:29)
[2018-04-28] MEDS: SODIUM CHLORIDE FLUSH 0.9% 10 ML SYRINGE IVP PRN (05:18)
[2018-04-28] MEDS: methylPREDNISolone SUCCINATE 40 MG/ML VIAL IVP SCH ×3 (05:18→22:29)
[2018-04-28] MEDS ORDERED: PHENYTOIN ER 100 MG CAPSULE PO SCH (06:00)
[2018-04-28 06:33] LABS: BASOPHILS % (AUTO) 0.4 %; EOSINOPHILS # (AUTO) 0.1 10^3/uL (0.0-0.7); EOSINOPHILS % (AUTO) 0.8 %; LYMPHOCYTES # (AUTO) 0.9 10^3/uL (1.5-3.5); LYMPHOCYTES % (AUTO) 7.3 %; MEAN CORPUSCULAR HEMOGLOBIN 29.8 pg (27.0-31.0); MEAN CORPUSCULAR HGB CONC 32.5 g/dL (32.0-36.0); MEAN CORPUSCULAR VOLUME 91.7 fL (80.0-94.0); MEAN PLATELET VOLUME 6.8 fL (7.4-11.4); MONOCYTES # (AUTO) 1.4 10^3/uL (0.0-1.0); MONOCYTES % (AUTO) 11.6 %; NEUTROPHILS # (AUTO) 9.6 10^3/uL (1.5-6.6); NEUTROPHILS % (AUTO) 79.9 %; PLT - PLATELET COUNT 320 10^3/uL (130-450); RED BLOOD COUNT 4.03 10^6/uL (4.70-6.10); RED CELL DISTRIBUTION WIDTH 14.9 % (12.0-15.0)
[2018-04-28 06:41] LABS: CALCIUM 8.5 mg/dL (8.5-10.3); CREATININE 0.7 mg/dL (0.6-1.2)
[2018-04-28] MEDS: PHENYTOIN ER 100 MG CAPSULE PO SCH (09:10)
[2018-04-28] MEDS: carBAMazepine ER 200 MG TABLET PO SCH ×2 (09:10→20:38)
[2018-04-28] MEDS: POLYETHYLENE GLYCOL 3350 17 GM PACKET PO SCH (09:11)
[2018-04-28] MEDS: levoFLOXacin 250 MG TABLET PO SCH (09:11)
[2018-04-28] MEDS: SODIUM CHLORIDE FLUSH 0.9% 10 ML SYRINGE IVP SCH ×2 (09:11→16:30)
[2018-04-28] MEDS: FAMOTIDINE 20 MG TABLET PO SCH ×2 (09:17→20:38)
[2018-04-28] MEDS: SACCHAROMYCES BOULARDII 250 MG CAPSULE PO SCH ×2 (09:17→16:30)
[2018-04-28] MEDS: RIVAROXABAN 10 MG TABLET PO SCH (16:29)
[2018-04-28] MEDS: IPRATROPIUM/ALBUTEROL 3 ML NEB INH PRN (17:00)
[2018-04-28] MEDS: PHENYTOIN CHEW 50 MG TABLET PO SCH (20:38)
[2018-04-29] MEDS: SODIUM CHLORIDE FLUSH 0.9% 10 ML SYRINGE IVP SCH ×3 (00:12→16:48)
[2018-04-29] MEDS ORDERED: SODIUM CHLORIDE 0.9% 500 ML IV ONE (04:41)
[2018-04-29] MEDS: PIPERACILLIN/TAZOBACTAM 4.5 GM in SODIUM CHLORIDE 0.9% MINIBAG 100 ML IV SCH ×4 (04:42→22:04)
[2018-04-29] MEDS: methylPREDNISolone SUCCINATE 40 MG/ML VIAL IVP SCH ×3 (05:59→21:59)
[2018-04-29 06:37] LABS: BASOPHILS % (AUTO) 0.3 %; EOSINOPHILS # (AUTO) 0.1 10^3/uL (0.0-0.7); EOSINOPHILS % (AUTO) 0.9 %; HGB - HEMOGLOBIN 11.8 g/dL (14.0-18.0); LYMPHOCYTES # (AUTO) 0.9 10^3/uL (1.5-3.5); LYMPHOCYTES % (AUTO) 6.7 %; MEAN CORPUSCULAR HEMOGLOBIN 30.8 pg (27.0-31.0); MEAN CORPUSCULAR HGB CONC 33.5 g/dL (32.0-36.0); MEAN CORPUSCULAR VOLUME 91.9 fL (80.0-94.0); MEAN PLATELET VOLUME 6.9 fL (7.4-11.4); MONOCYTES # (AUTO) 1.1 10^3/uL (0.0-1.0); MONOCYTES % (AUTO) 8.4 %; NEUTROPHILS # (AUTO) 10.9 10^3/uL (1.5-6.6); NEUTROPHILS % (AUTO) 83.7 %; PLT - PLATELET COUNT 286 10^3/uL (130-450); RED BLOOD COUNT 3.84 10^6/uL (4.70-6.10); RED CELL DISTRIBUTION WIDTH 15.1 % (12.0-15.0)
[2018-04-29 06:43] LABS: CALCIUM 8.5 mg/dL (8.5-10.3); CREATININE 0.6 mg/dL (0.6-1.2)
[2018-04-29] MEDS: carBAMazepine ER 200 MG TABLET PO SCH ×2 (08:26→22:03)
[2018-04-29] MEDS: levoFLOXacin 250 MG TABLET PO SCH (08:26)
[2018-04-29] MEDS: PHENYTOIN ER 100 MG CAPSULE PO SCH (08:26)
[2018-04-29] MEDS: POLYETHYLENE GLYCOL 3350 17 GM PACKET PO SCH (08:27)
[2018-04-29] MEDS: SACCHAROMYCES BOULARDII 250 MG CAPSULE PO SCH ×2 (08:27→16:48)
[2018-04-29] MEDS: FAMOTIDINE 20 MG TABLET PO SCH ×2 (08:27→21:56)
--- NOTE | 2018-04-29 08:43 | PROVIDER PROGRESS NOTE ---
Assessment/Plan - Problem List (1) HCAP (healthcare-associated pneumonia) Assessment/Plan: Still having coughing and shortness of breath Minimal improvement Zosyn and Levaquin for treatment of healthcare associated pneumonia day 2 Duo nebs prn Continue IV steroids Supplemental oxygen (2) COPD exacerbation Conclusion/Plan: Patient has a history of end-stage COPD on 3 L of home oxygen and trilogy machine. The patient does not have his trilogy machine as it has malfunctioned and is being repaired. The patient presented with shortness of breath and coughing worsening over the last few days. Patient was found to have pneumonia and COPD exacerbation. He is also more hypoxic than baseline. Patient is being admitted for pneumonia and COPD exacerbation. Minimal improvement Plan: Duo nebs prn IV Solu-Medrol Supplemental oxygen IV antibiotics (3) Anxiety Conclusion/Plan: The patient has a history of anxiety and often becomes more anxious when he has COPD exacerbations and pneumonias or is hospitalized. The patient will continue on his home dose of alprazolam. We will give him Ativan as needed if he is still anxious. (4) Tobacco abuse Conclusion/Plan: Patient was counseled on need to stop smoking. Patient was offered nicotine patch. (5) Seizure disorder Conclusion/Plan: Patient will be continued on his antiepileptic medications including phenytoin and carbamazepine. 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 We will continue his Xarelto while he is hospitalized. - Current Meds Current Meds: Current Medications Generic Name Dose Route Start Last Admin Trade Name Freq PRN Reason Stop Dose Admin Albuterol/Ipratropium 3 ml 04/27/18 08:31 04/28/18 17:00 Duoneb INH 3 ml RTQID PRN Administration Wheezing Carbamazepine 200 mg 04/28/18 09:00 04/29/18 08:26 Tegretol Xr PO 200 mg BID KIMI Administration Famotidine 20 mg 04/27/18 09:00 04/29/18 08:27 Pepcid PO Not Given BID KIMI Piperacillin Sod/Tazobactam 100 mls @ 100 mls/hr 04/27/18 17:00 04/29/18 05:59 Sod 4.5 gm/ Sodium Chloride IV Infused Q6H KIMI Infusion Levofloxacin 750 mg 04/27/18 09:00 04/29/18 08:26 Levaquin PO 750 mg DAILY KIMI Administration Methylprednisolone 40 mg 04/27/18 14:00 04/29/18 05:59 Solu-Medrol (40mg Vial) IVP 40 mg TID KIMI Administration Phenytoin Sodium 100 mg 04/28/18 09:00 04/29/18 08:26 Dilantin PO 100 mg 0900 KIMI Administration Phenytoin Sodium 150 mg 04/28/18 21:00 04/28/18 20:38 Dilantin Infatab PO 150 mg QPM KIMI Administration Polyethylene Glycol 17 gm 04/27/18 09:00 04/29/18 08:27 Miralax PO Not Given DAILY KIMI Rivaroxaban 10 mg 04/27/18 17:00 04/28/18 16:29 Xarelto PO 10 mg 1700 KIMI Administration Saccharomyces Boulardii 250 mg 04/27/18 17:00 04/29/18 08:27 Florastor PO Not Given BIDWM KIMI Sodium Chloride 10 ml 04/27/18 08:31 04/28/18 05:18 Normal Saline Flush 0.9% IVP 10 ml PRN PRN Administration NEEDED PER PROVIDER ORDERS Sodium Chloride 10 ml 04/27/18 09:00 04/29/18 08:27 Normal Saline Flush 0.9% IVP 10 ml 0100,0900,1700 KIMI Administration - Lab Result Lab results reviewed: Yes Fish Bone Diagrams: 04/29/18 06:25 04/29/18 06:25 - Diagnostic Imaging Results Diagnostic Imaging Results: Final report reviewed - Additional Planning Condition/Complexity: Guarded My Orders: My Active Orders 04/28/18 09:00 Phenytoin [Dilantin] 100 mg PO 0900 carBAMazepine ER [TEGretol XR] 200 mg PO BID 04/28/18 21:00 Phenytoin Infatab [Dilantin Infatab] 150 mg PO QPM 04/30/18 05:00 BMP - BASIC METABOLIC PANEL [CHEM] DAILYLAB CBC - COMP BLD CT W/AUTO DIFF [HEME] DAILYLAB Plan Discussed with:: Patient Time Spent: 31-60 minutes Subjective - Subjective Patient Reports: Cough, Shortness of Breath, Other (No fevers or chills.) Nursing Reports: No Complaints Objective Vital Signs: Vital Signs - 24 hr 04/28/18 04/28/18 04/29/18 16:00 17:00 00:10 Temperature 36.5 C 36.2 C L Heart Rate 67 Heart Rate [ 78 70 Brachial] Respiratory 20 20 18 Rate Blood Pressure 125/63 109/65 [Right Brachial artery] O2 Saturation 100 98 04/29/18 07:43 Temperature 36.3 C L Heart Rate Heart Rate [ 85 Brachial] Respiratory 19 Rate Blood Pressure 115/76 [Right Brachial artery] O2 Saturation 99 Oxygen O2 Source [With Activity] Nasal cannula O2 Source Nasal cannula Oxygen Flow Rate 4 I&O (Last 24 Hrs): Intake and Output Totals x24h 04/27/18 04/28/18 04/29/18 23:59 23:59 23:59 Intake Total 800 1720 100 Balance 800 1720 100 General: Alert, Oriented x3, Mild distress, Other (Fibromas all over body) HEENT: Atraumatic, PERRLA, EOMI, Other (Dry mucus membranes) Neck: Supple, No JVD, No thyromegaly, +2 carotid pulse wo bruit, No LAD Lymphatic: no adenopathy Neuro: Alert, Non Focal, CN 2-12 Grossly Intact, Oriented Times 3 Cardiovascular: Regular rate, Normal S1, Normal S2, No murmurs Respiratory: Chest non-tender, Wheezes, Rales, Rhonchi Abdomen: Normal bowel sounds, Soft, No tenderness, No hepatospenomegaly, No masses Extremities: No clubbing, No cyanosis, No edema, Normal pulses Comments/Notes: Fibromas covering body - Results Results: Laboratory Results WBC 13.0 x10^3/uL (4.8-10.8) H 04/29/18 06:25 RBC 3.84 10^6/uL (4.70-6.10) L 04/29/18 06:25 Hgb 11.8 g/dL (14.0-18.0) L 04/29/18 06:25 Hct 35.3 % (42.0-52.0) L 04/29/18 06:25 MCV 91.9 fL (80.0-94.0) 04/29/18 06:25 MCH 30.8 pg (27.0-31.0) 04/29/18 06:25 MCHC 33.5 g/dL (32.0-36.0) 04/29/18 06:25 RDW 15.1 % (12.0-15.0) H 04/29/18 06:25 Plt Count 286 10^3/uL (130-450) 04/29/18 06:25 MPV 6.9 fL (7.4-11.4) L 04/29/18 06:25 Neut # (Auto) 10.9 10^3/uL (1.5-6.6) H 04/29/18 06:25 Lymph # (Auto) 0.9 10^3/uL (1.5-3.5) L 04/29/18 06:25 [place] # (Auto) 1.1 10^3/uL (0.0-1.0) H 04/29/18 06:25 Eos # (Auto) 0.1 10^3/uL (0.0-0.7) 04/29/18 06:25 Baso # (Auto) 0.0 10^3/uL (0.0-0.1) 04/29/18 06:25 Absolute Nucleated RBC 0.00 x10^3/uL 04/29/18 06:25 Nucleated RBC % 0.0 /100WBC 04/29/18 06:25 Sodium 142 mmol/L (135-145) 04/29/18 06:25 Potassium 4.4 mmol/L (3.5-5.0) 04/29/18 06:25 Chloride 106 mmol/L (101-111) 04/29/18 06:25 Carbon Dioxide 31 mmol/L (21-32) 04/29/18 06:25 Anion Gap 5.0 (6-13) L 04/29/18 06:25 BUN 14 mg/dL (6-20) 04/29/18 06:25 Creatinine 0.6 mg/dL (0.6-1.2) 04/29/18 06:25 Estimated GFR (MDRD) 134 (>89) 04/29/18 06:25 Glucose 123 mg/dL (70-100) H 04/29/18 06:25 Calcium 8.5 mg/dL (8.5-10.3) 04/29/18 06:25 Total Bilirubin 0.8 mg/dL (0.2-1.0) 04/27/18 06:36 AST 20 IU/L (10-42) 04/27/18 06:36 ALT 17 IU/L (10-60) 04/27/18 06:36 Alkaline Phosphatase 129 IU/L (42-121) H 04/27/18 06:36 Troponin I < 0.04 ng/mL (<0.49) 04/27/18 06:36 B-Natriuretic Peptide 29 pg/mL (5-100) 04/27/18 06:36 Total Protein 7.3 g/dL (6.7-8.2) 04/27/18 06:36 Albumin 4.1 g/dL (3.2-5.5) 04/27/18 06:36 Globulin 3.2 g/dL (2.1-4.2) 04/27/18 06:36 Albumin/Globulin Ratio 1.3 (1.0-2.2) 04/27/18 06:36 Lipase 17 U/L (22-51) L 04/27/18 06:36 - Procedures Procedures: Procedures INSERTION OF ENDOTRACHEAL AIRWAY INTO TRACHEA, VIA OPENING (05/29/17) RESPIRATORY VENTILATION, LESS THAN 24 CONSECUTIVE HOURS (05/29/17) ABX Reporting Has patient been on IV antibiotics over the past 48 hours?: No Current Medications - Current Medications Current Medications: Active Medications Generic Name Dose Route Start Last Admin Trade Name Freq PRN Reason Stop Dose Admin Acetaminophen 650 mg 04/27/18 08:31 Tylenol PO Q4HR PRN Pain 1 to 4 Albuterol/Ipratropium 3 ml 04/27/18 08:31 04/28/18 17:00 Duoneb INH 3 ml RTQID PRN Administration Wheezing Alprazolam 0.25 mg 04/27/18 09:17 Xanax PO TID PRN Anxiety Carbamazepine 200 mg 04/28/18 09:00 04/29/18 08:26 Tegretol Xr PO 200 mg BID KIMI Administration Famotidine 20 mg 04/27/18 09:00 04/29/18 08:27 Pepcid PO Not Given BID KIMI Hydrocortisone 25 mg 04/27/18 08:29 Anusol-Hc ME BID PRN Bleeding Piperacillin Sod/Tazobactam 100 mls @ 100 mls/hr 04/27/18 17:00 04/29/18 05:59 Sod 4.5 gm/ Sodium Chloride IV Infused Q6H KIMI Infusion Ibuprofen 600 mg 04/27/18 08:31 Motrin PO Q6HR PRN Pain 1 to 4 Levofloxacin 750 mg 04/27/18 09:00 04/29/18 08:26 Levaquin PO 750 mg DAILY [facility] Administration Methylprednisolone 40 mg 04/27/18 14:00 04/29/18 05:59 Solu-Medrol (40mg Vial) IVP 40 mg TID KIMI Administration Morphine Sulfate 2 mg 04/27/18 08:31 Morphine (Carpuject) IVP Q2HR PRN Pain 8 to 10 Ondansetron HCl 4 mg 04/27/18 08:31 Zofran Inj IVP Q6HR PRN Nausea / Vomiting Oxycodone HCl 5 mg 04/27/18 08:31 Roxicodone PO Q4HR PRN Pain 5 to 7 Oxycodone HCl 10 mg 04/27/18 08:31 Roxicodone PO Q4HR PRN Pain 8 to 10 Phenytoin Sodium 100 mg 04/28/18 09:00 04/29/18 08:26 Dilantin PO 100 mg 0900 [facility] Administration Phenytoin Sodium 150 mg 04/28/18 21:00 04/28/18 20:38 Dilantin Infatab PO 150 mg QPM [facility] Administration Polyethylene Glycol 17 gm 04/27/18 09:00 04/29/18 08:27 Miralax PO Not Given DAILY [facility] Prochlorperazine Edisylate 10 mg 04/27/18 08:31 Compazine Inj IVP Q6HR PRN Nausea / Vomiting Promethazine HCl 25 mg 04/27/18 08:31 Phenergan Inj IM Q6HR PRN Nausea / Vomiting Rivaroxaban 10 mg 04/27/18 17:00 04/28/18 16:29 Xarelto PO 10 mg 1700 [facility] Administration Saccharomyces Boulardii 250 mg 04/27/18 17:00 04/29/18 08:27 Florastor PO Not Given BIDWM [facility] Sodium Chloride 10 ml 04/27/18 08:31 04/28/18 05:18 Normal Saline Flush 0.9% IVP 10 ml PRN PRN Administration NEEDED PER PROVIDER ORDERS Sodium Chloride 10 ml 04/27/18 09:00 04/29/18 08:27 Normal Saline Flush 0.9% IVP 10 ml 0100,0900,1700 [facility] Administration Temazepam 15 mg 04/27/18 08:31 Restoril PO QPM PRN Insomnia Acetaminophen [Tylenol] 650 mg PO Q4H PRN 09/04/17 ALPRAZolam [Alprazolam] 0.25 mg PO TID PRN 04/04/18 Bisacodyl [Dulcolax] 5 mg PO PRN PRN 04/04/18 Hydrocortisone Acetate [Anucort-Hc] 25 mg RC PRN PRN 04/04/18 Phenytoin Sodium Extended 100 mg PO DAILY 04/04/18 Polyethylene Glycol 3350 17 gm PO DAILY PRN 04/04/18 carBAMazepine [Carbamazepine ER] 200 mg PO BID 04/04/18 Albuterol Sulfate [Proair Hfa Inhaler] 2 puffs INH Q4H PRN 04/27/18 Fluticasone/Umeclidin/Vilanter [Trelegy Ellipta 100-62.5-25] 1 puffs INH 0800 04/27/18 Phenytoin 150 mg PO QPM 04/27/18 Rivaroxaban [Xarelto] 10 mg PO 1700 04/27/18
[2018-04-29] MEDS: IPRATROPIUM/ALBUTEROL 3 ML NEB INH PRN (09:36)
--- NOTE | 2018-04-29 14:15 | PROVIDER PROGRESS NOTE ---
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 The patient does not have his trilogy machine as it has malfunctioned and is being repaired. The patient presented with shortness of breath and coughing worsening over the last few days. Patient was found to have pneumonia and COPD exacerbation. He is also more hypoxic than baseline. Patient is being admitted for pneumonia and COPD exacerbation. Improving slowly Plan: Duo nebs prn IV Solu-Medrol Supplemental oxygen 3L IV antibiotics (3) Anxiety Conclusion/Plan: The patient has a history of anxiety and often becomes more anxious when he has COPD exacerbations and pneumonias or is hospitalized. The patient continued on his home dose of alprazolam. We will give him Ativan as needed if he is still anxious. Stable (4) Tobacco abuse Conclusion/Plan: Patient was counseled on need to stop smoking. Patient was offered nicotine patch. Stable (5) Seizure disorder Conclusion/Plan: Patient will be continued on his antiepileptic medications including phenytoin and carbamazepine. 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 Continued his Xarelto. Stable - Current Meds Current Meds: Current Medications Generic Name Dose Route Start Last Admin Trade Name Freq PRN Reason Stop Dose Admin Albuterol/Ipratropium 3 ml 04/27/18 08:31 04/29/18 09:36 Duoneb INH 3 ml RTQID PRN Administration Wheezing Carbamazepine 200 mg 04/28/18 09:00 04/29/18 08:26 Tegretol Xr PO 200 mg BID KIMI Administration Famotidine 20 mg 04/27/18 09:00 04/29/18 08:27 Pepcid PO Not Given BID KIMI Piperacillin Sod/Tazobactam 100 mls @ 100 mls/hr 04/27/18 17:00 04/29/18 13:36 Sod 4.5 gm/ Sodium Chloride IV Infused Q6H KIMI Infusion Levofloxacin 750 mg 04/27/18 09:00 04/29/18 08:26 Levaquin PO 750 mg DAILY KIMI Administration Methylprednisolone 40 mg 04/27/18 14:00 04/29/18 05:59 Solu-Medrol (40mg Vial) IVP 40 mg TID KIMI Administration Phenytoin Sodium 100 mg 04/28/18 09:00 04/29/18 08:26 Dilantin PO 100 mg 0900 KIMI Administration Phenytoin Sodium 150 mg 04/28/18 21:00 04/28/18 20:38 Dilantin Infatab PO 150 mg QPM KIMI Administration Polyethylene Glycol 17 gm 04/27/18 09:00 04/29/18 08:27 Miralax PO Not Given DAILY KIMI Rivaroxaban 10 mg 04/27/18 17:00 04/28/18 16:29 Xarelto PO 10 mg 1700 KIMI Administration Saccharomyces Boulardii 250 mg 04/27/18 17:00 04/29/18 08:27 Florastor PO Not Given BIDWM KIMI Sodium Chloride 10 ml 04/27/18 08:31 04/28/18 05:18 Normal Saline Flush 0.9% IVP 10 ml PRN PRN Administration NEEDED PER PROVIDER ORDERS Sodium Chloride 10 ml 04/27/18 09:00 04/29/18 08:27 Normal Saline Flush 0.9% IVP 10 ml 0100,0900,1700 KIMI Administration - Lab Result Lab results reviewed: Yes Fish Bone Diagrams: 04/29/18 06:25 04/29/18 06:25 - Diagnostic Imaging Results Diagnostic Imaging Results: Final report reviewed - Additional Planning Condition/Complexity: Guarded My Orders: My Active Orders 04/28/18 21:00 Phenytoin Infatab [Dilantin Infatab] 150 mg PO QPM 04/30/18 05:00 BMP - BASIC METABOLIC PANEL [CHEM] DAILYLAB CBC - COMP BLD CT W/AUTO DIFF [HEME] DAILYLAB Plan Discussed with:: Patient Time Spent: 31-60 minutes Subjective - Subjective Patient Reports: Cough (Was better last night but spells this am.), Shortness of Breath (With coughing) Nursing Reports: No Complaints Objective Vital Signs: Vital Signs - 24 hr 04/28/18 04/28/18 04/29/18 16:00 17:00 00:10 Temperature 36.5 C 36.2 C L Heart Rate 67 Heart Rate [ 78 70 Brachial] Respiratory 20 20 18 Rate Blood Pressure 125/63 109/65 [Right Brachial artery] O2 Saturation 100 98 04/29/18 04/29/18 07:43 09:36 Temperature 36.3 C L Heart Rate 72 Heart Rate [ 85 Brachial] Respiratory 19 18 Rate Blood Pressure 115/76 [Right Brachial artery] O2 Saturation 99 Oxygen O2 Source [With Activity] Nasal cannula O2 Source Nasal cannula Oxygen Flow Rate 4 I&O (Last 24 Hrs): Intake and Output Totals x24h 04/27/18 04/28/18 04/29/18 23:59 23:59 23:59 Intake Total 800 1720 437 Balance 800 1720 437 General: Alert, Oriented x3, Other (Thin and frail. Fibromas over whole body) HEENT: Atraumatic, PERRLA, EOMI, Mucous membr. moist/pink Neck: Supple, No JVD, No thyromegaly, +2 carotid pulse wo bruit, No LAD Lymphatic: no adenopathy Neuro: Alert, Non Focal, CN 2-12 Grossly Intact, Oriented Times 3 Cardiovascular: Regular rate, Normal S1, Normal S2, No murmurs Respiratory: Chest non-tender, Wheezes (Bilateral), Rhonchi (Right middle lung), Other (Diminished at bases) Abdomen: Normal bowel sounds, Soft, No tenderness, No hepatospenomegaly, No masses Extremities: No clubbing, No cyanosis, No edema, Normal pulses, No tenderness/swelling - Results Results: Laboratory Results WBC 13.0 x10^3/uL (4.8-10.8) H 04/29/18 06:25 RBC 3.84 10^6/uL (4.70-6.10) L 04/29/18 06:25 Hgb 11.8 g/dL (14.0-18.0) L 04/29/18 06:25 Hct 35.3 % (42.0-52.0) L 04/29/18 06:25 MCV 91.9 fL (80.0-94.0) 04/29/18 06:25 MCH 30.8 pg (27.0-31.0) 04/29/18 06:25 MCHC 33.5 g/dL (32.0-36.0) 04/29/18 06:25 RDW 15.1 % (12.0-15.0) H 04/29/18 06:25 Plt Count 286 10^3/uL (130-450) 04/29/18 06:25 MPV 6.9 fL (7.4-11.4) L 04/29/18 06:25 Neut # (Auto) 10.9 10^3/uL (1.5-6.6) H 04/29/18 06:25 Lymph # (Auto) 0.9 10^3/uL (1.5-3.5) L 04/29/18 06:25 [place] # (Auto) 1.1 10^3/uL (0.0-1.0) H 04/29/18 06:25 Eos # (Auto) 0.1 10^3/uL (0.0-0.7) 04/29/18 06:25 Baso # (Auto) 0.0 10^3/uL (0.0-0.1) 04/29/18 06:25 Absolute Nucleated RBC 0.00 x10^3/uL 04/29/18 06:25 Nucleated RBC % 0.0 /100WBC 04/29/18 06:25 Sodium 142 mmol/L (135-145) 04/29/18 06:25 Potassium 4.4 mmol/L (3.5-5.0) 04/29/18 06:25 Chloride 106 mmol/L (101-111) 04/29/18 06:25 Carbon Dioxide 31 mmol/L (21-32) 04/29/18 06:25 Anion Gap 5.0 (6-13) L 04/29/18 06:25 BUN 14 mg/dL (6-20) 04/29/18 06:25 Creatinine 0.6 mg/dL (0.6-1.2) 04/29/18 06:25 Estimated GFR (MDRD) 134 (>89) 04/29/18 06:25 Glucose 123 mg/dL (70-100) H 04/29/18 06:25 Calcium 8.5 mg/dL (8.5-10.3) 04/29/18 06:25 Total Bilirubin 0.8 mg/dL (0.2-1.0) 04/27/18 06:36 AST 20 IU/L (10-42) 04/27/18 06:36 ALT 17 IU/L (10-60) 04/27/18 06:36 Alkaline Phosphatase 129 IU/L (42-121) H 04/27/18 06:36 Troponin I < 0.04 ng/mL (<0.49) 04/27/18 06:36 B-Natriuretic Peptide 29 pg/mL (5-100) 04/27/18 06:36 Total Protein 7.3 g/dL (6.7-8.2) 04/27/18 06:36 Albumin 4.1 g/dL (3.2-5.5) 04/27/18 06:36 Globulin 3.2 g/dL (2.1-4.2) 04/27/18 06:36 Albumin/Globulin Ratio 1.3 (1.0-2.2) 04/27/18 06:36 Lipase 17 U/L (22-51) L 04/27/18 06:36 - Procedures Procedures: Procedures INSERTION OF ENDOTRACHEAL AIRWAY INTO TRACHEA, VIA OPENING (05/29/17) RESPIRATORY VENTILATION, LESS THAN 24 CONSECUTIVE HOURS (05/29/17) ABX Reporting Has patient been on IV antibiotics over the past 48 hours?: Yes Current Medications - Current Medications Current Medications: Active Medications Generic Name Dose Route Start Last Admin Trade Name Freq PRN Reason Stop Dose Admin Acetaminophen 650 mg 04/27/18 08:31 Tylenol PO Q4HR PRN Pain 1 to 4 Albuterol/Ipratropium 3 ml 04/27/18 08:31 04/29/18 09:36 Duoneb INH 3 ml RTQID PRN Administration Wheezing Alprazolam 0.25 mg 04/27/18 09:17 Xanax PO TID PRN Anxiety Carbamazepine 200 mg 04/28/18 09:00 04/29/18 08:26 Tegretol Xr PO 200 mg BID KIMI Administration Famotidine 20 mg 04/27/18 09:00 04/29/18 08:27 Pepcid PO Not Given BID KIMI Hydrocortisone 25 mg 04/27/18 08:29 Anusol-Hc NM BID PRN Bleeding Piperacillin Sod/Tazobactam 100 mls @ 100 mls/hr 04/27/18 17:00 04/29/18 13:36 Sod 4.5 gm/ Sodium Chloride IV Infused Q6H COUNT INCLUDES THE [facility] Infusion Ibuprofen 600 mg 04/27/18 08:31 Motrin PO Q6HR PRN Pain 1 to 4 Levofloxacin 750 mg 04/27/18 09:00 04/29/18 08:26 Levaquin PO 750 mg DAILY COUNT INCLUDES THE [facility] Administration Methylprednisolone 40 mg 04/27/18 14:00 04/29/18 05:59 Solu-Medrol (40mg Vial) IVP 40 mg TID COUNT INCLUDES THE [facility] Administration Morphine Sulfate 2 mg 04/27/18 08:31 Morphine (Carpuject) IVP Q2HR PRN Pain 8 to 10 Ondansetron HCl 4 mg 04/27/18 08:31 Zofran Inj IVP Q6HR PRN Nausea / Vomiting Oxycodone HCl 5 mg 04/27/18 08:31 Roxicodone PO Q4HR PRN Pain 5 to 7 Oxycodone HCl 10 mg 04/27/18 08:31 Roxicodone PO Q4HR PRN Pain 8 to 10 Phenytoin Sodium 100 mg 04/28/18 09:00 04/29/18 08:26 Dilantin PO 100 mg 0900 COUNT INCLUDES THE [facility] Administration Phenytoin Sodium 150 mg 04/28/18 21:00 04/28/18 20:38 Dilantin Infatab PO 150 mg QPM COUNT INCLUDES THE [facility] Administration Polyethylene Glycol 17 gm 04/27/18 09:00 04/29/18 08:27 Miralax PO Not Given DAILY COUNT INCLUDES THE [facility] Prochlorperazine Edisylate 10 mg 04/27/18 08:31 Compazine Inj IVP Q6HR PRN Nausea / Vomiting Promethazine HCl 25 mg 04/27/18 08:31 Phenergan Inj IM Q6HR PRN Nausea / Vomiting Rivaroxaban 10 mg 04/27/18 17:00 04/28/18 16:29 Xarelto PO 10 mg 1700 COUNT INCLUDES THE [facility] Administration Saccharomyces Boulardii 250 mg 04/27/18 17:00 04/29/18 08:27 Florastor PO Not Given BIDWM COUNT INCLUDES THE [facility] Sodium Chloride 10 ml 04/27/18 08:31 04/28/18 05:18 Normal Saline Flush 0.9% IVP 10 ml PRN PRN Administration NEEDED PER PROVIDER ORDERS Sodium Chloride 10 ml 04/27/18 09:00 04/29/18 08:27 Normal Saline Flush 0.9% IVP 10 ml 0100,0900,1700 KIMI Administration Temazepam 15 mg 04/27/18 08:31 Restoril PO QPM PRN Insomnia Acetaminophen [Tylenol] 650 mg PO Q4H PRN 09/04/17 ALPRAZolam [Alprazolam] 0.25 mg PO TID PRN 04/04/18 Bisacodyl [Dulcolax] 5 mg PO PRN PRN 04/04/18 Hydrocortisone Acetate [Anucort-Hc] 25 mg RC PRN PRN 04/04/18 Phenytoin Sodium Extended 100 mg PO DAILY 04/04/18 Polyethylene Glycol 3350 17 gm PO DAILY PRN 04/04/18 carBAMazepine [Carbamazepine ER] 200 mg PO BID 04/04/18 Albuterol Sulfate [Proair Hfa Inhaler] 2 puffs INH Q4H PRN 04/27/18 Fluticasone/Umeclidin/Vilanter [Trelegy Ellipta 100-62.5-25] 1 puffs INH 0800 04/27/18 Phenytoin 150 mg PO QPM 04/27/18 Rivaroxaban [Xarelto] 10 mg PO 1700 04/27/18
[2018-04-29] MEDS: RIVAROXABAN 10 MG TABLET PO SCH (16:48)
[2018-04-29] MEDS: PHENYTOIN CHEW 50 MG TABLET PO SCH (22:03)
[2018-04-30] MEDS: SODIUM CHLORIDE FLUSH 0.9% 10 ML SYRINGE IVP SCH ×4 (01:22→23:48)
[2018-04-30] MEDS ORDERED: SODIUM CHLORIDE 0.9% 500 ML IV PRN (04:00)
[2018-04-30] MEDS ORDERED: SODIUM CHLORIDE 0.9% 500 ML IV ONE (05:48)
[2018-04-30] MEDS: methylPREDNISolone SUCCINATE 40 MG/ML VIAL IVP SCH (05:54)
[2018-04-30] MEDS: PIPERACILLIN/TAZOBACTAM 4.5 GM in SODIUM CHLORIDE 0.9% MINIBAG 100 ML IV SCH (05:56)
[2018-04-30 06:05] LABS: BASOPHILS % (AUTO) 0.2 %; EOSINOPHILS % (AUTO) 0.3 %; HGB - HEMOGLOBIN 11.4 g/dL (14.0-18.0); LYMPHOCYTES # (AUTO) 0.7 10^3/uL (1.5-3.5); LYMPHOCYTES % (AUTO) 5.8 %; MEAN CORPUSCULAR HEMOGLOBIN 30.1 pg (27.0-31.0); MEAN CORPUSCULAR HGB CONC 32.6 g/dL (32.0-36.0); MEAN CORPUSCULAR VOLUME 92.6 fL (80.0-94.0); MEAN PLATELET VOLUME 6.9 fL (7.4-11.4); MONOCYTES % (AUTO) 7.5 %; NEUTROPHILS % (AUTO) 86.2 %; PLT - PLATELET COUNT 276 10^3/uL (130-450); RED CELL DISTRIBUTION WIDTH 14.8 % (12.0-15.0); WHITE BLOOD COUNT 12.8 x10^3/uL (4.8-10.8)
[2018-04-30 06:11] LABS: CALCIUM 8.6 mg/dL (8.5-10.3); CREATININE 0.6 mg/dL (0.6-1.2)
[2018-04-30] MEDS: IPRATROPIUM/ALBUTEROL 3 ML NEB INH PRN (07:15)
[2018-04-30] MEDS: POLYETHYLENE GLYCOL 3350 17 GM PACKET PO SCH (09:34)
[2018-04-30] MEDS: levoFLOXacin 250 MG TABLET PO SCH (09:41)
[2018-04-30] MEDS: FAMOTIDINE 20 MG TABLET PO SCH ×2 (09:41→20:46)
[2018-04-30] MEDS: carBAMazepine ER 200 MG TABLET PO SCH ×2 (09:41→20:46)
[2018-04-30] MEDS: SACCHAROMYCES BOULARDII 250 MG CAPSULE PO SCH ×2 (09:42→16:29)
[2018-04-30] MEDS: PHENYTOIN ER 100 MG CAPSULE PO SCH (09:42)
--- NOTE | 2018-04-30 11:20 | PROVIDER PROGRESS NOTE ---
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 The patient does not have his trilogy machine as it has malfunctioned and is being repaired. The patient presented with shortness of breath and coughing worsening over the last few days. Patient was found to have pneumonia and COPD exacerbation. He is also more hypoxic than baseline. Patient is being admitted for pneumonia and COPD exacerbation. Improved Continue Duonebs prn and change steroids to PO (3) Anxiety Conclusion/Plan: The patient has a history of anxiety and often becomes more anxious when he has COPD exacerbations and pneumonias or is hospitalized. The patient continued on his home dose of alprazolam. We will give him Ativan as needed if he is still anxious. Stable (4) Tobacco abuse Conclusion/Plan: Patient was counseled on need to stop smoking. Patient was offered nicotine patch. Stable (5) Seizure disorder Conclusion/Plan: Patient will be continued on his antiepileptic medications including phenytoin and carbamazepine. 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 Continued his Xarelto. Stable - Current Meds Current Meds: Current Medications Generic Name Dose Route Start Last Admin Trade Name Freq PRN Reason Stop Dose Admin Albuterol/Ipratropium 3 ml 04/27/18 08:31 04/30/18 07:15 Duoneb INH 3 ml RTQID PRN Administration Wheezing Carbamazepine 200 mg 04/28/18 09:00 04/30/18 09:41 Tegretol Xr PO 200 mg BID KIMI Administration Famotidine 20 mg 04/27/18 09:00 04/30/18 09:41 Pepcid PO 20 mg BID KIMI Administration Piperacillin Sod/Tazobactam 100 mls @ 100 mls/hr 04/27/18 17:00 04/30/18 07:00 Sod 4.5 gm/ Sodium Chloride IV Infused Q6H KIMI Infusion Sodium Chloride 500 mls @ 20 mls/hr 04/30/18 04:00 04/30/18 05:58 Normal Saline 0.9% IV 20 mls/hr Q24H PRN Administration TKO RATE Levofloxacin 750 mg 04/27/18 09:00 04/30/18 09:41 Levaquin PO 750 mg DAILY KIMI Administration Methylprednisolone 40 mg 04/27/18 14:00 04/30/18 05:54 Solu-Medrol (40mg Vial) IVP 40 mg TID KIMI Administration Phenytoin Sodium 100 mg 04/28/18 09:00 04/30/18 09:42 Dilantin PO 100 mg 0900 KIMI Administration Phenytoin Sodium 150 mg 04/28/18 21:00 04/29/18 22:03 Dilantin Infatab PO 150 mg QPM KIMI Administration Polyethylene Glycol 17 gm 04/27/18 09:00 04/30/18 09:34 Miralax PO Not Given DAILY KIMI Rivaroxaban 10 mg 04/27/18 17:00 04/29/18 16:48 Xarelto PO 10 mg 1700 KIMI Administration Saccharomyces Boulardii 250 mg 04/27/18 17:00 04/30/18 09:42 Florastor PO 250 mg BIDWM KIMI Administration Sodium Chloride 10 ml 04/27/18 08:31 04/28/18 05:18 Normal Saline Flush 0.9% IVP 10 ml PRN PRN Administration NEEDED PER PROVIDER ORDERS Sodium Chloride 10 ml 04/27/18 09:00 04/30/18 09:34 Normal Saline Flush 0.9% IVP Not Given 0100,0900,1700 [facility] - Lab Result Lab results reviewed: Yes Fish Bone Diagrams: 04/30/18 05:47 04/30/18 05:47 - Diagnostic Imaging Results Diagnostic Imaging Results: Final report reviewed - Additional Planning Condition/Complexity: Improved My Orders: My Active Orders 04/30/18 04:00 Sodium Chloride 0.9% [Normal Saline 0.9%] 500 ml IV Q24H Plan Discussed with:: Patient Time Spent: 31-60 minutes Subjective - Subjective Patient Reports: Feeling Better, Resting Comfortably, Cough (Still has coughing fits but they are less frequent), Shortness of Breath (with exertion improving), Other (No fevers or chills) Nursing Reports: No Complaints Objective Vital Signs: Vital Signs - 24 hr 04/29/18 04/30/18 04/30/18 15:36 00:00 06:15 Temperature 36.5 C 36.5 C Heart Rate Heart Rate [ 76 67 60 Brachial] Respiratory 17 18 Rate Blood Pressure 97/56 L 129/69 [Left Brachial artery] Blood Pressure [Right Brachial artery] O2 Saturation 100 100 97 04/30/18 04/30/18 04/30/18 07:17 07:23 08:00 Temperature 36.5 C 36.2 C L Heart Rate 60 56 L Heart Rate [ 58 L Brachial] Respiratory 20 20 17 Rate Blood Pressure [Left Brachial artery] Blood Pressure 112/65 [Right Brachial artery] O2 Saturation 100 100 Oxygen O2 Source [With Activity] Nasal cannula O2 Source Nasal cannula Oxygen Flow Rate 4 I&O (Last 24 Hrs): Intake and Output Totals x24h 04/28/18 04/29/18 04/30/18 23:59 23:59 23:59 Intake Total 1720 1124 360 Output Total 100 Balance 1720 1024 360 General: Alert, Oriented x3, Cooperative, Other (Thin, frail with neurofibromas over entire body) HEENT: Atraumatic, PERRLA, EOMI, Mucous membr. moist/pink Neck: Supple, No JVD, No thyromegaly, +2 carotid pulse wo bruit, No LAD Lymphatic: no adenopathy Neuro: Alert, Non Focal, CN 2-12 Grossly Intact, Oriented Times 3 Cardiovascular: Regular rate, Normal S1, Normal S2, No murmurs Respiratory: Chest non-tender, Wheezes (Throughout), Rhonchi (Bilateral worse on right) Abdomen: Normal bowel sounds, Soft, No tenderness, No hepatospenomegaly Extremities: No clubbing, No cyanosis, No edema, Normal pulses Skin: No rashes, No breakdown - Results Results: Laboratory Results WBC 12.8 x10^3/uL (4.8-10.8) H 04/30/18 05:47 RBC 3.80 10^6/uL (4.70-6.10) L 04/30/18 05:47 Hgb 11.4 g/dL (14.0-18.0) L 04/30/18 05:47 Hct 35.1 % (42.0-52.0) L 04/30/18 05:47 MCV 92.6 fL (80.0-94.0) 04/30/18 05:47 MCH 30.1 pg (27.0-31.0) 04/30/18 05:47 MCHC 32.6 g/dL (32.0-36.0) 04/30/18 05:47 RDW 14.8 % (12.0-15.0) 04/30/18 05:47 Plt Count 276 10^3/uL (130-450) 04/30/18 05:47 MPV 6.9 fL (7.4-11.4) L 04/30/18 05:47 Neut # (Auto) 11.0 10^3/uL (1.5-6.6) H 04/30/18 05:47 Lymph # (Auto) 0.7 10^3/uL (1.5-3.5) L 04/30/18 05:47 [place] # (Auto) 1.0 10^3/uL (0.0-1.0) 04/30/18 05:47 Eos # (Auto) 0.0 10^3/uL (0.0-0.7) 04/30/18 05:47 Baso # (Auto) 0.0 10^3/uL (0.0-0.1) 04/30/18 05:47 Absolute Nucleated RBC 0.00 x10^3/uL 04/30/18 05:47 Nucleated RBC % 0.0 /100WBC 04/30/18 05:47 Sodium 141 mmol/L (135-145) 04/30/18 05:47 Potassium 4.7 mmol/L (3.5-5.0) 04/30/18 05:47 Chloride 105 mmol/L (101-111) 04/30/18 05:47 Carbon Dioxide 31 mmol/L (21-32) 04/30/18 05:47 Anion Gap 5.0 (6-13) L 04/30/18 05:47 BUN 14 mg/dL (6-20) 04/30/18 05:47 Creatinine 0.6 mg/dL (0.6-1.2) 04/30/18 05:47 Estimated GFR (MDRD) 134 (>89) 04/30/18 05:47 Glucose 107 mg/dL (70-100) H 04/30/18 05:47 Calcium 8.6 mg/dL (8.5-10.3) 04/30/18 05:47 Total Bilirubin 0.8 mg/dL (0.2-1.0) 04/27/18 06:36 AST 20 IU/L (10-42) 04/27/18 06:36 ALT 17 IU/L (10-60) 04/27/18 06:36 Alkaline Phosphatase 129 IU/L (42-121) H 04/27/18 06:36 Troponin I < 0.04 ng/mL (<0.49) 04/27/18 06:36 B-Natriuretic Peptide 29 pg/mL (5-100) 04/27/18 06:36 Total Protein 7.3 g/dL (6.7-8.2) 04/27/18 06:36 Albumin 4.1 g/dL (3.2-5.5) 04/27/18 06:36 Globulin 3.2 g/dL (2.1-4.2) 04/27/18 06:36 Albumin/Globulin Ratio 1.3 (1.0-2.2) 04/27/18 06:36 Lipase 17 U/L (22-51) L 04/27/18 06:36 - Procedures Procedures: Procedures INSERTION OF ENDOTRACHEAL AIRWAY INTO TRACHEA, VIA OPENING (05/29/17) RESPIRATORY VENTILATION, LESS THAN 24 CONSECUTIVE HOURS (05/29/17) ABX Reporting Has patient been on IV antibiotics over the past 48 hours?: Yes Current Medications - Current Medications Current Medications: Active Medications Generic Name Dose Route Start Last Admin Trade Name Freq PRN Reason Stop Dose Admin Acetaminophen 650 mg 04/27/18 08:31 Tylenol PO Q4HR PRN Pain 1 to 4 Albuterol/Ipratropium 3 ml 04/27/18 08:31 04/30/18 07:15 Duoneb INH 3 ml RTQID PRN Administration Wheezing Alprazolam 0.25 mg 04/27/18 09:17 Xanax PO TID PRN Anxiety Amoxicillin/Clavulanate Potassium 1 tab 04/30/18 21:00 Augmentin 875/125 PO BID KIMI Carbamazepine 200 mg 04/28/18 09:00 04/30/18 09:41 Tegretol Xr PO 200 mg BID KIMI Administration Ciprofloxacin 500 mg 04/30/18 21:00 Cipro PO BID [facility] Famotidine 20 mg 04/27/18 09:00 04/30/18 09:41 Pepcid PO 20 mg BID KIMI Administration Hydrocortisone 25 mg 04/27/18 08:29 Anusol-Hc VA BID PRN Bleeding Sodium Chloride 500 mls @ 20 mls/hr 04/30/18 04:00 04/30/18 05:58 Normal Saline 0.9% IV 20 mls/hr Q24H PRN Administration TKO RATE Ibuprofen 600 mg 04/27/18 08:31 Motrin PO Q6HR PRN Pain 1 to 4 Morphine Sulfate 2 mg 04/27/18 08:31 Morphine (Carpuject) IVP Q2HR PRN Pain 8 to 10 Ondansetron HCl 4 mg 04/27/18 08:31 Zofran Inj IVP Q6HR PRN Nausea / Vomiting Oxycodone HCl 5 mg 04/27/18 08:31 Roxicodone PO Q4HR PRN Pain 5 to 7 Oxycodone HCl 10 mg 04/27/18 08:31 Roxicodone PO Q4HR PRN Pain 8 to 10 Phenytoin Sodium 100 mg 04/28/18 09:00 04/30/18 09:42 Dilantin PO 100 mg 0900 [facility] Administration Phenytoin Sodium 150 mg 04/28/18 21:00 04/29/18 22:03 Dilantin Infatab PO 150 mg QPM [facility] Administration Polyethylene Glycol 17 gm 04/27/18 09:00 04/30/18 09:34 Miralax PO Not Given DAILY [facility] Prednisone 40 mg 04/30/18 12:00 Deltasone PO DAILYWM [facility] Prochlorperazine Edisylate 10 mg 04/27/18 08:31 Compazine Inj IVP Q6HR PRN Nausea / Vomiting Promethazine HCl 25 mg 04/27/18 08:31 Phenergan Inj IM Q6HR PRN Nausea / Vomiting Rivaroxaban 10 mg 04/27/18 17:00 04/29/18 16:48 Xarelto PO 10 mg 1700 [facility] Administration Saccharomyces Boulardii 250 mg 04/27/18 17:00 04/30/18 09:42 Florastor PO 250 mg BIDWM [facility] Administration Sodium Chloride 10 ml 04/27/18 08:31 04/28/18 05:18 Normal Saline Flush 0.9% IVP 10 ml PRN PRN Administration NEEDED PER PROVIDER ORDERS Sodium Chloride 10 ml 04/27/18 09:00 04/30/18 09:34 Normal Saline Flush 0.9% IVP Not Given 0100,0900,1700 KIMI Temazepam 15 mg 04/27/18 08:31 Restoril PO QPM PRN Insomnia Acetaminophen [Tylenol] 650 mg PO Q4H PRN 09/04/17 ALPRAZolam [Alprazolam] 0.25 mg PO TID PRN 04/04/18 Bisacodyl [Dulcolax] 5 mg PO PRN PRN 04/04/18 Hydrocortisone Acetate [Anucort-Hc] 25 mg RC PRN PRN 04/04/18 Phenytoin Sodium Extended 100 mg PO DAILY 04/04/18 Polyethylene Glycol 3350 17 gm PO DAILY PRN 04/04/18 carBAMazepine [Carbamazepine ER] 200 mg PO BID 04/04/18 Albuterol Sulfate [Proair Hfa Inhaler] 2 puffs INH Q4H PRN 04/27/18 Fluticasone/Umeclidin/Vilanter [Trelegy Ellipta 100-62.5-25] 1 puffs INH 0800 04/27/18 Phenytoin 150 mg PO QPM 04/27/18 Rivaroxaban [Xarelto] 10 mg PO 1700 04/27/18
[2018-04-30] MEDS: predniSONE 20 MG TABLET PO SCH (11:32)
[2018-04-30] MEDS: RIVAROXABAN 10 MG TABLET PO SCH (16:29)
[2018-04-30] MEDS: PHENYTOIN CHEW 50 MG TABLET PO SCH (20:45)
[2018-04-30] MEDS: CIPROFLOXACIN 250 MG TABLET PO SCH (20:45)
[2018-04-30] MEDS: AMOX/CLAV 875 MG/125 MG TABLET PO SCH (20:46)
[2018-05-01] MEDS: carBAMazepine ER 200 MG TABLET PO SCH (08:25)
[2018-05-01] MEDS: predniSONE 20 MG TABLET PO SCH (08:26)
[2018-05-01] MEDS: PHENYTOIN ER 100 MG CAPSULE PO SCH (08:26)
[2018-05-01] MEDS: CIPROFLOXACIN 250 MG TABLET PO SCH (08:26)
[2018-05-01] MEDS: AMOX/CLAV 875 MG/125 MG TABLET PO SCH (08:26)
[2018-05-01 08:28] VITALS: BP 115/68
[2018-05-01] MEDS: FAMOTIDINE 20 MG TABLET PO SCH (10:25)
[2018-05-01] MEDS: SACCHAROMYCES BOULARDII 250 MG CAPSULE PO SCH (10:25)
[2018-05-01] MEDS: POLYETHYLENE GLYCOL 3350 17 GM PACKET PO SCH (10:25)
[2018-05-01] MEDS: SODIUM CHLORIDE FLUSH 0.9% 10 ML SYRINGE IVP SCH (10:26)
--- NOTE | 2018-05-01 10:27 | Discharge Plan ---
"Discharge Plan for SNF / [facility] - Discharge Plan And Transition Orders Disposition: Home, Self Care Condition: Fair Allergies and Adverse Reactions: Allergies Allergy/AdvReac Type Severity Reaction Status Date / Time Egg Derived AdvReac Intermediate Respiratory Verified 04/27/18 05:57 egg AdvReac Mild Nausea Verified 04/27/18 05:57 lactose AdvReac Mild Cramps Verified 04/27/18 05:57 - SNF / [facility] Transition Orders Admit to (Facility): [facility] Under the care of (Name): Ronnie Butler MD Discharge Diagnosis: 1. Healthcare associated pneumonia 2. COPD exacerbation 3. Anxiety 4. Tobacco abuse 5. Seizure disorder 6. History of pulmonary embolism 7. Neurofibromatosis Medicare Certification Statement: I certify that Post Hospital correction care is medically necessary on a continuing basis for any of the conditions for which she/he is receiving care during hospitalization. Notify PCP of admission and forward orders to primary provider for signature. Weight on admission and: Monthly Other Notification Orders: Call PCP immediately if patient develops dyspnea, chest pain/tightness or edema. House Bowel Program: Yes Additional Bowel Program Orders: If no BM after 2 days, nurse may give M.O.M. 30ml PO PRN and/or ducolax Supp 1 NH and/or CHACHA 250mg P.O., and/or senna 1-2 tabs PO. On day 3 nurse may give repeat above order until residents constipation is resolved. Annual Influenza Vaccine (between Jan 05 and August 04): No Two-step PPD per [facility] [id number] or approved exception documents: No Medication Orders: PLEASE REFER TO THE DISCHARGE MEDICATION LIST. Insulin Orders?: No - Medications New Prescriptions: Amox/Clav 875/125 [Augmentin 875/125] 1 tab PO BID #14 tablet Ciprofloxacin [Cipro] 500 mg PO BID #14 tablet predniSONE [Deltasone] 40 mg PO DAILYWM #14 tablet - Diet Type: Geriatric Texture: Regular Liquids: Thin May have monthly special meal: Yes - Therapies | Activity Activity: Activity as Tolerated Weight Bearing: Full Weight Assistance Devices: Wheelchair Follow Up: Patient presented to the emergency department with shortness of breath and coughing. He was found to have healthcare associated pneumonia and COPD exacerbation. Patient improved with IV antibiotics and steroids. Patient is being discharged to [facility] with an additional 7 days of antibiotics Augmentin and ciprofloxacin which she will take twice a day for 7 days to complete treatment for pneumonia. He was also discharged with prednisone 40 mg which she will take once a day for 7 days. The patient should follow-up with his primary care physician once he is completed treatment for his pneumonia and COPD exacerbation to ensure that his pneumonia has resolved."
--- NOTE | 2018-05-01 10:33 | DISCHARGE SUMMARY ---
Discharge Summary Admit Date: 04/27/18 Discharge Date: 05/01/18 Discharging Provider: Syd Gonzalez MD Primary Care Provider: Ronnie Butler MD Code Status: Attempt Resuscitation Condition at Discharge: Fair Discharge Disposition: 01 Home, Self Care Discharge Facility Name: [facility], [facility] - DIAGNOSES Admission Diagnoses: 1. Healthcare associated pneumonia 2. COPD exacerbation 3. Anxiety next line 4. Tobacco abuse 5. Seizure disorder 6. History of pulmonary embolism Discharge Diagnoses with Status of Each Condition: 1. Healthcare associated pneumonia: Improving 2. COPD exacerbation: Improving 3. Anxiety: Stable 4. Tobacco abuse: Stable 5. Seizure disorder: Stable 6. 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 Patient states that he was admitted for pneumonia earlier this month and was discharged from the hospital on 04/09/2018. He states that he completed his antibiotics and then saw his primary care physician shortly after the hospitalization. He was told by his primary care physician that he still had a pneumonia on the left side and was given an additional 1 week treatment with Levaquin. He states that when he left the hospital he never really felt any better than when he had come in. He states that after completing the Levaquin treatment he did feel slightly better. He states however over the last week he has slowly been declining. He states that 2 days ago when his power went out became extremely short of breath and began having worsening coughing. He denies having had any fevers or chills. He states that his coughing and shortness of breath continued to worsen despite him taking inhaler treatments at home. He also states that he was having wheezing at home. He states that last night coughing was so bad he could not sleep. He states this morning he could not breathe even just at rest and finally decided to come to the emergency department. The patient denies any headaches, blurred vision, runny nose, sore throat, nasal congestion, difficulty swallowing, orthopnea, PND, increased lower extremity swelling, abdominal pain, nausea, vomiting, diarrhea, constipation, urinary urgency, urinary frequency, dysuria, back pain, neck stiffness, recent unintentional weight loss, changes in his appetite, polyuria, polydipsia, new skin rashes, new skin changes, night sweats or any focal neurologic deficits. The patient does admit to chest tightness. He also states that he has been having urinary incontinence when he coughs. On presentation to the emergency department the patient was afebrile, tachycardic, hypertensive and very tachypneic with respiratory rate in the 30s. The patient was saturating at 97% on 4 L of oxygen. The patient normally uses 3 L of home oxygen. The patient also states that he is on a trilogy machine at home but it malfunctioned and is currently being repaired. He states it will not be back until Sunday. He states that he does well when he is on the trilogy but without it he has been struggling. In the emergency department patient underwent routine lab work which did not show any leukocytosis his electrolytes were unremarkable. The patient underwent a chest x-ray which showed a mild patchy opacity at the medial right lung base suspicious for pneumonia. The patient was given several nebulizer treatments and a dose of Decadron in the emergency department with little improvement. The patient was admitted to the hospital for healthcare associated pneumonia and COPD exacerbation. - HOSPITAL COURSE Hospital Course: Patient was hospitalized with healthcare associated pneumonia and COPD exacerbation for which the patient received IV antibiotics with Levaquin and Zosyn and IV steroids with Solu-Medrol. The patient was also given duo nebs initially [id number] then as needed. The patient was initially very slow to improve but over the course of 4 days of hospitalization the patient did eventually improve closer to his baseline. The patient was down to his baseline oxygen requirement of 3 L and appeared to be comfortable and breathing well. The patient's lung exam continued to reveal wheezes, coarse rhonchi and crackles throughout. The patient does have severe, end-stage COPD and his lung exam appears to be chronic. The patient did however appear better clinically. The patient was discharged back to [facility] manner with oral antibiotics and oral steroids. The patient will continue with with Augmentin and ciprofloxacin for 7 days to complete treatment for his pneumonia. The patient will also receive oral steroids with prednisone for 7 days to complete treatment for his COPD exacerbation. The patient should continue on his albuterol as needed and will hopefully have his prescription for Trelegy Ellipta which he will continue daily. The patient will be continued on 3 L of home oxygen and will follow up with his primary care physician once he has completed treatment for his pneumonia and COPD exacerbation. - ALLERGIES Allergies/Adverse Reactions: Allergies Allergy/AdvReac Type Severity Reaction Status Date / Time Egg Derived AdvReac Intermediate Respiratory Verified 04/27/18 05:57 egg AdvReac Mild Nausea Verified 04/27/18 05:57 lactose AdvReac Mild Cramps Verified 04/27/18 05:57 - MEDICATIONS Home Medications: Ambulatory Orders Medication Instructions Recorded Confirmed Acetaminophen [Tylenol] 650 mg PO Q4H PRN 09/04/17 04/27/18 ALPRAZolam [Alprazolam] 0.25 mg PO TID PRN 04/04/18 04/27/18 Bisacodyl [Dulcolax] 5 mg PO PRN PRN 04/04/18 04/27/18 Hydrocortisone Acetate [Anucort-Hc] 25 mg RC PRN PRN 04/04/18 04/27/18 Phenytoin Sodium Extended 100 mg PO DAILY 04/04/18 04/27/18 Polyethylene Glycol 3350 17 gm PO DAILY PRN 04/04/18 04/27/18 carBAMazepine [Carbamazepine ER] 200 mg PO BID 04/04/18 04/27/18 Albuterol Sulfate [Proair Hfa 2 puffs INH Q4H PRN 04/27/18 04/27/18 Inhaler] Fluticasone/Umeclidin/Vilanter 1 puffs INH 0800 04/27/18 04/27/18 [Trelegy Ellipta 100-62.5-25] Phenytoin 150 mg PO QPM 04/27/18 04/27/18 Rivaroxaban [Xarelto] 10 mg PO 1700 04/27/18 04/27/18 Amox/Clav 875/125 [Augmentin 1 tab PO BID #14 tablet 05/01/18 875/125] Ciprofloxacin [Cipro] 500 mg PO BID #14 tablet 05/01/18 predniSONE [Deltasone] 40 mg PO DAILYWM #14 tablet 05/01/18 - PHYSICAL EXAM AT DISCHARGE General Appearance: positive: No acute distress, Alert, Other (Thin, frail with fibromas over most of his body. ) Eyes Bilateral: positive: Normal inspection, PERRL, EOMI, No lid inflammation, Conjunctivae nml, No scleral icterus ENT: positive: ENT inspection nml, Pharynx nml, No signs of dehydration. negative: Purulent nasal drainage, Pharyngeal erythema, Oral lesions Neck: positive: Nml inspection, Thyroid nml, No JVD, Trachea midline. negative: Thyromegaly, Lymphadenopathy (R), Lymphadenopathy (L), Stiff neck, Carotid bruit, Tracheal deviation Respiratory: positive: Chest non-tender, Wheezes, Rales, Rhonchi (Improved in right lung) Cardiovascular: positive: Regular rate & rhythm, No murmur, No gallop Peripheral Pulses: positive: 2+ Abdomen: positive: Non-tender, No organomegaly, Nml bowel sounds, No distention. negative: Guarding, Rebound, Hepatomegaly Back: positive: Nml inspection. negative: CVA tenderness (R), CVA tenderness (L) Skin: positive: Color nml, No rash, Warm, Other (Fibromas covering entire body) Extremities: positive: Non-tender, Full ROM, Nml appearance, No pedal edema Neurologic/Psychiatric: positive: Oriented x3, CN's nml (2-12), Motor nml, Sensation nml, Mood/affect nml - LABS Result Diagrams: 04/30/18 05:47 04/30/18 05:47 Other Lab Results: Laboratory Results WBC 12.8 x10^3/uL (4.8-10.8) H 04/30/18 05:47 RBC 3.80 10^6/uL (4.70-6.10) L 04/30/18 05:47 Hgb 11.4 g/dL (14.0-18.0) L 04/30/18 05:47 Hct 35.1 % (42.0-52.0) L 04/30/18 05:47 MCV 92.6 fL (80.0-94.0) 04/30/18 05:47 MCH 30.1 pg (27.0-31.0) 04/30/18 05:47 MCHC 32.6 g/dL (32.0-36.0) 04/30/18 05:47 RDW 14.8 % (12.0-15.0) 04/30/18 05:47 Plt Count 276 10^3/uL (130-450) 04/30/18 05:47 MPV 6.9 fL (7.4-11.4) L 04/30/18 05:47 Neut # (Auto) 11.0 10^3/uL (1.5-6.6) H 04/30/18 05:47 Lymph # (Auto) 0.7 10^3/uL (1.5-3.5) L 04/30/18 05:47 [place] # (Auto) 1.0 10^3/uL (0.0-1.0) 04/30/18 05:47 Eos # (Auto) 0.0 10^3/uL (0.0-0.7) 04/30/18 05:47 Baso # (Auto) 0.0 10^3/uL (0.0-0.1) 04/30/18 05:47 Absolute Nucleated RBC 0.00 x10^3/uL 04/30/18 05:47 Nucleated RBC % 0.0 /100WBC 04/30/18 05:47 Sodium 141 mmol/L (135-145) 04/30/18 05:47 Potassium 4.7 mmol/L (3.5-5.0) 04/30/18 05:47 Chloride 105 mmol/L (101-111) 04/30/18 05:47 Carbon Dioxide 31 mmol/L (21-32) 04/30/18 05:47 Anion Gap 5.0 (6-13) L 04/30/18 05:47 BUN 14 mg/dL (6-20) 04/30/18 05:47 Creatinine 0.6 mg/dL (0.6-1.2) 04/30/18 05:47 Estimated GFR (MDRD) 134 (>89) 04/30/18 05:47 Glucose 107 mg/dL (70-100) H 04/30/18 05:47 Calcium 8.6 mg/dL (8.5-10.3) 04/30/18 05:47 Total Bilirubin 0.8 mg/dL (0.2-1.0) 12/22/18 06:36 AST 20 IU/L (10-42) 04/27/18 06:36 ALT 17 IU/L (10-60) 04/27/18 06:36 Alkaline Phosphatase 129 IU/L (42-121) H 04/27/18 06:36 Troponin I < 0.04 ng/mL (<0.49) 04/27/18 06:36 B-Natriuretic Peptide 29 pg/mL (5-100) 04/27/18 06:36 Total Protein 7.3 g/dL (6.7-8.2) 04/27/18 06:36 Albumin 4.1 g/dL (3.2-5.5) 04/27/18 06:36 Globulin 3.2 g/dL (2.1-4.2) 04/27/18 06:36 Albumin/Globulin Ratio 1.3 (1.0-2.2) 04/27/18 06:36 Lipase 17 U/L (22-51) L 04/27/18 06:36 - DIAGNOSTIC IMAGING Diagnostic Imaging Results: Final report reviewed Diagnostic Imaging Results Comments: Chest x-ray Impression: 1. Mild patchy opacity at the medial right lung base suspicious for pneumonia or aspiration. 2. Lungs are hyperexpanded with diffuse bilateral interstitial prominence, consistent with the patient's history of COPD. - FOLLOW UP Follow Up: Patient was admitted for healthcare associated pneumonia and COPD exacerbation. Patient was treated with IV antibiotics and IV steroids. He has improved and is stable enough to be discharged back to [facility]. Patient will continue on oral antibiotics with Augmentin and Cipro for 7 days and oral steroids with prednisone for 7 days. He should follow-up with his primary care physician once he is completed treatment. - TIME SPENT Time Spent in Discharge (Minutes): 45
== END 2018-05-01 11:30 | disposition home or self-care (01) | DRG 194 ==
LOC: EDUNIT# → ED 05:32 → MS2 08:31
PROVIDERS: ADMIT Internal Medicine; ATTEND Internal Medicine
DX: J18.9 Pneumonia, unspecified organism (principal); I25.10 Atherosclerotic heart disease of native coronary artery without angina pectoris; J44.1 Chronic obstructive pulmonary disease with (acute) exacerbation; Z99.81 Dependence on supplemental oxygen; F41.9 Anxiety disorder, unspecified; F17.200 Nicotine dependence, unspecified, uncomplicated; G40.909 Epilepsy, unspecified, not intractable, without status epilepticus; Z86.711 Personal history of pulmonary embolism
CPT/HCPCS: 36415; 71046; 80048; 80053; 83690; 83880; 84484; 85025; 93005; 94640; 96374; 99284; 99285; 99406

== ENCOUNTER 2018-09-28 01:47 | Outpatient (CLI) | payer MEDICARE | END 2018-09-28 01:48 | disposition critical access hospital (66) | LOC: EMS 01:47 | PROVIDERS: ATTEND Surgery | DX: R06.02 Shortness of breath (principal); R05 Cough | CPT/HCPCS: A0425; A0427 ==

== ENCOUNTER 2018-09-28 02:04 | Inpatient (IN) | payer MEDICAID, MEDICARE ==
[2018-09-28] MEDS ORDERED: ALBUTEROL NEB 2.5 MG/3 ML INH STA ×2 (02:21→03:59)
[2018-09-28] MEDS ORDERED: DEXAMETHASONE 10 MG/ML VIAL IVP STA (02:21)
--- NOTE | 2018-09-28 02:22 | ED Physician Documentation ---
PD HPI DYSPNEA - Stated complaint Stated Complaint: COUGH - History obtained from History obtained from: Patient, EMS - History of Present Illness Timing - onset: How many days ago (2-3) Timing - onset during: Light activity (initially with light activity, but has progressed to include symptoms at rest that are rapidly exacerbated even with moving around in bed) Timing - details: Gradual onset Pain level max: 0 Pain level now: 0 Improved by: Rest. No: O2 (uses oxygen at home and earlier today he increased from 3 liters/min to 4 without improvement in dyspnea) Worsened by: Exertion, Coughing Associated symptoms: Cough, Wheezing. No: Fever, Hemoptysis, Chest pain / discomfort, Palpitations, Bilateral edema, Unilateral edema Similar symptoms before: Diagnosis (COPD) - Additional information Additional information: c/o 2-3 days of gradually worsening dyspnea and increasingly frequent cough. BIBA, given duoneb en route with mild improvement in symptoms Review of Systems Constitutional: denies: Fever, Chills, Sweats Eyes: reports: Reviewed and negative Ears: reports: Reviewed and negative Nose: reports: Reviewed and negative Throat: reports: Reviewed and negative Cardiac: reports: Reviewed and negative Respiratory: reports: Dyspnea, Cough, Wheezing. denies: Hemoptysis GI: reports: Reviewed and negative : denies: Dysuria, Frequency Skin: reports: Reviewed and negative Musculoskeletal: reports: Reviewed and negative Neurologic: reports: Reviewed and negative PD PAST MEDICAL HISTORY - Past Medical History Past Medical History: Yes Cardiovascular: Coronary artery disease Respiratory: COPD Neuro: Seizure disorder Other Past Medical History: neurofibromatosis - Present Medications Home Medications: Ambulatory Orders Medication Instructions Recorded Confirmed Acetaminophen [Tylenol] 650 mg PO Q4H PRN 09/04/17 04/27/18 ALPRAZolam [Alprazolam] 0.25 mg PO TID PRN 04/04/18 04/27/18 Bisacodyl [Dulcolax] 5 mg PO PRN PRN 04/04/18 04/27/18 Hydrocortisone Acetate [Anucort-Hc] 25 mg RC PRN PRN 04/04/18 04/27/18 Phenytoin Sodium Extended 100 mg PO DAILY 04/04/18 04/27/18 Polyethylene Glycol 3350 17 gm PO DAILY PRN 04/04/18 04/27/18 carBAMazepine [Carbamazepine ER] 200 mg PO BID 04/04/18 04/27/18 Albuterol Sulfate [Proair Hfa 2 puffs INH Q4H PRN 04/27/18 04/27/18 Inhaler] Fluticasone/Umeclidin/Vilanter 1 puffs INH 0800 04/27/18 04/27/18 [Trelegy Ellipta 100-62.5-25] Phenytoin 150 mg PO QPM 04/27/18 04/27/18 Rivaroxaban [Xarelto] 10 mg PO 1700 04/27/18 04/27/18 Amox/Clav 875/125 [Augmentin 1 tab PO BID #14 tablet 05/01/18 875/125] Ciprofloxacin [Cipro] 500 mg PO BID #14 tablet 05/01/18 predniSONE [Deltasone] 40 mg PO DAILYWM #14 tablet 05/01/18 - Allergies Allergies/Adverse Reactions: Allergies Allergy/AdvReac Type Severity Reaction Status Date / Time Egg Derived AdvReac Intermediate Respiratory Verified 04/27/18 05:57 egg AdvReac Mild Nausea Verified 04/27/18 05:57 lactose AdvReac Mild Cramps Verified 04/27/18 05:57 - Living Situation Living Arrangement: reports: Assisted living - Social History Does the pt smoke?: Yes PD ED PE NORMAL - Vitals Vital signs reviewed: Yes - General General: Alert and oriented X 3, Well developed/nourished, Other (mild resp iratory distress: speaks in abbreviated sentences) - HEENT HEENT: Moist mucous membranes - Neck Neck: Supple, no meningeal sign - Cardiac Cardiac: No murmur - Abdomen Abdomen: Soft, Non tender - Derm Derm: Other (diffuse cutaneous neurofibromas) - Extremities Extremities: No edema - Neuro Neuro: Alert and oriented X 3 PD ED PE EXPANDED - Cardiac Cardiac: Tachy, Regular Rhythm - Respiratory Respiratory: Wheezing, Decreased breath sounds Results - Vitals Vitals: Vital Signs - 24 hr 09/28/18 09/28/18 09/28/18 02:06 02:21 02:36 Temperature 37.1 C Heart Rate 106 H 105 H 95 Respiratory 20 20 25 H Rate Blood Pressure 120/80 112/70 O2 Saturation 90 L 97 09/28/18 09/28/18 09/28/18 03:36 04:04 04:10 Temperature Heart Rate 85 85 79 Respiratory 21 21 18 Rate Blood Pressure 103/65 113/71 O2 Saturation 98 95 Oxygen O2 Source [With Activity] Nasal cannula O2 Source Nasal cannula Oxygen Flow Rate 3 - EKG (time done) No standard instances Rate: Rate (enter#) (90) Rhythm: NSR [place]: LAD Intervals: Normal HI QRS: Normal Ischemia: Normal ST segments, Q waves (V1-V4) Other comments: Other comments (artifact V1, V2 (not significant enough to preclude interpretation)) Compare to prior EKG: Unchanged from prior EKG Computer interpretation: Disagree with computer (no ST elevation or depression) - Labs Labs: Laboratory Tests 09/28/18 09/28/18 09/28/18 02:25 02:25 02:25 WBC 15.7 H RBC 4.30 L Hgb 12.7 L Hct 38.8 L MCV 90.3 MCH 29.5 MCHC 32.6 RDW 14.3 Plt Count 372 MPV 6.8 L Neut # (Auto) 12.2 H Lymph # (Auto) 1.1 L [place] # (Auto) 1.4 H Eos # (Auto) 0.9 H Baso # (Auto) 0.1 Absolute Nucleated RBC 0.00 Nucleated RBC % 0.0 Sodium 141 Potassium 4.5 Chloride 104 Carbon Dioxide 28 Anion Gap 9.0 BUN 15 Creatinine 0.7 Estimated GFR (MDRD) 112 Glucose 98 Calcium 9.1 Troponin I < 0.04 B-Natriuretic Peptide 09/28/18 02:25 WBC RBC Hgb Hct MCV MCH MCHC RDW Plt Count MPV Neut # (Auto) Lymph # (Auto) [place] # (Auto) Eos # (Auto) Baso # (Auto) Absolute Nucleated RBC Nucleated RBC % Sodium Potassium Chloride Carbon Dioxide Anion Gap BUN Creatinine Estimated GFR (MDRD) Glucose Calcium Troponin I B-Natriuretic Peptide 28 - Rads (name of study) chest xray Radiology: Prelim report reviewed, See rad report PD MEDICAL DECISION MAKING - ED course Complexity details: reviewed old records, reviewed results, re-evaluated patient, considered differential, d/w patient Departure - Departure Disposition: ED Place in Observation Clinical Impression: COPD exacerbation Condition: Stable Discharge Date/Time: 09/28/18 04:58
[2018-09-28 02:35] LABS: BASOPHILS # (AUTO) 0.1 10^3/uL (0.0-0.1); BASOPHILS % (AUTO) 0.6 %; EOSINOPHILS # (AUTO) 0.9 10^3/uL (0.0-0.7); EOSINOPHILS % (AUTO) 5.4 %; HGB - HEMOGLOBIN 12.7 g/dL (14.0-18.0); LYMPHOCYTES # (AUTO) 1.1 10^3/uL (1.5-3.5); LYMPHOCYTES % (AUTO) 6.9 %; MEAN CORPUSCULAR HEMOGLOBIN 29.5 pg (27.0-31.0); MEAN CORPUSCULAR HGB CONC 32.6 g/dL (32.0-36.0); MEAN CORPUSCULAR VOLUME 90.3 fL (80.0-94.0); MEAN PLATELET VOLUME 6.8 fL (7.4-11.4); MONOCYTES # (AUTO) 1.4 10^3/uL (0.0-1.0); MONOCYTES % (AUTO) 9.2 %; NEUTROPHILS # (AUTO) 12.2 10^3/uL (1.5-6.6); NEUTROPHILS % (AUTO) 77.9 %; PLT - PLATELET COUNT 372 10^3/uL (130-450); RED CELL DISTRIBUTION WIDTH 14.3 % (12.0-15.0); WHITE BLOOD COUNT 15.7 x10^3/uL (4.8-10.8)
[2018-09-28 02:42] LABS: CALCIUM 9.1 mg/dL (8.5-10.3); CREATININE 0.7 mg/dL (0.6-1.2)
--- NOTE | 2018-09-28 03:31 | XRAY Report ---
Reason: dyspnea Procedure Date: 09/28/2018 Accession Number: [id number] / [id number] Procedure: XR - Chest 2 View X-Ray CPT Code: 86820 FULL RESULT: EXAM: CHEST RADIOGRAPHY EXAM DATE: 09/28/2018 03:06 AM. CLINICAL HISTORY: Dyspnea. COMPARISON: None. TECHNIQUE: 2 views. FINDINGS: Lungs/Pleura: Lungs demonstrate emphysematous changes at the apices. Bibasilar consolidation is present. No effusion or pneumothorax. Mediastinum: Heart and mediastinal contours are unremarkable. Other: None. IMPRESSION: Emphysema, with bibasilar consolidation. RADIA
[2018-09-28] MEDS ORDERED: IPRATROPIUM/ALBUTEROL 3 ML NEB INH PRN (04:41)
[2018-09-28] MEDS ORDERED: AZITHROMYCIN INJ 500 MG in SODIUM CHLORIDE 0.9% 250 ML IV ONE (04:59)
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
[2018-09-28] MEDS: SODIUM CHLORIDE FLUSH 0.9% 10 ML SYRINGE IVP PRN ×4 (05:50→20:13)
[2018-09-28] MEDS ORDERED: PHENYTOIN ER 100 MG CAPSULE PO SCH ×3 (06:00)
[2018-09-28] MEDS ORDERED: carBAMazepine ER 200 MG TABLET PO SCH (06:00)
[2018-09-28] MEDS: PANTOPRAZOLE 40 MG TABLET PO SCH (06:12)
[2018-09-28 06:15] LABS: BASOPHILS # (AUTO) 0.1 10^3/uL (0.0-0.1); BASOPHILS % (AUTO) 0.6 %; EOSINOPHILS # (AUTO) 0.2 10^3/uL (0.0-0.7); EOSINOPHILS % (AUTO) 1.3 %; HGB - HEMOGLOBIN 12.4 g/dL (14.0-18.0); LYMPHOCYTES # (AUTO) 0.5 10^3/uL (1.5-3.5); LYMPHOCYTES % (AUTO) 3.6 %; MEAN CORPUSCULAR HEMOGLOBIN 29.8 pg (27.0-31.0); MEAN CORPUSCULAR HGB CONC 32.7 g/dL (32.0-36.0); MEAN CORPUSCULAR VOLUME 91.3 fL (80.0-94.0); MEAN PLATELET VOLUME 6.5 fL (7.4-11.4); MONOCYTES # (AUTO) 0.2 10^3/uL (0.0-1.0); MONOCYTES % (AUTO) 1.5 %; NEUTROPHILS # (AUTO) 13.2 10^3/uL (1.5-6.6); PLT - PLATELET COUNT 340 10^3/uL (130-450); RED BLOOD COUNT 4.15 10^6/uL (4.70-6.10); RED CELL DISTRIBUTION WIDTH 14.8 % (12.0-15.0); WHITE BLOOD COUNT 14.3 x10^3/uL (4.8-10.8)
[2018-09-28 06:21] LABS: CALCIUM 9.1 mg/dL (8.5-10.3); CREATININE 0.7 mg/dL (0.6-1.2)
[2018-09-28] MEDS: NICOTINE 14 MG PATCH TOP SCH (08:24)
[2018-09-28] MEDS: POLYETHYLENE GLYCOL 3350 17 GM PACKET PO SCH (08:24)
[2018-09-28] MEDS: methylPREDNISolone SUCCINATE 40 MG/ML VIAL IVP SCH ×3 (08:25→20:12)
[2018-09-28] MEDS: SODIUM CHLORIDE FLUSH 0.9% 10 ML SYRINGE IVP SCH ×2 (08:26→16:21)
[2018-09-28] MEDS: IPRATROPIUM/ALBUTEROL 3 ML NEB INH PRN ×2 (11:00→20:44)
[2018-09-28] MEDS ORDERED: BISACODYL 5 MG TABLET PO PRN (12:23)
[2018-09-28] MEDS ORDERED: ALPRAZolam 0.25 MG TABLET PO PRN (12:23)
[2018-09-28] MEDS ORDERED: HYDROCORTISONE 25 MG SUPPOSITORY PR PRN (12:23)
[2018-09-28] MEDS: PHENYTOIN ER 100 MG CAPSULE PO SCH ×2 (16:21→20:12)
[2018-09-28] MEDS ORDERED: MAGNESIUM HYDROXIDE 2,400 MG/30 ML UDC PO ONE (17:32)
[2018-09-28] MEDS: carBAMazepine ER 200 MG TABLET PO SCH (17:37)
[2018-09-28] MEDS: PHENYTOIN CHEW 50 MG TABLET PO SCH (20:13)
[2018-09-28] MEDS ORDERED: CARBAMAZEPINE 200 MG PO SCH (21:00)
[2018-09-29] MEDS: SODIUM CHLORIDE FLUSH 0.9% 10 ML SYRINGE IVP SCH ×3 (00:59→16:46)
[2018-09-29] MEDS: methylPREDNISolone SUCCINATE 40 MG/ML VIAL IVP SCH ×4 (03:31→20:46)
[2018-09-29 05:24] LABS: BASOPHILS % (AUTO) 0.1 %; EOSINOPHILS # (AUTO) 0.1 10^3/uL (0.0-0.7); EOSINOPHILS % (AUTO) 0.5 %; HGB - HEMOGLOBIN 11.7 g/dL (14.0-18.0); LYMPHOCYTES # (AUTO) 0.9 10^3/uL (1.5-3.5); LYMPHOCYTES % (AUTO) 4.5 %; MEAN CORPUSCULAR HEMOGLOBIN 29.2 pg (27.0-31.0); MEAN PLATELET VOLUME 6.8 fL (7.4-11.4); MONOCYTES # (AUTO) 1.4 10^3/uL (0.0-1.0); MONOCYTES % (AUTO) 7.2 %; NEUTROPHILS # (AUTO) 17.1 10^3/uL (1.5-6.6); NEUTROPHILS % (AUTO) 87.7 %; PLT - PLATELET COUNT 328 10^3/uL (130-450); RED BLOOD COUNT 4.01 10^6/uL (4.70-6.10); RED CELL DISTRIBUTION WIDTH 14.7 % (12.0-15.0); WHITE BLOOD COUNT 19.5 x10^3/uL (4.8-10.8)
[2018-09-29 05:30] LABS: CALCIUM 8.9 mg/dL (8.5-10.3); CREATININE 0.5 mg/dL (0.6-1.2)
[2018-09-29] MEDS: carBAMazepine ER 200 MG TABLET PO SCH ×2 (06:23→17:52)
[2018-09-29] MEDS: PANTOPRAZOLE 40 MG TABLET PO SCH (06:23)
[2018-09-29] MEDS: AZITHROMYCIN 250 MG TABLET PO SCH (09:33)
[2018-09-29] MEDS: PHENYTOIN ER 100 MG CAPSULE PO SCH ×3 (09:33→20:44)
[2018-09-29] MEDS: POLYETHYLENE GLYCOL 3350 17 GM PACKET PO SCH (09:35)
[2018-09-29] MEDS: SODIUM CHLORIDE FLUSH 0.9% 10 ML SYRINGE IVP PRN ×3 (09:36→20:46)
[2018-09-29] MEDS: NICOTINE 14 MG PATCH TOP SCH (09:36)
--- NOTE | 2018-09-29 14:06 | PROVIDER PROGRESS NOTE ---
Assessment/Plan - Problem List (1) COPD exacerbation Assessment/Plan: Continue on empiric antibiotics (for bronchitis), nebulizers scheduled, IV steroids. We will plan discharge on prednisone with a very slow taper as an outpatient. Possibly ready for discharge tomorrow (2) Bronchitis Assessment/Plan: The admission chest x-ray showed bibasilar consolidation, upper lobe emphysematous changes. This is similar to a CT scan from 03/24 which showed traction bronchiectasis of the lower lobes and severe emphysematous changes of the apices with blebs. Therefore, this CXR is his chronic appearance and not bibasilar CAP. The rising WBC is from starting high doses of IV steroids since admitted. Continue with empiric Zithromax orally for bronchitis. Patient states that Levaquin in the past has not worked for him but Augmentin did help. He is apparently on Augmentin for the first week each month (?) and on chronic high dose Prednisone. Continue Florastor while he is on antibiotics. Continue Mucinex for pulmonary toilet. (3) Anxiety Assessment/Plan: He is on his prehospital medications for this (4) History of seizure disorder Assessment/Plan: He is on his prehospital medications for this (5) Neurofibromatosis Assessment/Plan: Extensive neurofibromas are noted on exam. (6) Severe chronic obstructive pulmonary disease Assessment/Plan: Patient is now on home O2 27/11. He does admit to still smoking 4 cigarettes a day despite using oxygen. Continue with nebs, changing to inhalers, IV steroids transition to p.o. steroids/ Smoking cessation was discussed (7) Tobacco abuse Assessment/Plan: As above. He does not request a Nicotine patch. - Current Meds Current Meds: Current Medications Generic Name Dose Route Start Last Admin Trade Name Freq PRN Reason Stop Dose Admin Albuterol/Ipratropium 3 ml 09/28/18 13:09 09/28/18 20:44 Duoneb INH 3 ml RTQ4H PRN Administration Wheezing Azithromycin 250 mg 09/29/18 09:00 09/29/18 09:33 Zithromax PO 10/03/18 08:59 250 mg DAILY KIMI Administration Carbamazepine 200 mg 09/28/18 17:06 09/29/18 06:23 Tegretol Xr PO 200 mg BID@0600,1800 KIMI Administration Methylprednisolone 40 mg 09/28/18 09:00 09/29/18 09:34 Solu-Medrol (40mg Vial) IVP 40 mg Q6H KIMI Administration Nicotine 1 patch 09/28/18 09:00 09/29/18 09:36 Nicoderm TOP Not Given DAILY KIMI Pantoprazole Sodium 40 mg 09/28/18 07:00 09/29/18 06:23 Protonix PO 40 mg QDAC KIMI Administration Phenytoin Sodium 100 mg 09/28/18 17:00 09/29/18 09:33 Dilantin PO 100 mg 0900,1700,2100 KIMI Administration Phenytoin Sodium 50 mg 09/28/18 21:00 09/28/18 20:13 Dilantin Infatab PO 50 mg 2100 KIMI Administration Polyethylene Glycol 17 gm 09/28/18 09:00 09/29/18 09:35 Miralax PO Not Given DAILY KIMI Sodium Chloride 10 ml 09/28/18 04:36 09/29/18 09:36 Normal Saline Flush 0.9% IVP 10 ml PRN PRN Administration NEEDED PER PROVIDER ORDERS Sodium Chloride 10 ml 09/28/18 09:00 09/29/18 03:31 Normal Saline Flush 0.9% IVP 10 ml 0100,0900,1700 KIMI Administration - Lab Result Fish Bone Diagrams: 09/29/18 05:13 09/29/18 05:13 - Additional Planning My Orders: My Active Orders 09/28/18 13:34 Nebulizer/MDI Tx. [RC] .QID 09/28/18 17:00 Phenytoin [Dilantin] 100 mg PO 0900,1700,2100 09/28/18 21:00 Phenytoin Infatab [Dilantin Infatab] 50 mg PO 2100 Subjective - Subjective Patient Reports: Feeling Better, Cough, Other (Does not want to get OOB, is too cold when sits up.) Nursing Reports: No Complaints, Other (He only normally transfers from bed to wheelchair.) Objective Vital Signs: Vital Signs - 24 hr 09/28/18 09/28/18 09/28/18 16:05 20:00 20:44 Temperature 36.8 C 36.8 C Heart Rate 74 Heart Rate [ 82 77 Brachial] Respiratory 18 18 18 Rate Blood Pressure 108/67 100/62 [Left Brachial artery] Blood Pressure [Right Brachial artery] O2 Saturation 96 100 09/29/18 09/29/18 09/29/18 01:00 03:52 07:57 Temperature 36.5 C 36.5 C 36.2 C L Heart Rate Heart Rate [ 77 78 66 Brachial] Respiratory 18 19 14 Rate Blood Pressure [Left Brachial artery] Blood Pressure 113/66 106/62 102/61 [Right Brachial artery] O2 Saturation 98 98 99 09/29/18 12:43 Temperature 36.2 C L Heart Rate Heart Rate [ 69 Brachial] Respiratory 16 Rate Blood Pressure [Left Brachial artery] Blood Pressure 94/57 L [Right Brachial artery] O2 Saturation 98 Oxygen O2 Source [With Activity] Nasal cannula O2 Source Nasal cannula Oxygen Flow Rate 3 I&O (Last 24 Hrs): Intake and Output Totals x24h 09/27/18 09/28/18 09/29/18 23:59 23:59 23:59 Intake Total 1720 650 Balance 1720 650 General: Alert, Oriented x3 HEENT: Mucous membr. moist/pink, Other (Neurofibromas of head/scalp) Neck: Supple Neuro: Non Focal Cardiovascular: Regular rate, No murmurs Respiratory: No respiratory distress, Other (Scattered rhonchi, no wheezing, pro longed expiratory phase) Abdomen: Soft Extremities: No edema - Results Results: Laboratory Results WBC 19.5 x10^3/uL (4.8-10.8) H 09/29/18 05:13 RBC 4.01 10^6/uL (4.70-6.10) L 09/29/18 05:13 Hgb 11.7 g/dL (14.0-18.0) L 09/29/18 05:13 Hct 36.5 % (42.0-52.0) L 09/29/18 05:13 MCV 91.0 fL (80.0-94.0) 09/29/18 05:13 MCH 29.2 pg (27.0-31.0) 09/29/18 05:13 MCHC 32.0 g/dL (32.0-36.0) 09/29/18 05:13 RDW 14.7 % (12.0-15.0) 09/29/18 05:13 Plt Count 328 10^3/uL (130-450) 09/29/18 05:13 MPV 6.8 fL (7.4-11.4) L 09/29/18 05:13 Neut # (Auto) 17.1 10^3/uL (1.5-6.6) H 09/29/18 05:13 Lymph # (Auto) 0.9 10^3/uL (1.5-3.5) L 09/29/18 05:13 Ralls # (Auto) 1.4 10^3/uL (0.0-1.0) H 09/29/18 05:13 Eos # (Auto) 0.1 10^3/uL (0.0-0.7) 09/29/18 05:13 Baso # (Auto) 0.0 10^3/uL (0.0-0.1) 09/29/18 05:13 Absolute Nucleated RBC 0.01 x10^3/uL 09/29/18 05:13 Nucleated RBC % 0.1 /100WBC 09/29/18 05:13 Sodium 139 mmol/L (135-145) 09/29/18 05:13 Potassium 5.0 mmol/L (3.5-5.0) 09/29/18 05:13 Chloride 105 mmol/L (101-111) 09/29/18 05:13 Carbon Dioxide 29 mmol/L (21-32) 09/29/18 05:13 Anion Gap 5.0 (6-13) L 09/29/18 05:13 BUN 16 mg/dL (6-20) 09/29/18 05:13 Creatinine 0.5 mg/dL (0.6-1.2) L 09/29/18 05:13 Estimated GFR (MDRD) 165 (>89) 09/29/18 05:13 Glucose 119 mg/dL (70-100) H 09/29/18 05:13 Calcium 8.9 mg/dL (8.5-10.3) 09/29/18 05:13 Troponin I < 0.04 ng/mL (<0.49) 09/28/18 02:25 B-Natriuretic Peptide 28 pg/mL (5-100) 09/28/18 02:25 Nasal Screen MRSA (PCR) POSITIVE (NEGATIVE) A* 09/28/18 05:47 - Procedures Procedures: Procedures INSERTION OF ENDOTRACHEAL AIRWAY INTO TRACHEA, VIA OPENING (05/29/17) RESPIRATORY VENTILATION, LESS THAN 24 CONSECUTIVE HOURS (05/29/17)
[2018-09-29] MEDS: PHENYTOIN CHEW 50 MG TABLET PO SCH (20:44)
[2018-09-30] MEDS: SODIUM CHLORIDE FLUSH 0.9% 10 ML SYRINGE IVP SCH ×2 (03:46→08:25)
[2018-09-30] MEDS: methylPREDNISolone SUCCINATE 40 MG/ML VIAL IVP SCH ×2 (03:46→08:24)
[2018-09-30] MEDS: SODIUM CHLORIDE FLUSH 0.9% 10 ML SYRINGE IVP PRN (03:46)
[2018-09-30] MEDS: POLYETHYLENE GLYCOL 3350 17 GM PACKET PO SCH ×2 (03:49→08:27)
[2018-09-30 05:32] LABS: BASOPHILS % (AUTO) 0.1 %; EOSINOPHILS # (AUTO) 0.1 10^3/uL (0.0-0.7); EOSINOPHILS % (AUTO) 0.3 %; HGB - HEMOGLOBIN 11.8 g/dL (14.0-18.0); LYMPHOCYTES # (AUTO) 0.9 10^3/uL (1.5-3.5); MEAN CORPUSCULAR HEMOGLOBIN 30.7 pg (27.0-31.0); MEAN CORPUSCULAR HGB CONC 33.7 g/dL (32.0-36.0); MEAN CORPUSCULAR VOLUME 91.1 fL (80.0-94.0); MEAN PLATELET VOLUME 7.3 fL (7.4-11.4); MONOCYTES # (AUTO) 1.7 10^3/uL (0.0-1.0); MONOCYTES % (AUTO) 7.5 %; NEUTROPHILS # (AUTO) 20.3 10^3/uL (1.5-6.6); NEUTROPHILS % (AUTO) 88.1 %; PLT - PLATELET COUNT 285 10^3/uL (130-450); RED BLOOD COUNT 3.86 10^6/uL (4.70-6.10); RED CELL DISTRIBUTION WIDTH 14.7 % (12.0-15.0)
[2018-09-30 05:44] LABS: CALCIUM 8.8 mg/dL (8.5-10.3); CREATININE 0.6 mg/dL (0.6-1.2)
[2018-09-30] MEDS: carBAMazepine ER 200 MG TABLET PO SCH (06:31)
[2018-09-30] MEDS: PANTOPRAZOLE 40 MG TABLET PO SCH (06:31)
[2018-09-30 08:23] VITALS: BP 110/71
[2018-09-30] MEDS: AZITHROMYCIN 250 MG TABLET PO SCH (08:26)
[2018-09-30] MEDS: NICOTINE 14 MG PATCH TOP SCH (08:28)
[2018-09-30] MEDS: PHENYTOIN ER 100 MG CAPSULE PO SCH (08:28)
--- NOTE | 2018-09-30 10:34 | Discharge Plan ---
"Discharge Plan for SNF / [facility] - Discharge Plan And Transition Orders Disposition: 03 SNF DC/Xfer Condition: Stable Allergies and Adverse Reactions: Allergies Allergy/AdvReac Type Severity Reaction Status Date / Time Egg Derived AdvReac Intermediate Respiratory Verified 04/27/18 05:57 egg AdvReac Mild Nausea Verified 04/27/18 05:57 lactose AdvReac Mild Cramps Verified 04/27/18 05:57 - SNF / PENITENTIARY Transition Orders Admit to (Facility): [facility] Discharge Diagnosis: 1) COPD exacerbation 2) Bronchitis 3) Anxiety 4) Hx of seizure disorder 5) Neurofibromatosis 6) Severe COPD, on home oxygen 7) Tobacco abuse Medicare Certification Statement: I certify that Post Hospital fci care is medically necessary on a continuing basis for any of the conditions for which she/he is receiving care during hospitalization. Notify PCP of admission and forward orders to primary provider for signature. Other Notification Orders: Call PCP immediately if patient develops dyspnea, chest pain/tightness or edema. House Bowel Program: Yes Additional Bowel Program Orders: If no BM after 2 days, nurse may give M.O.M. 30ml PO PRN and/or ducolax Supp 1 MT and/or CHACHA 250mg P.O., and/or senna 1-2 tabs PO. On day 3 nurse may give repeat above order until residents constipation is resolved. Oxygen Orders: O2 per n.c. at previous settings Medication Orders: PLEASE REFER TO THE DISCHARGE MEDICATION LIST. Insulin Orders?: No - Medications New Prescriptions: Azithromycin [Zithromax] 250 mg PO DAILY #5 tablet predniSONE [Prednisone] 20 mg PO DAILY #18 tablet - Diet Type: Geriatric Texture: Regular Liquids: Thin - Therapies | Activity Activity: Activity as Tolerated Additional Instructions: You were here with a flare up of your severe emphysema and bronchitis. Please take the prescribed antibiotics and the tapering-down doses of Prednsione. Resume all your other pre-hospital medications. If you have new or worsening symptoms, call your PCP or come to the ER."
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
== END 2018-09-30 11:30 | disposition home or self-care (01) | DRG 191 ==
LOC: EDUNIT# → ED 02:04 → MS2 04:44 → OBSVTOIN 12:22
PROVIDERS: ADMIT Internal Medicine; ATTEND Internal Medicine
DX: J44.0 Chronic obstructive pulmonary disease with (acute) lower respiratory infection (principal); J43.9 Emphysema, unspecified; J20.9 Acute bronchitis, unspecified; I82.509 Chronic embolism and thrombosis of unspecified deep veins of unspecified lower extremity; G40.909 Epilepsy, unspecified, not intractable, without status epilepticus; F41.9 Anxiety disorder, unspecified; R13.10 Dysphagia, unspecified; F17.210 Nicotine dependence, cigarettes, uncomplicated; Q85.00 Neurofibromatosis, unspecified; I25.10 Atherosclerotic heart disease of native coronary artery without angina pectoris; F10.11 Alcohol abuse, in remission; K59.00 Constipation, unspecified; M19.90 Unspecified osteoarthritis, unspecified site; Z99.81 Dependence on supplemental oxygen; Z79.01 Long term (current) use of anticoagulants; Z79.51 Long term (current) use of inhaled steroids; Z79.52 Long term (current) use of systemic steroids; I25.2 Old myocardial infarction; Z87.01 Personal history of pneumonia (recurrent); Z86.73 Personal history of transient ischemic attack (TIA), and cerebral infarction without residual deficits
CPT/HCPCS: 36415; 71046; 80048; 83880; 84484; 85025; 87640; 93005; 94640; 96365; 96375; 99284; A9270; G0378; 96374

== ENCOUNTER 2019-03-14 15:27 | Outpatient (CLI) | payer MEDICARE | END 2019-03-14 15:28 | disposition critical access hospital (66) | LOC: EMS 15:27 | PROVIDERS: ATTEND Surgery | DX: R06.02 Shortness of breath (principal); R05 Cough | CPT/HCPCS: A0425; A0427 ==

== ENCOUNTER 2019-03-14 15:46 | Inpatient (IN) | payer MEDICARE ==
--- NOTE | 2019-03-14 16:55 | ED Physician Documentation ---
History of Present Illness - Stated complaint Stated Complaint: SOA/ COUGH - Chief complaint Chief Complaint: Resp - Additonal information Additional information: This is a 68-year-old male with history of COPD, who presents with worsening s hortness of breath for around 1 month. He has a cough productive of green sputum, and he usually uses oxygen at home at 1-3L, but despite this he has had increasing dyspnea. He states that he cannot walk more than a step without it without feeling really short of breath. He has had trouble eating because he is so short of breath at times. He has history of blood clots including pulmonary embolisms and DVT, but he is not on blood thinners currently, he says that he stopped these because he was tired of being bruised. He denies any chest pain. No fever. Review of Systems Constitutional: denies: Fever Nose: denies: Epistaxis Cardiac: denies: Chest pain / pressure Respiratory: reports: Dyspnea, Cough GI: denies: Vomiting : denies: Dysuria Skin: reports: Other (Many chronic skin lesions) Neurologic: reports: Generalized weakness PD PAST MEDICAL HISTORY - Past Medical History Cardiovascular: Coronary artery disease Respiratory: COPD Neuro: Seizure disorder Endocrine/Autoimmune: None GI: Hemorrhoids : None HEENT: None Psych: None Musculoskeletal: Osteoarthritis, Other Derm: Other - Past Surgical History Past Surgical History: Yes General: Cholecystectomy, Other Ortho: Other HEENT: Tonsil/Adenoidectomy Derm: Debridement - Present Medications Home Medications: Ambulatory Orders Medication Instructions Recorded Confirmed Phenytoin Sodium Extended 100 mg PO 0900,1700,2100 04/04/18 03/15/19 carBAMazepine [Carbamazepine ER] 200 mg PO 0800,1700 04/04/18 03/15/19 Albuterol Sulfate [Proair Hfa 2 puffs INH QID PRN 04/27/18 03/15/19 Inhaler] Phenytoin 50 mg PO 2100 04/27/18 03/15/19 ALPRAZolam [Alprazolam] 0.25 mg PO TID PRN 09/28/18 03/15/19 Bisacodyl 5 mg PO BID PRN 09/28/18 03/15/19 Fluticasone/Umeclidin/Vilanter 1 puffs INH DAILY 09/28/18 03/15/19 [Trelegy Ellipta 100-62.5-25] Hydrocortisone Acetate 25 mg IN BID PRN 09/28/18 03/15/19 Ipratropium/Albuterol [Duoneb] 3 ml INH Q4H PRN 09/28/18 03/15/19 Polyethylene Glycol 3350 17 gm PO DAILY PRN 09/28/18 03/15/19 Acetaminophen 500 - 1,000 mg PO Q6H PRN 03/15/19 03/15/19 - Allergies Allergies/Adverse Reactions: Allergies Allergy/AdvReac Type Severity Reaction Status Date / Time Egg Derived AdvReac Intermediate Respiratory Verified 03/14/19 15:59 egg AdvReac Mild Nausea Verified 03/14/19 15:59 lactose AdvReac Mild Cramps Verified 03/14/19 15:59 - Social History Does the pt smoke?: Yes Smoking Status: Current every day smoker Does the pt drink ETOH?: No Does the pt have substance abuse?: No - Immunizations Immunizations are current?: Yes - POLST Patient has POLST: No POLST Status: Full Code (He is limited interventions, and he does want CPR. However he does not want to be intubated. This is on a POLST form from when he was with [facility] for short time in 2016.) PD ED PE NORMAL - Vitals Vital signs reviewed: Yes - General General: Alert and oriented X 3, Other (Thin and chronically ill appearing man) - HEENT HEENT: Other (Cachectic) - Neck Neck: Supple, no meningeal sign - Cardiac Cardiac: Other (Borderline tachycardia, regular rhythm) - Respiratory Respiratory: Other (Poor air movement and basilar crackles bilaterally. Scattered rhonci) - Abdomen Abdomen: Soft, Non tender, Non distended - Extremities Extremities: No deformity - Neuro Neuro: Alert and oriented X 3 Results - Vitals Vitals: Vital Signs - 24 hr 03/14/19 03/14/19 03/14/19 15:54 15:59 16:24 Temperature 37.3 C Heart Rate 99 96 Respiratory 27 H 24 Rate Blood Pressure 109/69 123/60 O2 Saturation 91 L 83 L 94 03/14/19 03/14/19 03/14/19 18:00 20:10 20:16 Temperature Heart Rate 91 84 84 Respiratory 19 15 20 Rate Blood Pressure 102/57 L 96/59 L 95/60 O2 Saturation 94 92 91 L Oxygen O2 Source [With Activity] Nasal cannula O2 Source Nasal cannula Oxygen Flow Rate 3 - Labs Labs: Laboratory Tests 03/14/19 03/14/19 03/14/19 17:22 17:22 17:22 WBC 16.4 H RBC 3.94 L Hgb 11.9 L Hct 37.3 L MCV 94.7 H MCH 30.2 MCHC 31.9 L RDW 13.2 Plt Count 291 MPV 8.7 Neut # (Auto) Not Reportable Lymph # (Auto) Not Reportable Hettinger # (Auto) Not Reportable Eos # (Auto) Not Reportable Baso # (Auto) Not Reportable Absolute Nucleated RBC Not Reportable Total Counted 100 Band Neuts % (Manual) 6 Abnorm Lymph % (Manual) 0 Nucleated RBC % Not Reportable Neutrophils # (Manual) 13.0 H Lymphocytes # (Manual) 1.0 L Monocytes # (Manual) 2.3 H Eosinophils # (Manual) 0.2 Basophils # (Manual) 0.0 Differential Comment MANUAL DIFFERENTIAL Manual Slide Review Indicated Platelet Estimate NORMAL (130-450,000) Platelet Morphology NORMAL APPEARANCE RBC Morph Micro Appear NORMAL APPEARANCE PT 13.9 H INR 1.2 VBG pH VBG pCO2 VBG pO2 VBG HCO3 VBG Total CO2 VBG O2 Saturation VBG Base Excess Sodium 139 Potassium 4.9 Chloride 103 Carbon Dioxide 28 Anion Gap 8.0 BUN 15 Creatinine 0.7 Estimated GFR (MDRD) 112 Glucose 106 H Calcium 9.0 Total Bilirubin 0.6 AST 14 ALT 12 Alkaline Phosphatase 107 Total Protein 7.1 Albumin 3.6 Globulin 3.5 Albumin/Globulin Ratio 1.0 Lipase 21 L 03/14/19 17:22 WBC RBC Hgb Hct MCV MCH MCHC RDW Plt Count MPV Neut # (Auto) Lymph # (Auto) Hettinger # (Auto) Eos # (Auto) Baso # (Auto) Absolute Nucleated RBC Total Counted Band Neuts % (Manual) Abnorm Lymph % (Manual) Nucleated RBC % Neutrophils # (Manual) Lymphocytes # (Manual) Monocytes # (Manual) Eosinophils # (Manual) Basophils # (Manual) Differential Comment Manual Slide Review Platelet Estimate Platelet Morphology RBC Morph Micro Appear PT INR VBG pH 7.429 H VBG pCO2 42.8 VBG pO2 19.2 L VBG HCO3 27.7 VBG Total CO2 29.0 VBG O2 Saturation 35.1 L VBG Base Excess 3.0 H Sodium Potassium Chloride Carbon Dioxide Anion Gap BUN Creatinine Estimated GFR (MDRD) Glucose Calcium Total Bilirubin AST ALT Alkaline Phosphatase Total Protein Albumin Globulin Albumin/Globulin Ratio Lipase - Rads (name of study) CT PE Radiology: Other (No PE, signs of aspiration with aspiration pneumonia vs. multi-focal pneumonia) PD MEDICAL DECISION MAKING - ED course Complexity details: considered differential (Pneumonia, PTX, COPD exacerbation, PE, aspiration) ED course: Pt is hypoxic on arrival and requires 3-4L O2 to maintain sats in the low 90s. CXR shows aspriation vs pneumonia, and given his history of PE, CT PE scan was obtained showing no PE but consistent with multi-focal pneumonia vs. aspiration pneumonia. He was started on Unasyn IV. Labs are notable for a leukocytosis, also consistent with his pneumonia. Fluid bolus given as patient has low-normal blood pressures, His BP remained stable and he is asymptomatic. He was also given solumedrol and albuterol nebulizer for potential COPD component of his presentation. Pt was updated with the plan of care and was admitted to the hospital for further treatment. Departure - Departure Disposition: [facility] DC/Ginger Clinical Impression: Aspiration pneumonia Condition: Stable Discharge Date/Time: 03/14/19 22:07
[2019-03-14 17:28] LABS: BASOPHILS % (AUTO) 0.6 %; EOSINOPHILS % (AUTO) 0.7 %; HGB - HEMOGLOBIN 11.9 g/dL (14.0-18.0); LYMPHOCYTES % (AUTO) 6.5 %; MEAN CORPUSCULAR HEMOGLOBIN 30.2 pg (27.0-31.0); MEAN CORPUSCULAR HGB CONC 31.9 g/dL (32.0-36.0); MEAN CORPUSCULAR VOLUME 94.7 fL (80.0-94.0); MEAN PLATELET VOLUME 8.7 fL (7.4-11.4); MONOCYTES % (AUTO) 13.7 %; NEUTROPHILS % (AUTO) 77.6 %; PLT - PLATELET COUNT 291 10^3/uL (130-450); RED BLOOD COUNT 3.94 10^6/uL (4.70-6.10); RED CELL DISTRIBUTION WIDTH 13.2 % (12.0-15.0); WHITE BLOOD COUNT 16.4 x10^3/uL (4.8-10.8)
[2019-03-14 17:30] LABS: VBG PCO2 42.8 mmHg (41-51); VBG PH 7.429 (7.31-7.41)
[2019-03-14] MEDS ORDERED: IOVERSOL 320 100 ML VIAL IVP ONE ×2 (17:30→18:35)
[2019-03-14 17:31] LABS: VBG PO2 19.2 mmHg (25-47)
[2019-03-14 17:34] LABS: INR 1.2 (0.8-1.2); PT - PROTHROMBIN TIME 13.9 secs (9.9-12.6)
[2019-03-14 17:38] LABS: ABNORMAL LYMPHS % (MANUAL) 0 %
[2019-03-14 17:41] LABS: ALBUMIN 3.6 g/dL (3.2-5.5); BILIRUBIN,TOTAL 0.6 mg/dL (0.2-1.0); CREATININE 0.7 mg/dL (0.6-1.2); TOTAL PROTEIN 7.1 g/dL (6.7-8.2)
[2019-03-14 18:01] LABS: BAND NEUTROPHILS % (MANUAL) 6 %; EOSINOPHILS # (MANUAL) 0.2 10^3/uL (0-0.7); LYMPHOCYTES % (MANUAL) 6 %; MONOCYTES # (MANUAL) 2.3 10^3/uL (0.0-1.0)
[2019-03-14 18:02] LABS: DIFFERENTIAL COMMENT MANUAL DIFFERENTIAL; PLATELET ESTIMATE, MANUAL NORMAL (130-450,000) (NORMAL); PLATELET MORPHOLOGY NORMAL APPEARANCE (NORMAL); RBC MORPHOLOGY (MULTIPLE) NORMAL APPEARANCE (NORMAL)
--- NOTE | 2019-03-14 18:28 | XRAY Report ---
Reason: hypoxia, COPD Procedure Date: 03/14/2019 Accession Number: [id number] / [id number] Procedure: XR - Chest 1 View X-Ray CPT Code: 06410 Final Report FULL RESULT: EXAM: CHEST RADIOGRAPHY EXAM DATE: 03/14/2019 05:49 PM. CLINICAL HISTORY: Hypoxia, COPD. COMPARISON: CHEST 2 VIEW 09/28/2018 2:51 AM. TECHNIQUE: 1 view. FINDINGS: Cardiac leads overlie the chest. Heart size is normal. Calcified plaques in the thoracic aorta. There is redemonstration of chronic pulmonary disease, including centrilobular emphysema and parenchymal scarring/fibrosis. New patchy reticular opacities in the right lung base. Mildly increased patchy opacity in the lateral left lung base. Trace bilateral pleural effusions versus basilar pleural thickening. No pneumothorax. The bones are osteopenic. IMPRESSION: Patchy reticular opacities in the right lung base, which could represent developing pneumonia, changes from aspiration, atelectasis, or worsening parenchymal scarring/fibrosis. Mildly increased patchy opacity in the lateral left lung base, which is nonspecific. Possible trace bilateral pleural effusions versus pleural thickening/scarring. RADIA
--- NOTE | 2019-03-14 19:23 | CT Report ---
Reason: Hypoxia, Rule out PE Procedure Date: 03/14/2019 Accession Number: [id number] / [id number] Procedure: CT - ANGIO CHEST W/WO CPT Code: Final Report FULL RESULT: EXAM: CT ANGIOGRAM CHEST EXAM DATE: 03/14/2019 06:34 PM. CLINICAL HISTORY: [place]. Evaluate for pulmonary embolism. COMPARISON: CHEST ANGIO 04/04/2018 2:40 PM. TECHNIQUE: Routine helical imaging was performed through the chest in the pulmonary arterial phase. IV Contrast: 80 cc Optiray 320. Reconstructions: Coronal 3-D MIP reconstructions.Sagittal and coronal. In accordance with CT protocol optimization, one or more of the following dose reduction techniques were utilized for this exam: automated exposure control, adjustment of mA and/or KV based on patient size, or use of iterative reconstructive technique. FINDINGS: Diagnostic quality: Adequate. Pulmonary embolism: None to the subsegmental level. Right heart strain: None Pulmonary arteries: Normal in caliber. Heart: Normal in size with coronary artery disease. Aorta: Normal in caliber with mild atherosclerosis Lungs/airways: --There is dependent debris within the distal trachea extending into the bilateral mainstem bronchi with debris in the lower lobe airways. -- Bronchial wall thickening with bilateral lower lobe consolidations. --Unchanged 14 mm right upper lobe pulmonary nodule. --Unchanged 12 mm nodule in the superior segment of the right lower lobe. --Again severe upper lobe predominant emphysema. Pleural effusion: None Pneumothorax: None Adenopathy: Bilateral hilar lymphadenopathy. Also enlarged subcarinal lymph node. Imaged abdomen: Unremarkable Sidewalls: Again innumerable skin nodules. Bones: No suspicious osseous lesions. The bones are osteopenic. Unchanged compression fracture of L1. IMPRESSION: 1. No acute pulmonary embolism. 2. There is dependent debris within the distal trachea extending into the bilateral mainstem bronchi with debris in the lower lobe airways. Correlate clinically for chronic recurrent aspiration. 3. Bronchial wall thickening with bilateral lower lobe consolidation. There are also scattered pulmonary nodules. Correlate clinically for multifocal bronchopneumonia versus aspiration pneumonia. Recommend follow-up 6-8 weeks after completion of medical therapy to ensure resolution. 4. Again severe upper lobe predominant emphysema. 5. Again innumerable skin nodules. 6. Other chronic findings detailed above. RADIA
[2019-03-14] MEDS ORDERED: AMPICILLIN/SULBACTAM 1.5 GM in SODIUM CHLORIDE 0.9% MINIBAG 100 ML IV STA (20:53)
[2019-03-14] MEDS ORDERED: methylPREDNISolone SUCCINATE 125 MG/2 ML VIAL IVP STA (21:29)
[2019-03-14] MEDS ORDERED: LACTATED RINGERS 1,000 ML IV STA (21:29)
[2019-03-14] MEDS ORDERED: ACETAMINOPHEN 325 MG TABLET PO PRN (21:32)
[2019-03-14] MEDS ORDERED: ONDANSETRON 4 MG/2 ML VIAL IVP PRN (21:32)
--- NOTE | 2019-03-14 21:43 | HISTORY & PHYSICAL EXAMINATION ---
Chief Complaint - Chief Complaint Chief Complaint: dyspnea History of Present Illness - Ad[facility] - History Obtained From Records Reviewed: yes History obtained from: chart - History of Present Illness HPI Comment/Other: Patient is a 68 y/o male with history of severe COPD, emphysema, DVT's, neurofibromatosis, seizure and anxiety who presented to the ED with complain of dyspnea and a persistent productive cough. It has been ongoing for about 1 month but worsened today. He is well known to the hospital and to the hospitalist service. He uses an oxymizer on 3L oxygen at home. He still smokes about six cigarettes daily. In the ED his oxygenation dropped to the low 80's when he attempted to ambulate, even while on oxygen. He is supposed to be on xarelto but stopped taking it because he is tired of getting bruises. Work up in the ED included a CTA of the chest. Though negative for a PE, it suggested aspiration pneumonia. He has had this as a problem in the past due to dysphagia. It appears it may be worsening or persists. He had a WBC of 16 on his CBC. He was tachypneic and mildly tachycardic at presentation. As a result of his clinical presentation, radiologic and lab findings, he was presented for admission. History - Past Medical History Cardiovascular: reports: Coronary artery disease Respiratory: reports: COPD Neuro: reports: Seizure disorder Endocrine/Autoimmune: reports: None GI: reports: Hemorrhoids : reports: None HEENT: reports: None Psych: reports: None Musculoskeletal: reports: Osteoarthritis, Other Derm: reports: Other MRSA Hx?: Yes - Past Surgical History General: reports: Cholecystectomy, Other Ortho: reports: Other HEENT: reports: Tonsil/Adenoidectomy Derm: reports: Debridement - Family & Social History Family History Comment/Other: Adopted Social History Notes: The patient lives at [facility].He use to live at [facility] but when the cost became too great he went to [facility] [place], approximately 2013. He was adopted at the age of 9 months. Unfortunately both his parents were severe alcoholics. Mom was very mentally ill with abusive tendencies as well as severe alcohol abuse dad. Dad was more of a functional alcoholic. He did not have any adopted siblings. He says that his parents had no business adopting children. He does not have any family on [facility]. He does not have any children and has never been . 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 He finally had to stop working because his emphysema got so bad. He started smoking at the age of 17 and was up to 2 packs/day. He has tried stopping at various times. Currently smokes about 6 cigarettes a day. He also used to abuse alcohol. He was a binge drinker where he could drink 1/5 of alcohol a day. But he could go weeks without drinking. Stopped 19 years ago. He now only drinks on Nelly. He has no history of recreational substance abuse. - Substance History Use: Uses substance without health or social issues: Tobacco - POLST Patient has POLST: No POLST Status: Full Code (He is limited interventions, and he does want CPR. However he does not want to be intubated. This is on a POLST form from when he was with [facility] for short time in 2016.) Meds/Allgy - Home Medications Home Medications: Ambulatory Orders Medication Instructions Recorded Confirmed Phenytoin Sodium Extended 100 mg PO 0900,1700,209904/04/18 09/28/18 carBAMazepine [Carbamazepine ER] 200 mg PO BID 04/04/18 09/28/18 Albuterol Sulfate [Proair Hfa 2 puffs INH QID PRN 04/27/18 09/28/18 Inhaler] Phenytoin 50 mg PO 2100 04/27/18 09/28/18 ALPRAZolam [Alprazolam] 0.5 mg PO TID PRN 09/28/18 09/28/18 Acetaminophen 650 mg PO Q4H PRN MDD 3-4 GM 09/28/18 09/28/18 Bisacodyl 5 mg PO BID PRN 09/28/18 09/28/18 Fluticasone/Umeclidin/Vilanter 1 puffs INH DAILY 09/28/18 09/28/18 [Trelegy Ellipta 100-62.5-25] Hydrocortisone Acetate 25 mg SD BID PRN 09/28/18 09/28/18 Ipratropium/Albuterol [Duoneb] 3 ml INH Q4H PRN 09/28/18 09/28/18 Polyethylene Glycol 3350 17 gm PO DAILY 09/28/18 09/28/18 Azithromycin [Zithromax] 250 mg PO DAILY #5 tablet 09/30/18 predniSONE [Prednisone] 20 mg PO DAILY #18 tablet 09/30/18 - Allergies Allergies/Adverse Reactions: Allergies Allergy/AdvReac Type Severity Reaction Status Date / Time Egg Derived AdvReac Intermediate Respiratory Verified 03/14/19 15:59 egg AdvReac Mild Nausea Verified 03/14/19 15:59 lactose AdvReac Mild Cramps Verified 03/14/19 15:59 Review of Systems - Constitutional Constitutional: denies: Fatigue, Fever, Weakness - Eyes Eyes: denies: Pain, Dipolpia - Ears, Nose & Throat Ears, Nose & Throat: denies: Vertigo, Sore throat - Cardiovascular Cariovascular: denies: Irregular heart rate, Chest pain - Respiratory Respiratory: reports: Cough, Sputum production, Wheezing, SOB with exertion - Gastrointestinal Gastrointestinal: denies: Abdominal pain, Abdominal distention, Constipation, Diarrhea, Nausea, Vomiting, Coffee grounds emesis, Reflux/heartburn - Genitourinary Genitourinary: denies: Dysuria, Frequency, Urgency, Hematuria - Musculoskeletal Musculoskeletal: denies: Muscle pain, Back pain - Integumentary Integumentary: reports: Lesions (neurofibroma lesions) - Neurological Neurological: reports: Seizures. denies: Headache, Dizziness - Psychiatric Psychiatric: reports: Anxiety. denies: Depression - Endocrine Endocrine: denies: Polyuria, Polydypsia - Hematologic/Lymphatic Hematologic/Lymphatic: denies: Anemia, Bruising Prior Level of Functionality: Patient is not very steady on his feet. He get around using a wheel chair at home. Exam - Vital Signs Vital Signs: Vital Signs x48h Temp Pulse Resp BP Pulse Ox 03/14/19 20:16 84 20 95/60 91 L 03/14/19 20:10 84 15 96/59 L 92 03/14/19 18:00 91 19 102/57 L 94 03/14/19 16:24 94 03/14/19 15:59 96 24 123/60 83 L 03/14/19 15:54 37.3 C 99 27 H 109/69 91 L - Physical Exam General Appearance: positive: No acute distress, Alert Eyes Bilateral: positive: Normal inspection, PERRL, EOMI ENT: positive: ENT inspection nml Neck: positive: Nml inspection, No JVD, Trachea midline Respiratory: positive: Wheezes (right>left) Cardiovascular: positive: Regular rate & rhythm Abdomen: positive: Non-tender, No organomegaly, Nml bowel sounds, No distention. negative: Guarding, Rebound Skin: positive: Other (neurofibromas all over body) Extremities: positive: Non-tender, Full ROM, Nml appearance, No pedal edema Neurologic/Psychiatric: positive: Oriented x3, Motor nml, Sensation nml, Mood/affect nml Conclusion/Plan - Problem List (1) Pneumonia Conclusion/Plan: Suspect 2/2 aspiration Patient started on unasyn Qualifiers: Pneumonia type: due to unspecified organism Laterality: right Lung location: lower lobe of lung Qualified Code(s): J18.9 - Pneumonia, unspecified organism (2) COPD (chronic obstructive pulmonary disease) Conclusion/Plan: Patient given a dose of 125mg IV of solumedrol in the ED Duoneb ordered q4hrs prn. Will order pulmicort and formeterol Continue oxygen Qualifiers: COPD type: COPD with acute lower respiratory infection Qualified Code(s): J44.0 - Chronic obstructive pulmonary disease with (acute) lower respiratory infection (3) Seizure disorder Conclusion/Plan: On dilantin and carbamazepene Will resume once verified (4) DVT, recurrent, lower extremity, chronic Conclusion/Plan: Patient stopped taking his Xarelto because he is tired of getting bruises (5) Anxiety Conclusion/Plan: On alprazolam tid prn Will resume once verified (6) Dysphagia Conclusion/Plan: It would appear that aspiration/ risk persists Patient had supposedly been on mechanical soft diet However, it appears it is still an issue. Will ask a speech revaluation and give new recommendations (7) Tobacco abuse Conclusion/Plan: Nicotine patch - Lab Results Fish Bones: 03/14/19 17:22 03/14/19 17:22 Core Measures - Anticipated LOS I expect patient to be DC'd or transferred within 96 hours.: Yes - DVT/VTE - Prophylaxis VTE/DVT Device ordered at admit?: Yes VTE/DVT Prophylaxis med ordered at admit?: Yes
[2019-03-14] MEDS: SODIUM CHLORIDE 0.9% 1,000 ML IV SCH (22:40)
[2019-03-15] MEDS: SODIUM CHLORIDE FLUSH 0.9% 10 ML SYRINGE IVP SCH ×3 (03:26→17:09)
[2019-03-15] MEDS: AMPICILLIN/SULBACTAM 3 GM in SODIUM CHLORIDE 0.9% MINIBAG 100 ML IV SCH ×4 (04:14→22:24)
[2019-03-15 05:31] LABS: BASOPHILS # (AUTO) 0.1 10^3/uL (0.0-0.1); BASOPHILS % (AUTO) 0.4 %; EOSINOPHILS % (AUTO) 0.1 %; HGB - HEMOGLOBIN 11.5 g/dL (14.0-18.0); LYMPHOCYTES # (AUTO) 0.7 10^3/uL (1.5-3.5); LYMPHOCYTES % (AUTO) 5.2 %; MEAN CORPUSCULAR HEMOGLOBIN 30.8 pg (27.0-31.0); MEAN CORPUSCULAR HGB CONC 32.4 g/dL (32.0-36.0); MEAN CORPUSCULAR VOLUME 95.2 fL (80.0-94.0); MEAN PLATELET VOLUME 9.1 fL (7.4-11.4); MONOCYTES # (AUTO) 0.5 10^3/uL (0.0-1.0); MONOCYTES % (AUTO) 3.6 %; NEUTROPHILS # (AUTO) 12.7 10^3/uL (1.5-6.6); NEUTROPHILS % (AUTO) 89.6 %; PLT - PLATELET COUNT 302 10^3/uL (130-450); RED BLOOD COUNT 3.73 10^6/uL (4.70-6.10); RED CELL DISTRIBUTION WIDTH 13.1 % (12.0-15.0); WHITE BLOOD COUNT 14.2 x10^3/uL (4.8-10.8)
[2019-03-15 05:42] LABS: CALCIUM 8.5 mg/dL (8.5-10.3); CREATININE 0.8 mg/dL (0.6-1.2)
[2019-03-15] MEDS: PANTOPRAZOLE 40 MG VIAL IVP SCH (07:01)
[2019-03-15] MEDS: IPRATROPIUM/ALBUTEROL 3 ML NEB INH PRN ×2 (07:56→20:02)
[2019-03-15] MEDS: FORMOTEROL FUMARATE NEB 20 MCG/2 ML INH SCH ×2 (07:56→20:02)
[2019-03-15] MEDS: BUDESONIDE 0.5 MG/2 ML NEB INH SCH ×2 (07:57→20:02)
[2019-03-15] MEDS ORDERED: LORazepam 0.5 MG TABLET PO PRN (08:13)
[2019-03-15] MEDS ORDERED: PHENYTOIN ER 100 MG CAPSULE PO SCH (09:00)
[2019-03-15] MEDS: ENOXAPARIN 40 MG/0.4 ML SYRINGE SUBQ SCH (09:22)
[2019-03-15] MEDS: NICOTINE 14 MG PATCH TOP SCH (09:26)
[2019-03-15 09:56] LABS: CARBAMAZEPINE (TEGRETOL) 2.8 ug/mL; PHENYTOIN (DILANTIN) 2.9 ug/mL
[2019-03-15] MEDS ORDERED: carBAMazepine 200 MG TABLET PO SCH (10:00)
[2019-03-15] MEDS: SODIUM CHLORIDE 0.9% 1,000 ML IV SCH (10:29)
[2019-03-15] MEDS: guaiFENesin 600 MG TABLET PO SCH ×2 (10:55→22:03)
[2019-03-15] MEDS ORDERED: ALPRAZolam 0.25 MG TABLET PO PRN (11:02)
[2019-03-15] MEDS ORDERED: HYDROCORTISONE 25 MG SUPPOSITORY PR PRN (11:02)
[2019-03-15] MEDS ORDERED: IPRATROPIUM/ALBUTEROL 3 ML NEB INH PRN (11:02)
[2019-03-15] MEDS ORDERED: ALBUTEROL NEB 2.5 MG/3 ML INH PRN (11:07)
--- NOTE | 2019-03-15 11:12 | PROVIDER PROGRESS NOTE ---
Assessment/Plan - Problem List (1) Aspiration pneumonia Qualifiers: Aspiration pneumonia type: unspecified Laterality: bilateral Lung location: lower lobe of lung Qualified Code(s): J69.0 - Pneumonitis due to inhalation of food and vomit Assessment/Plan: 03/15 WBC is runing down to 14 from 16. pt still present cough. sputum culture ordered. pt had no fever, chill continue Unasyn (2) COPD (chronic obstructive pulmonary disease) Conclusion/Plan: 03/15 stable. pt did not present acute reparatory distress now continue Duoneb, pulmicort and formeterol (3) Seizure disorder Conclusion/Plan: 03/15 stable, continue dilantin and carbamazepene serum concentration of dilantin and carbamazepene is not over dosage. (4) DVT, recurrent, lower extremity, chronic with medical non-compliance Conclusion/Plan: Patient stopped taking his Xarelto because he is tired of getting bruises. pt decline to have this meds (5) Anxiety Conclusion/Plan: On alprazolam tid prn Will resume once verified (6) Dysphagia Conclusion/Plan: 03/15 nurse at bedside evaluated pt, pt has no issue to swallow his meds order dysphagia diet, ST is ordered for further evaluation and treatment. (7) Tobacco abuse Conclusion/Plan: Nicotine patch - Current Meds Current Meds: Current Medications Generic Name Dose Route Start Last Admin Trade Name Freq PRN Reason Stop Dose Admin Albuterol/Ipratropium 3 ml 03/14/19 21:40 03/15/19 07:56 Duoneb INH 3 ml Q4HR PRN Administration Wheezing Budesonide 0.5 mg 03/15/19 07:00 03/15/19 07:57 Pulmicort INH 0.5 mg RTBID KIMI Administration Enoxaparin Sodium 40 mg 03/15/19 09:00 03/15/19 09:22 Lovenox SUBQ 40 mg DAILY KIMI Administration Formoterol Fumarate 20 mcg 03/15/19 07:00 03/15/19 07:56 Perforomist INH 20 mcg RTBID KIMI Administration Guaifenesin 600 mg 03/15/19 10:00 03/15/19 10:55 Mucinex PO 600 mg BID KIMI Administration Ampicillin Sodium/Sulbactam 100 mls @ 200 mls/hr 03/15/19 03:00 03/15/19 09:52 Sodium 3 gm/ Sodium Chloride IV Infused Q6H KIMI Infusion Nicotine 1 patch 03/15/19 09:00 03/15/19 09:26 Nicoderm TOP Not Given DAILY KIMI Pantoprazole Sodium 40 mg 03/15/19 07:00 03/15/19 07:01 Protonix IVP 40 mg QDAC KIMI Administration Sodium Chloride 10 ml 03/15/19 01:00 03/15/19 07:01 Normal Saline Flush 0.9% IVP 10 ml 0100,0900,1700 KIMI Administration - Lab Result Fish Bone Diagrams: 03/15/19 05:04 03/15/19 05:04 - Additional Planning My Orders: My Active Orders 03/15/[address] [ST] Routine 03/15/19 10:00 guaiFENesin [Mucinex] 600 mg PO BID 03/15/19 11:02 ALPRAZolam [Xanax] 0.25 mg PO TID PRN Hydrocortisone Supp [Anusol-Hc] 25 mg LA BID PRN 03/15/19 11:03 Nebulizer/MDI Tx. [RC] QID Resp Teach Nebulizer/MDI [RC] .ONCE 03/15/19 11:07 Nebulizer/MDI Tx. [RC] QID Resp Teach Nebulizer/MDI [RC] .ONCE Albuterol 2.5 mg INH RTQ4H PRN 03/15/19 11:15 Fluticasone/Umeclidin/Vilanter [Trelegy Ellipta 100-62.5-25] 1 puffs INH DAILY 03/15/19 17:00 Phenytoin [Dilantin] 100 mg PO 0900,1700,2099 carBAMazepine [Carbamazepine ER] 200 mg PO 0800,1700 03/15/19 21:00 Phenytoin Infatab [Dilantin Infatab] 50 mg PO 209903/15/19 Breakfast Dysphagia Mechanically Altered Diet [DIET] Subjective - Subjective Patient Reports: Feeling Better Objective Vital Signs: Vital Signs - 24 hr 03/14/19 03/14/19 03/14/19 15:54 15:59 16:24 Temperature 37.3 C Heart Rate 99 96 Heart Rate [ Brachial] Heart Rate [ Radial] Respiratory 27 H 24 Rate Blood Pressure 109/69 123/60 Blood Pressure [Left Brachial artery] Blood Pressure [Right Brachial artery] Blood Pressure [Right] O2 Saturation 91 L 83 L 94 03/14/19 03/14/19 03/14/19 18:00 20:10 20:16 Temperature Heart Rate 91 84 84 Heart Rate [ Brachial] Heart Rate [ Radial] Respiratory 19 15 20 Rate Blood Pressure 102/57 L 96/59 L 95/60 Blood Pressure [Left Brachial artery] Blood Pressure [Right Brachial artery] Blood Pressure [Right] O2 Saturation 94 92 91 L 03/14/19 03/14/19 03/14/19 21:52 22:23 23:21 Temperature 36.5 C 37.1 C 36.9 C Heart Rate 77 Heart Rate [ 96 Brachial] Heart Rate [ 89 Radial] Respiratory 17 24 16 Rate Blood Pressure 94/60 Blood Pressure [Left Brachial artery] Blood Pressure 106/60 [Right Brachial artery] Blood Pressure 121/52 L [Right] O2 Saturation 98 94 97 03/15/19 03/15/19 03/15/19 04:28 07:46 07:57 Temperature 36.4 C L 36.5 C Heart Rate 62 Heart Rate [ 70 68 Brachial] Heart Rate [ Radial] Respiratory 18 20 16 Rate Blood Pressure Blood Pressure 103/59 L [Left Brachial artery] Blood Pressure 100/60 [Right Brachial artery] Blood Pressure [Right] O2 Saturation 94 97 Oxygen O2 Source [With Activity] Nasal cannula O2 Source Oxymask Oxygen Flow Rate 3 I&O (Last 24 Hrs): Intake and Output Totals x24h 03/13/19 03/14/19 03/15/19 23:59 23:59 23:59 Intake Total 1032 1200 Output Total 150 Balance 882 1200 General: Alert, No acute distress HEENT: Atraumatic Neck: Supple Lymphatic: no adenopathy Neuro: Alert, Non Focal, Oriented Times 3 Cardiovascular: Regular rate, Normal S1, Normal S2 Respiratory: Chest non-tender, No respiratory distress, Rhonchi Abdomen: Normal bowel sounds, Soft - Results Results: Laboratory Results WBC 14.2 x10^3/uL (4.8-10.8) H 03/15/19 05:04 RBC 3.73 10^6/uL (4.70-6.10) L 03/15/19 05:04 Hgb 11.5 g/dL (14.0-18.0) L 03/15/19 05:04 Hct 35.5 % (42.0-52.0) L 03/15/19 05:04 MCV 95.2 fL (80.0-94.0) H 03/15/19 05:04 MCH 30.8 pg (27.0-31.0) 03/15/19 05:04 MCHC 32.4 g/dL (32.0-36.0) 03/15/19 05:04 RDW 13.1 % (12.0-15.0) 03/15/19 05:04 Plt Count 302 10^3/uL (130-450) 03/15/19 05:04 MPV 9.1 fL (7.4-11.4) 03/15/19 05:04 Neut # (Auto) 12.7 10^3/uL (1.5-6.6) H 03/15/19 05:04 Lymph # (Auto) 0.7 10^3/uL (1.5-3.5) L 03/15/19 05:04 Ramsey # (Auto) 0.5 10^3/uL (0.0-1.0) 03/15/19 05:04 Eos # (Auto) 0.0 10^3/uL (0.0-0.7) 03/15/19 05:04 Baso # (Auto) 0.1 10^3/uL (0.0-0.1) 03/15/19 05:04 Absolute Nucleated RBC 0.00 x10^3/uL 03/15/19 05:04 Total Counted 100 03/14/19 17:22 Band Neuts % (Manual) 6 % (0-10) 03/14/19 17:22 Abnorm Lymph % (Manual) 0 % 03/14/19 17:22 Nucleated RBC % 0.0 /100WBC 03/15/19 05:04 Neutrophils # (Manual) 13.0 10^3/uL (1.5-6.6) H 03/14/19 17:22 Lymphocytes # (Manual) 1.0 10^3/uL (1.5-3.5) L 03/14/19 17:22 Monocytes # (Manual) 2.3 10^3/uL (0.0-1.0) H 03/14/19 17:22 Eosinophils # (Manual) 0.2 10^3/uL (0-0.7) 03/14/19 17:22 Basophils # (Manual) 0.0 10^3/uL (0-0.1) 03/14/19 17:22 Differential Comment MANUAL DIFFERENTIAL 03/14/19 17:22 Manual Slide Review Indicated 03/14/19 17: Platelet Estimate NORMAL (130-450,000) (NORMAL) 03/14/19 17: Platelet Morphology NORMAL APPEARANCE (NORMAL) 03/14/19 17: RBC Morph Micro Appear NORMAL APPEARANCE (NORMAL) 03/14/19 17:22 PT 13.9 secs (9.9-12.6) H 03/14/19 17: INR 1.2 (0.8-1.2) 03/14/19 17: VBG pH 7.429 (7.31-7.41) H 03/14/19 17:22 VBG pCO2 42.8 mmHg (41-51) 03/14/19 17: VBG pO2 19.2 mmHg (25-47) L 03/14/19 17:22 VBG HCO3 27.7 mmol/L (23-28) 03/14/19 17:22 VBG Total CO2 29.0 mmol/L (24-29) 03/14/19 17:22 VBG O2 Saturation 35.1 % (60-80) L 03/14/19 17:22 VBG Base Excess 3.0 mmol/L (-2 - +2) H 03/14/19 17:22 Sodium 138 mmol/L (135-145) 03/15/19 05:04 Potassium 4.5 mmol/L (3.5-5.0) 03/15/19 05:04 Chloride 104 mmol/L (101-111) 03/15/19 05:04 Carbon Dioxide 26 mmol/L (21-32) 03/15/19 05:04 Anion Gap 8.0 (6-13) 03/15/19 05:04 BUN 15 mg/dL (6-20) 03/15/19 05:04 Creatinine 0.8 mg/dL (0.6-1.2) 03/15/19 05:04 Estimated GFR (MDRD) 96 (>89) 03/15/19 05:04 Glucose 133 mg/dL (70-100) H 03/15/19 05:04 Lactic Acid 0.7 mmol/L (0.5-2.2) 03/14/19 21:42 Calcium 8.5 mg/dL (8.5-10.3) 03/15/19 05:04 Total Bilirubin 0.6 mg/dL (0.2-1.0) 03/14/19 17:22 AST 14 IU/L (10-42) 03/14/19 17:22 ALT 12 IU/L (10-60) 03/14/19 17:22 Alkaline Phosphatase 107 IU/L (42-121) 03/14/19 17:22 Total Protein 7.1 g/dL (6.7-8.2) 03/14/19 17:22 Albumin 3.6 g/dL (3.2-5.5) 03/14/19 17:22 Globulin 3.5 g/dL (2.1-4.2) 03/14/19 17:22 Albumin/Globulin Ratio 1.0 (1.0-2.2) 03/14/19 17:22 Lipase 21 U/L (22-51) L 03/14/19 17:22 Last Dose Date UNK 03/15/19 05:04 Last Dose Time UNK 03/15/19 05:04 Phenytoin 2.9 ug/mL 03/15/19 05:04 Carbamazepine 2.8 ug/mL 03/15/19 05:04 - Procedures Procedures: Procedures INSERTION OF ENDOTRACHEAL AIRWAY INTO TRACHEA, VIA OPENING (05/29/17) RESPIRATORY VENTILATION, LESS THAN 24 CONSECUTIVE HOURS (05/29/17) Sepsis Event Note (H) - Evaluation Current Stage of Sepsis: Ruled out ABX Reporting Has patient been on IV antibiotics over the past 48 hours?: Yes Current Medications - Current Medications Current Medications: Active Medications Acetaminophen (Tylenol) 650 mg PO Q4HR PRN PRN Reason: Pain 1 to 4 Albuterol () 2.5 mg INH RTQ4H PRN PRN Reason: Wheezing Albuterol/Ipratropium (Duoneb) 3 ml INH Q4HR PRN PRN Reason: Wheezing Last Admin: 03/15/19 07:56 Dose: 3 ml Alprazolam (Xanax) 0.25 mg PO TID PRN PRN Reason: Anxiety Budesonide (Pulmicort) 0.5 mg INH RTBID [facility] Last Admin: 03/15/19 07:57 Dose: 0.5 mg Enoxaparin Sodium (Lovenox) 40 mg SUBQ DAILY [facility] Last Admin: 03/15/19 09:22 Dose: 40 mg Formoterol Fumarate (Perforomist) 20 mcg INH RTBID [facility] Last Admin: 03/15/19 07:56 Dose: 20 mcg Guaifenesin (Mucinex) 600 mg PO BID [facility] Last Admin: 03/15/19 10:55 Dose: 600 mg Hydrocortisone (Anusol-Hc) 25 mg LA BID PRN PRN Reason: RECTAL BLEEDING Ampicillin Sodium/Sulbactam (Sodium 3 gm/ Sodium Chloride) 100 mls @ 200 mls/hr IV Q6H [facility] Last Infusion: 03/15/19 09:52 Dose: Infused Nicotine (Nicoderm) 1 patch TOP DAILY [facility] Last Admin: 03/15/19 09:26 Dose: Not Given Non-Formulary Medication (Carbamazepine [Carbamazepine Er]) 200 mg PO 0800,1700 [facility] Non-Formulary Medication (Fluticasone/Umeclidin/Vilanter [Trelegy Ellipta 100-62.5-25]) 1 puffs INH DAILY [facility] Ondansetron HCl (Zofran Inj) 4 mg IVP Q6HR PRN PRN Reason: Nausea / Vomiting Pantoprazole Sodium (Protonix) 40 mg IVP QDAC [facility] Last Admin: 03/15/19 07:01 Dose: 40 mg Phenytoin Sodium (Dilantin) 100 mg PO 0900,1700,2099 [facility] Phenytoin Sodium (Dilantin Infatab) 50 mg PO 2099 [facility] Sodium Chloride (Normal Saline Flush 0.9%) 10 ml IVP PRN PRN PRN Reason: NEEDED PER PROVIDER ORDERS Sodium Chloride (Normal Saline Flush 0.9%) 10 ml IVP 0100,0900,1700 [facility] Last Admin: 03/15/19 07:01 Dose: 10 ml Phenytoin Sodium Extended 100 mg PO 0900,1700,209904/04/18 carBAMazepine [Carbamazepine ER] 200 mg PO 0800,1700 04/04/18 Albuterol Sulfate [Proair Hfa Inhaler] 2 puffs INH QID PRN 04/27/18 Phenytoin 50 mg PO 209904/27/18 ALPRAZolam [Alprazolam] 0.25 mg PO TID PRN 09/28/18 Bisacodyl 5 mg PO BID PRN 09/28/18 Fluticasone/Umeclidin/Vilanter [Trelegy Ellipta 100-62.5-25] 1 puffs INH DAILY 09/28/18 Hydrocortisone Acetate 25 mg LA BID PRN 09/28/18 Ipratropium/Albuterol [Duoneb] 3 ml INH Q4H PRN 09/28/18 Polyethylene Glycol 3350 17 gm PO DAILY PRN 09/28/18 Acetaminophen 500 - 1,000 mg PO Q6H PRN 03/15/19
[2019-03-15] MEDS ORDERED: UMECLIDIN INH SCH (11:15)
[2019-03-15] MEDS ORDERED: [UNRECOGNIZED DRUG - OTHER] INH SCH (11:15)
[2019-03-15] MEDS ORDERED: VILANTER INH SCH (11:15)
[2019-03-15] MEDS ORDERED: FLUTICASONE INH SCH (11:15)
[2019-03-15] MEDS ORDERED: CARBAMAZEPINE 200 MG PO SCH (17:00)
[2019-03-15] MEDS: PHENYTOIN ER 100 MG CAPSULE PO SCH ×2 (17:09→22:04)
--- NOTE | 2019-03-15 18:33 | XRAY Report ---
Reason: sob Procedure Date: 03/15/2019 Accession Number: [id number] / [id number] Procedure: XR - Chest 1 View X-Ray CPT Code: 71969 Final Report FULL RESULT: EXAM: CHEST RADIOGRAPHY EXAM DATE: 03/15/2019 05:02 PM. CLINICAL HISTORY: Sob. COMPARISON: CHEST 1 VIEW 03/14/2019 5:23 PM CHEST W/ 03/14/2019 6:17 PM CHEST 2 VIEW 09/28/2018 2:51 AM. TECHNIQUE: 1 view. FINDINGS: Lungs/Pleura: Hyperinflated lungs with coarse markings consistent with known emphysema. Patchy airspace disease in the lower lobes. Mediastinum: Heart size within normal limits. No pulmonary vascular congestion. Osseous structures: No significant focal osseous lesions. Osteopenia. IMPRESSION: 1. Patchy airspace disease in the bilateral lower lobes. 2. Emphysema. RADIA
[2019-03-15] MEDS ORDERED: PHENYTOIN CHEW 50 MG TABLET PO SCH (21:00)
[2019-03-15] MEDS ORDERED: carBAMazepine ER 200 MG TABLET PO SCH (21:00)
[2019-03-15] MEDS: methylPREDNISolone SUCCINATE 40 MG/ML VIAL IVP SCH (22:23)
[2019-03-15] MEDS: SODIUM CHLORIDE FLUSH 0.9% 10 ML SYRINGE IVP PRN ×2 (22:24→23:05)
[2019-03-16] MEDS: SODIUM CHLORIDE FLUSH 0.9% 10 ML SYRINGE IVP SCH ×2 (01:20→05:21)
[2019-03-16] MEDS: AMPICILLIN/SULBACTAM 3 GM in SODIUM CHLORIDE 0.9% MINIBAG 100 ML IV SCH ×2 (04:04→08:51)
[2019-03-16] MEDS: methylPREDNISolone SUCCINATE 40 MG/ML VIAL IVP SCH ×2 (05:20→05:21)
[2019-03-16] MEDS: SODIUM CHLORIDE FLUSH 0.9% 10 ML SYRINGE IVP PRN (05:21)
[2019-03-16] MEDS: PANTOPRAZOLE 40 MG VIAL IVP SCH (05:30)
[2019-03-16 06:17] LABS: BASOPHILS % (AUTO) 0.3 %; EOSINOPHILS # (AUTO) 0.1 10^3/uL (0.0-0.7); EOSINOPHILS % (AUTO) 0.4 %; HGB - HEMOGLOBIN 11.1 g/dL (14.0-18.0); LYMPHOCYTES # (AUTO) 0.7 10^3/uL (1.5-3.5); LYMPHOCYTES % (AUTO) 5.4 %; MEAN CORPUSCULAR HEMOGLOBIN 30.6 pg (27.0-31.0); MEAN CORPUSCULAR HGB CONC 32.4 g/dL (32.0-36.0); MEAN CORPUSCULAR VOLUME 94.5 fL (80.0-94.0); MEAN PLATELET VOLUME 9.2 fL (7.4-11.4); MONOCYTES % (AUTO) 7.6 %; NEUTROPHILS # (AUTO) 11.6 10^3/uL (1.5-6.6); NEUTROPHILS % (AUTO) 85.5 %; PLT - PLATELET COUNT 347 10^3/uL (130-450); RED BLOOD COUNT 3.63 10^6/uL (4.70-6.10); RED CELL DISTRIBUTION WIDTH 13.2 % (12.0-15.0); WHITE BLOOD COUNT 13.5 x10^3/uL (4.8-10.8)
[2019-03-16 06:21] LABS: CALCIUM 8.5 mg/dL (8.5-10.3); CREATININE 0.7 mg/dL (0.6-1.2)
[2019-03-16] MEDS: BUDESONIDE 0.5 MG/2 ML NEB INH SCH (07:48)
[2019-03-16] MEDS: IPRATROPIUM/ALBUTEROL 3 ML NEB INH PRN (07:48)
[2019-03-16] MEDS: FORMOTEROL FUMARATE NEB 20 MCG/2 ML INH SCH (07:48)
[2019-03-16 08:09] VITALS: BP 108/58
[2019-03-16] MEDS: PHENYTOIN ER 100 MG CAPSULE PO SCH (08:52)
[2019-03-16] MEDS: guaiFENesin 600 MG TABLET PO SCH (08:52)
[2019-03-16] MEDS: NICOTINE 14 MG PATCH TOP SCH (08:53)
[2019-03-16] MEDS: ENOXAPARIN 40 MG/0.4 ML SYRINGE SUBQ SCH (08:56)
--- NOTE | 2019-03-16 13:06 | Discharge Plan ---
"Discharge Plan for SNF / [facility] - Discharge Plan And Transition Orders Problem Reviewed?: Yes Disposition: 03 SNF DC/Xfer Condition: Stable Allergies and Adverse Reactions: Allergies Allergy/AdvReac Type Severity Reaction Status Date / Time Egg Derived AdvReac Intermediate Respiratory Verified 03/14/19 15:59 egg AdvReac Mild Nausea Verified 03/14/19 15:59 lactose AdvReac Mild Cramps Verified 03/14/19 15:59 Health Concerns: Admitted with an aspiration pneumonia, treated and stabilized. Plan of Treatment: Continue antibiotic (Augmentin) til done, resume all your other pre-hospital medications. Care Goals: Return to prior level of function. Assessment: The plan was explained and orders sent to [facility]. - SNF / [facility] Transition Orders [facility] Dis[facility] Diagnosis: (1) Aspiration pneumonia (2) COPD (chronic obstructive pulmonary disease) (3) Seizure disorder (4) DVT, recurrent, lower extremity, chronic with medical non-compliance (5) Anxiety (6) Dysphagia (7) Tobacco abuse Medicare Certification Statement: I certify that [facility] care is medically necessary on a continuing basis for any of the conditions for which she/he is receiving care during hospitalization. Notify PCP of admission and forward orders to primary provider for signature. Weight on admission and: Monthly Other Notification Orders: Call PCP immediately if patient develops dyspnea, chest pain/tightness or edema. House Bowel Program: Yes Additional Bowel Program Orders: If no BM after 2 days, nurse may give M.O.M. 30ml PO PRN and/or ducolax Supp 1 MD and/or CHACHA 250mg P.O., and/or senna 1-2 tabs PO. On day 3 nurse may give repeat above order until residents constipation is resolved. Annual Influenza Vaccine (between Jan 05 and August 04): Yes Two-step PPD per [facility] [phone] or approved exception documents: Yes Oxygen Orders: Yes, as ordered pre-hospitalization Medication Orders: PLEASE REFER TO THE DISCHARGE MEDICATION LIST. Insulin Orders?: No - Medications New Prescriptions: Amox/Clav 500/125 [Augmentin] 1 each PO Q12H #14 tablet - Diet Type: Geriatric Texture: Dysphagia mech Liquids: [place] thick May have monthly special meal: Yes - Therapies | Activity Rehabilitation Potential: Maintain present ADL Functional Activity: Activity as Tolerated Assistance Devices: Wheelchair Follow Up: See your PCP, Dr Mcmullen, in 1-2 weeks for hospital follow-up."
--- NOTE | 2019-03-16 14:22 | DISCHARGE SUMMARY ---
Discharge Summary Admit Date: 03/14/19 Discharge Date: 03/16/19 Discharging Provider: Dr Dorothy Guzman Code Status: Attempt Resuscitation Condition at Discharge: Stable Discharge Disposition: 03 SNF DC/Xfer - DIAGNOSES Admission Diagnoses: (1) Pneumonia (2) COPD (chronic obstructive pulmonary disease) (3) Seizure disorder (4) DVT, recurrent, lower extremity (5) Anxiety (6) Dysphagia (7) Tobacco abuse Discharge Diagnoses with Status of Each Condition: See below - HPI History of Present Illness: From the admission H&P of Dr Brad Ayala: Patient is a 68 y/o male with history of severe COPD, prior DVT's, neurofibromatosis, seizure and anxiety who presented to the ED with complaint of dyspnea and a persistent productive cough. It has been ongoing for about 1 month but worsened today. He is well known to the hospital and to the Hospitalist service. He uses an oxymizer on 3L oxygen at home. He still smokes about six cigarettes daily. In the ED his oxygenation dropped to the low 80's when he attempted to ambulate, even while on oxygen. He is supposed to be on Xarelto but stopped taking it because he is tired of getting bruises. Work up in the ED included a CTA of the chest. Though negative for a PE, it suggested aspiration pneumonia. He has had this as a problem in the past due to dysphagia, which may be worsening or persists. He had a WBC of 16K on his CBC. He was tachypneic and mildly tachycardic at presentation. As a result of his clinical presentation, radiologic and lab findings, he was presented for admis treasure. - HOSPITAL COURSE Hospital Course: (1) Aspiration pneumonia He was started on empiric iv Unasyn. He made no sputum to send for culture. He felt better in several days and was discharged with a prescription for Amox/Clav 500/125 [Augmentin] to take b.i.d. for 7 more days. (2) COPD (chronic obstructive pulmonary disease) He was on nebs and supplemental oxygen. There was no COPD exacerbation, no ster oids were needed. (3) Seizure disorder He was kept on his usual anti-seizure medications while here. (4) DVT, recurrent, lower extremity, chronic with medical non-compliance He had stopped his Xarelto on his own, before this admission, due to excessive bruising, he said. (5) Anxiety He was kept on his pre-hospital medications. (6) Dysphagia His diet was a mechanically-altered dysphagia diet with nectar-thick liquids. (7) Tobacco abuse Nicotine patch was offered. He stated he would resume cigarette smoking after discharge. - ALLERGIES Allergies/Adverse Reactions: Allergies Allergy/AdvReac Type Severity Reaction Status Date / Time Egg Derived AdvReac Intermediate Respiratory Verified 03/14/19 15:59 egg AdvReac Mild Nausea Verified 03/14/19 15:59 lactose AdvReac Mild Cramps Verified 03/14/19 15:59 - MEDICATIONS Home Medications: Ambulatory Orders Medication Instructions Recorded Confirmed RX: Phenytoin Sodium Extended 100 mg PO 0900,1700,209904/04/18 03/15/19 RX: carBAMazepine [Carbamazepine 200 mg PO 0800,1700 04/04/18 03/15/19 ER] RX: Albuterol Sulfate [Proair Hfa 2 puffs INH QID PRN 04/27/18 03/15/19 Inhaler] RX: Phenytoin 50 mg PO 209904/27/18 03/15/19 RX: ALPRAZolam [Alprazolam] 0.25 mg PO TID PRN 09/28/18 03/15/19 RX: Bisacodyl 5 mg PO BID PRN 09/28/18 03/15/19 RX: Fluticasone/Umeclidin/Vilanter 1 puffs INH DAILY 09/28/18 03/15/19 [Trelegy Ellipta 100-62.5-25] RX: Hydrocortisone Acetate 25 mg [place] BID PRN 09/28/18 03/15/19 RX: Ipratropium/Albuterol [Duoneb] 3 ml INH Q4H PRN 09/28/18 03/15/19 RX: Polyethylene Glycol 3350 17 gm PO DAILY PRN 09/28/18 03/15/19 RX: Acetaminophen 500 - 1,000 mg PO Q6H PRN 03/15/19 03/15/19 Amox/Clav 500/125 [Augmentin] 1 each PO Q12H #14 tablet 03/16/19 - PHYSICAL EXAM AT DISCHARGE General Appearance: positive: No acute distress, Other (Sleeping quietly, in no distress) Eyes Bilateral: positive: Normal inspection ENT: positive: ENT inspection nml, Other (Multiple fibromatoses of skin of head and neck. Wearing O2 per n.c.) Neck: positive: Nml inspection Respiratory: positive: No respiratory distress, Breath sounds nml Cardiovascular: positive: Regular rate & rhythm, No murmur Abdomen: positive: No distention Skin: positive: Warm, Dry Extremities: positive: No pedal edema Neurologic/Psychiatric: positive: Other (Non-focal) - LABS Result Diagrams: 03/16/19 05:50 03/16/19 05:50 - DIAGNOSTIC IMAGING Diagnostic Imaging Results: Final report reviewed - SEPSIS Current Stage of Sepsis: Ruled out - FOLLOW UP Follow Up: See PCP in 1-2 weeks in hospital follow-up. - TIME SPENT Time Spent in Discharge (Minutes): 30
== END 2019-03-16 14:39 | DRG 178 ==
LOC: EDUNIT# → ED 15:46 → MS2 21:32
PROVIDERS: ADMIT Internal Medicine; ATTEND Nurse Practitioner Gerontology
DX: J69.0 Pneumonitis due to inhalation of food and vomit (principal); R64 Cachexia; Z68.1 Body mass index [BMI] 19.9 or less, adult; J44.9 Chronic obstructive pulmonary disease, unspecified; I82.509 Chronic embolism and thrombosis of unspecified deep veins of unspecified lower extremity; J43.9 Emphysema, unspecified; R53.1 Weakness; I25.10 Atherosclerotic heart disease of native coronary artery without angina pectoris; F17.200 Nicotine dependence, unspecified, uncomplicated; G40.909 Epilepsy, unspecified, not intractable, without status epilepticus; M19.90 Unspecified osteoarthritis, unspecified site; F41.9 Anxiety disorder, unspecified; R13.10 Dysphagia, unspecified; Z86.718 Personal history of other venous thrombosis and embolism; F17.210 Nicotine dependence, cigarettes, uncomplicated; Q85.00 Neurofibromatosis, unspecified; F10.11 Alcohol abuse, in remission; T45.516A Underdosing of anticoagulants, initial encounter; Y92.099 Unspecified place in other non-institutional residence as the place of occurrence of the external cause; Z99.81 Dependence on supplemental oxygen; Z79.51 Long term (current) use of inhaled steroids; Z79.899 Other long term (current) drug therapy; Z86.711 Personal history of pulmonary embolism
CPT/HCPCS: 36415; 71045; 71275; 80048; 80053; 80156; 80185; 82803; 83605; 83690; 85025; 85610; 94640; 96365; 99284; 99285; A9270; J1650; J7120; J7626; Q9967

== ENCOUNTER 2019-08-31 19:46 | Outpatient (CLI) | payer MEDICARE | END 2019-08-31 19:47 | disposition critical access hospital (66) | LOC: EMS 19:46 | PROVIDERS: ATTEND Surgery | DX: R13.10 Dysphagia, unspecified (principal) | CPT/HCPCS: A0425; A0429 ==

== ENCOUNTER 2019-08-31 20:01 | Emergency (ER) | payer MEDICARE ==
[2019-08-31] MEDS: LIDOCAINE VISCOUS 2% 15 ML UDC MM STA (20:34)
--- NOTE | 2019-08-31 20:39 | ED Physician Documentation ---
History of Present Illness - Stated complaint Stated Complaint: DIFFICULTY SWALLOWING - Chief complaint Chief Complaint: General - History obtained from History obtained from: Patient, EMS - History of Present Illness Timing: Chronic Pain level max: 0 Pain level now: 0 - Additonal information Additional information: 68-year-old male states that he has had difficulty swallowing for a long time and that he often feels his pills get stuck in his throat. He states he took a Colace yesterday and feels like it became stuck in his throat. He states he is having more difficulty swallowing than usual. He is able to has more trouble with pills. Nothing makes this better or worse. No vomiting. No abdominal pa in. No fevers. No difficulty breathing. Review of Systems Constitutional: denies: Fever, Chills GI: denies: Vomiting, Diarrhea : denies: Dysuria Skin: denies: Rash Musculoskeletal: denies: Neck pain, Back pain Neurologic: denies: Headache PD PAST MEDICAL HISTORY - Past Medical History Cardiovascular: Coronary artery disease Respiratory: COPD Neuro: Seizure disorder Endocrine/Autoimmune: None GI: Hemorrhoids : None HEENT: None Psych: None Musculoskeletal: Osteoarthritis, Other Derm: Other - Past Surgical History Past Surgical History: Yes General: Cholecystectomy, Other Ortho: Other HEENT: Tonsil/Adenoidectomy Derm: Debridement - Present Medications Home Medications: Ambulatory Orders Medication Instructions Recorded Confirmed Phenytoin Sodium Extended 100 mg PO 0900,1700,209904/04/18 03/15/19 carBAMazepine [Carbamazepine ER] 200 mg PO 0800,1700 04/04/18 03/15/19 Albuterol Sulfate [Proair Hfa 2 puffs INH QID PRN 04/27/18 03/15/19 Inhaler] Phenytoin 50 mg PO 209904/27/18 03/15/19 ALPRAZolam [Alprazolam] 0.25 mg PO TID PRN 09/28/18 03/15/19 Fluticasone/Umeclidin/Vilanter 1 puffs INH DAILY 09/28/18 03/15/19 [Trelegy Ellipta 100-62.5-25] Hydrocortisone Acetate 25 mg [place] BID PRN 09/28/18 03/15/19 Ipratropium/Albuterol [Duoneb] 3 ml INH Q4H PRN 09/28/18 03/15/19 bisacodyL [Bisacodyl] 5 mg PO BID PRN 09/28/18 03/15/19 polyethylene glycoL 3350 17 gm PO DAILY PRN 09/28/18 03/15/19 [Polyethylene Glycol 3350] Acetaminophen 500 - 1,000 mg PO Q6H PRN 03/15/19 03/15/19 Fluticasone/Umeclidin/Vilanter 1 each IH 08/31/19 [Trelegy Ellipta 100-62.5-25] - Allergies Allergies/Adverse Reactions: Allergies Allergy/AdvReac Type Severity Reaction Status Date / Time Egg Derived AdvReac Intermediate Respiratory Verified 08/31/19 20:07 egg AdvReac Mild Nausea Verified 08/31/19 20:07 lactose AdvReac Mild Cramps Verified 08/31/19 20:07 - Social History Does the pt smoke?: Yes Smoking Status: Current every day smoker Does the pt drink ETOH?: No Does the pt have substance abuse?: No - Immunizations Immunizations are current?: Yes - POLST Patient has POLST: No POLST Status: Full Code (He is limited interventions, and he does want CPR. However he does not want to be intubated. This is on a POLST form from when he was with [facility] for short time in 2016.) PD ED PE NORMAL - Vitals Vital signs reviewed: Yes - General General: Alert and oriented X 3, No acute distress - HEENT HEENT: Moist mucous membranes, Pharynx benign - Neck Neck: Supple, no meningeal sign - Cardiac Cardiac: RRR - Respiratory Respiratory: No respiratory distress, Clear bilaterally - Derm Derm: Warm and dry - Neuro Neuro: Alert and oriented X 3 - Psych Psych: Normal mood, Normal affect Results - Vitals Vitals: Vital Signs - 24 hr 08/31/19 08/31/19 08/31/19 20:04 20:15 20:35 Temperature 36.6 C Heart Rate 86 83 Respiratory 18 18 Rate Blood Pressure 125/71 113/70 O2 Saturation 98 99 100 Oxygen O2 Source [With Activity] Nasal cannula O2 Source Nasal cannula PD MEDICAL DECISION MAKING - ED course Complexity details: re-evaluated patient, considered differential, d/w patient ED course: Patient is tolerating p.o. without difficulty here. No evidence of obstruction. He is able to drink water. He is able to drink viscous lidocaine. He is able to eat. We will have him follow-up with his doctor for an EGD. Patient counseled regarding signs and symptoms for which I believe and urgent re- evaluation would be necessary. Patient with good understanding of and agreement to plan and is comfortable going home at this time This document was made in part using voice recognition software. While efforts are made to proofread this document, sound alike and grammatical errors may occur. Departure - Departure Disposition: 01 Home, Self Care Clinical Impression: Esophageal foreign body Qualifiers: Encounter type: initial encounter Qualified Code(s): T18.108A - Unspecified foreign body in esophagus causing other injury, initial encounter Condition: Good Instructions: ED Foreign Body Esophageal Rslv Follow-Up: Jean Carlos Mcmullen DO [Primary Care Provider] - Within 1 week Comments: You need to follow-up with your doctor to have an EGD scheduled. Return if you worsen.
[2019-08-31] MEDS: CHERRY SYRUP 10 ML UDC PO ONE (21:30)
[2019-08-31] MEDS: DEXAMETHASONE 10 MG/ML VIAL PO STA (21:30)
[2019-08-31 21:50] VITALS: BP 113/73
== END 2019-08-31 22:36 | disposition home or self-care (01) ==
LOC: EDUNIT# → ED 20:01
DX: T18.108A Unspecified foreign body in esophagus causing other injury, initial encounter (principal); X58.XXXA Exposure to other specified factors, initial encounter
CPT/HCPCS: 99283; 99284

== ENCOUNTER 2020-07-30 03:54 | Outpatient (CLI) | payer MEDICARE | END 2020-07-30 03:55 | disposition critical access hospital (66) | LOC: EMS 03:54 | PROVIDERS: ATTEND Emergency Medicine | DX: L02.426 Furuncle of left lower limb (principal) | CPT/HCPCS: A0425; A0429 ==

== ENCOUNTER 2020-07-30 04:10 | Emergency (ER) | payer MEDICARE ==
[2020-07-30] MEDS ORDERED: BUFFERED LIDOCAINE 10 ML SYRINGE SUBQ STA (04:18)
--- NOTE | 2020-07-30 05:12 | ED Physician Documentation ---
PD HPI SKIN - Stated complaint Stated Complaint: BOIL - Chief complaint Chief Complaint: Wound - History obtained from History obtained from: Patient - History of Present Illness Timing - onset: How many weeks ago (1) Timing - duration: Weeks (1) Timing - details: Gradual onset, Still present Location: RLE Quality / character: Painful, Discolored, Raised, Swelling, Draining Associated symptoms: Dyspnea (similar to always). 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 He does have an appointment to see his primary in 1 week for this. He is having a fair amount of pain and redness associated with this. He has not had abscess previously. He does have cysts from his neurofibromatosis and has had some of these removed. Review of Systems Constitutional: denies: Fever Eyes: denies: Decreased vision Ears: denies: Ear pain Nose: denies: Congestion Throat: denies: Sore throat Respiratory: denies: Cough GI: denies: Nausea, Vomiting PD PAST MEDICAL HISTORY - Past Medical History Cardiovascular: Coronary artery disease Respiratory: COPD Neuro: Seizure disorder Endocrine/Autoimmune: None GI: Hemorrhoids : None HEENT: None Psych: Anxiety Musculoskeletal: Osteoarthritis, Other Derm: Other - Past Surgical History Past Surgical History: Yes General: Cholecystectomy, Other Ortho: Other HEENT: Tonsil/Adenoidectomy Derm: Debridement - Present Medications Home Medications: Ambulatory Orders Medication Instructions Recorded Confirmed Phenytoin Sodium Extended 100 mg PO 0900,1700,2100 04/04/18 03/15/19 carBAMazepine [Carbamazepine ER] 200 mg PO 0800,1700 04/04/18 03/15/19 Albuterol Sulfate [Proair Hfa 2 puffs INH QID PRN 04/27/18 03/15/19 Inhaler] Phenytoin 50 mg PO 2100 04/27/18 03/15/19 ALPRAZolam [Alprazolam] 0.25 mg PO TID PRN 09/28/18 03/15/19 Fluticasone/Umeclidin/Vilanter 1 puffs INH DAILY 09/28/18 03/15/19 [Trelegy Ellipta 100-62.5-25] Hydrocortisone Acetate 25 mg KY BID PRN 09/28/18 03/15/19 Ipratropium/Albuterol [Duoneb] 3 ml INH Q4H PRN 09/28/18 03/15/19 bisacodyL [Bisacodyl] 5 mg PO BID PRN 09/28/18 03/15/19 polyethylene glycoL 3350 17 gm PO DAILY PRN 09/28/18 03/15/19 [Polyethylene Glycol 3350] Acetaminophen 500 - 1,000 mg PO Q6H PRN 03/15/19 03/15/19 Fluticasone/Umeclidin/Vilanter 1 each IH 08/31/19 [Trelegy Ellipta 100-62.5-25] Sulfamethox/Trimeth 800/160 1 each PO BID #14 tablet 07/30/20 [Bactrim Ds] - Allergies Allergies/Adverse Reactions: Allergies Allergy/AdvReac Type Severity Reaction Status Date / Time Egg Derived AdvReac Intermediate Respiratory Verified 07/30/20 04:14 egg AdvReac Mild Nausea Verified 07/30/20 04:14 lactose AdvReac Mild Cramps Verified 07/30/20 04:14 - Social History Does the pt smoke?: Yes Smoking Status: Current every day smoker Does the pt drink ETOH?: No Does the pt have substance abuse?: No - Immunizations Immunizations are current?: Yes - POLST Patient has POLST: No POLST Status: Full Code (He is limited interventions, and he does want CPR. However he does not want to be intubated. This is on a POLST form from when he was with hospice of [facility] for short time in 2016.) PD ED PE NORMAL - Vitals Vital signs reviewed: Yes (Normal) - General General: Alert and oriented X 3, No acute distress, Well developed/nourished, Other (6-year-old male covered in neurofibromas has a broad smile on his face, whitty jokes and he voices concern about the pain and swelling in his leg.) - HEENT HEENT: Atraumatic, PERRL, EOMI - Neck Neck: Supple, no meningeal sign, No bony TTP - Cardiac Cardiac: RRR, No murmur - Respiratory Respiratory: No respiratory distress, Other (audible wheeze without struggle lung exam with diminished breath sounds. ) - Abdomen Abdomen: Soft, Non tender - Back Back: No CVA TTP, No spinal TTP - Derm Derm: Normal color, Warm and dry - Extremities Extremities: Other (There are multiple neurofibromas over the extremities and on the posterior aspect of the right thigh there is a 7 cm round area of erythema with central necrosis and fluctuance. Appearance consistent with a large abscess. The area is tender and there is no active drainage.) - Neuro Neuro: Alert and oriented X 3, cloth finishing range tender 2-12 intact, No motor deficit, No sensory deficit, Normal speech Eye Opening: Spontaneous Motor: Obeys Commands Verbal: Oriented GCS Score: 15 - Psych Psych: Normal mood, Normal affect Results - Vitals Vitals: Vital Signs - 24 hr 07/30/20 07/30/20 07/30/20 04:14 06:02 07:10 Temperature 37.1 C 37 C 36.6 C Heart Rate 98 85 86 Respiratory 20 20 19 Rate Blood Pressure 122/71 92/62 121/69 O2 Saturation 97 98 98 Oxygen O2 Source [] Nasal cannula O2 Source Nasal cannula - Labs Labs: Microbiology 07/30/20 05:21 Wound Culture - Preliminary Abscess - Rads (name of study) chest Radiology: Prelim report reviewed (1. multi lobar groundglass opacity. Diffe rential considerations include multi lobar pneumonia, pulmonary edema. 2. Chronic changes of COPD with new 1.4 cm nodule in the right upper lung. This may be further evaluated with a dedicated CT of the chest. 3. Right hilar lymphadenopathy. ), Final report received ( Dilated tubular mediastinal structure likely represents air within a distended esophagus but is nonspecific.), EMP read indepedently, See rad report Procedures - Abscess I&D (location) righ thigh Preparation: Betadine, Chlorhexadine, Lidocaine 1% Incision: Incised with scalpel, Purulent drainage, Loculations broken, Irrigated, Packed, Culture obtained Other: Pt tolerated well, Dressing applied, Antibiotic prescribed PD MEDICAL DECISION MAKING - ED course Complexity details: reviewed old records, reviewed results, re-evaluated patient, considered differential, d/w patient ED course: 69-year-old male with neurofibromatosis has a large abscess on his posterior right thigh this is incised and drained with a copious amount of thick pus draining. The abscess cavity was irrigated multiple times and the pus was further extruded. Loculations were broken further saline is administered pus is expressed and eventually a piece of quarter inch packing is placed approximately 12 cm. There is some immediate decrease in the erythema surrounding the abscess. The patient asks for a chest x-ray be done to be done stating that he has had some decrease in his oxygen saturation and he was getting ready to call his doctor about getting an x-ray of his chest done. The findings on the CXR are concerning for a new nodule in the RUL with mediastinal adenopathy and for atypical pneumonia. The appearance of the CXR is improved from prior in 2019. We are placing him on septra for the abcess and he has foll ow up with his primary in 6 days. Departure - Departure Disposition: 01 Home, Self Care Clinical Impression: Abscess Condition: Stable Instructions: ED Abscess IandD Follow-Up: Jean Carlos Mcmullen DO [Primary Care Provider] - Prescriptions: Sulfamethox/Trimeth 800/160 [Bactrim Ds] 1 each PO BID #14 tablet Comments: The chest x-ray we have done is concerning for pneumonia and in addition there is a nodule in the right upper lung. The appearance of the pneumonia is subtle in comparison to your prior chest x-rays. We have started you on antibiotic. A follow-up with your primary care doctor is required for further testing.
[2020-07-30 08:43] VITALS: BP 107/57
--- NOTE | 2020-07-30 08:49 | XRAY Report ---
PROCEDURE: Chest 1 View X-Ray INDICATIONS: Shortness of breath. TECHNIQUE: One view of the chest was acquired. COMPARISON: Prior chest plain films 03/15/2019 and 03/14/2019 . FINDINGS: Surgical changes and devices: None. Lungs and pleura: No pleural effusions or pneumothorax. Lungs are abnormal with hyperexpansion, emp hysematous change, and generalized interstitial prominence that is most pronounced at the left midlun g laterally and to a greater degree the right mid lung laterally. Mediastinum: Mediastinal contours appear normal. Heart size is normal. Bones and chest wall: No suspicious bony lesions. Overlying soft tissues appear unremarkable. IMPRESSION: 1. Severe COPD. This is associated with asymmetric midlung opacification best seen laterally, right g reater than left. 2. Suspect pulmonary fibrotic change, and a definite focal pneumonia is not seen but cannot be entire ly excluded. 3. The quality of visualization of the lung parenchyma is quite limited, and given severity of emphy sematous change and presumed long-standing smoking history the asymmetric right greater than left mid lung radiodensity could obscure visualization of the lung mass. Screening CT scanning without contra st likely is warranted to ensure that this does not obscure visualization of the lung mass. Reviewed by: Yahir Nuñez MD on 07/30/2020 8:48 AM PDT Approved by: Yahir Nuñez MD on 07/30/2020 8:48 AM PDT Station ID: [id number]
== END 2020-07-30 09:26 | disposition home or self-care (01) ==
LOC: EDBD → EDUNIT# → ED 04:10
DX: L02.415 Cutaneous abscess of right lower limb (principal); J18.9 Pneumonia, unspecified organism; J43.9 Emphysema, unspecified; R91.1 Solitary pulmonary nodule; R59.0 Localized enlarged lymph nodes; Z99.81 Dependence on supplemental oxygen; F17.200 Nicotine dependence, unspecified, uncomplicated; Q85.00 Neurofibromatosis, unspecified
CPT/HCPCS: 10060; 87070; 87181; 87205

== ENCOUNTER 2021-02-21 10:33 | Outpatient (CLI) | payer MEDICARE, MEDICAID ==
[2021-02-21] MEDS ORDERED: IOVERSOL 320 50 ML VIAL ONE (10:42)
[2021-02-21] MEDS ORDERED: IOVERSOL 320 100 ML VIAL IVP ONE ×2 (10:42→13:11)
[2021-02-21] MEDS ORDERED: IOVERSOL 320 50 ML VIAL PO ONE (13:12)
--- NOTE | 2021-02-21 16:49 | CT Report ---
PROCEDURE: CHEST W INDICATIONS: ESOPHAGEAL OBSTRUCTION CONTRAST: IV CONTRAST: Optiray 320 ml: 100 PO CONTRAST: Optiray 320 ml50 TECHNIQUE: After the administration of intravenous contrast, 1 mm axial images were acquired from the pulmonary apices through the posterior costophrenic angles. Axial 5 mm soft tissue kernel reconstructions were performed as well as 8 mm axial MIP and coronal and sagittal 5 mm reformations. For radiation dose reduction, the following was used: automated exposure control, adjustment of mA and/or kV according to patient size. COMPARISON: 03/14/2019 FINDINGS: Image quality: Excellent. Lungs and pleura: Severe emphysematous changes. Interstitial thickening at the right lung apex, poten tially due to multiple small airways obstruction. Spiculated nodule posterolaterally in the right upp er lobe measuring by 1.2 cm. Spiculated nodule in the right middle lobe during 1.6 cm. Spiculated pos terior lateral right lower lobe nodule at a midlung level measuring about 1.3 cm. Spiculated left upp er lobe nodule measuring 0.8 cm at a midlung level. Multifocal patchy opacity posterior laterally at the left costophrenic sulcus. There is dense bronchial wall thickening diffusely bilaterally. No pleural effusions. No pneumothorax. Thickening of the fissures. Dependent mucus in the right and l eft main bronchi. Mediastinum: Heart size is normal. No pericardial effusion. No mediastinal or hilar adenopathy by size criteria. Thoracic aorta and central pulmonary arteries are normal in size. Esophagus is jazlyn l in caliber. No hiatal hernia. Bones and chest wall: No suspicious bony lesions. There is a moderately severe compression fracture of L1. No axillary or supraclavicular adenopathy by size criteria. The thyroid gland is diminutive a nd slightly heterogeneous. No dominant nodule.. Abdomen: Please see separately dictated report. IMPRESSION: 1. Severe emphysema. 2. Dependent mucus and dense bronchial wall thickening suggesting chronic bronchitis and mucous plugg ing. 3. Multiple spiculated nodules bilaterally in addition to multinodular alveolar opacity in the left l ower lobe. These may be infectious, aspiration/inflammatory, or evidence of metastatic disease. 4. L1 compression fracture without central canal compromise. Reviewed by: Argentina Calderon MD on 02/21/2021 4:47 PM PDT Approved by: Argentina Calderon MD on 02/21/2021 4:47 PM PDT Station ID: [id number]
--- NOTE | 2021-02-21 17:00 | CT Report ---
PROCEDURE: Abdomen/Pelvis W INDICATIONS: ESOPHAGEAL OBSTRUCTION CONTRAST: IV CONTRAST: Optiray 320 ml: 100 PO CONTRAST: Optiray 320 ml50 TECHNIQUE: After the administration of IV and trace amount of oral contrast, 5 mm thick sections acquired from t he diaphragms to the symphysis. 5 mm thick coronal and sagittal reformats were acquired. For radiat ion dose reduction, the following was used: automated exposure control, adjustment of mA and/or kV a ccording to patient size. COMPARISON: None. FINDINGS: Image quality: Excellent. ABDOMEN: Lung bases: Please see separately dictated report. Solid organs: Liver and spleen are normal in size and enhancement. Gallbladder is surgically absent Biliary system is non dilated. Pancreas enhances normally. No adrenal nodules. Kidneys demonstra te normal size and enhancement, without hydronephrosis. Peritoneum and bowel: Bowel loops demonstrate normal wall thickness and caliber. No free fluid or a ir. Nodes and vessels: No retroperitoneal or mesenteric adenopathy by size criteria. Aorta and inferior vena cava are normal in size. Miscellaneous: No ventral hernias. Innumerable skin tags present along the anterior abdominal wall surface. PELVIS: Genitourinary: Urinary bladder is decompressed. Normal size prostate gland. Miscellaneous: No inguinal hernias or adenopathy. Bones: L1 vertebral body fracture without retropulsion of fracture fragments.. Healed, impacted subca pital right femoral neck fracture with foreshortening of femoral neck. IMPRESSION: 1. No acute process. 2. Postcholecystectomy. 3. Chronic appearing L1 vertebral body fracture and remote right femoral neck fracture. 4. Numerous cutaneous skin tags. Reviewed by: Argentina Calderon MD on 02/21/2021 4:59 PM PDT Approved by: Argentina Calderon MD on 02/21/2021 4:59 PM PDT Station ID: [id number]
== END 2021-02-21 10:34 | disposition home or self-care (01) ==
LOC: DI 10:33
PROVIDERS: ATTEND Family Medicine
DX: J43.9 Emphysema, unspecified (principal); R91.8 Other nonspecific abnormal finding of lung field; M48.56XA Collapsed vertebra, not elsewhere classified, lumbar region, initial encounter for fracture; Z90.49 Acquired absence of other specified parts of digestive tract; L91.8 Other hypertrophic disorders of the skin
CPT/HCPCS: 71260; 74177; Q9967

== ENCOUNTER 2021-09-29 05:38 | Outpatient (CLI) | payer MEDICARE, MEDICAID | END 2021-09-29 05:39 | disposition critical access hospital (66) | LOC: EMS 05:38 | DX: R06.00 Dyspnea, unspecified (principal); J44.9 Chronic obstructive pulmonary disease, unspecified; F17.210 Nicotine dependence, cigarettes, uncomplicated | CPT/HCPCS: A0425; A0427 ==

== ENCOUNTER 2021-09-29 05:55 | Inpatient (IN) | payer MEDICARE, MEDICAID ==
[2021-09-29] MEDS ORDERED: IPRATROPIUM/ALBUTEROL 3 ML NEB INH STA (06:04)
[2021-09-29] MEDS ORDERED: SODIUM CHLORIDE 0.9% 1,000 ML IV STA (06:04)
[2021-09-29] MEDS ORDERED: DEXAMETHASONE 10 MG/ML VIAL IV STA (06:04)
[2021-09-29] MEDS ORDERED: ALBUTEROL NEB 2.5 MG/3 ML INH STA (06:11)
[2021-09-29 06:14] LABS: BASOPHILS % (AUTO) 0.3 %; EOSINOPHILS % (AUTO) 0.1 %; HGB - HEMOGLOBIN 13.3 g/dL (14.0-18.0); LYMPHOCYTES % (AUTO) 2.8 %; MEAN CORPUSCULAR HEMOGLOBIN 30.4 pg (27.0-31.0); MEAN CORPUSCULAR HGB CONC 31.7 g/dL (32.0-36.0); MEAN CORPUSCULAR VOLUME 96.1 fL (80.0-94.0); MEAN PLATELET VOLUME 8.8 fL (7.4-11.4); MONOCYTES % (AUTO) 7.5 %; NEUTROPHILS % (AUTO) 88.3 %; PLT - PLATELET COUNT 394 10^3/uL (130-450); RED BLOOD COUNT 4.37 10^6/uL (4.70-6.10); RED CELL DISTRIBUTION WIDTH 13.6 % (12.0-15.0)
[2021-09-29 06:25] LABS: ABNORMAL LYMPHS % (MANUAL) 0 %
[2021-09-29 06:29] LABS: ALBUMIN 3.9 g/dL (3.2-5.5); ALBUMIN/GLOBULIN RATIO 0.9 (1.0-2.2); BILIRUBIN,TOTAL 0.6 mg/dL (0.2-1.0); CALCIUM 9.4 mg/dL (8.5-10.3); CREATININE 0.7 mg/dL (0.6-1.2); POTASSIUM 4.4 mmol/L (3.5-5.0); TOTAL PROTEIN 8.1 g/dL (6.7-8.2)
[2021-09-29 06:31] LABS: BAND NEUTROPHILS % (MANUAL) 8 %; DIFFERENTIAL COMMENT MANUAL DIFFERENTIAL; LYMPHOCYTES # (MANUAL) 2.5 10^3/uL (1.5-3.5); LYMPHOCYTES % (MANUAL) 7 %; MONOCYTES # (MANUAL) 2.2 10^3/uL (0.0-1.0); NEUTROPHILS # (MANUAL) 31.3 10^3/uL (1.5-6.6); PLATELET ESTIMATE, MANUAL NORMAL (130-450,000) (NORMAL); PLATELET MORPHOLOGY NORMAL APPEARANCE (NORMAL); RBC MORPHOLOGY (MULTIPLE) NORMAL APPEARANCE (NORMAL); WBC MORPHOLOGY (MULTIPLE) NORMAL APPEARANCE (NORMAL)
--- NOTE | 2021-09-29 06:36 | ED Physician Documentation ---
History of Present Illness - Stated complaint Stated Complaint: SOA - Chief complaint Chief Complaint: Resp - History obtained from History obtained from: Patient, EMS - Additonal information Additional information: The patient comes to the emergency department via EMS for chief complaint of shortness of breath. He has a longstanding history of severe COPD for which he uses 3 L of oxygen per Oxymizer at home. The patient resides at home place, and staff reported to EMS that the patient seems to been having more trouble breathing over the last couple of days but it got especially bad overnight. The patient smoked a cigarette at 2:00 this morning and then began complaining of severe shortness of breath. Medics state they gave him a DuoNeb in route, and this seemed to help only minimally. Patient has no cardiac history that he knows of. He has not had any edema in his lower extremities. No recent new cough or fever. Review of Systems Ten Systems: 10 systems reviewed and negative Constitutional: reports: Reviewed and negative Eyes: reports: Reviewed and negative Ears: reports: Reviewed and negative Nose: reports: Reviewed and negative Throat: reports: Reviewed and negative Cardiac: reports: Reviewed and negative Respiratory: reports: Dyspnea, Wheezing GI: reports: Reviewed and negative : reports: Reviewed and negative Skin: reports: Reviewed and negative Musculoskeletal: reports: Reviewed and negative Neurologic: reports: Reviewed and negative Psychiatric: reports: Reviewed and negative Endocrine: reports: Reviewed and negative Immunocompromised: reports: Reviewed and negative PD PAST MEDICAL HISTORY - Past Medical History Cardiovascular: Coronary artery disease Respiratory: COPD Neuro: Seizure disorder Endocrine/Autoimmune: None GI: Hemorrhoids : None HEENT: None Psych: Anxiety Musculoskeletal: Osteoarthritis, Other Derm: Other - Past Surgical History Past Surgical History: Yes General: Cholecystectomy, Other Ortho: Other HEENT: Tonsil/Adenoidectomy Derm: Debridement - Present Medications Home Medications: Ambulatory Orders Medication Instructions Recorded Confirmed Fluticasone/Umeclidin/Vilanter 1 puffs INH DAILY 10/01/21 10/01/21 [Trelegy Ellipta 200-62.5-25] Phenytoin [Dilantin-125] 62.5 mg PO TID 10/01/21 10/01/21 carBAMazepine [Carbamazepine] 200 mg PO BID 10/01/21 10/01/21 - Allergies Allergies/Adverse Reactions: Allergies Allergy/AdvReac Type Severity Reaction Status Date / Time Egg Derived AdvReac Intermediate Respiratory Verified 09/29/21 06:09 egg AdvReac Mild Nausea Verified 09/29/21 06:09 lactose AdvReac Mild Cramps Verified 09/29/21 06:09 - Social History Does the pt smoke?: Yes Smoking Status: Current every day smoker Does the pt drink ETOH?: No Does the pt have substance abuse?: No - Immunizations Immunizations are current?: Yes - POLST Patient has POLST: No POLST Status: Full Code (He is limited interventions, and he does want CPR. However he does not want to be intubated. This is on a POLST form from when he was with [facility] for short time in 2016.) PD ED PE NORMAL - Vitals Vital signs reviewed: Yes - General General: Alert and oriented X 3, Well developed/nourished, Other (Moderate respiratory distress) - HEENT HEENT: Atraumatic, PERRL, EOMI, Moist mucous membranes - Neck Neck: Supple, no meningeal sign - Cardiac Cardiac: No murmur, Strong equal pulses, Other (Tachycardic rate regular rhythm) - Respiratory Respiratory: Other (Decreased air movement bilaterally; moderate respiratory distress. 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, Normal speech - Psych Psych: Normal mood, Normal affect Results - Vitals Vitals: Oxygen O2 Source [With Activity] Nasal cannula O2 Source BIPAP Oxygen Flow Rate 2 - Labs Labs: Laboratory Tests 09/29/21 09/29/21 09/29/21 06:05 06:05 06:05 WBC 36.0 H* RBC 4.37 L Hgb 13.3 L Hct 42.0 MCV 96.1 H MCH 30.4 MCHC 31.7 L RDW 13.6 Plt Count 394 MPV 8.8 Neut # (Auto) Not Reportable Lymph # (Auto) Not Reportable Harlan # (Auto) Not Reportable Eos # (Auto) Not Reportable Baso # (Auto) Not Reportable Absolute Nucleated RBC Not Reportable Total Counted 100 Band Neuts % (Manual) 8 Abnorm Lymph % (Manual) 0 Nucleated RBC % Not Reportable Neutrophils # (Manual) 31.3 H Lymphocytes # (Manual) 2.5 Monocytes # (Manual) 2.2 H Eosinophils # (Manual) 0.0 Basophils # (Manual) 0.0 Differential Comment MANUAL DIFFERENTIAL WBC Morphology NORMAL APPEARANCE Platelet Estimate NORMAL (130-450,000) Platelet Morphology NORMAL APPEARANCE RBC Morph Micro Appear NORMAL APPEARANCE Sodium 142 Potassium 4.4 Chloride 102 Carbon Dioxide 28 Anion Gap 12.0 BUN 16 Creatinine 0.7 Estimated GFR (MDRD) 111 Glucose 170 H Calcium 9.4 Magnesium Total Bilirubin 0.6 AST 27 ALT 28 Alkaline Phosphatase 107 Total Protein 8.1 Albumin 3.9 Globulin 4.2 Albumin/Globulin Ratio 0.9 L Lipase 24 Nasal Adenovirus (PCR) NOT DETECTED Nasal B. parapertussis DNA (PCR) NOT DETECTED Nasal Coronavir 229E PCR NOT DETECTED Nasal Coronavir HKU1 PCR NOT DETECTED Nasal Coronavir NL63 PCR NOT DETECTED Nasal Coronavir OC43 PCR NOT DETECTED Nasal Enterovir/Rhinovir PCR NOT DETECTED Nasal Influenza B PCR NOT DETECTED Nasal Influenza A PCR NOT DETECTED Nasal Parainfluen 1 PCR NOT DETECTED Nasal Parainfluen 2 PCR NOT DETECTED Nasal Parainfluen 3 PCR NOT DETECTED Nasal Parainfluen 4 PCR NOT DETECTED Nasal RSV (PCR) NOT DETECTED Nasal B.pertussis DNA PCR NOT DETECTED Nasal C.pneumoniae (PCR) NOT DETECTED Riley Human Metapneumo PCR NOT DETECTED Nasal M.pneumoniae (PCR) NOT DETECTED Nasal SARS-CoV-2 (PCR) DETECTED A 09/29/21 06:05 WBC RBC Hgb Hct MCV MCH MCHC RDW Plt Count MPV Neut # (Auto) Lymph # (Auto) Harlan # (Auto) Eos # (Auto) Baso # (Auto) Absolute Nucleated RBC Total Counted Band Neuts % (Manual) Abnorm Lymph % (Manual) Nucleated RBC % Neutrophils # (Manual) Lymphocytes # (Manual) Monocytes # (Manual) Eosinophils # (Manual) Basophils # (Manual) Differential Comment WBC Morphology Platelet Estimate Platelet Morphology RBC Morph Micro Appear Sodium Potassium 4.4 Chloride Carbon Dioxide Anion Gap BUN Creatinine Estimated GFR (MDRD) Glucose Calcium Magnesium 1.9 Total Bilirubin AST ALT Alkaline Phosphatase Total Protein Albumin Globulin Albumin/Globulin Ratio Lipase Nasal Adenovirus (PCR) Nasal B. parapertussis DNA (PCR) Nasal Coronavir 229E PCR Nasal Coronavir HKU1 PCR Nasal Coronavir NL63 PCR Nasal Coronavir OC43 PCR Nasal Enterovir/Rhinovir PCR Nasal Influenza B PCR Nasal Influenza A PCR Nasal Parainfluen 1 PCR Nasal Parainfluen 2 PCR Nasal Parainfluen 3 PCR Nasal Parainfluen 4 PCR Nasal RSV (PCR) Nasal B.pertussis DNA PCR Nasal C.pneumoniae (PCR) Riley Human Metapneumo PCR Nasal M.pneumoniae (PCR) Nasal SARS-CoV-2 (PCR) - Rads (name of study) chest XR Radiology: See rad report (Worsening lung markings, worrisome for neoplastic process versus infection) PD MEDICAL DECISION MAKING - ED course Complexity details: reviewed old records, reviewed results, re-evaluated patient, considered differential, d/w patient, d/w technical assistance consultant ED course: The patient was evaluated by myself upon arrival in the emergency department. He was immediately given 20 mg of Decadron IV and 2 albuterol nebulizer treatments here in the emergency department. He had also received a DuoNeb in route. He was placed on BiPAP and after all of the above, did show some signs of improvement. The patient initially was speaking only a word or 2 at a time, but now was speaking in longer phrases with BiPAP on. Chest x-ray showed diffuse markings, and official reading is pending at this time. Respiratory PCR panel is also pending. Laboratory studies were obtained and showed a white blood cell count of 36. Patient was afebrile here and the reason for the elevated white blood count was uncertain. I felt the patient would need to be admitted to the hospital on BiPAP, and I spoke with Dr. Jorgensen regarding this. He did agree to admit the patient to his service. - Critical Care Time(min): 40 Comments: Critical care time was necessary, due to high probability of imminent decline and , secondary to COPD exacerbation and respiratory failure. Time Includes: Direct patient care, Review records, Reassess patient, Document care, Coordinate care, Medical consult, See progress note Data interpretation: Labs, Pulse ox, ABG, CXR, Cardiac output Departure - Departure Disposition: 66 [facility] DC/Xfer Clinical Impression: COPD exacerbation Respiratory failure Qualifiers: Chronicity: acute on chronic Respiratory failure complication: hypoxia and hypercapnia Qualified Code(s): J96.21 - Acute and chronic respiratory failure with hypoxia Condition: Critical Discharge Date/Time: 09/29/21 08:00
[2021-09-29] MEDS ORDERED: HYDROmorphone 0.5 MG/0.5 ML SYRINGE IVP STA (06:37)
[2021-09-29] MEDS ORDERED: ACETAMINOPHEN 325 MG TABLET PO PRN (06:57)
[2021-09-29] MEDS ORDERED: SODIUM CHLORIDE FLUSH 0.9% 10 ML SYRINGE IVP PRN (06:57)
[2021-09-29] MEDS ORDERED: ONDANSETRON 4 MG/2 ML VIAL IVP PRN (06:57)
[2021-09-29] MEDS ORDERED: ONDANSETRON ODT 4 MG TABLET TL PRN (06:57)
[2021-09-29] MEDS ORDERED: ALBUTEROL NEB 2.5 MG/3 ML INH PRN (06:57)
[2021-09-29 07:02] LABS: CORONAVIRUS 229E-RESP PCR NOT DETECTED; CORONAVIRUS HKU1-RESP PCR NOT DETECTED; CORONAVIRUS NL63-RESP PCR NOT DETECTED; CORONAVIRUS OC43-RESP PCR NOT DETECTED
[2021-09-29 07:03] LABS: B. PARAPERTUSSIS- RESP PCR PAN NOT DETECTED; B. PERTUSSIS- RESP PCR PANEL NOT DETECTED; C. PNEUMONIAE- RESP PCR PANEL NOT DETECTED; HUMAN METAPNEUMOVIRUS NOT DETECTED; INFLUENZA A- RESP PCR PANEL NOT DETECTED; INFLUENZA B - RESP PCR PANEL NOT DETECTED; M. PNEUMONIAE- RESP PCR PANEL NOT DETECTED; PARAINFLUENZA VIRUS 1 NOT DETECTED; PARAINFLUENZA VIRUS 2 NOT DETECTED; PARAINFLUENZA VIRUS 3 NOT DETECTED; PARAINFLUENZA VIRUS 4 NOT DETECTED; RHINOVIRUS/ENTEROVIRUS NOT DETECTED; RSV- RESP PCR PANEL NOT DETECTED; SARS-CoV-2 -RESP PCR PANEL DETECTED
[2021-09-29 07:13] LABS: MAGNESIUM 1.9 mg/dL (1.7-2.8); POTASSIUM 4.4 mmol/L (3.5-5.0)
[2021-09-29 07:54] LABS: ABG BASE EXCESS -2.4 mmol/L (-2.0-3.0); ABG HCO3 24.1 mmol/L (22.0-26.0); ABG OXYGEN SATURATION 98 % (94-98); ABG PCO2 48 mmHg (34-45); ABG PH 7.32 (7.35-7.45); ABG PO2 127 mmHg (80-100); ABG TCO2 25.6 MMOL/L (21.0-29.0); ALLEN TEST POSITIVE
--- NOTE | 2021-09-29 08:00 | XRAY Report ---
PROCEDURE: Chest 1 View X-Ray INDICATIONS: chest pain TECHNIQUE: One view of the chest was acquired. COMPARISON: CT chest dated 02/21/2021 and chest radiograph dated 07/30/2020 FINDINGS: Surgical changes and devices: None. Lungs and pleura: No pleural effusions or pneumothorax. There is hyperinflation. Chronic interstitia l lung parenchymal disease is again seen and unchanged. There is interval increased airspace opacitie s in bilateral lung keller. Patient's known right upper lobe and right middle lobe nodules are grossl y unchanged. Focal nodular density is seen in left upper lobe new since previous study. Mediastinum: Mediastinal contours appear normal. Heart size is normal. Bones and chest wall: No suspicious bony lesions. Overlying soft tissues appear unremarkable. IMPRESSION: Interval worsening of bilateral lung aeration concerning for multilobar infiltrates versus neoplastic process. Follow-up until resolution is recommended. Stable changes from COPD No pleural effusion or pneumothorax. No significant discrepancies from preliminary reading. Reviewed by: Raza Beasley MD on 09/29/2021 7:59 AM PDT Approved by: Raza Beasley MD on 09/29/2021 7:59 AM PDT Station ID: [id number]
[2021-09-29] MEDS ORDERED: ALPRAZolam 0.25 MG TABLET PO PRN (08:09)
[2021-09-29] MEDS ORDERED: NON FORMULARY MED (Remdesivir 200 MG) IV SCH (08:15)
[2021-09-29] MEDS ORDERED: IOVERSOL 320 100 ML VIAL IVP ONE ×2 (08:40→14:49)
[2021-09-29] MEDS ORDERED: LORazepam 2 MG/ML VIAL IVP STA (08:56)
--- NOTE | 2021-09-29 08:57 | HISTORY & PHYSICAL EXAMINATION ---
Chief Complaint - Chief Complaint Chief Complaint: Dyspnea History of Present Illness - Admitted From Admitted From:: ED - History Obtained From Records Reviewed: Yes - EMR History obtained from: Patient Exam Limitations: Difficulty communicating with patient due to Bipap mask - History of Present Illness HPI Comment/Other: Mr. Bowen is a 71 year old patient with a history of severe COPD and recent covid infection who presents with acute on chronic shortness of breath. He uses 3 liters of oxygen at home. The patient resides at [facility]; staff states that Mr. Bowen was gradually becoming more short of breath over the past few days and reports that he became even more short of breath after smoking a cigarettes this morning around 0200. The patient states that he was trying to retrieve an object from under the sink this morning and was stuck on his hands and knees for 45 minutes as he was unable to retrieve his call light to obtain help, which he believes was the reason for his admission. He denies chest pain, cough, leg swelling, fever, chills, abdominal pain, stool changes, hematuria, and bloody stools. The patient is currently on Bipap after being transferred from the ED and communication is difficult. The patient is tangential and hard to understand. Mr. Bowen reports smoking 2 unfiltered cigarettes per day. History - Past Medical History Cardiovascular: reports: Coronary artery disease Respiratory: reports: COPD Neuro: reports: Seizure disorder Endocrine/Autoimmune: reports: None GI: reports: Hemorrhoids : reports: None HEENT: reports: None Psych: reports: Anxiety Musculoskeletal: reports: Osteoarthritis, Other Derm: reports: Other MRSA Hx?: Yes - Past Surgical History General: reports: Cholecystectomy, Other Ortho: reports: Other HEENT: reports: Tonsil/Adenoidectomy Derm: reports: Debridement - Family & Social History Family History Comment/Other: Adopted Living arrangement: assisted Social History Notes: The patient lives at [facility].He use to live at [facility] but when the cost became too great he went to [facility], approximately 2013. He was adopted at the age of 9 months. Unfortunately both his parents were severe alcoholics. Mom was very mentally ill with abusive tendencies as well as severe alcohol abuse dad. Dad was more of a functional alcoholic. He did not have any adopted siblings. He says that his parents had no business adopting children. He does not have any family on [facility]. He does not have any children and has never been . 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 He finally had to stop working because his emphysema got so bad. He started smoking at the age of 17 and was up to 2 packs/day. He has tried stopping at various times. Currently smokes about 6 cigarettes a day. He also used to abuse alcohol. He was a binge drinker where he could drink 1/5 of alcohol a day. But he could go weeks without drinking. Stopped 19 years ago. He now only drinks on Nelly. He has no history of recreational substance abuse. - Substance History Use: Uses substance without health or social issues: Tobacco - POLST Patient has POLST: No POLST Status: Full Code (He is limited interventions, and he does want CPR. However he does not want to be intubated. This is on a POLST form from when he was with [facility] for short time in 2016.) Meds/Allgy - Home Medications Home Medications: Ambulatory Orders Medication Instructions Recorded Confirmed Phenytoin Sodium Extended 100 mg PO 0900,1700,209904/04/18 03/15/19 carBAMazepine [Carbamazepine ER] 200 mg PO 0800,1700 04/04/18 03/15/19 Albuterol Sulfate [Proair Hfa 2 puffs INH QID PRN 04/27/18 03/15/19 Inhaler] Phenytoin 50 mg PO 209904/27/18 03/15/19 ALPRAZolam [Alprazolam] 0.25 mg PO TID PRN 09/28/18 03/15/19 Fluticasone/Umeclidin/Vilanter 1 puffs INH DAILY 09/28/18 03/15/19 [Trelegy Ellipta 100-62.5-25] Hydrocortisone Acetate 25 mg OR BID PRN 09/28/18 03/15/19 Ipratropium/Albuterol [Duoneb] 3 ml INH Q4H PRN 09/28/18 03/15/19 bisacodyL [Bisacodyl] 5 mg PO BID PRN 09/28/18 03/15/19 polyethylene glycoL 3350 17 gm PO DAILY PRN 09/28/18 03/15/19 [Polyethylene Glycol 3350] Acetaminophen 500 - 1,000 mg PO Q6H PRN 03/15/19 03/15/19 Fluticasone/Umeclidin/Vilanter 1 each IH 08/31/19 [Trelegy Ellipta 100-62.5-25] Sulfamethox/Trimeth 800/160 1 each PO BID #14 tablet 07/30/20 [Bactrim Ds] - Allergies Allergies/Adverse Reactions: Allergies Allergy/AdvReac Type Severity Reaction Status Date / Time Egg Derived AdvReac Intermediate Respiratory Verified 09/29/21 06:09 egg AdvReac Mild Nausea Verified 09/29/21 06:09 lactose AdvReac Mild Cramps Verified 09/29/21 06:09 Review of Systems - Constitutional Constitutional: reports: Poor appetite. denies: Fever, Chills - Cardiovascular Cariovascular: reports: Exertional dyspnea. denies: Chest pain, Syncope - Respiratory Respiratory: denies: Cough, Hemoptysis - Gastrointestinal Gastrointestinal: denies: Abdominal pain, Abdominal distention, Constipation, Diarrhea, Change in bowel habits, Rectal bleeding, Bloody stools, Nausea, Vomiting - Genitourinary Genitourinary: denies: Dysuria, Frequency, Urgency, Hematuria - Musculoskeletal Musculoskeletal: reports: Other (Reports right calf pain after being stuck on hands and knees this morning.) - Neurological Neurological: denies: Headache - Psychiatric Psychiatric: reports: Anxiety - All Other Systems All Other Systems: reports: Reviewed and negative Prior Level of Functionality: Patient lives at [facility] in [place]. His functional level has decreased significantly in the recent months/years due to COPD and associated dyspnea - per power of supervisor shuttle preparation Exam - Vital Signs Reviewed Vital Signs: Yes Vital Signs: Vital Signs x48h Temp Pulse Resp BP Pulse Ox 09/29/21 07:02 127 H 24 118/73 100 09/29/21 06:32 135 H 28 H 102/52 L 100 09/29/21 06:20 134 H 34 H 09/29/21 05:58 36.6 C 100 14 101/58 L 99 - Physical Exam General Appearance: positive: Moderate distress Eyes Bilateral: positive: Normal inspection Neck: positive: Nml inspection, No JVD, Trachea midline Respiratory: positive: Rales, Rhonchi, Other (Patient is in moderate respioratory distress. Currently using Bipap. Postiive for retractions and accessory muscle usage.). negative: No respiratory distress, Breath sounds nml Cardiovascular: positive: Tachycardia, Other (Heart sounds not easily auscultated due to Bipap and lung sounds) Skin: positive: Color nml, Warm, Dry, Other (cutaneous neurofibromas present). negative: Cyanosis, Diaphoresis, Pallor Extremities: positive: No pedal edema. negative: Joint swelling Neurologic/Psychiatric: positive: Oriented x3, Mood/affect nml Conclusion/Plan - Problem List (1) Respiratory failure Conclusion/Plan: A 71 year old male with Severe COPD who is on 3L home oxygen presents with acute on chronic shortness of breath since this morning. assisted staff report that he has been more short of breath over the past few days. The patient was diagnosed with Covid19 several weeks ago but has since recovered. The patient is a poor historian and mainly complains of difficulty breathing. WBC count is 36 and chest radiograph shows multilobar infiltrates vs neoplastic process. Chest radiograph demonstrated multilobar infiltrates vs neoplastic process. ABG shows mild respiratory acidosis. Decadron and Duonebs were administered in the emergency department. Levoquin was started to address likely COPD exacerbation and bipap will continue. Per power of supervisor shuttle preparation, the patient is DNR/DNI. Qualifiers: Chronicity: acute Respiratory failure complication: hypoxia and hypercapnia Qualified Code(s): J96.01 - Acute respiratory failure with hypoxia; J96.02 - Acute respiratory failure with hypercapnia (2) Multilobar lung infiltrate Conclusion/Plan: Mr. Bowen has an unspecified pneumonia. He recently had covid and is being treated with remdesivir during this admission. IV Levoquin has also been given to treat COPD exacerbation. Respiratory status is expected to improve with pneumonia treatment. Chest CT will be completed this morning to further assess for neoplastic process, abscess, or other infectious etiology. Clinical status will be closely monitored during hospital stay. (3) Severe chronic obstructive pulmonary disease Conclusion/Plan: Patient has severe COPD with an acute exacerbation. This is the likely cause of his respiratory failure. He was given duonebs and IV steroids since hospital arrival. Mr. Bowen has baseline severe end stage COPD and he will be managed as discussed above. Home management will be reassessed during hospital stay. (4) Tobacco abuse Conclusion/Plan: The patient admits continuing to smoke 2 unfiltered cigarettes per day. The patient will be educated on the risks of smoking and the immediate impacts to his health. He is encouraged to discontinue all tobacco use. (5) Anxiety Conclusion/Plan: Patient has a history of anxiety which is driving his respiratory rate. He was given lorazepam and respiratory rate decreased as a result of addressing anxiety. Anxiety will be monitored and addressed as needed. (6) Leukocytosis Conclusion/Plan: Mr. Bowen has had a documented leukocytosis since at least 2012, though the WBC count during the current visit is further elevated to 36. Mr. Bowen has a pneumonia that is likely to be causing a leukocytosis, though CML cannot be ruled out based on an extended history of leukocytosis. There are no blood smears on record and will be completed during this stay to rule out chronic myelogenous leukemia. Demargination is also possible, as the patient has received IV steroids. CBC will be monitored during stay. Patient will be encouraged to follow up with primary care for further workup if inconclusive during this admission. Qualifiers: Leukocytosis type: unspecified Qualified Code(s): D72.829 - Elevated white blood cell count, unspecified (7) Weight loss Conclusion/Plan: Mr. Bowen has lost about 15 kg since the beginning of 2018. He reports that his diet mostly consists about Ensure nutrition shakes due to dysphagia that was documented in 2019 without follow up. He is not receiving optimal nutrition at his detention. Parenteral nutrition is given during hospital stay. Neoplastic process cannot be ruled out based on questionable chest CT and leukocytosis. A peripheral smear will be completed as above to assess for blood dycrasia. Weight loss could also be associated with COPD. - Lab Results Lab results reviewed: Yes Fish Bones: 09/29/21 06:05 09/29/21 06:05
[2021-09-29] MEDS: SODIUM CHLORIDE FLUSH 0.9% 10 ML SYRINGE IVP SCH ×2 (09:00→16:11)
--- NOTE | 2021-09-29 09:09 | ADVANCE CARE PLANNING NOTE ---
Advance Care Planning - Planning Encounter Date: 09/29/21 Time: 09:05 Purpose: establish code status Parties in Attendance: patient, His POA (on the phone) and hospitalist Decisional Capacity of the Patient: impaired. has baseline vascular dementia and POA does encourage him to participate - Encounter Subjective/Patient's Story: He is a long-term resident of a penit[facility]iary[facility] facility. He has long-term COPD from smoking and still smokes. He is on 3 L of oxygen a day. His friend and power of defense attorney Radha Marin at [phone] is participating in this conversation. The patient is confused, struggling to breathe and frightened/anxious. She states that he is a quirky little rc. He is usually not her type of friend but there is something about him that has tugged at her heart. Over the years she and her /partner have become his main support system. She has been designated his power of defense attorney. She just saw him the day before yesterday and he appeared to be doing fine in spite of her recent COVID bout. By "doing fine" she states that he was at his baseline. Years ago they have discussed advance care planning and because of his anxiety and confusion would vacillate between full CODE STATUS and DO NOT RESUSCITATE status. He changes his mind on a regular basis but she does not pay much mind to it since he is so labile. She and the provider at that time really did discuss at length the pros and cons of resuscitation and gently let him to a conclusion that he was to be DO NOT RESUSCITATE. He then changed his mind and filled out a POLST form stating that he wanted to be on life support for up to 30 days and then stop treatment if no improvement in 30 days. His power of defense attorney feels that that is unrealistic. His quality of life has been terrible over the last few months if not last year to 2 years. He can no longer walk anywhere because of severe dyspnea on exertion. He is chair bound or bedbound and dependent on oxygen. He had COVID a few weeks ago and seemed to rebound from that but not quite. As such, as power of defense attorney, that she invokes, she does not feel that a full code is in his best interest. She would like him to be DO NOT RESUSCITATE. Objective/Medical Story: This unfortunate gentleman has a history of severe COPD, DVTs, neurofibromatosis, and seizure disorder with anxiety. He is hospitalized intermittently for his illnesses with his last hospitalization March 2019. He has chronic aspiration and dysphagia. Is on 3 L of oxygen at a [facility] facility. He is described at wheelchair bound or bedbound due to severe dyspnea with any exertion. Goals of Care: We are to continue antibiotics, therapy for COVID, but power of defense attorney is aiming for no intubation. Treat aggressively up until the point of needing intubation and CPR. Plan: Continue antibiotics, steroids, nebulizers, remdesivir. Work closely with respiratory therapy to stabilize him. Code Status: Do Not Attempt Resuscitation Time spent on advance care plannin minutes
[2021-09-29] MEDS ORDERED: levoFLOXacin 750 MG/150 ML 750 MG/150 ML BAG IV SCH (09:30)
[2021-09-29] MEDS: ENOXAPARIN 40 MG/0.4 ML SYRINGE SUBQ SCH (09:40)
[2021-09-29] MEDS: IPRATROPIUM/ALBUTEROL 3 ML NEB INH SCH ×4 (09:54→21:45)
[2021-09-29] MEDS: carBAMazepine ER 200 MG TABLET PO SCH ×2 (10:24→21:42)
[2021-09-29] MEDS: PHENYTOIN CHEW 50 MG TABLET PO SCH ×2 (10:24→10:26)
--- NOTE | 2021-09-29 11:28 | CT Report ---
PROCEDURE: CHEST W INDICATIONS: multilobal pneumonia CONTRAST: IV CONTRAST: Optiray 320 ml: 100 PO CONTRAST: *NO PO CONTRAST TECHNIQUE: After the administration of intravenous contrast, 1 mm axial images were acquired from the pulmonary apices through the posterior costophrenic angles. Axial 5 mm soft tissue kernel reconstructions were performed as well as 8 mm axial MIP and coronal and sagittal 5 mm reformations. For radiation dose reduction, the following was used: automated exposure control, adjustment of mA and/or kV according to patient size. COMPARISON: 02/21/2021 and 03/14/2019 FINDINGS: Image quality: Excellent. Lungs and pleura: The trachea is prominent. No wall thickening or calcification. There is dependent mucus and both mainstem bronchi and extending into posterior lower lobe airways. Moderate diffuse bro nchial wall thickening, similar compared to the prior study. There are severe upper lobe emphysematous changes. Interval increase in extent of right apical and me dial upper lobe irregular pleural thickening and fibrosis. Significant increase in size of a prior posterior lateral right upper lobe lung mass, now measuring a pproximately 2.7 x 2.7 cm and demonstrating cavitation and extension laterally, thickening the overly ing pleural surface. Development of a left upper lobe spiculated lung mass measuring about 3.6 x 2.3 cm. Development of dense lobular thickening of the upper aspect of the right major fissure. Decreased size of a now minimally spiculated right middle lobe lung mass previously measuring 1.4 cm, now 0.8 cm. Persistent to slightly worsening of patchy peripheral bibasilar airspace opacities posteriorly. Overa ll increase in diffuse mild groundglass opacity seen in the lower lobes and lateral lingula. Dense calcification along the left diaphragm centrally. No other calcified plaques. No pleural effusi ons or pneumothorax. Mediastinum: Heart size is normal. No pericardial effusion. No mediastinal or hilar adenopathy by size criteria. Thoracic aorta and central pulmonary arteries are normal in size. Esophagus is jazlyn l in caliber. No hiatal hernia. Bones and chest wall: Severe L1 compression fracture is stable. No new compression fractures. No zee picious bony lesions. No axillary or supraclavicular adenopathy by size criteria. The thyroid gland is diminutive and heterogeneous without dominant nodule.. Innumerable cutaneous nodules. Abdomen: Visualized upper abdominal solid organs appear normal. Upper abdominal bowel loops are nor mal in caliber. IMPRESSION: 1. Progression on the right and development on the left of spiculated, cavitary, bilateral upper lobe lung masses with a differential diagnosis of atypical infection and malignancy. 2. Increased in extent of right apical and fissural pleural thickening. 3. Persistent bibasilar patchy alveolar opacities, potentially postobstructive pneumonia due to signi ficant chronic mucous retention and bronchial wall thickening and lower lobe airways. 4. Decreased size of spiculated right middle lobe lung nodule. 5. Innumerable cutaneous nodules. Reviewed by: Argentina Calderon MD on 09/29/2021 11:27 AM PDT Approved by: Argentina Calderon MD on 09/29/2021 11:27 AM PDT Station ID: [id number]
[2021-09-29] MEDS ORDERED: REMDESIVIR 100MG VIAL 200 MG in SODIUM CHLORIDE 0.9% 250 ML IV ONE (12:00)
[2021-09-29] MEDS: methylPREDNISolone SUCCINATE 40 MG/ML VIAL IVP SCH ×2 (13:19→21:42)
[2021-09-29] MEDS: metroNIDAZOLE 500 MG/100 ML 500 MG/100 ML BAG IV SCH ×2 (13:19→21:41)
[2021-09-29] MEDS: PHENYTOIN 100 MG/2 ML VIAL IVP SCH ×2 (14:20→21:43)
[2021-09-29] MEDS: MORPHINE 2 MG/ML CARPUJECT IVP PRN ×2 (14:25→20:39)
[2021-09-29] MEDS: SACCHAROMYCES BOULARDII 250 MG CAPSULE PO SCH (16:11)
[2021-09-29] MEDS: LORazepam 2 MG/ML VIAL IVP PRN ×3 (17:34→23:59)
[2021-09-29] MEDS: INSULIN REGULAR HUMAN 300 UNIT/3 ML VIAL SUBQ SCH ×2 (18:05→18:06)
[2021-09-29] MEDS ORDERED: PHENYTOIN CHEW 50 MG TABLET PO SCH (21:00)
[2021-09-29] MEDS: INSULIN GLARGINE 300 UNIT/3 ML PEN SUBQ SCH (21:50)
[2021-09-30] MEDS: INSULIN REGULAR HUMAN 300 UNIT/3 ML VIAL SUBQ SCH ×5 (00:35→17:18)
[2021-09-30] MEDS: IPRATROPIUM/ALBUTEROL 3 ML NEB INH SCH ×6 (02:08→21:18)
[2021-09-30] MEDS: MORPHINE 2 MG/ML CARPUJECT IVP PRN ×3 (02:18→20:49)
[2021-09-30] MEDS: LORazepam 2 MG/ML VIAL IVP PRN ×3 (02:18→17:02)
[2021-09-30] MEDS: metroNIDAZOLE 500 MG/100 ML 500 MG/100 ML BAG IV SCH ×3 (05:56→22:59)
[2021-09-30] MEDS: PHENYTOIN 100 MG/2 ML VIAL IVP SCH ×3 (05:56→22:59)
[2021-09-30] MEDS: SODIUM CHLORIDE FLUSH 0.9% 10 ML SYRINGE IVP SCH ×3 (05:56→17:02)
[2021-09-30] MEDS: methylPREDNISolone SUCCINATE 40 MG/ML VIAL IVP SCH ×3 (05:56→22:59)
[2021-09-30] MEDS: ethyl alcohoL 62% SWAB AMPULE NAS SCH ×2 (08:14→20:48)
[2021-09-30] MEDS: SACCHAROMYCES BOULARDII 250 MG CAPSULE PO SCH ×2 (08:16→17:02)
[2021-09-30] MEDS: ENOXAPARIN 40 MG/0.4 ML SYRINGE SUBQ SCH (08:18)
[2021-09-30] MEDS ORDERED: REMDESIVIR 100MG VIAL 100 MG in SODIUM CHLORIDE 0.9% 100ML 100 ML IV SCH (09:00)
[2021-09-30] MEDS ORDERED: dexAMETHasone 4 MG TABLET PO SCH (09:00)
[2021-09-30] MEDS: carBAMazepine ER 200 MG TABLET PO SCH (09:55)
--- NOTE | 2021-09-30 17:00 | PROVIDER PROGRESS NOTE ---
Subjective - Prog Note Date Prog Note Date: 09/30/21 Prog Note Time: 16:58 - Subjective Pt reports feeling: Improved Subjective: He has a high level of anxiety. If he feels any distress he starts to get tachypneic and hyperventilate and then destabilizes his respiratory status. Between yesterday and today we received report of the CT scan we ordered for evaluation of his multilobar pneumonia. I was trying to make sure that he did not have abscessus or neoplasm. He ended up having a neoplasm. In review of the record he is actually had this since 2018. And I have looked at the reports from 2018, March 14, 2019, February 21, 2021 and today. He has enlarging bilateral lung masses. I spoke to his primary care provider's office yesterday evening, and Dr. Mcmullen reviewed the chart with me. His usual provider is Dr. Pedro younger. Apparently the patient was informed of this diagnosis in March 2019 and February 2021. The February 2021 conversation consisted of the fact that this was most likely neoplasm by its appearance. Considering his severe comorbidities, he would not be a good candidate for treatment. The patient left that office and has not returned. According to his power of commercial litigation attorney, and Dr. Mcmullen's review of the chart, the patient is declining to get treatment. So now the new story is that of an elderly gentleman with end-stage COPD, still smoking, and gradually enlarging bilateral lung masses since 2018. I have spoken at length to his power of commercial litigation attorney today. She states that she is not surprised by this diagnosis. He has been failing over the last year or even more than usual. His only comfort is "he is cute little room" in his retirement. And that is a sanctuary. In discussing therapy, I did suggest transitioning to comfort measures only with hospice on board. She says that would be acceptable. I spoke to discharge management and social work. Both state that his retirement/welcome home would be willing to accept him as long as he had a comfort kit. Hospice would be willing to open them up next week. His COVID status was also reviewed by infection control nurse. She states that he had previous COVID. She thinks that his current positive status has to do with that and that he does not have current COVID. As such remdesivir and Decadron have been discontinued. Current Medications - Current Medications Current Medications: Active Medications Acetaminophen (Acetaminophen 325 Mg Tablet) 650 mg PO Q4HR PRN PRN Reason: Pain 1 to 4, or Fever Albuterol (Albuterol Neb 2.5 Mg/3 Ml) 2.5 mg INH Q4HR PRN PRN Reason: Wheezing Albuterol/Ipratropium (Ipratropium/Albuterol 3 Ml Neb) 3 ml INH Q4HR [facility] Last Admin: 09/30/21 15:32 Dose: 3 ml Alcohol (Ethyl Alcohol 62% Swab Ampule) 1 amp ESTUARDO BID [facility] Last Admin: 09/30/21 08:14 Dose: 1 amp Alprazolam (Alprazolam 0.25 Mg Tablet) 0.25 mg PO Q6HR PRN PRN Reason: Anxiety Carbamazepine (Carbamazepine 200 Mg Tablet) 200 mg PO BID [facility] Enoxaparin Sodium (Enoxaparin 40 Mg/0.4 Ml Syringe) 40 mg SUBQ DAILY [facility] Last Admin: 09/30/21 08:18 Dose: 40 mg Levofloxacin (Levaquin 750 Mg/150 Ml) 750 mg in 150 mls @ 100 mls/hr IV Q48H [facility] Stop: 10/03/21 10:59 Last Infusion: 09/29/21 11:20 Dose: Infused Metronidazole (Flagyl 500 Mg/100 Ml) 500 mg in 100 mls @ 100 mls/hr IV Q8H [facility] Stop: 10/04/21 06:59 Last Infusion: 09/30/21 15:35 Dose: Infused Insulin Glargine (Insulin Glargine 300 Unit/3 Ml Pen) 25 unit SUBQ QPM [facility] Last Admin: 09/29/21 21:50 Dose: 25 unit Insulin Human Regular (Insulin Regular Human 300 Unit/3 Ml Vial) 3 - 11 unit SUBQ Q6HR [facility]; Protocol Last Admin: 09/30/21 11:22 Dose: Not Given Lorazepam (Lorazepam 2 Mg/Ml Vial) 0.5 mg IVP Q2H PRN PRN Reason: Anxiety Last Admin: 09/30/21 11:19 Dose: 0.5 mg Methylprednisolone (Methylprednisolone Succinate 40 Mg/Ml Vial) 40 mg IVP TID S Last Admin: 09/30/21 14:30 Dose: 40 mg Morphine Sulfate (Morphine 2 Mg/Ml Carpuject) 2 mg IVP Q2HR PRN PRN Reason: PAIN Last Admin: 09/30/21 09:55 Dose: 2 mg Ondansetron HCl (Ondansetron Odt 4 Mg Tablet) 4 mg TL Q6HR PRN PRN Reason: Nausea / Vomiting Ondansetron HCl (Ondansetron 4 Mg/2 Ml Vial) 4 mg IVP Q6HR PRN PRN Reason: Nausea / Vomiting Last Admin: 09/29/21 16:11 Dose: 4 mg Phenytoin Sodium (Phenytoin 100 Mg/2 Ml Vial) 100 mg IVP TID [facility] Last Admin: 09/30/21 14:30 Dose: 100 mg Saccharomyces Boulardii (Saccharomyces Boulardii 250 Mg Capsule) 250 mg PO BIDWM [facility] Last Admin: 09/30/21 08:16 Dose: 250 mg Sodium Chloride (Sodium Chloride Flush 0.9% 10 Ml Syringe) 10 ml IVP 0100,0900,1700 [facility] Last Admin: 09/30/21 08:18 Dose: 10 ml Sodium Chloride (Sodium Chloride Flush 0.9% 10 Ml Syringe) 10 ml IVP PRN PRN PRN Reason: NEEDED PER PROVIDER ORDERS Last Admin: 09/29/21 14:25 Dose: 10 ml Phenytoin Sodium Extended 100 mg PO 0900,1700,2100 04/04/18 carBAMazepine [Carbamazepine ER] 200 mg PO 0800,1700 04/04/18 Albuterol Sulfate [Proair Hfa Inhaler] 2 puffs INH QID PRN 04/27/18 Phenytoin 50 mg PO 209904/27/18 ALPRAZolam [Alprazolam] 0.25 mg PO TID PRN 09/28/18 Fluticasone/Umeclidin/Vilanter [Trelegy Ellipta 100-62.5-25] 1 puffs INH DAILY 09/28/18 Hydrocortisone Acetate 25 mg MT BID PRN 09/28/18 Ipratropium/Albuterol [Duoneb] 3 ml INH Q4H PRN 09/28/18 bisacodyL [Bisacodyl] 5 mg PO BID PRN 09/28/18 polyethylene glycoL 3350 [Polyethylene Glycol 3350] 17 gm PO DAILY PRN 09/28/18 Acetaminophen 500 - 1,000 mg PO Q6H PRN 03/15/19 Fluticasone/Umeclidin/Vilanter [Trelegy Ellipta 100-62.5-25] 1 each IH 08/31/19 Objective - Vital Signs/Intake & Output Reviewed Vital Signs: Yes Vital Signs: Vital Signs x48h Temp Pulse Pulse Pulse Resp BP Pulse Ox 09/30/21 16:00 36 C L 122 H 24 138/98 H 94 09/30/21 15:39 123 H 20 09/30/21 15:00 115 H 26 H 129/78 96 09/30/21 14:00 120 H 29 H 136/90 H 97 09/30/21 13:00 119 H 34 H 135/89 H 96 09/30/21 12:00 36.6 C 116 H 116 H 23 121/80 95 09/30/21 11:07 122 H 09/30/21 11:00 121 H 33 H 123/77 96 09/30/21 10:00 112 H 104/78 98 09/30/21 09:03 121 H 21 09/30/21 09:00 115 H 30 H 100/66 100 Intake & Output: Intake & Output 09/27/21 09/28/21 09/29/21 09/30/21 23:59 23:59 23:59 23:59 Intake Total 1600 250 Output Total 0 310 Balance 1600 -60 - Objective General Appearance: positive: Mild distress, Other (Cachectic elderly gentleman at 46 kg. Even simple conversation makes him tachypneic and increases pursed lip breathing on BiPAP) Eyes Bilateral: positive: PERRL, EOMI Neck: positive: No JVD. negative: Stiff neck Respiratory: positive: Wheezes, Rhonchi Cardiovascular: positive: Regular rate & rhythm, Tachycardia, Systolic murmur. negative: Gallop/S4, Friction rub Abdomen: positive: Non-tender, No organomegaly, Nml bowel sounds, No distention Skin: positive: Warm, Dry, Pallor Extremities: positive: Full ROM - Lab Results Fish Bones: 09/29/21 06:05 09/29/21 06:05 Assessment/Plan - Problem List (1) Respiratory failure Impression: A 71 year old male with Severe COPD who is on 3L home oxygen presents with acute on chronic shortness of breath since the morning of admission. both he and his POA confirm he has poor, poor respiratory status to begin with but he was "his normal self" day before admission and that the sob was worse acutely. But [facility] staff report that he has been more short of breath over the past few days. The patient was diagnosed with Covid19 several weeks ago but has since recovered. The patient is a poor historian and mainly complains of difficulty breathing. WBC count is 36 and chest radiograph shows multilobar infiltrates vs neoplastic process. Chest radiograph demonstrated multilobar infiltrates vs neoplastic process. ABG shows mild respiratory acidosis. Decadron and Duonebs were administered in the emergency department. Levaquin was started to address likely COPD exacerbation and bipap will continue. Per power of commercial litigation attorney, the patient is DNR/DNI. Stabilized and improved on BiPAP. However continues to have severe baseline dyspnea. Now that we have done a more extensive work-up, he appears to have acute COPD exacerbation superimposed on a gradually worsening lung cancer problem. Infection control feels that his COVID positivity is a red fisher and has nothing to do with his current illness. We are continuing supportive measures. However, in view of the poor prognosis, we will be transitioning to comfort measures tomorrow. Plan is for him to be discharged to home/retirement with a comfort kit. If he survives over the weekend hospice will open him up to their services next week. Qualifiers: Chronicity: acute on chronic Respiratory failure complication: hypoxia and hypercapnia Qualified Code(s): J96.01 - Acute on chronic respiratory failure w ith hypoxia; J96.02 - Acute respiratory failure with hypercapnia (2) Multilobar lung infiltrate/ Covid 19 positive Conclusion/Plan: We did a CT of the chest looking for possible early abscess or atypical infiltrate since it was Multi lobar. We also worried about septic emboli as a remote cause. We have found that he has had lung cancer for quite some time and he has not really shared that with this in his past medical history. It was known to his primary care provider and the patient is opted for no treatment. There is definite progression between 2018 and now. As stated above transition to comfort measures [facility]. He is on antibiotics right now. I have stopped remdesivir and I have stopped Decadron. (3) Severe chronic obstructive pulmonary disease Conclusion/Plan: Patient has severe COPD with an acute exacerbation. This is the likely cause of his respiratory failure. He was given duonebs and IV steroids since hospital arrival. Mr. Bowen has baseline severe end stage COPD and he will be managed as discussed above. (4) Tobacco abuse Conclusion/Plan: The patient admits continuing to smoke 2 unfiltered cigarettes per day. The patient will be educated on the risks of smoking and the immediate impacts to his health. He is encouraged to discontinue all tobacco use.This is a gentleman who caused quite a bit of flash diaz on his face when he was smoking while using oxygen. He did that in the recent past while living at his retirement (5) Anxiety Conclusion/Plan: Patient has a history of anxiety which is driving his respiratory rate. He was given lorazepam and respiratory rate decreased as a result of addressing anxiety. Anxiety will be monitored and addressed as needed. (6) Leukocytosis Conclusion/Plan: Mr. Bowen has had a documented leukocytosis since at least 2012, though the WBC count during the current visit is further elevated to 36. Mr. Bowen has a pneumonia that is likely to be causing a leukocytosis, though CML cannot be ruled out based on an extended history of leukocytosis. As part of the differential diagnosis we were thinking of possible indolent leukemias in an elderly person. However, now, I am thinking this person has demargination or postobstructive pneumonitis in view of the multiple lung nodules/tumors. Qualifiers: Leukocytosis type: unspecified Qualified Code(s): D72.829 - Elevated white blood cell count, unspecified (7) Weight loss Conclusion/Plan: Mr. Bowen has lost about 15 kg since the beginning of 2018. He reports that his diet mostly consists about Ensure nutrition shakes due to dysphagia that was documented in 2019 without follow up. He was seen by gastroenterology at [facility] around that time. His power of commercial litigation attorney vaguely remembers being told that he had severe dysphagia due to an unknown problem that she cannot remember. But it was untreatable. He is not receiving optimal nutrition at his skilled nursing. In the differential diagnosis we were considering neoplastic process or weight loss associated with severe COPD. Those are both probably the cause of his failure to thrive.
[2021-09-30 20:38] LABS: BASOPHILS % (AUTO) 0.2 %; HCT - HEMATOCRIT 37.7 % (42.0-52.0); HGB - HEMOGLOBIN 12.4 g/dL (14.0-18.0); LYMPHOCYTES % (AUTO) 1.6 %; MEAN CORPUSCULAR HEMOGLOBIN 30.6 pg (27.0-31.0); MEAN CORPUSCULAR HGB CONC 32.9 g/dL (32.0-36.0); MEAN CORPUSCULAR VOLUME 93.1 fL (80.0-94.0); MEAN PLATELET VOLUME 9.4 fL (7.4-11.4); MONOCYTES % (AUTO) 6.3 %; NEUTROPHILS % (AUTO) 90.8 %; PLT - PLATELET COUNT 272 10^3/uL (130-450); RED BLOOD COUNT 4.05 10^6/uL (4.70-6.10)
[2021-09-30 20:42] LABS: WHITE BLOOD COUNT 36.4 x10^3/uL (4.8-10.8)
[2021-09-30 20:44] LABS: ABNORMAL LYMPHS % (MANUAL) 0 %
[2021-09-30] MEDS: carBAMazepine 200 MG TABLET PO SCH (20:47)
[2021-09-30] MEDS: INSULIN GLARGINE 300 UNIT/3 ML PEN SUBQ SCH (20:48)
[2021-09-30 20:50] LABS: CALCIUM 9.1 mg/dL (8.5-10.3); CREATININE 0.7 mg/dL (0.6-1.2); PHOSPHORUS 2.4 mg/dL (2.5-4.6); POTASSIUM 4.3 mmol/L (3.5-5.0)
[2021-09-30 22:46] LABS: BAND NEUTROPHILS % (MANUAL) 1 %; DIFFERENTIAL COMMENT MANUAL DIFFERENTIAL; LYMPHOCYTES # (MANUAL) 0.4 10^3/uL (1.5-3.5); LYMPHOCYTES % (MANUAL) 1 %; MONOCYTES # (MANUAL) 2.5 10^3/uL (0.0-1.0); NEUTROPHILS # (MANUAL) 33.5 10^3/uL (1.5-6.6); PLATELET ESTIMATE, MANUAL NORMAL (130-450,000) (NORMAL); PLATELET MORPHOLOGY NORMAL APPEARANCE (NORMAL); RBC MORPHOLOGY (MULTIPLE) NORMAL APPEARANCE (NORMAL); WBC MORPHOLOGY (MULTIPLE) NORMAL APPEARANCE (NORMAL)
[2021-10-01] MEDS: INSULIN REGULAR HUMAN 300 UNIT/3 ML VIAL SUBQ SCH ×2 (00:05→07:00)
[2021-10-01] MEDS: SODIUM CHLORIDE FLUSH 0.9% 10 ML SYRINGE IVP SCH ×3 (01:59→14:41)
[2021-10-01] MEDS: NEUTRA-PHOS 250 MG TABLET PO SCH ×2 (02:01→04:08)
[2021-10-01] MEDS ORDERED: MORPHINE SOL 10 MG/0.5 ML ORAL SYRINGE PO PRN ×2 (02:19→03:18)
[2021-10-01 06:03] LABS: BASOPHILS % (AUTO) 0.2 %; EOSINOPHILS % (AUTO) 0.2 %; HCT - HEMATOCRIT 39.1 % (42.0-52.0); HGB - HEMOGLOBIN 12.4 g/dL (14.0-18.0); LYMPHOCYTES % (AUTO) 2.2 %; MEAN CORPUSCULAR HEMOGLOBIN 30.9 pg (27.0-31.0); MEAN CORPUSCULAR HGB CONC 31.7 g/dL (32.0-36.0); MEAN CORPUSCULAR VOLUME 97.5 fL (80.0-94.0); MONOCYTES % (AUTO) 7.6 %; NEUTROPHILS % (AUTO) 88.8 %; PLT - PLATELET COUNT 259 10^3/uL (130-450); RED BLOOD COUNT 4.01 10^6/uL (4.70-6.10); WHITE BLOOD COUNT 30.9 x10^3/uL (4.8-10.8)
[2021-10-01] MEDS: methylPREDNISolone SUCCINATE 40 MG/ML VIAL IVP SCH (06:03)
[2021-10-01] MEDS: metroNIDAZOLE 500 MG/100 ML 500 MG/100 ML BAG IV SCH (06:04)
[2021-10-01] MEDS: PHENYTOIN 100 MG/2 ML VIAL IVP SCH (06:05)
[2021-10-01 06:20] LABS: ABNORMAL LYMPHS % (MANUAL) 0 %
[2021-10-01 06:37] LABS: CALCIUM 9.2 mg/dL (8.5-10.3); POTASSIUM 4.3 mmol/L (3.5-5.0)
[2021-10-01 06:40] LABS: BAND NEUTROPHILS % (MANUAL) 16 %; DIFFERENTIAL COMMENT MANUAL DIFFERENTIAL; LYMPHOCYTES # (MANUAL) 1.9 10^3/uL (1.5-3.5); LYMPHOCYTES % (MANUAL) 6 %; MONOCYTES # (MANUAL) 1.5 10^3/uL (0.0-1.0); NEUTROPHILS # (MANUAL) 27.5 10^3/uL (1.5-6.6); PLATELET ESTIMATE, MANUAL NORMAL (130-450,000) (NORMAL); RBC MORPHOLOGY (MULTIPLE) NORMAL APPEARANCE (NORMAL)
[2021-10-01 06:45] LABS: CREATININE 0.7 mg/dL (0.6-1.2)
[2021-10-01] MEDS: IPRATROPIUM/ALBUTEROL 3 ML NEB INH SCH ×4 (07:31→18:51)
[2021-10-01 08:00] LABS: MAGNESIUM 2.1 mg/dL (1.7-2.8); PHOSPHORUS 2.4 mg/dL (2.5-4.6)
[2021-10-01] MEDS: ethyl alcohoL 62% SWAB AMPULE NAS SCH ×2 (08:05→21:35)
[2021-10-01] MEDS: carBAMazepine 200 MG TABLET PO SCH ×2 (08:05→21:36)
[2021-10-01] MEDS: SACCHAROMYCES BOULARDII 250 MG CAPSULE PO SCH ×2 (08:05→17:02)
[2021-10-01] MEDS: ENOXAPARIN 40 MG/0.4 ML SYRINGE SUBQ SCH (08:22)
[2021-10-01] MEDS ORDERED: CARBOXYMETHYLCELLULOSE OPHTH DROPS EACHEYE PRN (08:25)
[2021-10-01] MEDS ORDERED: ACETAMINOPHEN 650 MG SUPP PR PRN (08:25)
[2021-10-01] MEDS ORDERED: LORazepam 1 MG TABLET PO PRN (08:25)
[2021-10-01] MEDS ORDERED: GLYCOPYRROLATE 1 MG/5 ML VIAL SUBQ PRN (08:25)
--- NOTE | 2021-10-01 08:38 | PROVIDER PROGRESS NOTE ---
Objective - Vital Signs/Intake & Output Reviewed Vital Signs: Yes Vital Signs: Vital Signs Temp Pulse Pulse Resp BP Pulse Ox 10/01/21 08:00 36.3 C L 116 H 28 H 119/91 H 93 10/01/21 07:33 116 H 10/01/21 07:00 105 H 21 100/80 98 10/01/21 06:00 123 H 30 H 147/94 H 93 10/01/21 05:00 119 H 27 H 134/79 H 93 Intake & Output: Intake & Output 09/28/21 09/29/21 09/30/21 10/01/21 23:59 23:59 23:59 23:59 Intake Total 1600 250 600 Output Total 0 1345 310 Balance 1600 -1095 290 - Objective General Appearance: positive: Moderate distress (Has respirtory distress: Wants to sit bolt upright, using pursed lip breathing, is on BiPAP mask), Other (cachectic) Eyes Bilateral: positive: Other (sunlken) Neck: positive: Other (Thin, supple) Respiratory: positive: Other (Poor air mvm, no wheezing) Cardiovascular: positive: Regular rate & rhythm (tachycardic at 120), No murmur Abdomen: positive: Non-tender, Other (scaphoid) Skin: positive: Warm, Dry, Other ((+) tenting of skin) Extremities: positive: Non-tender, No pedal edema Neurologic/Psychiatric: positive: Other (Awake, non-focal) - Lab Results Fish Bones: 10/01/21 04:19 10/01/21 04:19 Other Labs: Lab Results x24hrs 10/01/21 10/01/21 10/01/21 Range/Units 04:19 04:19 04:19 WBC 30.9 H (4.8-10.8) x10^3/uL RBC 4.01 L (4.70-6.10) 10^6/uL Hgb 12.4 L (14.0-18.0) g/dL Hct 39.1 L (42.0-52.0) % MCV 97.5 H (80.0-94.0) fL MCH 30.9 (27.0-31.0) pg MCHC 31.7 L (32.0-36.0) g/dL RDW 14.0 (12.0-15.0) % Plt Count 259 (130-450) 10^3/uL MPV 10.0 (7.4-11.4) fL Neut # (Auto) Not Reportable Lymph # (Auto) Not Reportable [place] # (Auto) Not Reportable Eos # (Auto) Not Reportable Baso # (Auto) Not Reportable Absolute Nucleated RBC Not Reportable Total Counted 100 Band Neuts % (Manual) 16 H (0 - 10) % Abnorm Lymph % (Manual) 0 % Nucleated RBC % Not Reportable Neutrophils # (Manual) 27.5 H (1.5-6.6) 10^3/uL Lymphocytes # (Manual) 1.9 (1.5-3.5) 10^3/uL Monocytes # (Manual) 1.5 H (0.0-1.0) 10^3/uL Eosinophils # (Manual) 0.0 (0-0.7) 10^3/uL Basophils # (Manual) 0.0 (0-0.1) 10^3/uL Differential Comment MANUAL DIFFERENTIAL WBC Morphology (NORMAL) Platelet Estimate NORMAL (130-450,000) (NORMAL) Platelet Morphology (NORMAL) RBC Morph Micro Appear NORMAL APPEARANCE (NORMAL) Sodium 145 (135-145) mmol/L Potassium 4.3 (3.5-5.0) mmol/L Chloride 108 (101-111) mmol/L Carbon Dioxide 26 (21-32) mmol/L Anion Gap 11.0 (6-13) BUN 31 H (6-20) mg/dL Creatinine 0.7 (0.6-1.2) mg/dL Estimated GFR (MDRD) 111 (>89) Glucose 109 H (70-100) mg/dL Calcium 9.2 (8.5-10.3) mg/dL Phosphorus 2.4 L (2.5-4.6) mg/dL Magnesium 2.1 (1.7-2.8) mg/dL 09/30/21 09/30/21 Range/Units 20:30 20:30 WBC 36.4 H* (4.8-10.8) x10^3/uL RBC 4.05 L (4.70-6.10) 10^6/uL Hgb 12.4 L (14.0-18.0) g/dL Hct 37.7 L (42.0-52.0) % MCV 93.1 (80.0-94.0) fL MCH 30.6 (27.0-31.0) pg MCHC 32.9 (32.0-36.0) g/dL RDW 14.0 (12.0-15.0) % Plt Count 272 (130-450) 10^3/uL MPV 9.4 (7.4-11.4) fL Neut # (Auto) Not Reportable Lymph # (Auto) Not Reportable [place] # (Auto) Not Reportable Eos # (Auto) Not Reportable Baso # (Auto) Not Reportable Absolute Nucleated RBC Not Reportable Total Counted 100 Band Neuts % (Manual) 1 (0 - 10) % Abnorm Lymph % (Manual) 0 % Nucleated RBC % Not Reportable Neutrophils # (Manual) 33.5 H (1.5-6.6) 10^3/uL Lymphocytes # (Manual) 0.4 L (1.5-3.5) 10^3/uL Monocytes # (Manual) 2.5 H (0.0-1.0) 10^3/uL Eosinophils # (Manual) 0.0 (0-0.7) 10^3/uL Basophils # (Manual) 0.0 (0-0.1) 10^3/uL Differential Comment MANUAL DIFFERENTIAL WBC Morphology NORMAL APPEARANCE (NORMAL) Platelet Estimate NORMAL (130-450,000) (NORMAL) Platelet Morphology NORMAL APPEARANCE (NORMAL) RBC Morph Micro Appear NORMAL APPEARANCE (NORMAL) Sodium 141 (135-145) mmol/L Potassium 4.3 (3.5-5.0) mmol/L Chloride 107 (101-111) mmol/L Carbon Dioxide 23 (21-32) mmol/L Anion Gap 11.0 (6-13) BUN 32 H (6-20) mg/dL Creatinine 0.7 (0.6-1.2) mg/dL Estimated GFR (MDRD) 111 (>89) Glucose 125 H (70-100) mg/dL Calcium 9.1 (8.5-10.3) mg/dL Phosphorus 2.4 L (2.5-4.6) mg/dL Magnesium 2.0 (1.7-2.8) mg/dL Assessment/Plan - Problem List (1) Respiratory failure Impression: He has severe COPD, was diagnosed with Covid19 several weeks ago, is on 3L home oxygen constantly and presented now with acute on chronic shortness of breath. WBC count is 36 and chest radiograph shows multilobar infiltrates vs neoplastic process. ABG showed mild respiratory acidosis. Decadron and Duonebs were administered in the emergency department. He has an acute COPD exacerbation superimposed on a gradually worsening lung cancer. Infection control feels that his COVID positivity is a red fisher and has nothing to do with his current illness. Levaquin was started to treat the COPD exacerbation. He was admitted to the ICU, bipap was started and will continue. Yesterday he could lay supine, on BiPAP. Today he is sitting bolt upright and has pursed lip breathing and is very tachypneic despite being on BiPAP. His IV fell out and he does not want it put back in. Will continue po steroids and po Levaquin. I spoke to his POA, Radha Marin, this morning by phone at 0830 and updated her on his worsening status, that his IV fell out and he does not want it put back in. He may not last through the weekend to begin Hospice at his long term. She agreed to transition him to comfort care. We will be ordering comfort measures today. If he survives over the weekend Hospice could pick him up onto their services next week. (2) Multilobar lung infiltrate Conclusion/Plan: He got a CT of the chest looking for possible early abscess, septic emboli or atypical infiltrate since it was Multi lobar. We have found that he has had lung cancer for quite some time and he has not really shared that with us in his past medical history. It was known to his primary care provider and the patient has opted for no treatment. There is definite progression between 2018 and now. He is on antibiotics and Decadron which will be given po, since his iov fell out and he does not want it restarted. As stated above, transition to comfort measures will be started today. (3) Severe chronic obstructive pulmonary disease Conclusion/Plan: Patient has severe COPD with an acute exacerbation. Currently., he has a likely post-obstructive pneumonia, as the cause of his respiratory failure. He was given duonebs and IV steroids. We will continue with Xopenex nebs scheduled andprn Albuterol via neb, because of his severe respiratory distress. Will transition to comfort measures including oral Roxanol every 2 hours for dyspnea and oral Haldol for agitation/anxiety and Ativan oral for anxiety (4) Tobacco abuse Conclusion/Plan: The patient admitted he was continuing to smoke 2 unfiltered cigarettes per day. This is a gentleman who caused quite a bit of flash diaz on his face when he was smoking while using oxygen. He did that in the recent past while living at his residential. The patient was educated on the risks of smoking and the immediate impacts to his health. He was encouraged to discontinue all tobacco use. (5) Anxiety Conclusion/Plan: Patient has a history of anxiety which is LSOdriving his respiratory rate. He was given lorazepam and respiratory rate decreased as a result of addressing anxiety. The POA asked me to definitely treat his anxiety, in our phone call today. Anxiety will be Ativan prn and Haldol prn. (6) Leukocytosis Conclusion/Plan: Mr. Bowen has had a documented leukocytosis since at least 2012, though the WBC count during the current visit is further elevated to 36. He has a postobstructive pneumonitis, given the multiple lung nodules/tumors. This is likely causing his leukocytosis. CML cannot be ruled out based on an extended history of leukocytosis. No further blood draws will be ordered, as I discussed with his POA by phone today. (7) Cachexia Conclusion/Plan: Mr. Bowen has a BMI of 14. He has lost about 15 kg since the beginning of 2018. He reported that his diet mostly consisted of Ensure nutrition shakes due to dy sphagia that was documented in 2019 without follow up. (He was seen by gastroenterology at [facility] around that time). His power of assistant county attorney vaguely remembers being told that he had severe dysphagia due to an unknown problem that she cannot remember. But it was untreatable. He is not receiving optimal nutrition at his long term. Also possible are aroldo=adriana protein-calorie malnutrition from neoplastic process or weight loss associated with severe COPD. Those are both probably the cause of his failure to thrive. Comfort feeding will be allowed. Qualifiers: Chronicity: acute on chronic
[2021-10-01] MEDS: PHENYTOIN CHEW 50 MG TABLET PO SCH ×3 (08:47→23:28)
[2021-10-01] MEDS: SENNA 8.6 MG TABLET PO SCH (08:51)
[2021-10-01] MEDS: DOCUSATE SODIUM 250 MG CAPSULE PO SCH (08:52)
[2021-10-01] MEDS: metroNIDAZOLE 250 MG TABLET PO SCH ×3 (08:52→16:32)
[2021-10-01] MEDS ORDERED: levoFLOXacin 250 MG TABLET PO SCH (09:00)
[2021-10-01] MEDS: polyethylene glycoL 3350 17 GM PACKET PO SCH (09:00)
[2021-10-01] MEDS: MORPHINE SOL 10 MG/0.5 ML ORAL SYRINGE PO PRN ×3 (09:04→16:32)
--- NOTE | 2021-10-01 09:24 | PHARMACY PROGRESS NOTE ---
- Best Possible Medication History Admit Date and Time: 09/29/21 0657 Processed by: Pharmacy Medication History completed: Yes Patient Interview: Pt unable to participate Secondary Source(s): Pharmacy records, Insurance records As the person ultimately responsible for medication therapy, providers are able to order a medication from an existing home medication list in [facility] via the "Reconcile Routine" prior to Confirmation of that medication by personal support worker. Such practice is discouraged except when the physician, in their clinical judgment, deems that a medical need exists for a medication without regard to previous use.
[2021-10-01] MEDS: dexAMETHasone 4 MG TABLET PO SCH (17:01)
[2021-10-01] MEDS ORDERED: IPRATROPIUM/ALBUTEROL 3 ML NEB INH PRN (18:54)
[2021-10-01] MEDS: LEVALBUTEROL 1.25 MG/3 ML NEB INH SCH ×3 (19:19→20:42)
[2021-10-01] MEDS ORDERED: INSULIN GLARGINE 300 UNIT/3 ML PEN SUBQ SCH (21:00)
[2021-10-02] MEDS: PHENYTOIN CHEW 50 MG TABLET PO SCH ×3 (05:38→21:24)
[2021-10-02] MEDS: SODIUM CHLORIDE FLUSH 0.9% 10 ML SYRINGE IVP SCH ×4 (05:39→23:38)
[2021-10-02] MEDS: LEVALBUTEROL 1.25 MG/3 ML NEB INH SCH ×4 (07:26→20:08)
[2021-10-02] MEDS: MORPHINE SOL 10 MG/0.5 ML ORAL SYRINGE PO PRN ×3 (08:06→21:24)
--- NOTE | 2021-10-02 09:04 | PROVIDER PROGRESS NOTE ---
Assessment/Plan - Problem List (1) Respiratory failure Qualifiers: Chronicity: acute on chronic Respiratory failure complication: hypoxia and hypercapnia Qualified Code(s): J96.21 - Acute and chronic respiratory failure with hypoxia; J96.22 - Acute and chronic respiratory failure with hypercapnia Assessment/Plan: Pt has hx of COVID19, on continuous home oxygen, untreated lung cancer diagnosed in 2018. Pt presented to the ED on 09/29 with acute on chronic SOB. WBC count was elevated. Chest XR had multilobar infiltrates vs neoplastic disease. Steroids and nebulizer treatments given in ED. Since then pt has been given IV levaquin and flagyl, then progressed to PO levaquin and flagyl with loss of pt's IV. Antibiotics have been discontinued to with pt's progression to comfort measures only. BIPAP also discontinued this morning. Plan: 1. NC to pt comfort 2. Continued morphine and ativan administration to alleviate anxiety (2) Multilobar lung infiltrates Progression of neoplastic disease since 2018 due to pt's decision to opt out of treatment. All antibiotics and steroids have been discontinued. Plan: 1. Continue with comfort measures (3) Severe chronic obstructive pulmonary disease Pt has received multiple courses of nebulizer treatments and IV/PO steroids. Steroids have been discontinued. However continue nebulizers as needed for pt comfort. Plan: 1. nebulizers prn with rt (4) Tobacco abuse Conclusion/Plan: Pt is a lifetime smoker who continued to smoke while on home O2, pt has diaz on face as a result of smoking with it. Pt was encouraged to discontinue all tobacco use. (5) Anxiety Conclusion/Plan: Pt has a hx of anxiety that is currently being ameliorated with removal of BIPAP machine. Plan: 1. Ativan and haldol given PRN (6) Leukocytosis Conclusion/Plan: Hx of leukocytosis since 2013. He has a postobstructive pneumonitis, given the multiple lung nodules/tumors. This is likely causing his leukocytosis. CML cannot be ruled out based on an extended history of leukocytosis. Plan: No further lab draws to monitor. (7) Cachexia Conclusion/Plan: Pt has loss 15kg since 2018. Diet mostly consists of ensures shakes due to hx of dysphagia. Pt was seen by gastroenterology at [facility]. Pt's weight loss can also be attributed to malignant process. Plan: Pt can eat whatever he pleases as needed. (8) Lung malignancy Since 2018 to which he did not opt for treatment. - Current Meds Current Meds: Current Medications Generic Name Dose Route Start Last Admin Trade Name Freq PRN Reason Stop Dose Admin Alcohol 1 amp 09/30/21 09:00 10/01/21 21:35 Ethyl Alcohol 62% Swab Ampule ESTUARDO 1 amp BID KIMI Administration Carbamazepine 200 mg 09/30/21 21:00 10/01/21 21:36 Carbamazepine 200 Mg Tablet PO 200 mg BID KIMI Administration Dexamethasone 4 mg 10/01/21 17:00 10/01/21 17:01 Dexamethasone 4 Mg Tablet PO 4 mg BIDWM KIMI Administration Docusate Sodium 250 - 500 mg 10/01/21 09:00 10/01/21 08:52 Docusate Sodium 250 Mg Capsule PO 250 mg DAILY KIMI Administration Enoxaparin Sodium 40 mg 09/29/21 09:00 10/01/21 08:22 Enoxaparin 40 Mg/0.4 Ml Syringe SUBQ 40 mg DAILY KIMI Administration Glycopyrrolate 0.2 mg 10/01/21 08:25 10/01/21 14:41 Glycopyrrolate 1 Mg/5 Ml Vial SUBQ 0.2 mg Q4H PRN Administration Excessive secretions Insulin Glargine 10 unit 10/01/21 21:00 10/01/21 21:36 Insulin Glargine 300 Unit/3 Ml Pen SUBQ 10 unit QPM KIMI Administration Levalbuterol HCl 1.25 mg 10/01/21 09:00 10/02/21 07:26 Levalbuterol 1.25 Mg/3 Ml Neb INH 1.25 mg QID KIMI Administration Lorazepam 0.5 mg 09/29/21 17:19 09/30/21 17:02 Lorazepam 2 Mg/Ml Vial IVP 0.5 mg Q2H PRN Administration Anxiety Morphine Sulfate 5 mg 10/01/21 08:22 10/02/21 08:06 Morphine Grace 10 Mg/0.5 Ml Oral Syringe PO 5 mg Q2HR PRN Administration Dyspnea Ondansetron HCl 4 mg 09/29/21 06:57 10/01/21 08:47 Ondansetron Odt 4 Mg Tablet TL 4 mg Q6HR PRN Administration Nausea / Vomiting Phenytoin Sodium 50 mg 10/01/21 08:22 10/02/21 05:38 Phenytoin Chew 50 Mg Tablet PO 50 mg TID KIMI Administration Polyethylene Glycol 17 gm 10/01/21 09:00 10/01/21 09:00 Polyethylene Glycol 3350 17 Gm Packet PO 17 gm DAILY KIMI Administration Saccharomyces Boulardii 250 mg 09/29/21 17:00 10/01/21 17:02 Saccharomyces Boulardii 250 Mg Capsule PO Not Given BIDWM KIMI Senna 8.6 - 17.2 mg 10/01/21 09:00 10/01/21 08:51 Senna 8.6 Mg Tablet PO 8.6 mg DAILY KIMI Administration Sodium Chloride 10 ml 09/29/21 09:00 10/02/21 05:39 Sodium Chloride Flush 0.9% 10 Ml Syringe IVP Not Given 0100,0900,1700 KIMI Sodium Chloride 10 ml 09/29/21 06:57 09/29/21 14:25 Sodium Chloride Flush 0.9% 10 Ml Syringe IVP 10 ml PRN PRN Administration NEEDED PER PROVIDER ORDERS - Lab Result Fish Bone Diagrams: 10/01/21 04:19 10/01/21 04:19 Subjective - Subjective Patient Reports: Feeling Better, Cough, Shortness of Breath, Other (Pt was taken off BIPAP mask this morning and communicated his feelings of anxiety with the state of his breathing. Pt also reports having a dry mouth. Pt does not appear to be in distress otherwise.) Nursing Reports: Cough Objective Vital Signs: Vital Signs - 24 hr 10/01/21 10/01/21 10/01/21 12:40 12:42 16:00 Temperature 36.4 C L Heart Rate 84 88 Heart Rate [ 116 H Monitoring electrodes] Respiratory 20 28 H Rate Blood Pressure 108/83 H [Left Brachial artery] O2 Saturation 100 10/01/21 16:13 Temperature Heart Rate Heart Rate [ Monitoring electrodes] Respiratory 22 Rate Blood Pressure [Left Brachial artery] O2 Saturation Oxygen O2 Source [With Activity] Nasal cannula O2 Source BIPAP Oxygen Flow Rate 2 I&O (Last 24 Hrs): Intake and Output Totals x24h 09/30/21 10/01/21 10/02/21 23:59 23:59 23:59 Intake Total 250 1187 560 Output Total 1345 574 233 Balance -1095 613 327 General: Oriented x3, Mild distress HEENT: PERRLA, EOMI Neck: No JVD, No thyromegaly Lymphatic: no adenopathy Neuro: Alert, CN 2-12 Grossly Intact, Oriented Times 3 Cardiovascular: Normal S1, Normal S2 Respiratory: Chest non-tender, Wheezes, Rhonchi Abdomen: Normal bowel sounds, No tenderness Extremities: No edema, No tenderness/swelling - Results Results: Laboratory Results Specimen Type BLOOD 09/29/21 13:42 WBC 30.9 x10^3/uL (4.8-10.8) H 10/01/21 04:19 RBC 4.01 10^6/uL (4.70-6.10) L 10/01/21 04:19 Hgb 12.4 g/dL (14.0-18.0) L 10/01/21 04:19 Hct 39.1 % (42.0-52.0) L 10/01/21 04:19 MCV 97.5 fL (80.0-94.0) H 10/01/21 04:19 MCH 30.9 pg (27.0-31.0) 10/01/21 04:19 MCHC 31.7 g/dL (32.0-36.0) L 10/01/21 04:19 RDW 14.0 % (12.0-15.0) 10/01/21 04:19 Plt Count 259 10^3/uL (130-450) 10/01/21 04:19 MPV 10.0 fL (7.4-11.4) 10/01/21 04:19 Neut # (Auto) Not Reportable 10/01/21 04:19 Lymph # (Auto) Not Reportable 10/01/21 04:19 [place] # (Auto) Not Reportable 10/01/21 04:19 Eos # (Auto) Not Reportable 10/01/21 04:19 Baso # (Auto) Not Reportable 10/01/21 04:19 Absolute Nucleated RBC Not Reportable 10/01/21 04:19 Total Counted 100 10/01/21 04:19 Band Neuts % (Manual) 16 % (0-10) H 10/01/21 04:19 Abnorm Lymph % (Manual) 0 % 10/01/21 04:19 Nucleated RBC % Not Reportable 10/01/21 04:19 Neutrophils # (Manual) 27.5 10^3/uL (1.5-6.6) H 10/01/21 04:19 Lymphocytes # (Manual) 1.9 10^3/uL (1.5-3.5) 10/01/21 04:19 Monocytes # (Manual) 1.5 10^3/uL (0.0-1.0) H 10/01/21 04:19 Eosinophils # (Manual) 0.0 10^3/uL (0-0.7) 10/01/21 04:19 Basophils # (Manual) 0.0 10^3/uL (0-0.1) 10/01/21 04:19 Differential Comment MANUAL DIFFERENTIAL 10/01/21 04:19 WBC Morphology NORMAL APPEARANCE (NORMAL) 09/30/21 20:30 Platelet Estimate NORMAL (130-450,000) (NORMAL) 10/01/21 04:19 Platelet Morphology NORMAL APPEARANCE (NORMAL) 09/30/21 20:30 RBC Morph Micro Appear NORMAL APPEARANCE (NORMAL) 10/01/21 04:19 Bld Gas Analysis Time 0751 09/29/21 07:45 Sample Site RIGHT RADIAL 09/29/21 07:45 ABG pH 7.32 (7.35-7.45) L 09/29/21 07:45 ABG pCO2 48 mmHg (34-45) H 09/29/21 07:45 ABG pO2 127 mmHg (80-100) H 09/29/21 07:45 ABG HCO3 24.1 mmol/L (22.0-26.0) 09/29/21 07:45 ABG Total CO2 25.6 MMOL/L (21.0-29.0) 09/29/21 07:45 ABG O2 Saturation 98 % (94-98) 09/29/21 07:45 ABG Base Excess -2.4 mmol/L (-2.0-3.0) L 09/29/21 07:45 Bobo Test POSITIVE 09/29/21 07:45 O2 Delivery Device BiPAP 09/29/21 07:45 FiO2 40.00 09/29/21 07:45 EPAP 5 cmH2O 09/29/21 07:45 IPAP 10 cmH2O 09/29/21 07:45 Sodium 145 mmol/L (135-145) 10/01/21 04:19 Potassium 4.3 mmol/L (3.5-5.0) 10/01/21 04:19 Chloride 108 mmol/L (101-111) 10/01/21 04:19 Carbon Dioxide 26 mmol/L (21-32) 10/01/21 04:19 Anion Gap 11.0 (6-13) 10/01/21 04:19 BUN 31 mg/dL (6-20) H 10/01/21 04:19 Creatinine 0.7 mg/dL (0.6-1.2) 10/01/21 04:19 Estimated GFR (MDRD) 111 (>89) 10/01/21 04:19 Glucose 109 mg/dL (70-100) H 10/01/21 04:19 Calcium 9.2 mg/dL (8.5-10.3) 10/01/21 04:19 Phosphorus 2.4 mg/dL (2.5-4.6) L 10/01/21 04:19 Magnesium 2.1 mg/dL (1.7-2.8) 10/01/21 04:19 Total Bilirubin 0.6 mg/dL (0.2-1.0) 09/29/21 06:05 AST 27 IU/L (10-42) 09/29/21 06:05 ALT 28 IU/L (10-60) 09/29/21 06:05 Alkaline Phosphatase 107 IU/L (42-121) 09/29/21 06:05 Total Protein 8.1 g/dL (6.7-8.2) 09/29/21 06:05 Albumin 3.9 g/dL (3.2-5.5) 09/29/21 06:05 Globulin 4.2 g/dL (2.1-4.2) 09/29/21 06:05 Albumin/Globulin Ratio 0.9 (1.0-2.2) L 09/29/21 06:05 Lipase 24 U/L (22-51) 09/29/21 06:05 Nasal Adenovirus (PCR) NOT DETECTED 09/29/21 06:05 Nasal B. parapertussis DNA (PCR) NOT DETECTED 09/29/21 06:05 Nasal Coronavir 229E PCR NOT DETECTED 09/29/21 06:05 Nasal Coronavir HKU1 PCR NOT DETECTED 09/29/21 06:05 Nasal Coronavir NL63 PCR NOT DETECTED 09/29/21 06:05 Nasal Coronavir OC43 PCR NOT DETECTED 09/29/21 06:05 Nasal Enterovir/Rhinovir PCR NOT DETECTED 09/29/21 06:05 Nasal Influenza B PCR NOT DETECTED 09/29/21 06:05 Nasal Influenza A PCR NOT DETECTED 09/29/21 06:05 Nasal Parainfluen 1 PCR NOT DETECTED 09/29/21 06:05 Nasal Parainfluen 2 PCR NOT DETECTED 09/29/21 06:05 Nasal Parainfluen 3 PCR NOT DETECTED 09/29/21 06:05 Nasal Parainfluen 4 PCR NOT DETECTED 09/29/21 06:05 Nasal RSV (PCR) NOT DETECTED 09/29/21 06:05 Nasal Screen MRSA (PCR) POSITIVE (NEGATIVE) A* 09/29/21 13:00 Nasal B.pertussis DNA PCR NOT DETECTED 09/29/21 06:05 Nasal C.pneumoniae (PCR) NOT DETECTED 09/29/21 06:05 Estuardo Human Metapneumo PCR NOT DETECTED 09/29/21 06:05 Nasal M.pneumoniae (PCR) NOT DETECTED 09/29/21 06:05 Nasal SARS-CoV-2 (PCR) DETECTED A 09/29/21 06:05 - Procedures Procedures: Procedures INSERTION OF ENDOTRACHEAL AIRWAY INTO TRACHEA, VIA OPENING (05/29/17) RESPIRATORY VENTILATION, LESS THAN 24 CONSECUTIVE HOURS (05/29/17) ABX Reporting Has patient been on IV antibiotics over the past 48 hours?: Yes Current Medications - Current Medications Current Medications: Active Medications Generic Name Dose Route Start Last Admin Trade Name Freq PRN Reason Stop Dose Admin Acetaminophen 650 mg 09/29/21 06:57 Acetaminophen 325 Mg Tablet PO Q4HR PRN Pain 1 to 4, or Fever Acetaminophen 650 mg 10/01/21 08:25 Acetaminophen 650 Mg Supp GA Q4H PRN Pain or Fever > 38C (100.4F) Albuterol 2.5 mg 09/29/21 06:57 Albuterol Neb 2.5 Mg/3 Ml INH Q4HR PRN Wheezing Albuterol/Ipratropium 3 ml 10/01/21 18:54 Ipratropium/Albuterol 3 Ml Neb INH Q4HR PRN Dyspnea Alcohol 1 amp 09/30/21 09:00 10/01/21 21:35 Ethyl Alcohol 62% Swab Ampule ESTUARDO 1 amp BID KIMI Administration Alprazolam 0.25 mg 09/29/21 08:09 Alprazolam 0.25 Mg Tablet PO Q6HR PRN Anxiety Carbamazepine 200 mg 09/30/21 21:00 10/01/21 21:36 Carbamazepine 200 Mg Tablet PO 200 mg BID KIMI Administration Carboxymethylcellulose 1 drops 10/01/21 08:25 Carboxymethylcellulose Ophth Drops EACHEYE QID PRN Dry Eye Dexamethasone 4 mg 10/01/21 17:00 10/01/21 17:01 Dexamethasone 4 Mg Tablet PO 4 mg BIDWM KIMI Administration Docusate Sodium 250 - 500 mg 10/01/21 09:00 10/01/21 08:52 Docusate Sodium 250 Mg Capsule PO 250 mg DAILY KIMI Administration Enoxaparin Sodium 40 mg 09/29/21 09:00 10/01/21 08:22 Enoxaparin 40 Mg/0.4 Ml Syringe SUBQ 40 mg DAILY KIMI Administration Glycopyrrolate 0.2 mg 10/01/21 08:25 10/01/21 14:41 Glycopyrrolate 1 Mg/5 Ml Vial SUBQ 0.2 mg Q4H PRN Administration Excessive secretions Haloperidol 5 mg 10/01/21 08:35 Haloperidol 10 Mg/5 Ml Udc PO Q4HR PRN Agitation Insulin Glargine 10 unit 10/01/21 21:00 10/01/21 21:36 Insulin Glargine 300 Unit/3 Ml Pen SUBQ 10 unit QPM KIMI Administration Levalbuterol HCl 1.25 mg 10/01/21 09:00 10/02/21 07:26 Levalbuterol 1.25 Mg/3 Ml Neb INH 1.25 mg QID KIMI Administration Lorazepam 0.5 mg 09/29/21 17:19 09/30/21 17:02 Lorazepam 2 Mg/Ml Vial IVP 0.5 mg Q2H PRN Administration Anxiety Lorazepam 1 mg 10/02/21 07:58 Lorazepam 1 Mg Tablet PO Q2H PRN Anxiety/Agitation Morphine Sulfate 5 mg 10/01/21 08:22 10/02/21 08:06 Morphine Grcae 10 Mg/0.5 Ml Oral Syringe PO 5 mg Q2HR PRN Administration Dyspnea Ondansetron HCl 4 mg 09/29/21 06:57 10/01/21 08:47 Ondansetron Odt 4 Mg Tablet TL 4 mg Q6HR PRN Administration Nausea / Vomiting Phenytoin Sodium 50 mg 10/01/21 08:22 10/02/21 05:38 Phenytoin Chew 50 Mg Tablet PO 50 mg TID KIMI Administration Polyethylene Glycol 17 gm 10/01/21 09:00 10/01/21 09:00 Polyethylene Glycol 3350 17 Gm Packet PO 17 gm DAILY KIMI Administration Saccharomyces Boulardii 250 mg 09/29/21 17:00 10/01/21 17:02 Saccharomyces Boulardii 250 Mg Capsule PO Not Given BIDWM KIMI Senna 8.6 - 17.2 mg 10/01/21 09:00 10/01/21 08:51 Senna 8.6 Mg Tablet PO 8.6 mg DAILY KIMI Administration Sodium Chloride 10 ml 09/29/21 09:00 10/02/21 05:39 Sodium Chloride Flush 0.9% 10 Ml Syringe IVP Not Given 0100,0900,1700 [facility] Sodium Chloride 10 ml 09/29/21 06:57 09/29/21 14:25 Sodium Chloride Flush 0.9% 10 Ml Syringe IVP 10 ml PRN PRN Administration NEEDED PER PROVIDER ORDERS Fluticasone/Umeclidin/Vilanter [Trelegy Ellipta 200-62.5-25] 1 puffs INH DAILY 10/01/21 Phenytoin [Dilantin-125] 62.5 mg PO TID 10/01/21 carBAMazepine [Carbamazepine] 200 mg PO BID 10/01/21
[2021-10-02] MEDS: ethyl alcohoL 62% SWAB AMPULE NAS SCH ×2 (10:27→21:24)
[2021-10-02] MEDS: carBAMazepine 200 MG TABLET PO SCH ×2 (10:28→21:24)
[2021-10-02] MEDS: LORazepam 1 MG TABLET PO PRN ×3 (10:28→21:24)
[2021-10-02] MEDS: dexAMETHasone 4 MG TABLET PO SCH ×2 (10:29→17:33)
[2021-10-02] MEDS: ENOXAPARIN 40 MG/0.4 ML SYRINGE SUBQ SCH (13:57)
[2021-10-02] MEDS: SACCHAROMYCES BOULARDII 250 MG CAPSULE PO SCH ×2 (13:57→20:33)
[2021-10-02] MEDS: DOCUSATE SODIUM 250 MG CAPSULE PO SCH (13:57)
[2021-10-02] MEDS: SENNA 8.6 MG TABLET PO SCH (13:58)
[2021-10-02] MEDS: polyethylene glycoL 3350 17 GM PACKET PO SCH (13:58)
[2021-10-03] MEDS: MORPHINE SOL 10 MG/0.5 ML ORAL SYRINGE PO PRN ×7 (01:22→20:27)
[2021-10-03] MEDS: LORazepam 1 MG TABLET PO PRN ×3 (01:22→20:28)
[2021-10-03] MEDS: HALOPERIDOL 10 MG/5 ML UDC PO PRN ×2 (05:02→11:34)
[2021-10-03] MEDS: PHENYTOIN CHEW 50 MG TABLET PO SCH ×3 (05:02→20:27)
[2021-10-03] MEDS ORDERED: MORPHINE SOL 10 MG/0.5 ML ORAL SYRINGE PO STA (05:24)
[2021-10-03] MEDS: LEVALBUTEROL 1.25 MG/3 ML NEB INH SCH ×3 (07:49→15:28)
[2021-10-03] MEDS: SACCHAROMYCES BOULARDII 250 MG CAPSULE PO SCH ×2 (08:31→17:21)
[2021-10-03] MEDS: DOCUSATE SODIUM 250 MG CAPSULE PO SCH (08:31)
[2021-10-03] MEDS: ENOXAPARIN 40 MG/0.4 ML SYRINGE SUBQ SCH (08:31)
[2021-10-03] MEDS: carBAMazepine 200 MG TABLET PO SCH ×2 (08:31→20:27)
[2021-10-03] MEDS: SODIUM CHLORIDE FLUSH 0.9% 10 ML SYRINGE IVP SCH ×2 (08:32→17:21)
[2021-10-03] MEDS: polyethylene glycoL 3350 17 GM PACKET PO SCH (08:32)
[2021-10-03] MEDS: SENNA 8.6 MG TABLET PO SCH (08:32)
[2021-10-03] MEDS: dexAMETHasone 4 MG TABLET PO SCH ×2 (08:38→17:21)
[2021-10-03] MEDS: ethyl alcohoL 62% SWAB AMPULE NAS SCH ×2 (08:39→20:28)
--- NOTE | 2021-10-03 09:09 | PROVIDER PROGRESS NOTE ---
Subjective - Prog Note Date Prog Note Date: 10/03/21 Prog Note Time: 09:05 - Subjective Subjective: he complains of gum pain. RN did mouth wash and he has quite a bit of gingivitis. Struggling to breath but able to speak to me. hurts all over for musculoskeltal. no abd pain. RN is able to help with ativan and opiate dosing. Current Medications - Current Medications Current Medications: Active Medications Acetaminophen (Acetaminophen 325 Mg Tablet) 650 mg PO Q4HR PRN PRN Reason: Pain 1 to 4, or Fever Acetaminophen (Acetaminophen 650 Mg Supp) 650 mg SD Q4H PRN PRN Reason: Pain or Fever > 38C (100.4F) Albuterol (Albuterol Neb 2.5 Mg/3 Ml) 2.5 mg INH Q4HR PRN PRN Reason: Wheezing Last Admin: 10/03/21 04:50 Dose: 2.5 mg Albuterol/Ipratropium (Ipratropium/Albuterol 3 Ml Neb) 3 ml INH Q4HR PRN PRN Reason: Dyspnea Alcohol (Ethyl Alcohol 62% Swab Ampule) 1 amp ESTUARDO BID [facility] Last Admin: 10/03/21 08:39 Dose: 1 amp Alprazolam (Alprazolam 0.25 Mg Tablet) 0.25 mg PO Q6HR PRN PRN Reason: Anxiety Carbamazepine (Carbamazepine 200 Mg Tablet) 200 mg PO BID [facility] Last Admin: 10/03/21 08:31 Dose: 200 mg Carboxymethylcellulose (Carboxymethylcellulose Ophth Drops) 1 drops EACHEYE QID PRN PRN Reason: Dry Eye Dexamethasone (Dexamethasone 4 Mg Tablet) 4 mg PO BIDWM [facility] Last Admin: 10/03/21 08:38 Dose: 4 mg Docusate Sodium (Docusate Sodium 250 Mg Capsule) 250 - 500 mg PO DAILY [facility] Last Admin: 10/03/21 08:31 Dose: 250 mg Enoxaparin Sodium (Enoxaparin 40 Mg/0.4 Ml Syringe) 40 mg SUBQ DAILY [facility] Last Admin: 10/03/21 08:31 Dose: 40 mg Glycopyrrolate (Glycopyrrolate 1 Mg/5 Ml Vial) 0.2 mg SUBQ Q4H PRN PRN Reason: Excessive secretions Last Admin: 10/01/21 14:41 Dose: 0.2 mg Haloperidol (Haloperidol 10 Mg/5 Ml Udc) 5 mg PO Q4HR PRN PRN Reason: Agitation Last Admin: 10/03/21 05:02 Dose: 5 mg Levalbuterol HCl (Levalbuterol 1.25 Mg/3 Ml Neb) 1.25 mg INH QID [facility] Last Admin: 10/03/21 07:49 Dose: 1.25 mg Lorazepam (Lorazepam 2 Mg/Ml Vial) 0.5 mg IVP Q2H PRN PRN Reason: Anxiety Last Admin: 09/30/21 17:02 Dose: 0.5 mg Lorazepam (Lorazepam 1 Mg Tablet) 1 mg PO Q2H PRN PRN Reason: Anxiety/Agitation Last Admin: 10/03/21 01:22 Dose: 1 mg Morphine Sulfate (Morphine Grace 10 Mg/0.5 Ml Oral Syringe) 10 mg PO Q2HR PRN PRN Reason: Dyspnea Last Admin: 10/03/21 09:01 Dose: 10 mg Ondansetron HCl (Ondansetron Odt 4 Mg Tablet) 4 mg TL Q6HR PRN PRN Reason: Nausea / Vomiting Last Admin: 10/01/21 08:47 Dose: 4 mg Phenytoin Sodium (Phenytoin Chew 50 Mg Tablet) 50 mg PO TID [facility] Last Admin: 10/03/21 05:02 Dose: 50 mg Polyethylene Glycol (Polyethylene Glycol 3350 17 Gm Packet) 17 gm PO DAILY [facility] Last Admin: 10/03/21 08:32 Dose: 17 gm Saccharomyces Boulardii (Saccharomyces Boulardii 250 Mg Capsule) 250 mg PO BIDWM [facility] Last Admin: 10/03/21 08:31 Dose: 250 mg Senna (Senna 8.6 Mg Tablet) 8.6 - 17.2 mg PO DAILY [facility] Last Admin: 10/03/21 08:32 Dose: 8.6 mg Sodium Chloride (Sodium Chloride Flush 0.9% 10 Ml Syringe) 10 ml IVP 0100,0900,1700 [facility] Last Admin: 10/03/21 08:32 Dose: 10 ml Sodium Chloride (Sodium Chloride Flush 0.9% 10 Ml Syringe) 10 ml IVP PRN PRN PRN Reason: NEEDED PER PROVIDER ORDERS Last Admin: 09/29/21 14:25 Dose: 10 ml Fluticasone/Umeclidin/Vilanter [Trelegy Ellipta 200-62.5-25] 1 puffs INH DAILY 10/01/21 Phenytoin [Dilantin-125] 62.5 mg PO TID 10/01/21 carBAMazepine [Carbamazepine] 200 mg PO BID 10/01/21 Objective - Vital Signs/Intake & Output Reviewed Vital Signs: Yes Vital Signs: Vital Signs x48h Temp Pulse Resp BP Pulse Ox 10/03/21 07:50 36.6 C 94 24 126/68 92 Intake & Output: Intake & Output 09/30/21 10/01/21 10/02/21 10/03/21 23:59 23:59 23:59 23:59 Intake Total 250 1187 800 60 Output Total 1345 574 233 Balance -1095 613 567 60 - Objective General Appearance: positive: Moderate distress (Refusing BiPAP since yesterday. On high flow nasal cannula strictly for comfort. I taught him pursed lip breathing yesterday but is unable to do it today. Tachypneic with just 1 sentence) Eyes Bilateral: positive: PERRL, EOMI ENT: positive: No signs of dehydration, Other (Low hoarse voice, phlegm at the back of the throat hard to clear) Neck: positive: No JVD. negative: Stiff neck Respiratory: positive: Wheezes, Rales, Rhonchi, Other (tachypnea at 45 degress, can't sit up, too weak, simple mask on his face 4 liters) Cardiovascular: positive: Regular rate & rhythm, Extrasystoles. 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 basically bed bound for a few months now) - Lab Results Fish Bones: 10/01/21 04:19 10/01/21 04:19 ABX Reporting Has patient been on IV antibiotics over the past 48 hours?: No Assessment/Plan - Problem List (1) Acute on chronic respiratory failure with hypoxemia Impression: This gentleman presented to our hospital with acute respiratory failure on chronic respiratory failure due to what we initially thought was Multi lobar pneumonia. Over the next few hours, in reviewing his history and redoing a CT scan of the chest we realized that the mild to lobar pneumonia was in fact Multi lobar lung cancer. It has been present since 2018 and growing. He is easily tachypneic with anxiety much less the progression of his disease is quite severe. We are treating him for COPD exacerbation. He was on antibiotics. We were addressing all of his medical problems as acute issues initially. Now that we have identified him as having a terminal condition, with a very, very poor prognosis, and imminent , we have transitioned him to comfort measures since yesterday. He is claustrophobic with the BiPAP mask that we will no longer be used. We have opted not to treat his glucose with multiple checks to keep him more comfortable. He has not oxygen, morphine, Ativan and any other comfort measures. The overall plan is to [facility], with hospice. But we will only do that once hospice is in place because I do not think he will live much longer than a few hours if not days once he is transferred.
--- NOTE | 2021-10-03 15:35 | Discharge Plan ---
Discharge Plan for SNF / [facility] - Discharge Plan And Transition Orders Problem Reviewed?: Yes Disposition: 50 Hospice/Home DC/Xfer Condition: Critical Allergies and Adverse Reactions: Allergies Allergy/AdvReac Type Severity Reaction Status Date / Time Egg Derived AdvReac Intermediate Respiratory Verified 09/29/21 06:09 egg AdvReac Mild Nausea Verified 09/29/21 06:09 lactose AdvReac Mild Cramps Verified 09/29/21 06:09 Health Concerns: You came to the hospital because you were severely short of breath since the day before admission. You already have end-stage emphysema and use oxygen on a regular basis. Your life has become very sedentary. You basically spend your days in bed or in a chair because you are so short of breath with your emphysema. In the emergency room we initially thought that you had pneumonia and both sides in your lungs in various areas. But then we did a CT scan of your lung which is a 3D xray that lets us look at internal organs and found that you have lung cancer in both sides in multiple areas. This lung cancer has been present since 2018 and gradually growing. You did speak to your [facility] doctor,Dr. Butler, in February of last year to discuss this and opted not to do any treatment. We think that your lung cancer has progressed to the point that you will pass away soon. Your shortness of breath is very severe. In trying to get you home, it was the holiday weekend and your halfway could not take you right away. They are now able to take you today. Plan of Treatment: 1. We will order hospice to help you with comfort measures back in your room at [facility] 2. We will send orders for pain medicines and anxiety medicines for you at [facility] 3. Your friend and power of managing attorney is Radha Marin and she has been made aware of our plans for you Care Goals: To peacefully pass away in your own room. We hope to provide you with enough medicine that you are not very anxious, or you are not in significant pain. Assessment: Patient is intermittently confused, also partially deaf, and while he understands what we are doing, has a high anxiety level with this - SNF / [facility] Transition Orders Admit to (Facility): [facility] Under the care of (Name): Elizabeth Kee MD (hospice) Discharge Diagnosis: 1. Acute on chronic respiratory failure with hypoxemia 2. Malignant neoplasm of lung metastatic 3. COPD, end-stage 4. Tobacco abuse, ongoing 5. Oxygen dependent 6. Weight loss Medicare Certification Statement: I certify that [facility] is medically necessary on a continuing basis for any of the conditions for which she/he is receiving care during hospitalization. Notify PCP of admission and forward orders to primary provider for signature. Other Notification Orders: Call PCP immediately if patient develops dyspnea, chest pain/tightness or edema. Additional Bowel Program Orders: If no BM after 2 days, nurse may give M.O.M. 30ml PO PRN and/or ducolax Supp 1 OH and/or CHACHA 250mg P.O., and/or senna 1-2 tabs PO. On day 3 nurse may give repeat above order until residents constipation is resolved. Medication Orders: PLEASE REFER TO THE DISCHARGE MEDICATION LIST. Insulin Orders?: No - Medications New Prescriptions: Morphine Oral Soln [Roxanol] 10 mg PO Q2HR PRN #120 ml PRN Reason: Dyspnea Haloperidol Oral Soln [Haldol Oral Soln] 5 mg PO Q4HR PRN #30 ml PRN Reason: Agitation Albuterol Sulf [Ventolin Hfa Inhaler] 1 - 2 puffs INH Q4HR PRN #18 gm PRN Reason: Shortness Of Air/Wheezing Ondansetron Odt [Zofran Odt] 4 mg TL Q6HR PRN #30 tablet PRN Reason: Nausea / Vomiting LORazepam [Ativan] 1 mg PO Q2H PRN #40 tablet PRN Reason: Anxiety/Agitation Acetaminophen [Tylenol] 650 mg OH Q4H PRN #100 tablet PRN Reason: Pain Or Fever > 38c (100.4f) - Diet Type: Geriatric Texture: Regular Liquids: Thin May have monthly special meal: Yes
--- NOTE | 2021-10-03 16:04 | DISCHARGE SUMMARY ---
"Discharge Summary Admit Date: 09/29/21 Discharge Date: 10/03/21 Discharging Provider: Alea Marcelino MD Primary Care Provider: Marquis Butler MD Code Status: Do Not Attempt Resuscitation Condition at Discharge: Critical Discharge Disposition: 50 Hospice/Home DC/Xfer - DIAGNOSES Discharge Diagnoses with Status of Each Condition: 1. Acute on chronic respiratory failure with hypoxia and hypercapnia 2. Malignant neoplasm of lung 3. Severe COPD 4. Tobacco abuse 5. Anxiety 6. Leukocytosis 7. Cachexia 8. Severe protein calorie malnutrition 9. Seizure disorder - HPI History of Present Illness: Mr. Bowen is a 71 year old patient with a history of severe COPD and recent covid infection who presents with acute on chronic shortness of breath. He uses 3 liters of oxygen at home. The [facility] resides [facility]; staff states that Mr. Bowen was gradually becoming more short of breath over the past few days and reports that he became even more short of breath after smoking a cigarettes this morning around 0200. The patient states that he was trying to retrieve an object from under the sink this morning and was stuck on his hands and knees for 45 minutes as he was unable to retrieve his call light to obtain help, which he believes was the reason for his admission. He denies chest pain, cough, leg swel ling, fever, chills, abdominal pain, stool changes, hematuria, and bloody stools. The patient is currently on Bipap after being transferred from the ED and communication is difficult. The patient is tangential and hard to understand. Mr. Bowen reports smoking 2 unfiltered cigarettes per day. - Past Medical History Cardiovascular: reports: Coronary artery disease Respiratory: reports: COPD Neuro: reports: Seizure disorder Endocrine/Autoimmune: reports: None GI: reports: Hemorrhoids : reports: None HEENT: reports: None Psych: reports: Anxiety Musculoskeletal: reports: Osteoarthritis, Other Derm: reports: Other MRSA Hx?: Yes - Past Surgical History General: reports: Cholecystectomy, Other Ortho: reports: Other HEENT: reports: Tonsil/Adenoidectomy Derm: reports: Debridement - CONSULTS | PROCEDURES Procedures: Chest x-ray was interval worsening of bilateral lung aeration concerning for multilobar infiltrates versus neoplastic process. CT of the chest shows severe upper lobe emphysematous changes. Interval increase in the extent of right apical and medial upper lobe irregular pleural thickening and fibrosis. Significant increase in the size of a prior posterior lateral right upper lobe lung mass now measuring 2.7 x 2.7 cm and demonstrating cavitation and extension laterally, thickening the overlying pleural surface. A new development of a left upper lobe spiculated mass measuring 3.6 x 2.3 cm. A new development of dense lobular thickening of the upper aspect of the right major fissure. Decreased size of a spiculated right middle lobe lung mass previously 1.4 cm, now 0.8. Persistent to slightly worsening patchy by basilar airspace opacities posteriorly. Overall increase in diffuse groundglass opacities seen in the lower lobes and lateral lingula. Severe L1 compression fracture is stable. No new compression fractures. - HOSPITAL COURSE Hospital Course: We initially admitted him for Multi lobar pneumonia in an gentleman who has end- stage COPD and is on oxygen. He had a severe leukocytosis has been chronic for several years now and getting worse. We postulated he may have a CML. In retrospect we think his leukocytosis is due to postobstructive pneumonitis, and inflammatory changes within the lung due to his lung cancer. He continues to smoke. In investigating the multilobar pneumonia we did a CT of the chest to make sure we were not dealing with early abscess formation or septic emboli. The CT of the chest confirmed that he has had lung nodules growing since 2018. They have been gradually getting bigger in size on several subsequent CTs. He was finally seen by his primary care provider in February 2021 with the patient was told that he had lung cancer. Most likely would not do well with treatment. The patient left his primary care provider's office after that visit and has not been seen in follow-up since then. He is continue to smoke, and lives in [facility] home[facility]assisted living facility. His power of securities attorney describes him is getting less and less ambulatory because of severe dyspnea on exertion at baseline. He spends most of his days either in a chair or his bed. He is lost quite a bit of weight over the last few months.He has significant muscle wasting and loss of subcutaneous fat. He has been eating less than 50% of recommended intake for more than 2 weeks. he is bed ridden and his BMI is 15.9 Once we realized that we were dealing with lung cancer, we had a discussion with his power of securities attorney, Radha tapia @ [phone]. Advance care planning conversation was had because the patient is unable to participate due to anxiety and memory loss. As his power of securities attorney she wishes him to be DNR. I did fill out a POLST form using her verbal okay. After a few days she also expressed that he most likely would want to be in his own room when he passes away. We initially contacted his [place] [facility] on October 01 for him to return there. However there was no phone call back. When we tried again today October 03 they stated that they would be able to take the patient back. He would be sent with medications for comfort including morphine, Ativan, and Xopenex. Our plan is then to have him open up for hospice services next week. The patient is with baseline respiratory failure. Any anxiety or activity makes him deeply, deeply short of breath. He is wearing a facemask and is 4 L nasal cannula. 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 Temperature is 36.6. Pulse is 95. Respirations vary anywhere between 14-24 depending on whether he is asleep or awake. He uses between 4 to 5 L oxime mask or simple mask. He has coarse upper airway sounds. Wheezing. Cachectic appearance and that rib cage is visible through is chest wall. Abdomen is soft, nontender with hypoactive bowel sounds. He is oriented to place and why he is here but not to time. However sometimes he is confused about where he is and does not seem to be aware of his diagnosis. Greater than 30 minutes was spent coordinating discharge. His [place] [facility] facility is worried about him getting there and not having enough comfort meds. So they want to make sure the pharmacy delivers them to the facility before they take him. They anticipate a 9 PM pickup time here. - ALLERGIES Allergies/Adverse Reactions: Allergies Allergy/AdvReac Type Severity Reaction Status Date / Time Egg Derived AdvReac Intermediate Respiratory Verified 09/29/21 06:09 egg AdvReac Mild Nausea Verified 09/29/21 06:09 lactose AdvReac Mild Cramps Verified 09/29/21 06:09 - MEDICATIONS Home Medications: Ambulatory Orders Medication Instructions Recorded Confirmed Fluticasone/Umeclidin/Vilanter 1 puffs INH DAILY 10/01/21 10/01/21 [Trelegy Ellipta 200-62.5-25] Phenytoin [Dilantin-125] 62.5 mg PO TID 10/01/21 10/01/21 carBAMazepine [Carbamazepine] 200 mg PO BID 10/01/21 10/01/21 Acetaminophen [Tylenol] 650 mg MO Q4H PRN #100 tablet 10/03/21 Albuterol Sulf [Ventolin Hfa 1 - 2 puffs INH Q4HR PRN #18 gm 10/03/21 Inhaler] Haloperidol Oral Soln [Haldol Oral 5 mg PO Q4HR PRN #30 ml 10/03/21 Soln] LORazepam [Ativan] 1 mg PO Q2H PRN #40 tablet 10/03/21 Morphine Oral Soln [Roxanol] 10 mg PO Q2HR PRN #120 ml 10/03/21 Ondansetron Odt [Zofran Odt] 4 mg TL Q6HR PRN #30 tablet 10/03/21 - LABS Result Diagrams: 10/01/21 04:19 10/01/21 04:19"
[2021-10-03 16:08] VITALS: BP 85/58
== END 2021-10-03 21:12 | disposition hospice, home (50) | DRG 189 ==
LOC: EDSEX → EDUNIT# → SUPCPDRO 05:55 → ED 05:55 → ICU 06:57
PROVIDERS: ADMIT Specialist; ATTEND Specialist
DX: J96.22 Acute and chronic respiratory failure with hypercapnia (principal); E43 Unspecified severe protein-calorie malnutrition; C34.90 Malignant neoplasm of unspecified part of unspecified bronchus or lung; J44.1 Chronic obstructive pulmonary disease with (acute) exacerbation; R64 Cachexia; Z68.1 Body mass index [BMI] 19.9 or less, adult; J96.21 Acute and chronic respiratory failure with hypoxia; Z20.822 Contact with and (suspected) exposure to COVID-19; F41.9 Anxiety disorder, unspecified; Z66 Do not resuscitate; R41.3 Other amnesia; J43.9 Emphysema, unspecified; D72.829 Elevated white blood cell count, unspecified; G40.909 Epilepsy, unspecified, not intractable, without status epilepticus; F17.210 Nicotine dependence, cigarettes, uncomplicated; I25.10 Atherosclerotic heart disease of native coronary artery without angina pectoris; M19.90 Unspecified osteoarthritis, unspecified site; F01.50 Vascular dementia, unspecified severity, without behavioral disturbance, psychotic disturbance, mood disturbance, and anxiety; R13.10 Dysphagia, unspecified; Z99.81 Dependence on supplemental oxygen; Z74.01 Bed confinement status; Q85.00 Neurofibromatosis, unspecified; Z86.16 Personal history of COVID-19
CPT/HCPCS: 36415; 36600; 71045; 71260; 80048; 80053; 82803; 83690; 83735; 84100; 84132; 85025; 87040; 87070; 87150; 87181; 87205; 87633; 94640; 94660; 96374; 99285; 99291; A9270; J1170; J1650; J1815; J2060; J8499; J8540; Q0162; Q9967

== ENCOUNTER 2021-10-03 21:15 | Outpatient (CLI) | payer MEDICARE, MEDICAID | END 2021-10-03 21:16 | disposition home or self-care (01) | LOC: EMS 21:15 | PROVIDERS: ATTEND Specialist | DX: J44.1 Chronic obstructive pulmonary disease with (acute) exacerbation (principal); C34.90 Malignant neoplasm of unspecified part of unspecified bronchus or lung; Z51.5 Encounter for palliative care; Z74.01 Bed confinement status | CPT/HCPCS: A0425; A0428 ==